=== PATIENT | female | born 1950 | race Caucasian/White ===

== ENCOUNTER 2024-01-29 22:45 | Inpatient (IN) | payer MEDICARE, MEDICAID, SELFPAY ==
[2024-01-29 22:45] VITALS: BP 155/107; PULSE 116; RESP 17; TEMP 35.7; O2SAT 95; BMI 39.4
--- NOTE | 2024-01-29 22:59 | CT_ITS ---
STUDY: CTA CHEST REASON FOR EXAM: Female, 73 years old patient with chest and back pain. RADIATION DOSAGE (If Supplied By Facility): CTDIvol = ( 26.10 ) mGy, DLP = ( 619.78 ) mGycm TECHNIQUE: The examination was performed with the intravenous administration of 100 mL of IV Isovue-370. Post-processing of the angiographic images was performed, with multiplanar reformation and 3D reconstruction. Individualized dose optimization techniques were used for this CT. COMPARISON: None. FINDINGS: Left-sided intracardiac pacemaker and defibrillator is present. Cardiac monitoring leads are present. The thyroid has multiple nodules with the largest measuring 1.6 cm in greatest dimension. Normal enhancement of the main pulmonary artery and right and left pulmonary arteries. Normal enhancement of the bilateral peripheral pulmonary arteries. There is no demonstrated pulmonary embolism. There is prominence of the main pulmonary arteries with peripheral pulmonary vascular congestion. There is atherosclerotic calcification of the aortic arch with tortuosity. There is no demonstrated aortic dissection. There is cardiomegaly. There are calcifications of the coronary arteries. Normal mediastinum. Normal hilar regions. Normal visualized trachea and bronchi. The lungs are under expanded. There is heterogeneous groundglass attenuation throughout both lungs suggesting possible multifocal pneumonia. Normal pleura. Normal chest wall structures. The bones appear osteopenic. There is increased thoracic kyphosis. Sternum is within normal limits in appearance. There is a large left-sided renal cyst measuring approximately 5.1 cm. Patient has had a cholecystectomy. CT/CTA Chest W/WO Contrast IMPRESSION: 1. No CTA demonstrated pulmonary embolism or arterial dissection. 2. Cardiomegaly and pulmonary vascular congestion. 3. Questionable bilateral multifocal pneumonia. Electronically Signed: Rayna Luevano MD at 0:17 EST ,
--- NOTE | 2024-01-29 22:59 | EKG12_ITS ---
Test Reason : CP Blood Pressure : / mmHG Vent. Rate : 098 BPM Atrial Rate : 000 BPM P-R Int : 000 ms QRS Dur : 062 ms QT Int : 308 ms P-R-T Axes : 000 022 -11 degrees QTc Int : 393 ms Atrial fibrillation with frequent ventricular-paced complexes T wave abnormality, consider inferior ischemia Abnormal ECG Confirmed by Demetrius Bai ([id number]), newspaper copy editor DANIEL FRAZIER ([id number]) on 01/30/2024 9:45:08 AM Referred By: PRACHI Confirmed By:Demetrius Bai
--- NOTE | 2024-01-29 23:01 | EDS_ITS ---
HPI History of Present Illness Chief Complaint: Chest Pain Informant: patient and EMS Onset/Context/Timing Onset: Hours (1) Activity at onset: sudden, onset and activity on onset (Light activity, just after getting out of the shower) Timing: Continuous Quality: Positive for Sharp (Somewhat pleuritic) Location: - (Diffuse chest radiating into her upper back diffusely) Current Severity: Severe Maximum Severity: Severe Worsened By: Breathing (A little/somewhat) Relieved By: Nothing (Given nitroglycerin by EMS, did not help) Associated Symptoms: Positive for Nausea and Dyspnea; Negative for Vomiting, Diaphoresis, Cough, Fever, Lightheadedness or Palpitations Narrative Narrative: 73-year-old female with chest pain as above started just about 1 hour ago. Prehospital EKG showed atrial fibrillation without acute injury pattern on my interpretation. Patient is a poor historian, indicating that her cardiac history involves a pacemaker. She does confirm that she has A-fib as well. She is anticoagulated denies any recent illness or cough or bleeding from anywhere. She denies any leg pain or swelling or orthopnea but this pain is making her feel dyspneic. [facility] Medical History Atrial fibrillation Essential hypertension HLD (hyperlipidemia) Obesity Obstructive sleep apnea Paroxysmal atrial fibrillation Sinus node dysfunction Symptomatic bradycardia Home Medications ascorbic acid (vitamin C) 1,000 mg capsule 1 g PO DAILY 06/20/22 [History Last Taken Unknown] cholecalciferol (vitamin D3) 125 mcg (5,000 unit) capsule 125 mcg PO DAILY 06/20/22 [History Last Taken Unknown] magnesium oxide 400 mg PO DAILY 06/20/22 [History Last Taken Unknown] potassium citrate 99 mg capsule 99 mg PO DAILY 06/20/22 [History Last Taken Unknown] metoprolol tartrate 50 mg tablet 50 mg PO BID #180 tabs 03/23/23 [Rx Last Taken Unknown] dofetilide 250 mcg capsule (Tikosyn) 250 mcg PO Q12H #180 caps 07/23/23 [Rx Last Taken Unknown] rivaroxaban 20 mg tablet (Xarelto) 20 mg PO QPM #90 tabs 07/23/23 [Rx Last Taken Unknown] Allergy/AdvReac Type Severity Reaction Status Date / Time aspirin AdvReac Upset Verified 01/29/24 22:46 Stomach flecainide AdvReac unknown Verified 11/14/23 11:15 Family History Mother CVA (cerebral vascular accident) Father Heart disease Surgical History History of permanent cardiac pacemaker placement (06/21/21) Social History household members: none Smoking Status: Never smoker alcohol intake: current alcohol intake frequency: holidays/special occasions only substance use type: does not use ROS ROS ED Constitutional Constitutional ED: Denies chills or fever(s) Eyes Eyes: Denies change in vision or diplopia ENT ENT ED: Denies rhinorrhea or sore throat Cardiovascular Cardiovascular: Reports chest pain; Denies palpitations Respiratory/Chest Respiratory/Chest: Reports dyspnea; Denies cough Gastrointestinal Gastrointestinal: Reports nausea; Denies abdominal pain, diarrhea or vomiting Genitourinary Genitourinary ED: Denies dysuria or hematuria Musculoskeletal Musculoskeletal: Reports back pain; Denies neck pain Integumentary Denies abscess or rash Neurologic Neurologic: Denies headache(s), paresthesias or weakness Psychiatric Psychiatric: Denies suicidal ideation or suicidal thoughts EXAM Physical Exam Const Vital Signs: 01/29/24 22:45 01/29/24 22:45 01/29/24 23:09 Temperature 96.3 F L Temperature Source Temporal Pulse Rate 116 H Respiratory Rate 17 Respiratory Effort Normal Non-Labored Blood Pressure 155/107 H Blood Pressure Mean 123 Pulse Ox 95 98 Oxygen Delivery Method Room Air Nasal Cannula Oxygen Flow Rate (L/min) 2 01/29/24 23:45 01/30/24 00:45 01/30/24 01:05 Temperature Temperature Source Pulse Rate 120 H 18 L 118 H Respiratory Rate 18 18 17 Respiratory Effort Blood Pressure 167/109 H 138/116 H 143/99 H Blood Pressure Mean 128 123 113 Pulse Ox 98 97 97 Oxygen Delivery Method Room Air Room Air Room Air Oxygen Flow Rate (L/min) Positive well nourished, well developed and obese General Appearance ED: well developed and NAD Nutritional Appearance: obese HEENT Reports moist mucous membranes normocephalic and atraumatic Eyes PERRL and EOMs intact bilaterally Neck full ROM and supple Chest Wall inspection of chest normal and palpation of chest normal Resp normal respiratory effort and clear to auscultation bilaterally Cardio no murmurs Rate: Negative for tachycardic Rhythm: abnormal rhythm irregularly irregular Peripheral Pulses: pulses 2+ throughout GI non-tender and non-distended GI Narrative: Negative Rockwell Auscultation: normoactive bowel sounds Palpation: soft Back/Spine no CVA tenderness General Back: other FROM Extremity normal to inspection Extremity Narrative: No calf tenderness bilaterally General Extremety ED: Negative for edema, pulses abnormal or tenderness General Extremity: Negative for edema or pulses abnormal Neuro oriented x3, CN's II-XII intact bilaterally and no sensory deficits noted Sensorium / Orientation: awake and alert Motor Exam: strength 5/5 throughout Psych Psych Narrative: Very anxious, moaning in pain, uncomfortable but in no distress Skin no rashes or lesions noted and no wounds Heart Score History: Moderately Suspicious ECG: Nonspecific Repolarization Age: >/= 65 years Risk Factors: 1 or 2 Risk Factors Score: 5 MDM MDM MDM Narrative Medical decision making narrative: Patient was very hypertensive 180/112 per EMS, not quite that hypertensive here but this is after nitroglycerin. With sharp somewhat pleuritic discomfort anticoagulated radiating into the back, my concern for the worst case scenario given how uncomfortable the patient is, is for aortic dissection. For this reason, I chose to perform CT angiography of the chest in lieu of a chest x-ray, and in addition gave her morphine, Zofran for her pain. Her EKG shows no acute injury pattern, there are some nonspecific abnormalities that are mostly visible in 3 and aVF. Her initial troponin is within normal limits and the rest of her labs are noted. The CTA is negative for dissection, it showing some bilateral patchy edema which appears nonspecific, I reviewed the images and report which I agree with. There is a question raised about the possibility of pneumonia here. This does not fit the clinical picture. She has had no coughing. Her BNP is in the 200s which is not very high but abnormal. Clinically she does not seem to be in acute congestive heart failure, but there is concern for this, especially given the very high pressures that she had for EMS prior to getting nitroglycerin. In reviewing the system for prior echocardiogram, she had one in 2020 at [facility], there are no records of anything since then. She had normal EF and mildly decreased right ventricular systolic function. I think given all the symptoms although her troponin is negative she should be admitted for further testing and evaluation. History & Record Review Additional record(s) reviewed:: Prior outpatient record (Cardiology visit, labs which there are none; echo) Lab Data Attestation: I reviewed the patient's lab results. Labs: Laboratory Results - last 24 hr 01/29/24 22:25 WBC 7.4 RBC 4.44 Hgb 13.5 Hct 40.4 MCV 91.0 MCH 30.4 MCHC 33.4 RDW Std Deviation 46.0 H RDW Coeff of Chantell 13.8 Plt Count 210 MPV 10.0 Immature Gran % (Auto) 0.100 Neut % (Auto) 29.0 L Lymph % (Auto) 58.7 H [place] % (Auto) 9.1 Eos % (Auto) 2.7 Baso % (Auto) 0.4 Absolute Neuts (auto) 2.2 Absolute Lymphs (auto) 4.37 Nucleated RBC % 0 Sodium 140 Potassium 3.6 Chloride 107 Carbon Dioxide 25.0 Anion Gap 8 BUN 33 H Creatinine 1.02 Estim Creat Clear Calc 48.81 Est GFR (MDRD) Af Amer 68 Est GFR (MDRD) Non-Af 56 L BUN/Creatinine Ratio 32.4 H Glucose 134 H Calcium 9.3 Troponin I High Sens 23 B-Natriuretic Peptide 226.5 H Radiography Diagnostic Testing: Clinical Impression(s) from Imaging Studies Chest CTA 01/29/24 22:59 IMPRESSION: 1. No CTA demonstrated pulmonary embolism or arterial dissection. 2. Cardiomegaly and pulmonary vascular congestion. 3. Questionable bilateral multifocal pneumonia. Electronically Signed: Rayna Luevano MD at 0:17 EST Reading Location ID and State: [address] [place] [address] , Service support , Rhythm Strip Rhythm Strip: A-fib Rate: 98 Ectopy: None EKG Initial EKG: Attestation: I personally reviewed and interpreted this EKG as follows: Interpretation: No Acute Injury Pattern, Atrial Fibrillation and Non- Specific ST Changes Prior EKG tracings: available for review Prior: Unchanged Management Discussion w/another healthcare provider: Hospitalist Discharge Plan Dx/Rx/DC Orders Clinical Impression: Chest pain, Accelerated hypertension, Atrial fibrillation Disposition Disposition: Acute Care Hospital [facility] [place] [facility]
[2024-01-29] MEDS: Ondansetron 4 MG/2 ML Vial IV (23:08)
[2024-01-29] MEDS: Morphine 4 MG/ML Syringe IV (23:08)
[2024-01-29 23:09] VITALS: O2SAT 98
[2024-01-29 23:09] LABS: Absolute Lymphocyte Count 4.37 X10^3/uL (0.83-4.51); Absolute Neutrophil Count 2.2 X10^3/uL (2.0-7.7); Basophil# 0.03 X10^3/uL; Basophil% 0.4 % (0-1); Eosinophils% 2.7 % (0-5); Hematocrit 40.4 % (37-47); Hemoglobin 13.5 g/dL (12.0-15.0); Lymphocyte # 4.37 X10^3/ul (0.83-4.51); Lymphocyte % 58.7 % (19-41); Mean Corp Hgb Conc 33.4 g/dL (32-36); Mean Corpuscular Hgb 30.4 pg (27.0-32.0); Monocyte# 0.68 X10^3/uL; Monocyte% 9.1 % (0-10); NRBC Flagged by Analyzer 0 % (0-5); Neutrophil # 2.15 X10^3/uL (2.7-7.7); Platelet Count 210 K/mm3 (150-450); RBC Distribution Width CV 13.8 % (11.6-14.6); Red Blood Count 4.44 M/mm3 (4.2-5.4); White Blood Count 7.4 K/mm3 (4.4-11.0)
[2024-01-29 23:34] LABS: BNP,B-Type NATRIURETIC PEPTIDE 226.5 pg/mL (0-100)
[2024-01-29 23:37] LABS: Anion Gap 8 (5-15); BUN 33 mg/dL (7-18); BUN/Creat Ratio 32.4 RATIO (10-20); Calcium,Total 9.3 mg/dL (8.5-10.1); Chloride 107 mmol/L (98-107); Creatinine, Serum 1.02 mg/dL (0.55-1.02); EST Glomerular Filtration Rate 56 mL/min (>60); Est Glom Filt Rate - Afr Amer 68 mL/min (>60); Estimated Creatinine Clearance 48.81 ml/min; Glucose 134 mg/dL (74-106); Potassium 3.6 mmol/L (3.5-5.1); Sodium Level 140 mmol/L (136-145); Troponin-I HS (w/2H Reflex) 23 pg/mL (3.0-54.0)
[2024-01-29 23:45] VITALS: BP 167/109; PULSE 120; RESP 18; O2SAT 98
[2024-01-30] VITALS (35 sets, daily range): BP systolic 81–145; BP diastolic 59–116; PULSE 18–118; RESP 14–23; TEMP 35.8–36.8; O2SAT 92–98; BMI 35.6
[2024-01-30 01:06] LABS: Reflex Troponin-HS? (from REC) Y
[2024-01-30] MEDS: Metoclopramide 10 MG/2 ML Vial 2.5 MG IV (01:18)
[2024-01-30] MEDS: Furosemide 20 MG/2 ML VIAL IV (01:19)
--- NOTE | 2024-01-30 01:43 | HP.PCM.HOS_ITS ---
HPI - General General Date of Admission: 01/30/24 Date of Service: 01/30/24 Chief Complaint: Chest pain, dyspnea. HPI Narrative The patient is a 73 y/o F w/ PMHx: Obesity, HTN, HLD, QUENTIN, Symptomatic bradycardia/Sinus node dysfunction s/p pacemaker placement, PAF who presents to the [facility] ED on 01/30/24 with history of onset of chest discomfort noted to come on suddenly approximately 1 hour prior to to ED arrival with light activity specifically when she just been getting out of the shower noted to be continuous, somewhat pleuritic and sharp in nature although diffuse and radiating up into her upper back with nausea, dyspnea with no emesis or diaphoresis prompting eventual ED evaluation. Patient denies any marked recent weight gain, orthopnea, lower extremity swelling. She notes at its worst at the beginning her chest discomfort was rated 10 out of 10 in severity and is now down to 5-6 out of 10 in severity. She is laying completely flat in the ED bed and does not appear severely uncomfortable. Workup in the ED included T96.3, heart rate initially 116, BP 155/107, respiratory rate 18, 98% on room air, CBC with WBC 7.4, N1 13.5, platelet 210 without marked shift, BMP with BUN/1 and 33/1.02, glucose 134, BNP 226.5, initial troponin 23, chest CTA with no PE or arterial dissection, cardiomegaly and pulmonary vascular congestion with questionable bilateral multifocal pneumonia, EKG with atrial fibrillation with no acute evidence of ischemia. In the ED patient ministered Lasix 20 mg IV x 1, metoclopramide 2.5 mg IV x 1, morphine 4 mg IV x 1, Zofran 4 mg IV x 1. [facility] Medical History Atrial fibrillation Essential hypertension HLD (hyperlipidemia) Obesity Obstructive sleep apnea Paroxysmal atrial fibrillation Sinus node dysfunction Symptomatic bradycardia Home Medications ascorbic acid (vitamin C) 1,000 mg capsule 1 g PO DAILY 06/20/22 [History Last Taken Unknown] cholecalciferol (vitamin D3) 125 mcg (5,000 unit) capsule 125 mcg PO DAILY 06/20/22 [History Last Taken Unknown] magnesium oxide 400 mg PO DAILY 06/20/22 [History Last Taken Unknown] potassium citrate 99 mg capsule 99 mg PO DAILY 06/20/22 [History Last Taken Unknown] metoprolol tartrate 50 mg tablet 50 mg PO BID #180 tabs 03/23/23 [Rx Last Taken Unknown] dofetilide 250 mcg capsule (Tikosyn) 250 mcg PO Q12H #180 caps 07/23/23 [Rx Last Taken Unknown] rivaroxaban 20 mg tablet (Xarelto) 20 mg PO QPM #90 tabs 07/23/23 [Rx Last Taken Unknown] Allergy/AdvReac Type Severity Reaction Status Date / Time aspirin AdvReac Upset Verified 01/29/24 22:46 Stomach flecainide AdvReac unknown Verified 11/14/23 11:15 Family History Mother CVA (cerebral vascular accident) Father Heart disease Surgical History History of permanent cardiac pacemaker placement (06/21/21) Social History household members: none Smoking Status: Never smoker alcohol intake: current alcohol intake frequency: holidays/special occasions only substance use type: does not use ROS ROS Narrative Admission Review of Systems: CONSTITUTIONAL: No weight loss, fever, chills, + weakness or fatigue. HEENT: Eyes: No visual loss, blurred vision, double vision or yellow sclerae. Ears, Nose, Throat: No hearing loss, sneezing, congestion, runny nose or sore throat. SKIN: No rash or itching, lesions, wounds. CARDIOVASCULAR: + Chest pain, palpitations, chronic bilateral lower extremity not markedly pitting edema. No orthopnea, syncopal events. RESPIRATORY: + Dyspnea. No cough or sputum, wheezing, hemoptysis. GASTROINTESTINAL: No anorexia, nausea, vomiting or diarrhea, abdominal pain, melena, BRBPR. GENITOURINARY: No dysuria, frequency, urgency or retention. NEUROLOGICAL: No headache, dizziness, syncope, paralysis, ataxia, numbness or tingling in the extremities, focal weakness, change in bowel or bladder control, seizure. MUSCULOSKELETAL:+ muscle, back pain, joint pain or stiffness. HEMATOLOGIC: No anemia, bleeding or bruising. LYMPHATICS: No enlarged nodes. No history of splenectomy. PSYCHIATRIC: No history of depression or anxiety. ENDOCRINOLOGIC: No reports of sweating, cold or heat intolerance. No polyuria or polydipsia. ALLERGIES: No history of asthma, hives, eczema or rhinitis. Vital Signs Vital Signs Vital Signs: 01/29/24 22:45 01/29/24 22:45 01/29/24 23:09 Temperature 96.3 F L Temperature Source Temporal Pulse Rate 116 H Respiratory Rate 17 Respiratory Effort Normal Non-Labored Blood Pressure 155/107 H Blood Pressure Mean 123 Pulse Ox 95 98 Oxygen Delivery Method Room Air Nasal Cannula Oxygen Flow Rate (L/min) 2 01/29/24 23:45 01/30/24 00:45 01/30/24 01:05 Temperature Temperature Source Pulse Rate 120 H 18 L 118 H Respiratory Rate 18 18 17 Respiratory Effort Blood Pressure 167/109 H 138/116 H 143/99 H Blood Pressure Mean 128 123 113 Pulse Ox 98 97 97 Oxygen Delivery Method Room Air Room Air Room Air Oxygen Flow Rate (L/min) Weight Weight: 201 lb 11.567 oz Body Mass Index (BMI) 39.4 Physical Exam Narrative Physical Examination: General: Awake, alert, oriented x 3 and cooperative, laying in the ED bed, fatigued appearing, notes discomfort is improved to 5-6 out of 10 in severity. Skin: Normal color, normal turgor, no icterus, no cyanosis. HEENT: AT/NC, EOMI, PERRLA, mildly dry MM, no carotid bruits, despite presentation no marked JVD noted however thickened neck makes evaluation difficult. Lungs: Diminished, greater bases, no evidence of any distress, very distant Rales bases, no rhonchi or wheezing. Heart: Irregular regular; no gallop, rub audible. Abdomen: Soft, obese, NTTP, ND, distant BS, no appreciated HSM Extremities: No cyanosis, no clubbing, mild ankle to distal [place] not markedly pitting edema. Neurological: Patient awake, alert, oriented as noted, cognitive function intact; pupils equally reactive to light and accommodation, cranial nerves grossly normal, moving all 4 extremities, no focal deficits, strength moderately to severely globally decreased secondary to acute presentation complaints. Psychiatric: Affect appears flat, fatigued, no acute evidence of depressive or anxiety feelings. Results Lab / Micro Data 01/29/24 22:25 01/29/24 22:25 Labs: Laboratory Results - last 24 hr 01/29/24 22:25: WBC 7.4, RBC 4.44, Hgb 13.5, Hct 40.4, MCV 91.0, MCH 30.4, MCHC 33.4, RDW Std Deviation 46.0 H, RDW Coeff of Chantell 13.8, Plt Count 210, MPV 10.0, Immature Gran % (Auto) 0.100, Neut % (Auto) 29.0 L, Lymph % (Auto) 58.7 H, [place] % (Auto) 9.1, Eos % (Auto) 2.7, Baso % (Auto) 0.4, Absolute Neuts (auto) 2.2, Absolute Lymphs (auto) 4.37, Nucleated RBC % 0, Sodium 140, Potassium 3.6, Chloride 107, Carbon Dioxide 25.0, Anion Gap 8, BUN 33 H, Creatinine 1.02, Estim Creat Clear Calc 48.81, Est GFR (MDRD) Af Amer 68, Est GFR (MDRD) Non-Af 56 L, BUN/Creatinine Ratio 32.4 H, Glucose 134 H, Calcium 9.3, Troponin I High Sens 23, B-Natriuretic Peptide 226.5 H Rhythm Strip Rhythm Strip: A-fib Rate: 98 Ectopy: None Imaging Radiology Impression Chest CTA 01/29/24 22:59 IMPRESSION: 1. No CTA demonstrated pulmonary embolism or arterial dissection. 2. Cardiomegaly and pulmonary vascular congestion. 3. Questionable bilateral multifocal pneumonia. Electronically Signed: Rayna Luevano MD at 0:17 EST Reading Location ID and State: [address] [place] [address] , Service support , Assessment & Plan Assessment/Plan (1) Chest pain: PLAN: Plan The patient is a 73 y/o F w/ PMHx: Obesity, HTN, HLD, QUENTIN, Symptomatic bradycardia/Sinus node dysfunction s/p pacemaker placement, PAF who presents to the [facility] ED on 01/30/24 with history of onset of chest discomfort noted to come on suddenly approximately 1 hour prior to to ED arrival with light activity specifically when she just been getting out of the shower noted to be continuous, somewhat pleuritic and sharp in nature although diffuse and radiating up into her upper back with nausea, dyspnea with no emesis or diaphoresis prompting eventual ED evaluation. Patient denies any marked recent weight gain, orthopnea, lower extremity swelling. #1. Paroxsymal atrial fibrillation w/ RVR with associated volume overload/HF unclear type secondary to ongoing RVR with associated also accelerated hypertension: EKG in ED w/ atrial fibrillation w/ RVR. Patient administered Lasix 20 mg IV x 1 in ED. Will admit to PCU, maintain on telemetry, obtain cardiac enzyme serial set, obtain magnesium level, obtain ECHO, obtain TSH level. Will continue patient home Xarelto, metoprolol with dose now, dofetilide regimen with dose now. Will continue pulse dose Lasix diuresis. If necessary may also consider transitioning patient from metoprolol and overlapping with Cardizem drip. If ongoing issues with RVR may consider cardiology consultation. Device interrogation requested. #2. Hyperglycemia, mild: Admission glucose 134, if repeat CMP in a.m. with elevation may consider hemoglobin A1c to further assess. #3. Hypertension: Will continue patient home metoprolol regimen, as needed IV hydralazine. #4. Hyperlipidemia: Currently not on statin therapy, defer to outpatient, FLP in AM. #5. PAF: Will continue patient home dofetilide and Xarelto home regimen. #6. History sinus node dysfunction/symptomatic bradycardia: Status post permanent pacemaker placement. Interrogation requested. #7. Obesity: Weight loss and lifestyle changes encouraged. #8. QUENTIN: CPAP nightly #9. DVT prophylaxis: Will continue patient home Xarelto regimen. #10. CODE status: Patient HCPOA and living will are not in place but she notes her son Eladio would be her decision maker if necessary. Discussed CODE status at length including difference between FULL code, DNR-CCA and DNR-CC status. Following discussions about the differences in these status, requested Full Code status. Advanced Care Planning Face to Face Time: 16 minutes. Charges/Coding Visit Charges Inpatient E&M: 87764 Init Hosp L3 Procedures Hospitalists Procedures: 82172 Advncd Care Plan 30 Min
[2024-01-30 02:18] LABS: Magnesium 2.2 mg/dL (1.6-2.6)
--- NOTE | 2024-01-30 02:25 | ECHOD_ITS ---
Reason For Study: ATRIAL FIBRILLATION/ATRIAL FLUTTER Procedure This was a 2D Doppler, Color Flow transthoracic echocardiogram. Exam performed portable in ICU/CCU. Left Ventricle Normal size and thickness. The left ventricular ejection fraction is 40 %. Stage 3 diastolic dysfunction. Right Ventricle Normal right ventricle. There is a pacemaker lead in the right ventricle. Atria The left atrium is moderately enlarged. ICD or pacer leads identified within the right atrium. Mitral Valve There is Moderate focal posterior mitral annular calcification. Trivial mitral valve insufficiency. Tricuspid Valve Mild to moderate (1-2+) eccentric tricuspid valve insufficiency. Right ventricular systolic pressure estimated to be 46 mmHg. Aortic Valve Trisinus/trileaflet aortic valve. Pulmonic Valve The pulmonic valve is not well visualized. Trivial pulmonic valve insufficiency. Great Vessels Normal sized aortic root. Pericardium/Pleural No pericardial effusion. MMode/2D Measurements & Calculations LVIDd: 3.9 cm IVSd: 1.1 cm Ao root diam: 3.2 cm LVIDs: 2.8 cm LVPWd: 1.0 cm FS: 28.9 % LAV(MOD-bp): 79.1 ml LVAd ap4: 19.7 cm2 SV(MOD-sp4): 18.6 ml LAV(MOD-bp) Indexed: 42.2 ml/m2 LVLd ap4: 6.6 cm LAV(MOD-sp2): 75.6 ml EDV(MOD-sp4): 48.0 ml LAV(MOD-sp4): 75.4 ml EDV(sp4-el): 50.4 ml LVAs ap4: 15.2 cm2 LVLs ap4: 6.4 cm ESV(MOD-sp4): 29.4 ml ESV(sp4-el): 30.6 ml EF(MOD-sp4): 38.8 % EF(sp4-el): 39.3 % SV(sp4-el): 19.8 ml LA A4 area: 24.3 cm2 LA dimension(2D): 3.9 cm RA A4 area: 10.5 cm2 TAPSE: 1.7 cm Time Measurements MV dec time: 0.15 sec Doppler Measurements & Calculations MV E max placido: 79.4 cm/sec Lat Peak E' Placido: 8.7 cm/sec Med Peak E' Placido: 6.9 cm/sec MV A max placido: 34.2 cm/sec E/E' lat: 9.1 E/E' med: 11.6 MV E/A: 2.3 Ao V2 max: 136.9 cm/sec LV V1 max: 92.4 cm/sec MV dec slope: 538.2 cm/sec2 Ao max P.6 mmHg LV V1 max P.4 mmHg Ao V2 mean: 96.3 cm/sec LV V1 mean P.0 mmHg Ao mean P.2 mmHg LV V1 mean: 67.7 cm/sec Ao V2 VTI: 24.0 cm LV V1 VTI: 18.2 cm AV (velocity ratio): 0.76 MR max placido: 324.7 cm/sec PA V2 max: 74.3 cm/sec TR max placido: 322.1 cm/sec MR max P.2 mmHg PA V2 mean: 44.5 cm/sec TR max P.5 mmHg MR mean placido: 277.1 cm/sec MR mean P.6 mmHg MR VTI: 109.7 cm ECHO/Echo Complete Interpretation Summary There is a large sized apical, septal, and anteroseptal wall motion abnormality with hypokinesis of the segments. The left ventricular ejection fraction is 40 %. Stage 3 diastolic dysfunction. The left atrium is moderately enlarged. There is Moderate focal posterior mitral annular calcification. Mild to moderate (1-2+) eccentric tricuspid valve insufficiency. Right ventricular systolic pressure estimated to be 46 mmHg. Ordering Physician: Bing Ruth Referring Physician: Milli Man Performed By: Adalgisa Limon, CARLOS, RVT
[2024-01-30 02:29] LABS: Troponin-I HS 1581 pg/mL (3.0-54.0)
[2024-01-30] MEDS: Aspirin 325 MG Tablet PO (03:13)
[2024-01-30] MEDS: Metoprolol Tartrate 50 MG Tablet PO ×3 (03:13→15:25)
--- NOTE | 2024-01-30 03:39 | EKG12_ITS ---
Test Reason : CP admit Blood Pressure : / mmHG Vent. Rate : 109 BPM Atrial Rate : 000 BPM P-R Int : 000 ms QRS Dur : 076 ms QT Int : 356 ms P-R-T Axes : 000 061 005 degrees QTc Int : 479 ms Atrial fibrillation with rapid ventricular response with premature ventricular or aberrantly conducte d complexes Low voltage QRS Lateral ischemic nonspecific ST changes Abnormal ECG Confirmed by Demetrius Bai ([id number]), school photograph editor DANIEL FRAZIER ([id number]) on 01/30/2024 1:34:39 PM Referred By: Faraz Confirmed By:Demetrius Bai
[2024-01-30 04:28] LABS: Absolute Lymphocyte Count 0.68 X10^3/uL (0.83-4.51); Absolute Neutrophil Count 6.4 X10^3/uL (2.0-7.7); Basophil# 0.02 X10^3/uL; Basophil% 0.3 % (0-1); Eosinophil# 0.02 X10^3/uL; Eosinophils% 0.3 % (0-5); Hematocrit 42.3 % (37-47); Hemoglobin 13.8 g/dL (12.0-15.0); Lymphocyte # 0.68 X10^3/ul (0.83-4.51); Lymphocyte % 9.1 % (19-41); Mean Corp Hgb Conc 32.6 g/dL (32-36); Mean Corpuscular Hgb 30.1 pg (27.0-32.0); Mean Corpuscular Volume 92.2 fL (81-99); Mean Platelet Vol. 8.9 fl (6.2-12.0); Monocyte# 0.29 X10^3/uL; Monocyte% 3.9 % (0-10); NRBC Flagged by Analyzer 0 % (0-5); Neutrophil # 6.44 X10^3/uL (2.7-7.7); Neutrophil % 85.9 % (47-70); Platelet Count 186 K/mm3 (150-450); RBC Distribution Width CV 13.8 % (11.6-14.6); RBC Distribution Width SD 46.5 fl (35.1-43.9); Red Blood Count 4.59 M/mm3 (4.2-5.4); White Blood Count 7.5 K/mm3 (4.4-11.0)
[2024-01-30 04:38] LABS: Partial Thromboplast Time 27.1 Seconds (24.1-36.2)
[2024-01-30 04:55] LABS: ALB/GLOB Ratio 1.1 RATIO (0.9-2.4); AST(SGOT) 93 U/L (15-37); Alanine Aminotransfer ALT/SGPT 31 U/L (13-56); Albumin, Serum 3.9 g/dL (3.2-5.0); Alkaline Phosphatase 96 U/L (45-117); Anion Gap 9 (5-15); BUN 29 mg/dL (7-18); BUN/Creat Ratio 24.2 RATIO (10-20); Calcium,Total 8.9 mg/dL (8.5-10.1); Chloride 103 mmol/L (98-107); EST Glomerular Filtration Rate 47 mL/min (>60); Est Glom Filt Rate - Afr Amer 56 mL/min (>60); Estimated Creatinine Clearance 40.88 ml/min; Globulin 3.7 g/dL (2.2-4.2); Glucose 178 mg/dL (74-106); Potassium 4.2 mmol/L (3.5-5.1); Protein, Total 7.6 g/dL (6.4-8.2); Sodium Level 140 mmol/L (136-145); Thyroid Stim Hormone (TSH) 1.21 uIU/mL (0.358-3.74)
[2024-01-30 04:58] LABS: Troponin-I HS 8805 pg/mL (3.0-54.0)
[2024-01-30] MEDS: Morphine 2 MG/ML Syringe IV ×3 (05:57→20:28)
[2024-01-30] MEDS: 0.9% Saline Lock 10 ML Syringe IV (05:57)
--- NOTE | 2024-01-30 08:55 | CON.PCM.CA_ITS ---
Assessment & Plan Assessment/Plan (1) Paroxysmal atrial fibrillation: PLAN: Historically the patient has been in atrial fibrillation 32% of the time on her last pacer check. This will be reevaluated today to see when she went into this atrial fibs. Currently her rate is not well-controlled we will increase her Lopressor to 50 mg 3 times daily and continue the dofetilide. The patient is on long-term Xarelto which she has been tolerating without nuisance bleeding. (2) History of permanent cardiac pacemaker placement: PLAN: The patient's pacer will be interrogated it has been followed in the [facility]. Historically she has been 32% of the time in atrial fibrillation. (3) Non-STEMI (non-ST elevated myocardial infarction): PLAN: The patient presented with atrial fibrillation the emergency department and hypertension with a heart rate in the 100-120 range. She also had a CTA that suggested either pneumonia or congestion and her BNP was minimally elevated at 226 which could be explained by her atrial fibrillation and obesity and obstructive sleep apnea. She is also hypertensive. However the patient's troponins were positive at 1581 on the second set were 8825. Given her chest sensations in the nonevolving ischemic looking EKG I feel this represents a non- STEMI. However, her creatinine has gone up from 1.0-1.2 with a dye exposure from the CTA and she received Xarelto yesterday. At this point time I would prefer to defer invasive coronary evaluation for 24 hours and we will treat her with IV heparin increase her beta-blockade to slow her heart rate and manage her conservatively. An echocardiogram is being performed if this shows significant wall motion abnormality we may have to reevaluate taken her to the [facility] earlier. (4) Accelerated hypertension: PLAN: The patient's blood pressure is better controlled and with the addition of the added Lopressor should be of some assistance. (5) Renal insufficiency: PLAN: Patient's creatinine increased after dye exposure yesterday for the CTA. Will reevaluate her basic metabolic panel in the morning and would like to try and defer further contrast exposure for 24 to 48 hours if possible. PLAN: Plan 1. Improve rate control by adding additional Lopressor making it 50 mg 3 times daily. 2. Will defer catheterization for 24 hours and reevaluate renal function. Should the patient have persistent chest symptoms we may have to reevaluate this and proceed with left heart catheterization urgently. 3. Follow-up echo and pacer check. HPI Consult Data Date of Consult: 01/30/24 HPI Narrative Reason for Consultation: A.fib with RVR and chest pain HPI Narrative: AGUILAR HILL, is a 73 F who presents presents with atrial fibrillation with rapid ventricular response. She carries a history of paroxysmal atrial fibrillation sick sinus syndrome hypertension obstructive sleep apnea and hyperlipidemia. She does not carry a history of coronary artery disease but her CTA done last night to rule out a pulmonary embolus showed calcified coronaries. There is also question of pneumonia versus congestion. Her BNP was elevated at 226 but she is also in atrial fibs. She is also obese and has obstructive sleep apnea. Her creatinine originally was 1.0 and after the CTA this morning it was up to 1.2. Giving creatinine clearance of 47. The CTA did not demonstrate any aortic dissection or pulmonary emboli. The patient does note that the pain seemed to change with respiration at 1 time she tells me it makes it worse the other times she says it is worse when she does not take of breath. The patient notes at home in the past when her heart rate gets up she can tell it because she is very fatigued. She denies having this type of chest discomfort prior to this admission. The patient continues to complain of chest discomfort it seems to correlate with her rapid ventricular rate when it is up and she reports it is much better than it was last night but it is still present. Her EKG repeated this morning shows an irregular rate and rhythm she is tachycardic at 109 she has some nonspecific ST-T changes that do look somewhat ischemic in the lateral leads. These are not evolving and are unchanged from yesterday. The patient has a permanent pacemaker in place done at [facility] for sick sinus syndrome. She has been followed in the [facility] office for atrial fibrillation and has on her last check 32% high atrial rates. She has failed Tikosyn due to side effects and is currently on dofetilide 250 mg twice daily. She is also on beta-annabel therapy but her heart rate remains in the 100-110 range. At times it jumps up in the 1 4150 range. The patient has been on long-term Xarelto and denies any nuisance bleeding. Since admission her Xarelto has been held she is to start heparin later today. She has received metoprolol 50 mg this will be increased from tw ice daily to 3 times daily dosing regiment for rate control. The patient was last cardioverted in April 2023. But since that point in time she has been in and out of atrial fibs on her pacer checks averaging about 32% of the time and atrial fibs. An echocardiogram is pending at this time. [facility] Medical History Atrial fibrillation Essential hypertension HLD (hyperlipidemia) Obesity Obstructive sleep apnea Paroxysmal atrial fibrillation Sinus node dysfunction Symptomatic bradycardia Home Medications ascorbic acid (vitamin C) 1,000 mg capsule 1 g PO DAILY . 06/20/22 [History Last Taken Unknown] cholecalciferol (vitamin D3) 125 mcg (5,000 unit) capsule 125 mcg PO DAILY . 06/20/22 [History Last Taken Unknown] magnesium oxide 400 mg PO DAILY . 06/20/22 [History Last Taken Unknown] potassium citrate 99 mg capsule 99 mg PO DAILY 06/20/22 [History Last Taken Unknown] metoprolol tartrate 50 mg tablet 50 mg PO BID #180 tabs 03/23/23 [Rx Last Taken 01/29/24] dofetilide 250 mcg capsule (Tikosyn) 250 mcg PO Q12H #180 caps 07/23/23 [Rx Last Taken 01/29/24] rivaroxaban 20 mg tablet (Xarelto) 20 mg PO QPM #90 tabs 07/23/23 [Rx Last Taken Unknown] Allergy/AdvReac Type Severity Reaction Status Date / Time aspirin AdvReac Upset Verified 01/29/24 22:46 Stomach flecainide AdvReac unknown Verified 11/14/23 11:15 Family History Mother CVA (cerebral vascular accident) Father Heart disease Surgical History History of permanent cardiac pacemaker placement (06/21/21) Social History household members: none Smoking Status: Never smoker alcohol intake: current alcohol intake frequency: holidays/special occasions only substance use type: does not use ROS Constitutional Constitutional: Reports as per HPI Eyes Eyes: Reports systems reviewed and no addt'l complaints, except as documented ENT HEENT: Reports systems reviewed and no addt'l complaints, except as documented Cardiovascular Cardiovascular: Reports as per HPI Respiratory/Chest Respiratory/Chest: Reports as per HPI Gastrointestinal Gastrointestinal: Reports systems reviewed and no addt'l complaints, except as documented Genitourinary Genitourinary: Reports systems reviewed and no addt'l complaints, except as documented Musculoskeletal Musculoskeletal: Reports systems reviewed and no addt'l complaints, except as documented Integumentary Integumentary: Reports systems reviewed and no addt'l complaints, except as documented Neurologic Neurologic: Reports systems reviewed and no addt'l complaints, except as documented Psychiatric Psychiatric: Reports systems reviewed and no addt'l complaints, except as documented Endocrine Endocrinology: Reports systems reviewed and no addt'l complaints, except as documented Hematologic/Lymphatic Hematologic/Lymphatic: Reports systems reviewed and no addt'l complaints, except as documented Allergic/Immunologic Allergic/Immunologic: Reports systems reviewed and no addt'l complaints, except as documented Physical Exam Const oriented x3 Constitutional Narrative: Appears uncomfortable lying in the bed. HEENT normocephalic Eyes EOMs intact bilaterally Neck no JVD and no carotid bruits Chest inspection of chest normal Resp normal respiratory effort Auscultation: crackles bilateral lower Cardio Rate: tachycardic Rhythm: abnormal rhythm irregularly irregular Heart Sounds: S1 normal and S2 normal; Negative for click, gallop or murmur Peripheral Pulses: radial pulses present bilateral 2+, femoral pulses present bilateral 1+ and posterior tibial pulses present bilateral diminished GI normal to inspection, nondistended, normoactive bowel sounds Extremity no pedal edema Extremity Narrative: Thick ankles but no definitive edema. Skin no rashes or lesions noted Neuro Neuro Narrative: Awake and oriented. Psych mental status grossly normal Risk Stratification Risk Stratification Applicable: Yes Age >/= 65: Yes >/= 3 CAD Risk Factors (HTN, HLD, DM, family hx of CAD, or current smoker): Yes Aspirin Use in the Past 7 Days: No Severe Angina (>/= episodes in 24 hours): Yes EKG ST Changes >/= 0.5mm: Yes Positive Cardiac Marker: Yes CHRIS Risk Stratification Score: 5 CHRIS % Risk: 25% Risk Charges/Coding Visit Charges Inpatient E&M: 61819 Init Hosp L3 Objective Data Vital Signs: Vital Signs Temp Pulse Resp BP Pulse Ox O2 Del Method O2 Flow Rate 98.3 F 113 H 22 H 140/109 H 96 Nasal Cannula 2 01/30/24 08:26 01/30/24 08:33 01/30/24 08:26 01/30/24 08:26 01/30/24 08:26 01/30/24 08:39 01/30/24 08:39 Oxygen Flow Rate (L/min) 2 Oxygen Delivery Method Nasal Cannula Weight: 188 lb 14.978 oz Body Mass Index (BMI) 35.6 Intake & Output: Intake and Output for Last 24 Hours 01/28/24 01/29/24 01/30/24 23:59 23:59 23:59 Intake Total 100 / 100 Output Total 800 / 800 Balance 100 / 100 -800 / -800 Lab / Micro Data Attestation: I reviewed the patient's lab results. 01/30/24 04:20 01/30/24 04:20 Labs: Laboratory Results - last 24 hr 01/29/24 22:25: WBC 7.4, RBC 4.44, Hgb 13.5, Hct 40.4, MCV 91.0, MCH 30.4, MCHC 33.4, RDW Std Deviation 46.0 H, RDW Coeff of [place] 13.8, Plt Count 210, MPV 10.0, Immature Gran % (Auto) 0.100, Neut % (Auto) 29.0 L, Lymph % (Auto) 58.7 H, [place] % (Auto) 9.1, Eos % (Auto) 2.7, Baso % (Auto) 0.4, Absolute Neuts (auto) 2.2, Absolute Lymphs (auto) 4.37, Nucleated RBC % 0, Sodium 140, Potassium 3.6, Chloride 107, Carbon Dioxide 25.0, Anion Gap 8, BUN 33 H, Creatinine 1.02, Estim Creat Clear Calc 48.81, Est GFR (MDRD) Af Amer 68, Est GFR (MDRD) Non-Af 56 L, BUN/Creatinine Ratio 32.4 H, Glucose 134 H, Calcium 9.3, Troponin I High Sens 23, B-Natriuretic Peptide 226.5 H 01/30/24 01:23: Magnesium 2.2, Troponin I High Sens 1581 H* 01/30/24 04:20: WBC 7.5, RBC 4.59, Hgb 13.8, Hct 42.3, MCV 92.2, MCH 30.1, MCHC 32.6, RDW Std Deviation 46.5 H, RDW Coeff of [place] 13.8, Plt Count 186, MPV 8.9, Immature Gran % (Auto) 0.500, Neut % (Auto) 85.9 H, Lymph % (Auto) 9.1 L, [place] % (Auto) 3.9, Eos % (Auto) 0.3, Baso % (Auto) 0.3, Absolute Neuts (auto) 6.4, Absolute Lymphs (auto) 0.68 L, Nucleated RBC % 0, APTT 27.1, Sodium 140, Potassium 4.2, Chloride 103, Carbon Dioxide 28.0, Anion Gap 9, BUN 29 H, Creatinine 1.20 H, Estim Creat Clear Calc 40.88, Est GFR (MDRD) Af Amer 56 L, Est GFR (MDRD) Non-Af 47 L, BUN/Creatinine Ratio 24.2 H, Glucose 178 H, Calcium 8.9, Total Bilirubin 0.40, AST 93 H, ALT 31, Alkaline Phosphatase 96, Troponin I High Sens 8805 H*, Total Protein 7.6, Albumin 3.9, Globulin 3.7, Albumin/Globulin Ratio 1.1, TSH 1.21 Rhythm Strip Rhythm Strip: A-fib Rate: 105 Ectopy: None Cardiology Labs/Tests 01/29/24 22:25: WBC 7.4, RBC 4.44, Hgb 13.5, Hct 40.4, MCV 91.0, MCH 30.4, MCHC 33.4, Plt Count 210, MPV 10.0, Immature Gran % (Auto) 0.100, Neut % (Auto) 29.0 L, Lymph % (Auto) 58.7 H, [place] % (Auto) 9.1, Eos % (Auto) 2.7, Baso % (Auto) 0.4, Absolute Neuts (auto) 2.2, Nucleated RBC % 0, Sodium 140, Potassium 3.6, Chloride 107, Carbon Dioxide 25.0, Anion Gap 8, BUN 33 H, Creatinine 1.02, Est GFR (MDRD) Af Amer 68, Est GFR (MDRD) Non-Af 56 L, BUN/Creatinine Ratio 32.4 H, Glucose 134 H, Calcium 9.3, B-Natriuretic Peptide 226.5 H 01/30/24 01:23: Magnesium 2.2 01/30/24 04:20: WBC 7.5, RBC 4.59, Hgb 13.8, Hct 42.3, MCV 92.2, MCH 30.1, MCHC 32.6, Plt Count 186, MPV 8.9, Immature Gran % (Auto) 0.500, Neut % (Auto) 85.9 H , Lymph % (Auto) 9.1 L, [place] % (Auto) 3.9, Eos % (Auto) 0.3, Baso % (Auto) 0.3, Absolute Neuts (auto) 6.4, Nucleated RBC % 0, APTT 27.1, Sodium 140, Potassium 4.2, Chloride 103, Carbon Dioxide 28.0, Anion Gap 9, BUN 29 H, Creatinine 1.20 H , Est GFR (MDRD) Af Amer 56 L, Est GFR (MDRD) Non-Af 47 L, BUN/Creatinine Ratio 24.2 H, Glucose 178 H, Calcium 8.9, Total Bilirubin 0.40 Rhythm: EKG: ECHO: Stress Test: Cardiac Cath: PCI: CT Surgery: Holter monitor: EPS: PPM: CXR: Chest CT Scan: Radiography Diagnostic Testing: Radiology Impression Chest CTA 01/29/24 22:59 IMPRESSION: 1. No CTA demonstrated pulmonary embolism or arterial dissection. 2. Cardiomegaly and pulmonary vascular congestion. 3. Questionable bilateral multifocal pneumonia. Electronically Signed: Rayna Luevano MD at 0:17 EST Reading Location ID and State: [address] [place] [address] , Service support , EKG Follow-up EKG: Attestation: I personally reviewed and interpreted this EKG as follows: Interpretation: Repeat ECG showed atrial fibrillation with a heart rate of 109 bpm there were no new changes from the original EKG which had nonspecific ST changes that were suggestive of lateral ischemia. There was no evolution of the ST segments.
--- NOTE | 2024-01-30 10:12 | CASEMGMT ---
KRISHNA MALIK Assessment Face to Face with patient for initial transition planning/care coordination assessment. KRISHNA MALIK introduced self and role at [facility], pt voices understanding. Pt is A&Ox4 and is resting comfortably in bed and is calm. Pt family at bedside. Care providers, pharmacy, and demographics verified. Admitting dx: PAF RVR, HF LACE Strata: 1 PCP: Magda Specialists: B[facility] Preferred Pharmacy: [facility] Insurance: [facility] [facility], Secondary is [facility] Prescription Benefit: Yes LNOK: Eladio De La Torre (Son) Living Arrangements: Pt lives alone on the 2nd floor of an apartment building with a flight of steps to access with HR. Pt states that she normally has no issues using the steps. ADLs/IADLs: Pt states she is Ind at baseline Transportation: Pt drives. Pt brother or children can drive the pt. DME: Pt is currently on O2 here for comfort. Pt denies home O2 and does not want to set up a preferred DME company at this time. Pt states that she does not have a walker or cane at home. Pt questioned if she would want a prescription for a walker and the pt declined. Pt denies all DME uses or needs at time of assessment. HHC/SNF: Denies history or needs Pt?s goal: Home Plan: TBD. Pt 6 click is 16 at this time. Pt states that she wants to DC home with no additional needs. Pt refuses HHC and OP therapy at time of assessment. Dr. Watson states that the plan is for the pt to get a heart cath today. TANYA Yates elementary assistant teacher states she will make a tertiary list for the pt incase of pt transfer. CM to follow in the case that pt DC home and will also follow for anticoagulants. Ekta Luevano RN, CM
[2024-01-30] MEDS: Dofetilide 250 MCG Capsule PO (10:41)
[2024-01-30] MEDS: Pantoprazole Sodium 20 MG Tablet PO ×2 (10:42→22:53)
[2024-01-30] MEDS: Ondansetron 4 MG/2 ML Vial IV ×2 (10:57→20:23)
--- NOTE | 2024-01-30 10:58 | CASEMGMT ---
Insurance review for hospitals In-network with?[employer] MCR insurance if transfer is recommended is as follows:?[facility], [place], [facility], [facility], [facility], [facility]), [facility], [place], and . Trudy Raza, Discharge Planning Asst.
--- NOTE | 2024-01-30 11:23 | PN.CARD_ITS ---
Subjective Subjective Patient continues to have chest discomfort this morning and echocardiogram reveals apical wall motion abnormality. Despite her heart rate being better controlled she continues to have the symptoms and has troponins of 8800. The patient and family are in the room I discussed the situation with them going over the bump in her creatinine after the CTA as well as her Xarelto medication. Given these objective evidence of LAD distribution compromise I would recommend that we proceed with left heart catheterization via the right radial approach today. Objective Data Vital Signs: Vital Signs Temp Pulse Resp BP Pulse Ox O2 Del Method O2 Flow Rate 98.3 F 113 H 22 H 140/109 H 96 Nasal Cannula 2 01/30/24 08:26 01/30/24 08:33 01/30/24 08:26 01/30/24 08:26 01/30/24 08:26 01/30/24 08:39 01/30/24 08:39 Oxygen Flow Rate (L/min) 2 Oxygen Delivery Method Nasal Cannula Weight: 188 lb 14.978 oz Body Mass Index (BMI) 35.6 Intake & Output: Intake and Output for Last 24 Hours 01/28/24 01/29/24 01/30/24 23:59 23:59 23:59 Intake Total 100 / 100 Output Total 800 / 800 Balance 100 / 100 -800 / -800 Lab / Micro Data 01/30/24 04:20 01/30/24 04:20 Labs: Laboratory Results - last 24 hr 01/29/24 22:25: WBC 7.4, RBC 4.44, Hgb 13.5, Hct 40.4, MCV 91.0, MCH 30.4, MCHC 33.4, RDW Std Deviation 46.0 H, RDW Coeff of Chantell 13.8, Plt Count 210, MPV 10.0, Immature Gran % (Auto) 0.100, Neut % (Auto) 29.0 L, Lymph % (Auto) 58.7 H, [place] % (Auto) 9.1, Eos % (Auto) 2.7, Baso % (Auto) 0.4, Absolute Neuts (auto) 2.2, Absolute Lymphs (auto) 4.37, Nucleated RBC % 0, Sodium 140, Potassium 3.6, Chloride 107, Carbon Dioxide 25.0, Anion Gap 8, BUN 33 H, Creatinine 1.02, Estim Creat Clear Calc 48.81, Est GFR (MDRD) Af Amer 68, Est GFR (MDRD) Non-Af 56 L, BUN/Creatinine Ratio 32.4 H, Glucose 134 H, Calcium 9.3, Troponin I High Sens 23, B-Natriuretic Peptide 226.5 H 01/30/24 01:23: Magnesium 2.2, Troponin I High Sens 1581 H* 01/30/24 04:20: WBC 7.5, RBC 4.59, Hgb 13.8, Hct 42.3, MCV 92.2, MCH 30.1, MCHC 32.6, RDW Std Deviation 46.5 H, RDW Coeff of Chantell 13.8, Plt Count 186, MPV 8.9, Immature Gran % (Auto) 0.500, Neut % (Auto) 85.9 H, Lymph % (Auto) 9.1 L, [place] % (Auto) 3.9, Eos % (Auto) 0.3, Baso % (Auto) 0.3, Absolute Neuts (auto) 6.4, Absolute Lymphs (auto) 0.68 L, Nucleated RBC % 0, APTT 27.1, Sodium 140, Pot assium 4.2, Chloride 103, Carbon Dioxide 28.0, Anion Gap 9, BUN 29 H, Creatinine 1.20 H, Estim Creat Clear Calc 40.88, Est GFR (MDRD) Af Amer 56 L, Est GFR (MDRD) Non-Af 47 L, BUN/Creatinine Ratio 24.2 H, Glucose 178 H, Calcium 8.9, Total Bilirubin 0.40, AST 93 H, ALT 31, Alkaline Phosphatase 96, Troponin I High Sens 8805 H*, Total Protein 7.6, Albumin 3.9, Globulin 3.7, Albumin/Globulin Ratio 1.1, TSH 1.21 Rhythm Strip Rhythm Strip: A-fib Rate: 105 Ectopy: None Cardiology Labs/Tests 01/29/24 22:25: WBC 7.4, RBC 4.44, Hgb 13.5, Hct 40.4, MCV 91.0, MCH 30.4, MCHC 33.4, Plt Count 210, MPV 10.0, Immature Gran % (Auto) 0.100, Neut % (Auto) 29.0 L, Lymph % (Auto) 58.7 H, [place] % (Auto) 9.1, Eos % (Auto) 2.7, Baso % (Auto) 0.4, Absolute Neuts (auto) 2.2, Nucleated RBC % 0, Sodium 140, Potassium 3.6, Chloride 107, Carbon Dioxide 25.0, Anion Gap 8, BUN 33 H, Creatinine 1.02, Est GFR (MDRD) Af Amer 68, Est GFR (MDRD) Non-Af 56 L, BUN/Creatinine Ratio 32.4 H, Glucose 134 H, Calcium 9.3, B-Natriuretic Peptide 226.5 H 01/30/24 01:23: Magnesium 2.2 01/30/24 04:20: WBC 7.5, RBC 4.59, Hgb 13.8, Hct 42.3, MCV 92.2, MCH 30.1, MCHC 32.6, Plt Count 186, MPV 8.9, Immature Gran % (Auto) 0.500, Neut % (Auto) 85.9 H , Lymph % (Auto) 9.1 L, [place] % (Auto) 3.9, Eos % (Auto) 0.3, Baso % (Auto) 0.3, Absolute Neuts (auto) 6.4, Nucleated RBC % 0, APTT 27.1, Sodium 140, Potassium 4.2, Chloride 103, Carbon Dioxide 28.0, Anion Gap 9, BUN 29 H, Creatinine 1.20 H , Est GFR (MDRD) Af Amer 56 L, Est GFR (MDRD) Non-Af 47 L, BUN/Creatinine Ratio 24.2 H, Glucose 178 H, Calcium 8.9, Total Bilirubin 0.40 Rhythm: EKG: ECHO: Stress Test: Cardiac Cath: PCI: CT Surgery: Holter monitor: EPS: PPM: CXR: Chest CT Scan: Radiography Diagnostic Testing: Radiology Impression Chest CTA 01/29/24 22:59 IMPRESSION: 1. No CTA demonstrated pulmonary embolism or arterial dissection. 2. Cardiomegaly and pulmonary vascular congestion. 3. Questionable bilateral multifocal pneumonia. Electronically Signed: Rayna Luevano MD at 0:17 EST Reading Location ID and State: [facility] / [place] , Service support , Physical Exam Narrative No significant change in physical exam from earlier today. Const oriented x3 HEENT normocephalic Neck no JVD Assessment & Plan Assessment/Plan (1) Non-STEMI (non-ST elevated myocardial infarction): PLAN: The patient's echocardiogram demonstrates apical wall motion abnormality consistent with an LAD lesion. Her troponins were over 8000 and her EKG is suggestive of ST segment ischemic changes laterally but they have not evolved since admission. She remains in atrial fibrillation with a heart rate of in the 100-1 10 range. She is receiving Lopressor 50 mg 3 times daily. The patient did receive clear liquids this morning but she vomited just recently. I discussed the cath procedure risk/benefit and alternatives with the patient and her son they voiced understanding and agreed to proceed. I went o daniel the complicating factors with her Xarelto, the CTA with the bump in her creatinine, and her findings of wall motion abnormality in the face of significant elevation of her enzymes. PLAN: Plan Will proceed with left heart catheterization today.
[2024-01-30] MEDS: 0.9% Normal Saline (1000mL) 1,000 ML 15 ML IV (12:21)
--- NOTE | 2024-01-30 12:30 | NURSING ---
Patient left unit to laboratory analyst, report given at bedside to RN
--- NOTE | 2024-01-30 13:20 | PN.HOSP_ITS ---
Reason for Visit Reason for Visit: Diagnoses Essential (primary) hypertension (01/30/24) Non-ST elevation (NSTEMI) myocardial infarction (01/30/24) Paroxysmal atrial fibrillation (01/30/24) Disorder of kidney and ureter, unspecified (01/30/24) Chest pain, unspecified (01/30/24) Presence of cardiac pacemaker (01/30/24) Subjective Subjective Patient admitted overnight for NSTEMI after presenting with chest pain. Seen at bedside this morning in the ICU, 2 family members present. Patient was sitting up fairly comfortably in bed, conversing normally, in no acute distress. She did report ongoing chest pain but was much less severe in nature than when she presented. She denied any other acute pain or discomfort. No other acute concerns at this time. Objective Data Objective Data Vital Signs: Vital Signs Temp Pulse Resp BP Pulse Ox O2 Del Method O2 Flow Rate 98.3 F 113 H 22 H 140/109 H 96 Nasal Cannula 2 01/30/24 08:26 01/30/24 08:33 01/30/24 08:26 01/30/24 08:26 01/30/24 08:26 01/30/24 08:39 01/30/24 08:39 Oxygen Flow Rate (L/min) 2 Oxygen Delivery Method Nasal Cannula Weight: 85.7 kg Body Mass Index (BMI) 35.6 Intake & Output: Intake and Output for Last 24 Hours 01/28/24 01/29/24 01/30/24 23:59 23:59 23:59 Intake Total 100 / 100 Output Total 800 / 800 Balance 100 / 100 -800 / -800 Lab / Micro Data 01/30/24 15:26 01/30/24 04:20 Labs: Laboratory Results - last 24 hr 01/29/24 22:25: WBC 7.4, RBC 4.44, Hgb 13.5, Hct 40.4, MCV 91.0, MCH 30.4, MCHC 33.4, RDW Std Deviation 46.0 H, RDW Coeff of Chantell 13.8, Plt Count 210, MPV 10.0, Immature Gran % (Auto) 0.100, Neut % (Auto) 29.0 L, Lymph % (Auto) 58.7 H, [place] % (Auto) 9.1, Eos % (Auto) 2.7, Baso % (Auto) 0.4, Absolute Neuts (auto) 2.2, Absolute Lymphs (auto) 4.37, Nucleated RBC % 0, Sodium 140, Potassium 3.6, Chloride 107, Carbon Dioxide 25.0, Anion Gap 8, BUN 33 H, Creatinine 1.02, Estim Creat Clear Calc 48.81, Est GFR (MDRD) Af Amer 68, Est GFR (MDRD) Non-Af 56 L, BUN/Creatinine Ratio 32.4 H, Glucose 134 H, Calcium 9.3, Troponin I High Sens 23, B-Natriuretic Peptide 226.5 H 01/30/24 01:23: Magnesium 2.2, Troponin I High Sens 1581 H* 01/30/24 04:20: WBC 7.5, RBC 4.59, Hgb 13.8, Hct 42.3, MCV 92.2, MCH 30.1, MCHC 32.6, RDW Std Deviation 46.5 H, RDW Coeff of Chantell 13.8, Plt Count 186, MPV 8.9, Immature Gran % (Auto) 0.500, Neut % (Auto) 85.9 H, Lymph % (Auto) 9.1 L, [place] % (Auto) 3.9, Eos % (Auto) 0.3, Baso % (Auto) 0.3, Absolute Neuts (auto) 6.4, Absolute Lymphs (auto) 0.68 L, Nucleated RBC % 0, APTT 27.1, Sodium 140, Potassium 4.2, Chloride 103, Carbon Dioxide 28.0, Anion Gap 9, BUN 29 H, Creatinine 1.20 H, Estim Creat Clear Calc 40.88, Est GFR (MDRD) Af Amer 56 L, Est GFR (MDRD) Non-Af 47 L, BUN/Creatinine Ratio 24.2 H, Glucose 178 H, Calcium 8.9, Total Bilirubin 0.40, AST 93 H, ALT 31, Alkaline Phosphatase 96, Troponin I High Sens 8805 H*, Total Protein 7.6, Albumin 3.9, Globulin 3.7, Albumin/Globulin Ratio 1.1, TSH 1.21 Radiography Diagnostic Testing: Radiology Impression Chest CTA 01/29/24 22:59 IMPRESSION: 1. No CTA demonstrated pulmonary embolism or arterial dissection. 2. Cardiomegaly and pulmonary vascular congestion. 3. Questionable bilateral multifocal pneumonia. Electronically Signed: Rayna Luevano MD at 0:17 EST , Echocardiogram 01/30/24 02:25 Interpretation Summary There is a large sized apical, septal, and anteroseptal wall motion abnormality with hypokinesis of the segments. The left ventricular ejection fraction is 40 %. Stage 3 diastolic dysfunction. The left atrium is moderately enlarged. There is Moderate focal posterior mitral annular calcification. Mild to moderate (1-2+) eccentric tricuspid valve insufficiency. Right ventricular systolic pressure estimated to be 46 mmHg. Ordering Physician: Bing Ruth Referring Physician: Milli Man Performed By: Adalgisa Limon, RDCS, RVT Rhythm Strip Rhythm Strip: A-fib Rate: 105 Ectopy: None Physical Exam Const alert, oriented x3 and average body habitus Constitutional Narrative: Elderly female, obese, somewhat fatigued appearing, otherwise sitting up comfortably in bed, conversing normally, no acute distress. General Appearance: cooperative and comfortable HEENT normocephalic, head/scalp atraumatic, hearing grossly normal bilaterally, nasal mucous membranes and turbinates normal and moist oral mucous membranes Eyes PERRL, EOMs intact bilaterally and conjunctivae normal Neck full ROM Chest inspection of chest normal Resp normal respiratory effort and no use of accessory muscles Resp Narrative: Breathing comfortably on 2 L nasal cannula with good saturations. Mildly decreased breath sounds bilaterally throughout, no wheezing or crackles noted. Cardio no murmurs and peripheral pulses 2+ throughout Cardio Narrative: A-fib, rate controlled. GI normal to inspection, nondistended, normoactive bowel sounds, soft to palpation, non-tender and non-distended Back/Spine normal ROM Extremity normal to inspection, full ROM and no pedal edema Skin no rashes or lesions noted Neuro no focal motor deficits and no sensory deficits noted Speech: speech normal Psych mental status grossly normal Assessment & Plan Assessment/Plan (1) Non-STEMI (non-ST elevated myocardial infarction): (2) Renal insufficiency: (3) Atrial fibrillation: PLAN: Plan Patient is a 73-year-old female who presented to [facility] ED on 01/30/2024 with chest pain. 1. NSTEMI - Presented with fairly acute onset chest pain on the evening of 01/27. Chest pain occurred at rest. - Troponin trend 23 > 1581 > 8805. EKG showed Afib with RVR, no ischemic changes. CTA chest showed no PE, did show cardiomegaly and pulmonary vascular congestion. - TTE on morning of 01/28 showed newly reduced EF 40%, large sized apical, septal and anterosepal wall motion abnormalities, as well as stage 3 diastolic dysfunction, LA moderately enlarged, and mildly elevated RVSP. - Cardiology following. S/p left heart cath on afternoon of 01/28 showed totally occluded mid LAD stenosis with JANNETH x 1 to mid LAD lesion. - Per cardiology, recommendation for lifelong Plavix and continuation of Xarelto. Also increased to lopressor 50 mg TID for improved rate control as noted below. 2. Paroxysmal A-fib with RVR - Known history. Per cardiology, patient historically was in A-fib 32% of the time on her last pacer check. Presented in A-fib with RVR with heart rate 100s- 120. - Pacer interrogated 01/29, will follow up on report. - Cardiology following as above. Increased lopressor to 50 mg TID as noted above, continued home dofetilide. Continue cardiac monitoring. Continue home Xarelto. 3. Suspected mild MAYTE - Creatinine 1.02 on evening of 01/28 on admit, worsened to 1.20 on morning on 01/29. Baseline creatinine unclear. Patient reports adequate urine output. - Suspect mild creatinine bump is prerenal secondary to NSTEMI and Afib w/ RVR as noted above. Also received contrast for CTA on evening of 01/28, will need to monitor for worsening MAYTE with this. - Monitor BMP and urine output daily. 4. Hypertension - Home regimen of lopressor 50 mg BID. BP elevated to the 160s/100s in the ED, may have been secondary to NSTEMI plus or minus anxiety related to her chest pain. - Lopressor dose increased as noted above. - BP improved post LHC. Continue to monitor. 5. History of sinus node dysfunction and symptomatic bradycardia s/p pacemaker placement - Pacer interrogated on 01/29 as noted above, report pending. Chronic medical conditions: ? Obesity: BMI 35 on admit. Complicates hospital course, care and prognosis. ? QUENTIN: Continue CPAP nightly. DVT prophylaxis: Xarelto CODE STATUS: Full code, verified Expected disposition: Home, 1 to 2 days Charges/Coding Visit Charges Inpatient E&M: 43214 Subs Hosp L2
--- NOTE | 2024-01-30 13:26 | CL.D_ITS ---
Patient Name: AGUILAR HILL Study Date: 01/30/2024 Performing: Burton Thomson MD Ht: 61 inches 154.94 cm : 1950 Wt: 188.94 lbs 85.7 kg Age: 73 Gender: female BSA: 1.84 PROCEDURE(S) PERFORMED DC01-([id number])LHC/COR/LV CLINICAL PROFILE AND INDICATIONS Indications: Suspected CAD Heart Failure: None Stress/Imaging Stress/Image Study Performed: No CAD Presentations: Non-STEMI. Symptom onset Date/Time: 01/28/24 Time Not Available CONCLUSIONS Totally occluded mid LAD stenosis. With minimal disease noted in the circumflex artery and right coronary artery. Pacemaker noted in place. Left ventricular systolic dysfunction with segmental wall motion abnormalities. RECOMMENDATIONS Referred for immediate PCI DESCRIPTION OF PROCEDURE The patient arrived to the procedure lab. The risks and benefits of the procedure as well as a full description of our services here and current unavailability of surgical backup were fully explained to the patient and/or their significant other prior to the catheterization. The Timeout was completed, verifying the correct patient and procedure. The patient's procedural site was prepped and draped in the usual fashion. Local anesthetic was given subcutaneously to right radial region with Lidocaine 2%. Using a modified Seldinger technique, arterial access was obtained via the right radial artery, a 6Fr sheath was inserted. Right Coronary Artery selective angiography was then performed in multiple views using a 5 Fr. 4.0 [place] catheter. Left Coronary Artery selective angiography was performed in multiple views using a 5 Fr. 4.0 [place] catheter. Left Ventriculography was performed in [place]RESE projection using a 5 Fr. Pigtail catheter. LV to AO pullback pressures were then recorded. CORONARY ANGIOGRAPHY DOMINANCE: Right Dominant LEFT HEART ASSESSMENT Left Ventricular Ejection Fraction: by LV Gram 35 % Anterior Hypokinesis - Severe. Inferior Apical Hypokinesis - Severe Depressed Left Ventricular systolic function LEFT MAIN: Angiographically normal LEFT ANTERIOR DESCENDING ARTERY: MID LAD: is occluded CIRCUMFLEX ARTERY: Mild luminal irregularities RIGHT CORONARY ARTERY: No significant disease noted VALVE FINDINGS: Normal Aortic Valve function COMPLICATIONS PROCEDURE MEDICATIONS Fentanyl 50 mcg IV Versed 1 mg IV Oxygen: 2 L/min via nasal cannula Brilinta 180 mg PO @ 01/30/2024 13:17:52 Heparin given IA 01/30/2024 13:00:45 Heparin 6000 unit(s) IV 01/30/2024 13:19:34 Verapamil 2.5mg, Ntg 100mcgs, 3000 units of Heparin given IA 01/30/2024 13:00:45 SUMMARY OF HEMODYNAMIC DATA Time AIR REST ECG 12:41:20 AO 101/71 (85) SA 13:07:28 LV 105/16, 26 13:13:38 LV 107/21, 31 13:14:00 LVp 88/11, 20 13:14:15 AOp 0/-8 (-5) 13:14:22 Signed By Burton Thomson MD On 01/30/2024 13:25:05 Burton Thomson MD
--- NOTE | 2024-01-30 14:15 | EKG12_ITS ---
Test Reason : post cath Blood Pressure : / mmHG Vent. Rate : 078 BPM Atrial Rate : 000 BPM P-R Int : 000 ms QRS Dur : 074 ms QT Int : 394 ms P-R-T Axes : 000 073 074 degrees QTc Int : 449 ms ATRIAL TACHYCARDIA with frequent ventricular-paced complexes and with premature ventricular or aberr antly conducted complexes Nonspecific ST abnormality Abnormal ECG Confirmed by Demetrius Bai ([id number]), image editor ABBY GARCIA ([id number]) on 02/08/2024 10:18:47 AM Referred By: Samuel Confirmed By:Demetrius Bai
--- NOTE | 2024-01-30 14:22 | CL.I_ITS ---
Patient Name: AGUILAR HILL Study Date: 01/30/2024 Performing: Nya Baker MD Ht: 61 inches 154.94 cm : 1950 Wt: 189.2 lbs 85.7 kg Age: 73 Gender: female BSA: 1.84 PROCEDURE(S) PERFORMED IC12-(40362/[id number])JANNETH W/WO PTCA, SINGLE CORONARY ARTERY CLINICAL PROFILE AND CO-MORBIDITIES Indications: Suspected CAD Heart Failure: None Stress/Imaging Stress/Image Study Performed: No CAD Presentations: Non-STEMI. Symptom onset Date/Time: 01/28/24 Time Not Available CONCLUSIONS Successful JANNETH Mid LAD using [place] 2.5x18 mm, optimized proximally using 3.0 mm balloon. D1 ostium dilated using 2.0 mm balloon RECOMMENDATIONS Plavix lifelong Continue patient's Rivaroxaban DESCRIPTION OF PROCEDURE The patient arrived to the procedure lab. The risks and benefits of the procedure as well as a full description of our services here and current unavailability of surgical backup were fully explained to the patient and/or their significant other prior to the catheterization. The Timeout was completed, verifying the correct patient and procedure. The patient's procedural site was prepped and draped in the usual fashion. Local anesthetic was given subcutaneously to right radial region with Lidocaine 2% Using a modified Seldinger technique,arterial access was obtained via the right radial artery, a 6Fr sheath was inserted. Right Coronary Artery selective angiography was then performed in multiple views using a 5 Fr. 4.0 [place] catheter. Left Coronary Artery selective angiography was performed in multiple views using a 5 Fr. 4.0 [place] catheter. Left Ventriculography was performed in [place]E projection using a 5 Fr. Pigtail catheter. LV to AO pullback pressures were then recorded. catheter exchange long angled taper0.35 x 260 Guide wire was advanced to the LAD. XB 3 Guide catheter was inserted and engaged into the LAD collins frontier 2.5 x18 Drug Eluting stent was inserted. Angiogram performed pre stent deployment. Drug Eluting stent was advanced across the lesion in the LAD, mid. Angiogram performed post stent deployment. run through Guide wire was inserted as a compa wire emerge 2 x12 Balloon catheter was inserted. Balloon catheter was inserted post stent. Balloon catheter was reinserted Balloon catheter was inserted post stent. Angiogram performed post balloon dilatation. nc emerge 2.5 x 15 Balloon catheter was inserted post stent. Angiogram performed pre balloon dilatation. PTCA balloon inflated at 12 atms for 10 secs. Angiogram performed post balloon dilatation. Angiogram performed post stent deployment. runthrough Guide wire was advanced to the LAD. nc euphora 3.0 x6 Balloon catheter was inserted. Balloon catheter was inserted post stent. PTCA balloon inflated at 14 atms for 6 secs. The arterial sheath was pulled and a TR Band was applied for hemostasis 10 of air INTERVENTION INFORMATION LESION SITE: LAD (Mid) Lesion Complexity: High/C, lesion length: 16 mm, culprit lesion: Yes, In-stent restenosis: No, thrombus present: Yes Pre Stenosis: 100 % Pre intervention CHRIS flow: 0 PROCEDURE: Drug Eluting Stent with post dilatation Post Stenosis: 0 % Post intervention CHRIS flow: 3 Lesion Devices: Cordis 6 Fr XB3.0 100cm Guide Catheter Terumo .014 180cm Runthrough Extra Floppy straight Job Sci .035 180cm str. Magic wire Terumo .035 260cm ang. Stiff [place] Medtronic 2.50 x 18 COLLINS FRONTIER JANNETH Terumo .014 180cm Runthrough Extra Floppy straight Job Sci EMERGE MR 2.00x12 BALLOON Job Sci NC EMERGE MR 2.50x15 BALLOON Medtronic NC EUPHORA RX 3.0x06 BALLOON COMPLICATIONS No Complications PROCEDURE MEDICATIONS Fentanyl 50 mcg IV Versed 1 mg IV Oxygen: 2 L/min via nasal cannula Brilinta 180 mg PO @ 01/30/2024 13:17:52 Heparin given IA 01/30/2024 13:00:45 Heparin 6000 unit(s) IV 01/30/2024 13:19:34 Heparin 2000 unit(s) IV 01/30/2024 13:36:47 Nitro 200 mcg IC 01/30/2024 13:35:02 Verapamil 2.5mg, Ntg 100mcgs, 3000 units of Heparin given IA 01/30/2024 13:00:45 SUMMARY OF HEMODYNAMIC DATA Time AIR REST ECG 12:41:20 AO 101/71 (85) SA 13:07:28 LV 105/16, 26 13:13:38 LV 107/21, 31 13:14:00 LVp 88/11, 20 13:14:15 AOp 0/-8 (-5) 13:14:22 AO 140/95 (116) 13:28:49 Signed By Nya Baker MD On 01/30/2024 14:21:52 Nya Baker MD
[2024-01-30] MEDS: 0.9% Normal Saline (1000mL) 1,000 ML 75 ML IV (14:41)
--- NOTE | 2024-01-30 14:45 | CRPHASE1_ITS ---
Patient Communication Patient Information PHII Cardiac Rehab Discussed with Patient:: Yes Guide to Cardiac Rehab Given to Patient:: Yes Cardiac Rehab Facility Choice List Given to Patient:: Yes Communication to Cardiac Rehab Choice Program [facility] PHII:: Communication Given to CR Public Health Director:: Nya Baker Phase II Cardiac Rehab:: Yes Sessions:: 36 sessions - 3 days/wk, 12 weeks Cardiac Rehabilitation Info Program Information Cardiac Rehabilitation Program Information: Cardiac Rehab The cardiac rehab team at [facility] consists of highly skilled exercise physiologists, nurses, respiratory therapists and physicians working together with you. Our purpose is to help you have a full recovery and achieve the goals you set for yourself. Over the years many of our patients have returned to activities they assumed they would never do again! We can help restore your confidence and motivation to make lifestyle changes that can have a significant impact on your health and quality of life! We can help answer questions and concerns you may have about exercise, lifestyle, medications, diet, stress and anxiety which are common following a hospitalization. WE monitor ECG and vital signs during exercise and discuss your progress with you and report to your physician(s). Cardiac Rehab is proven to help reduce readmissions, improve functional capacity and lower recurrence of problems with your heart. Our Cardiac Rehab program is Certified by the [employer]monary [employer] (AACVPR) and Accredited by the [employer] through our [facility]. You can contact us at . We invite you to call us with your questions or to get started in our program. If you have other questions or concerns be sure to ask your physician/provider during your follow-up visit. WE look forward to seeing you!
--- NOTE | 2024-01-30 14:45 | CRPH1.INSTRU ---
General Education Discussed with Patient CAD and cardiac anatomy and function:: Patient communicates acknowledgment Explanation of diagnoses and procedures:: Patient communicates acknowledgment Sign/Symptoms of PR:: Patient communicates acknowledgment Antiplatelet therapy: Patient communicates acknowledgment Proper use of NTG-SL: Patient communicates acknowledgment Emergency procedures and activation of EMS: Patient communicates acknowledgment Compliance of all prescribed medications: Patient communicates acknowledgment Smoking Risk Factors Patient Nicotine/Smoking Risk Factors Are:: Non-smoker Dyslipidemia Risk Factors Patient Dyslipidemia Risk Factors Are:: Total Cholesterol, Triglycerides, HDL and LDL Recommendations Recommendations Include:: Lipid profile provided, Reviewed NCEP/ATP guidelines and Therapeutic Lifestyle Change dietary guidelines Response Code Dyslipidemia Response Code:: Patient communicates acknowledgment Overweight/Obesity Risk Factors Patient Overweight/Obesity Risk Factors Are:: Obesity - > or = 30 Recommendations Recommendations Include:: Weight loss of 5-10%, Reduced calorie diet and Exercise 5-7 times/week Response Code Overweight/Obesity:: Patient communicates acknowledgment Hypertension Recommendations Recommendations Include:: Maintain BP <130/85, DASH dietary guidelines, Decrease/maintain normal body weight and Moderation of ETOH Response Code Hypertension:: Patient communicates acknowledgment Diabetes Risk Factors Patient Diabetes Risk Factors Are:: No documented hx of diabetes Metabolic Syndrome Risk Factors Patient Metabolic Syndrome Risk Factors Are [3 of 5]:: Fasting blood sugar > 100 mg/dL, Waist circumference > 35 [female] or 40 [male], High triglyceride >150, Hypertension and Low HDL <40 [male] or < 50 [female] Recommendations Recommendations Include:: Reinforce compliance to risk factor modifications and Encouraged follow-up with Primary Care Physician Response Code Metabolic Syndrome Response Code:: Patient communicates acknowledgment Sedentary Risk Factors Patient Sedentary Risk Factors Are:: Lack of regular exercise Recommendations Recommendations Include:: Aerobic exercise 5-7 times/week for 20-30 minutes continuously, Benefits of regular exercise, Discussed home walking program and Monitored Outpatient Cardiac Rehab Response Code Sedentary Response Code:: Patient communicates acknowledgment Stress Recommendations Recommendations Include:: Identification of stressors, and assessment of coping skills and Stress management techniques Response Code Stress Response Code:: Patient communicates acknowledgment
[2024-01-30] MEDS: Digoxin 250 MCG/ML Ampul 500 MCG IV (14:52)
[2024-01-30 15:43] LABS: Hematocrit 40.6 % (37-47); Hemoglobin 13.2 g/dL (12.0-15.0); Mean Corp Hgb Conc 32.5 g/dL (32-36); Mean Corpuscular Hgb 30.1 pg (27.0-32.0); Mean Corpuscular Volume 92.5 fL (81-99); Mean Platelet Vol. 9.1 fl (6.2-12.0); Platelet Count 194 K/mm3 (150-450); RBC Distribution Width CV 13.8 % (11.6-14.6); RBC Distribution Width SD 47.3 fl (35.1-43.9); Red Blood Count 4.39 M/mm3 (4.2-5.4); White Blood Count 9.9 K/mm3 (4.4-11.0)
[2024-01-30] MEDS: Furosemide 40 MG/4 ML Vial IV (16:18)
[2024-01-30 16:42] LABS: ACT Activated Clotting Time 303 sec (74-137)
[2024-01-30] MEDS: Lisinopril 2.5 MG Tablet PO (17:19)
[2024-01-30] MEDS: Atorvastatin Calcium 40 MG Tablet PO (22:53)
[2024-01-30] MEDS: Rivaroxaban 20 MG Tablet PO (22:59)
[2024-01-30] MEDS: Clopidogrel Bisulfate 300 MG Tablet PO (23:11)
[2024-01-31] VITALS (43 sets, daily range): BP systolic 69–118; BP diastolic 48–95; PULSE 60–92; RESP 12–20; TEMP 36.4–36.8; O2SAT 92–98; BMI 34.9
[2024-01-31] MEDS: 0.9% Normal Saline (250mL Bag) 250 ML 999 ML IV ×2 (00:30→01:30)
--- NOTE | 2024-01-31 00:32 | PCM.HOSP.N ---
Hospitalist Note BP low with MAP < 65, possibly secondary to new HTN medications and diuresis, will cautiously given NS 250 cc and continue to monitor.
[2024-01-31 03:09] LABS: Allen Test Positive; Base Excess 3 mmol/L (-2 to +2); Bicarbonate 27.5 mmol/L (22-26); Blood Gas Specimen Type ART; Mode Not entered; O2 Delivery Device Cannula; PO2 87 mmHG (75-100); SITE L Radial; SO2 97 % (95-99); Total Carbon Dioxide 29 mmol/L; pCO2 42.3 mmHg (35-45); pH 7.42 (7.35-7.45)
[2024-01-31 04:11] LABS: Hematocrit 39.4 % (37-47); Hemoglobin 12.8 g/dL (12.0-15.0); Mean Corp Hgb Conc 32.5 g/dL (32-36); Mean Corpuscular Hgb 30.3 pg (27.0-32.0); Mean Corpuscular Volume 93.4 fL (81-99); Mean Platelet Vol. 9.2 fl (6.2-12.0); Platelet Count 169 K/mm3 (150-450); RBC Distribution Width CV 13.9 % (11.6-14.6); RBC Distribution Width SD 47.3 fl (35.1-43.9); Red Blood Count 4.22 M/mm3 (4.2-5.4); White Blood Count 5.9 K/mm3 (4.4-11.0)
[2024-01-31 04:31] LABS: AST(SGOT) 131 U/L (15-37); Alanine Aminotransfer ALT/SGPT 28 U/L (13-56); Albumin, Serum 3.1 g/dL (3.2-5.0); Alkaline Phosphatase 67 U/L (45-117); Anion Gap 8 (5-15); BUN 23 mg/dL (7-18); BUN/Creat Ratio 20.2 RATIO (10-20); Calcium,Total 7.6 mg/dL (8.5-10.1); Chloride 104 mmol/L (98-107); Cholesterol 193 mg/dL (200); Creatinine, Serum 1.14 mg/dL (0.55-1.02); EST Glomerular Filtration Rate 49 mL/min (>60); Est Glom Filt Rate - Afr Amer 60 mL/min (>60); Estimated Creatinine Clearance 43.03 ml/min; Glucose 116 mg/dL (74-106); High Density Lipoprotein 62 mg/dL; Potassium 3.4 mmol/L (3.5-5.1); Protein, Total 6.1 g/dL (6.4-8.2); Sodium Level 141 mmol/L (136-145); Triglycerides 101 mg/dL; Very Low Density Lipoprotein 20 mg/dL (5-40)
--- NOTE | 2024-01-31 06:43 | CON.PCM.CC_ITS ---
Assessment & Plan Assessment/Plan (1) Hypotension: PLAN: Plan RECOMMENDATIONS: 1. Recommend holding antihypertensives and diuretics for now. 2. Avoid further administration of IV morphine. 3. If the patient decompensates further from a hemodynamic perspective, initiate Levophed. 4. Remainder of medical therapy per hospitalist and cardiology. IMPRESSIONS: 1. Hypotension The patient was transferred to the intensive care unit secondary to hypotension, which I suspect is most likely related to polypharmacy in the setting of d iuretics, antihypertensives and morphine. The patient received a small amount of supplemental IV fluid hydration and has remained relatively stable from a hemodynamic perspective. She has never required the initiation of vasopressor support. I would recommend that we continue to monitor her clinical status and hold her antihypertensives and diuretics for now. In addition, would avoid further administration of morphine. If the patient were again to decompensate further from a hemodynamic perspective, Levophed can be initiated. 2. NSTEMI The patient underwent cardiac catheterization with a totally occluded mid LAD stenosis noted for which drug-eluting stent placement was undertaken. Will defer additional medical recommendations to cardiology. 3. History of hypertension/sinus node dysfunction status post pacemaker placement/obesity/obstructive sleep apnea Complicates care, management, recovery and prognosis. Continue home medications as indicated, with the exception of antihypertensives. Resume nocturnal PAP therapy per home regimen. This note was generated with [employer] dictation software. It may contain incorrect words, spelling, and punctuation that were not noted in checking the note before signing. HPI Consult Data Date of Consult: 02/01/24 HPI Narrative Reason for Consultation: Hypotension HPI Narrative: The patient is a 73-year-old female, with a history as outlined below, who presented to the emergency department via EMS on January 29 with chest pain and shortness of breath. Patient has a known history of obstructive sleep apnea, sy mptomatic bradycardia status post pacemaker placement, hypertension and hyperlipidemia. On presentation to the emergency department, the patient was documented to be afebrile and hemodynamically stable. She was maintaining appropriate oxygen saturations on room air. Initial laboratory evaluation revealed no evidence of a leukocytosis. Chemistry profile was notable for a creatinine of 1.2. Tro ponin was elevated at 1581, which peaked at 8805. CTA chest showed no evidence for pulmonary embolism, but did demonstrate cardiomegaly with pulmonary vascular congestion along with possible bilateral pneumonia. The patient was also noted to be in atrial fibrillation with RVR. Cardiology consultation was obtained. Surface echocardiogram demonstrated normal LV size and thickness with an ejectio n fraction of 40% and stage III diastolic dysfunction. Right ventricular systolic pressure was estimated to be 46 mmHg. The patient was ultimately taken for cardiac catheterization which demonstrated a totally occluded mid LAD stenosis. The patient subsequently underwent successful drug-eluting stent placement. Overnight, the patient was noted by the hospitalist to be more lethargic and hypotensive. The patient is currently on a regimen that includes 3 times daily metoprolol, lisinopril, and spironolactone. The patient was also given IV morphine last night. Although the patient was transferred to the medical intensive care unit, on account of underlying hypertension, she was never ini tiated on vasopressor support. [facility] Medical History Atrial fibrillation Essential hypertension HLD (hyperlipidemia) Obesity Obstructive sleep apnea Paroxysmal atrial fibrillation Sinus node dysfunction Symptomatic bradycardia Home Medications ascorbic acid (vitamin C) 1,000 mg capsule 1 g PO DAILY . 06/20/22 [History Last Taken Unknown] cholecalciferol (vitamin D3) 125 mcg (5,000 unit) capsule 125 mcg PO DAILY . 06/20/22 [History Last Taken Unknown] magnesium oxide 400 mg PO DAILY . 06/20/22 [History Last Taken Unknown] potassium citrate 99 mg capsule 99 mg PO DAILY 06/20/22 [History Last Taken Unknown] metoprolol tartrate 50 mg tablet 50 mg PO BID #180 tabs 03/23/23 [Rx Last Taken 01/29/24] dofetilide 250 mcg capsule (Tikosyn) 250 mcg PO Q12H #180 caps 07/23/23 [Rx Last Taken 01/29/24] rivaroxaban 20 mg tablet (Xarelto) 20 mg PO QPM #90 tabs 07/23/23 [Rx Last Taken Unknown] Allergy/AdvReac Type Severity Reaction Status Date / Time aspirin AdvReac Upset Verified 01/29/24 22:46 Stomach flecainide AdvReac unknown Verified 11/14/23 11:15 Family History Mother CVA (cerebral vascular accident) Father Heart disease Surgical History History of permanent cardiac pacemaker placement (06/21/21) Social History household members: none Smoking Status: Never smoker alcohol intake: current alcohol intake frequency: holidays/special occasions only substance use type: does not use ROS ROS Narrative 10 systems reviewed with pertinent positives as noted in the HPI above. Physical Exam Const alert, oriented x3 and no apparent distress HEENT normocephalic and head/scalp atraumatic Eyes PERRL, EOMs intact bilaterally and conjunctivae normal Neck supple General: trachea midline Chest inspection of chest normal Resp normal respiratory effort Auscultation: Negative for rales, rhonchi or wheezes Cardio S1 normal heart sound and S2 normal heart sound Rhythm: abnormal rhythm GI normal to inspection, nondistended, normoactive bowel sounds Extremity no clubbing, cyanosis or edema Skin no rashes or lesions noted Neuro CN's II-XII intact bilaterally and no focal motor deficits Psych Mood & Affect: flat affect Lab / Micro Data 01/31/24 04:00 02/01/24 03:35 Labs: Laboratory Results - last 24 hr 01/30/24 14:05: Activated Clotting Time 303 H 01/30/24 15:26: WBC 9.9, RBC 4.39, Hgb 13.2, Hct 40.6, MCV 92.5, MCH 30.1, MCHC 32.5, RDW Std Deviation 47.3 H, RDW Coeff of Chantell 13.8, Plt Count 194, MPV 9.1 01/31/24 04:00: WBC 5.9, RBC 4.22, Hgb 12.8, Hct 39.4, MCV 93.4, MCH 30.3, MCHC 32.5, RDW Std Deviation 47.3 H, RDW Coeff of Chantell 13.9, Plt Count 169, MPV 9.2, Sodium 141, Potassium 3.4 L, Chloride 104, Carbon Dioxide 29.0, Anion Gap 8, BUN 23 H, Creatinine 1.14 H, Estim Creat Clear Calc 43.03, Est GFR (MDRD) Af Amer 60, Est GFR (MDRD) Non-Af 49 L, BUN/Creatinine Ratio 20.2 H, Glucose 116 H, Calcium 7.6 L, Total Bilirubin 0.70, AST 131 H, ALT 28, Alkaline Phosphatase 67, Total Protein 6.1 L, Albumin 3.1 L, Globulin 3.0, Albumin/Globulin Ratio 1.0, Triglycerides 101, Cholesterol 193, LDL Cholesterol 111, VLDL Cholesterol 20, HDL Cholesterol 62 ABG Data ABG results: ABG 01/31/24 03:04 Specimen Type ART Sample Site L Radial pH 7.42 Bicarbonate Actual 27.5 H Total CO2 29 Base Excess 3 H O2 Saturation 97 O2 % 2.0 ABG pCO2 42.3 ABG pO2 87 Tk Test Positive O2 Delivery Device Cannula Vent Mode Not entered Rhythm Strip Rhythm Strip: A-fib Rate: 105 Ectopy: None Imaging Radiology Impression Echocardiogram 01/30/24 02:25 Interpretation Summary There is a large sized apical, septal, and anteroseptal wall motion abnormality with hypokinesis of the segments. The left ventricular ejection fraction is 40 %. Stage 3 diastolic dysfunction. The left atrium is moderately enlarged. There is Moderate focal posterior mitral annular calcification. Mild to moderate (1-2+) eccentric tricuspid valve insufficiency. Right ventricular systolic pressure estimated to be 46 mmHg. Ordering Physician: Bing Ruth Referring Physician: Milli Man Performed By: Adalgisa Limon, CARLOS, RVT Charges/Coding Visit Charges Inpatient E&M: 63246 Init Hosp L3
[2024-01-31] MEDS: Aspirin 81 MG TAB.CHEW PO (07:57)
[2024-01-31] MEDS: Acetaminophen 325 MG Tablet 650 MG PO (07:57)
[2024-01-31] MEDS: Potassium Chloride Oral Tablet 20 MEQ 40 MEQ PO (07:57)
--- NOTE | 2024-01-31 08:59 | PCM.PN.CARD ---
Subjective Subjective Patient reports that her chest discomfort is totally resolved after intervention into her mid LAD yesterday. She did have an episode where her blood pressure dropped last evening and her Lasix and metoprolol were held. Her blood pressure is back up into acceptable ranges. The patient is complaining of being very weak she lives alone in her own home. The patient has been was placed on metoprolol 50 mg 3 times daily for rate control. We will adjust her medications given her improved rate control and blood pressure. Objective Data Vital Signs: Vital Signs Temp Pulse Resp BP Pulse Ox O2 Del Method O2 Flow Rate 97.5 F L 79 18 102/72 97 Nasal Cannula 2 01/31/24 08:00 01/31/24 08:00 01/31/24 08:00 01/31/24 08:00 01/31/24 08:00 01/31/24 08:00 01/31/24 08:00 FiO2 2 01/30/24 16:30 Oxygen Flow Rate (L/min) 2 Oxygen Delivery Method Nasal Cannula Weight: 184 lb 15.485 oz Body Mass Index (BMI) 34.9 Intake & Output: Intake and Output for Last 24 Hours 01/29/24 01/30/24 01/31/24 23:59 23:59 23:59 Intake Total 100 / 100 42.75 / 841.50 1298.75 / 1298.75 Output Total 3100 / 3700 600 / 600 Balance 100 / 100 -3057.25 / -2858.50 698.75 / 698.75 Lab / Micro Data Attestation: I reviewed the patient's lab results. 01/31/24 04:00 01/31/24 04:00 Labs: Laboratory Results - last 24 hr 01/30/24 14:05: Activated Clotting Time 303 H 01/30/24 15:26: WBC 9.9, RBC 4.39, Hgb 13.2, Hct 40.6, MCV 92.5, MCH 30.1, MCHC 32.5, RDW Std Deviation 47.3 H, RDW Coeff of Chantell 13.8, Plt Count 194, MPV 9.1 01/31/24 04:00: WBC 5.9, RBC 4.22, Hgb 12.8, Hct 39.4, MCV 93.4, MCH 30.3, MCHC 32.5, RDW Std Deviation 47.3 H, RDW Coeff of Chantell 13.9, Plt Count 169, MPV 9.2, Sodium 141, Potassium 3.4 L, Chloride 104, Carbon Dioxide 29.0, Anion Gap 8, BUN 23 H, Creatinine 1.14 H, Estim Creat Clear Calc 43.03, Est GFR (MDRD) Af Amer 60, Est GFR (MDRD) Non-Af 49 L, BUN/Creatinine Ratio 20.2 H, Glucose 116 H, Calcium 7.6 L, Total Bilirubin 0.70, AST 131 H, ALT 28, Alkaline Phosphatase 67, Total Protein 6.1 L, Albumin 3.1 L, Globulin 3.0, Albumin/Globulin Ratio 1.0, Triglycerides 101, Cholesterol 193, LDL Cholesterol 111, VLDL Cholesterol 20, HDL Cholesterol 62 ABG Data ABG results: ABG 01/31/24 03:04 Specimen Type ART Sample Site L Radial pH 7.42 Bicarbonate Actual 27.5 H Total CO2 29 Base Excess 3 H O2 Saturation 97 O2 % 2.0 ABG pCO2 42.3 ABG pO2 87 Tk Test Positive O2 Delivery Device Cannula Vent Mode Not entered Rhythm Strip Rhythm Strip: A-fib Rate: 85 Ectopy: None Cardiology Labs/Tests 01/30/24 15:26: WBC 9.9, RBC 4.39, Hgb 13.2, Hct 40.6, MCV 92.5, MCH 30.1, MCHC 32.5, Plt Count 194, MPV 9.1 01/31/24 03:04: pH 7.42, Bicarbonate Actual 27.5 H, Base Excess 3 H, O2 Saturation 97, ABG pCO2 42.3, ABG pO2 87, Tk Test Positive 01/31/24 04:00: WBC 5.9, RBC 4.22, Hgb 12.8, Hct 39.4, MCV 93.4, MCH 30.3, MCHC 32.5, Plt Count 169, MPV 9.2, Sodium 141, Potassium 3.4 L, Chloride 104, Carbon Dioxide 29.0, Anion Gap 8, BUN 23 H, Creatinine 1.14 H, Est GFR (MDRD) Af Amer 60, Est GFR (MDRD) Non-Af 49 L, BUN/Creatinine Ratio 20.2 H, Glucose 116 H, Calcium 7.6 L, Total Bilirubin 0.70, Triglycerides 101, Cholesterol 193, LDL Cholesterol 111, VLDL Cholesterol 20, HDL Cholesterol 62 Rhythm: EKG: ECHO: Stress Test: Cardiac Cath: PCI: CT Surgery: Holter monitor: EPS: PPM: CXR: Chest CT Scan: Radiography Diagnostic Testing: Radiology Impression Echocardiogram 01/30/24 02:25 Interpretation Summary There is a large sized apical, septal, and anteroseptal wall motion abnormality with hypokinesis of the segments. The left ventricular ejection fraction is 40 %. Stage 3 diastolic dysfunction. The left atrium is moderately enlarged. There is Moderate focal posterior mitral annular calcification. Mild to moderate (1-2+) eccentric tricuspid valve insufficiency. Right ventricular systolic pressure estimated to be 46 mmHg. Ordering Physician: Bing Ruth Referring Physician: Milli Man Performed By: Adalgisa Limon, DAYACS, RVT Physical Exam Const oriented x3 HEENT normocephalic Eyes EOMs intact bilaterally Neck no JVD Chest inspection of chest normal Resp normal respiratory effort and clear to auscultation bilaterally Cardio regular rate Rhythm: abnormal rhythm irregularly irregular Heart Sounds: S1 normal and S2 normal; Negative for click, gallop or murmur Peripheral Pulses: radial pulses present right (No hematoma noted.) GI soft to palpation Extremity normal to inspection Skin no rashes or lesions noted Neuro Neuro Narrative: Alert and oriented x 3 Psych mental status grossly normal Assessment & Plan Assessment/Plan (1) Non-STEMI (non-ST elevated myocardial infarction): PLAN: The patient is status post stenting of the mid LAD yesterday. Her symptoms of chest tightness have completely resolved and her heart rate is much easier to control. She remains in atrial fibrillation with a pacemaker in place. Will adjust her medications given her hypotension. The patient has an ejection fraction estimated 40% with distal anterior and apical severe hypokinesis. She will require afterload reduction therapy beta-annabel and MRA therapy as tolerated. The patient's creatinine dropped to 1.14 after the contrast exposure. (2) Renal insufficiency: PLAN: The patient's creatinine actually decreased after the contrast exposure from the catheterization. This will be monitored in the ambulatory setting. (3) Atrial fibrillation: QUALIFIERS: Atrial fibrillation type: paroxysmal Qualified Code(s): I48.0 - Paroxysmal atrial fibrillation PLAN: Heart rate is well-controlled in the 80 to 90 bpm range. Lopressor will be decreased to 25 mg twice daily due to blood pressure as she tolerates this it will be reviewed and increase back to her home dose of 50 mg twice daily. The patient has a pacemaker in place that is appropriately functioning. Her outputs were increased due to higher thresholds noted during the acute event. The pacemaker will be reevaluated today and outputs readjusted as indicated. (4) History of permanent cardiac pacemaker placement: PLAN: The [facility] device nurse will check the pacemaker today and make appropriate adjustments. PLAN: Plan 1. The patient is very weak and frail appearing. I have asked that physical therapy evaluate the patient for possible short-term rehab. She lives alone in her own home but there is a possibility of family member staying with her for short period of time. 2. Decrease Lopressor to 25 twice daily and hold for systolic less than 95. Hold the KASSIDY inhibitor for his systolic less than 95. Continue spironolactone 12.5 mg daily. 3. Restart Xarelto at her home dose. 4. Progress activities as tolerated. 5. From a cardiovascular standpoint as long as she is hemodynamically stable and tolerating her medical regiment she should be able to be discharged in the next 24 to 48 hours. 6. Will repeat her limited echocardiogram in 6 weeks. Charges/Coding Visit Charges Inpatient E&M: 78675 Subs Hosp L3
--- NOTE | 2024-01-31 10:00 | EKG12_ITS ---
Test Reason : am Blood Pressure : / mmHG Vent. Rate : 080 BPM Atrial Rate : 000 BPM P-R Int : 000 ms QRS Dur : 068 ms QT Int : 438 ms P-R-T Axes : 000 030 140 degrees QTc Int : 505 ms Atrial fibrillation with frequent ventricular-paced complexes ST & T wave abnormality, consider anterolateral ischemia Abnormal ECG DELAYED PACED BEATS Confirmed by Demetrius Bai ([id number]), tape editor ABBY GARCIA ([id number]) on 02/05/2024 8:21:17 AM Referred By: Confirmed By:Demetrius Bai
[2024-01-31] MEDS: Clopidogrel Bisulfate 75 MG Tablet PO (10:04)
[2024-01-31] MEDS: Pantoprazole Sodium 20 MG Tablet PO ×2 (10:04→21:14)
[2024-01-31] MEDS: Metoprolol Tartrate 25 MG Tablet PO (10:08)
[2024-01-31] MEDS: Spironolactone 25 MG Tablet 12.5 MG PO (11:06)
--- NOTE | 2024-01-31 15:01 | PCM.PN.HOSP ---
Reason for Visit Reason for Visit: Diagnoses Essential (primary) hypertension (01/30/24) Non-ST elevation (NSTEMI) myocardial infarction (01/30/24) Paroxysmal atrial fibrillation (01/30/24) Unspecified atrial fibrillation (01/30/24) Disorder of kidney and ureter, unspecified (01/30/24) Chest pain, unspecified (01/30/24) Presence of cardiac pacemaker (01/30/24) Subjective Subjective No acute events overnight. Patient seen at bedside this morning, family member present. Patient sitting up comfortably in bed but does appear fatigued, otherwise conversing normally and in no acute distress. Patient has not gotten out of bed yet this morning, states she generally feels much more fatigued than her normal and had fairly limited activity yesterday evening. She does not have much of an appetite at this point. She denies any chest pain or shortness of breath at this time. Denies any feelings of volume overload. On discussion with patient and family member, they are concerned about her going home on her own given her significant weakness and are looking forward to working with therapy today, as they are hoping that patient may qualify for a rehab facility on discharge. No other acute concerns at this time. Objective Data Objective Data Vital Signs: Vital Signs Temp Pulse Resp BP Pulse Ox O2 Del Method O2 Flow Rate 98.3 F 60 20 H 105/76 95 Nasal Cannula 2 01/31/24 12:00 01/31/24 14:00 01/31/24 14:00 01/31/24 14:00 01/31/24 14:00 01/31/24 14:00 01/31/24 14:00 FiO2 2 01/30/24 16:30 Oxygen Flow Rate (L/min) 2 Oxygen Delivery Method Nasal Cannula Weight: 83.9 kg Body Mass Index (BMI) 34.9 Intake & Output: Intake and Output for Last 24 Hours 01/29/24 01/30/24 01/31/24 23:59 23:59 23:59 Intake Total 100 / 100 42.75 / 841.50 1298.75 / 1298.75 Output Total 3100 / 3700 850 / 850 Balance 100 / 100 -3057.25 / -2858.50 448.75 / 448.75 Lab / Micro Data 01/31/24 04:00 01/31/24 04:00 Labs: Laboratory Results - last 24 hr 01/30/24 14:05: Activated Clotting Time 303 H 01/30/24 15:26: WBC 9.9, RBC 4.39, Hgb 13.2, Hct 40.6, MCV 92.5, MCH 30.1, MCHC 32.5, RDW Std Deviation 47.3 H, RDW Coeff of Chantell 13.8, Plt Count 194, MPV 9.1 01/31/24 04:00: WBC 5.9, RBC 4.22, Hgb 12.8, Hct 39.4, MCV 93.4, MCH 30.3, MCHC 32.5, RDW Std Deviation 47.3 H, RDW Coeff of Chantell 13.9, Plt Count 169, MPV 9.2, Sodium 141, Potassium 3.4 L, Chloride 104, Carbon Dioxide 29.0, Anion Gap 8, BUN 23 H, Creatinine 1.14 H, Estim Creat Clear Calc 43.03, Est GFR (MDRD) Af Amer 60, Est GFR (MDRD) Non-Af 49 L, BUN/Creatinine Ratio 20.2 H, Glucose 116 H, Calcium 7.6 L, Total Bilirubin 0.70, AST 131 H, ALT 28, Alkaline Phosphatase 67, Total Protein 6.1 L, Albumin 3.1 L, Globulin 3.0, Albumin/Globulin Ratio 1.0, Triglycerides 101, Cholesterol 193, LDL Cholesterol 111, VLDL Cholesterol 20, HDL Cholesterol 62 ABG Data ABG results: ABG 01/31/24 03:04 Specimen Type ART Sample Site L Radial pH 7.42 Bicarbonate Actual 27.5 H Total CO2 29 Base Excess 3 H O2 Saturation 97 O2 % 2.0 ABG pCO2 42.3 ABG pO2 87 Tk Test Positive O2 Delivery Device Cannula Vent Mode Not entered Rhythm Strip Rhythm Strip: A-fib Rate: 85 Ectopy: None Physical Exam Const alert, oriented x3 and average body habitus Constitutional Narrative: Elderly female, obese, fatigued appearing, otherwise sitting up comfortably in bed, conversing normally, no acute distress. General Appearance: cooperative and comfortable HEENT normocephalic, head/scalp atraumatic, hearing grossly normal bilaterally, nasal mucous membranes and turbinates normal and moist oral mucous membranes Eyes PERRL, EOMs intact bilaterally and conjunctivae normal Neck full ROM Chest inspection of chest normal Resp normal respiratory effort and no use of accessory muscles Resp Narrative: Breathing comfortably on 2 L nasal cannula with good saturations. Mildly decreased breath sounds bilaterally throughout, no wheezing or crackles noted. Cardio no murmurs and peripheral pulses 2+ throughout Cardio Narrative: A-fib, rate controlled. GI normal to inspection, nondistended, normoactive bowel sounds, soft to palpation, non-tender and non-distended Back/Spine normal ROM Extremity normal to inspection, full ROM and no pedal edema Skin no rashes or lesions noted Neuro no focal motor deficits and no sensory deficits noted Speech: speech normal Psych mental status grossly normal Assessment & Plan Assessment/Plan (1) Non-STEMI (non-ST elevated myocardial infarction): (2) Renal insufficiency: (3) Atrial fibrillation: QUALIFIERS: Atrial fibrillation type: paroxysmal Qualified Code(s): I48.0 - Paroxysmal atrial fibrillation PLAN: Plan Patient is a 73-year-old female who presented to [facility] ED on 01/30/2024 with chest pain. 1. NSTEMI, acute HFrEF - Presented with fairly acute onset chest pain on the evening of 01/27. Chest pain occurred at rest. - Troponin trend 23 > 1581 > 8805. EKG showed Afib with RVR, no ischemic changes. CTA chest showed no PE, did show cardiomegaly and pulmonary vascular congestion. - TTE on morning of 01/28 showed newly reduced EF 40%, large sized apical, septal and anterosepal wall motion abnormalities, as well as stage 3 diastolic dysfunction, LA moderately enlarged, and mildly elevated RVSP. - S/p left heart cath on afternoon of 01/28 showed totally occluded mid LAD stenosis with JANNETH x 1 to mid LAD lesion. - Cardiology following. Given patient's borderline low blood pressures with her acutely reduced EF, reduced Lopressor dose to 25 mg twice daily and discontinued digoxin on 01/30. Continued lisinopril 2.5 mg daily, spironolactone 12.5 mg daily with hold parameters for home medications of SBP less than 95. Continue Plavix and Xarelto, recommending lifelong Plavix therapy. 2. Paroxysmal A-fib with RVR - Known history. Per cardiology, patient historically was in A-fib 32% of the time on her last pacer check. Presented in A-fib with RVR with heart rate 100s-120. - Pacer interrogated 01/29, see cardiology note for report. - Cardiology following as above. Decreased Lopressor to 25 mg twice daily on 01/30 as noted above. Continue Xarelto. Continue cardiac monitoring. 3. Suspected mild MAYTE - Creatinine 1.02 on evening of 01/28 on admit, worsened to 1.20 on morning on 01/29. Baseline creatinine unclear. Patient reports adequate urine output. - Suspect mild creatinine bump is prerenal secondary to NSTEMI and Afib w/ RVR as noted above. Also received contrast for CTA on evening of 01/28, will need to monitor for worsening MAYTE with this. - Most recent creatinine 1.14 on 01/30, stable. Adequate urine output. - Continue to monitor daily BMP and urine output. 4. Hypertension - Home regimen of lopressor 50 mg BID. BP elevated to the 160s/100s in the ED, may have been secondary to NSTEMI plus or minus anxiety related to her chest pain. - BP improved post LHC. Treating as above. 5. History of sinus node dysfunction and symptomatic bradycardia s/p pacemaker placement - Pacer interrogated on 01/29 as noted above. 6. Acute debility - PT/OT/case management following. Patient lives at home alone, does have family in the area to help when needed. Patient feels significantly worse than her baseline currently and family members agree. Per therapy, recommendation is for [facility] facility on discharge and patient and family are agreeable to this. Hoping that patient will be medically ready for discharge in the next few days. Chronic medical conditions: ? Obesity: BMI 35 on admit. Complicates hospital course, care and prognosis. ? QUENTIN: Continue CPAP nightly. DVT prophylaxis: Xarelto CODE STATUS: Full code, verified Expected disposition: SNF, 2 to 3 days Total clinical time spent by myself addressing the patient's medical issues, reviewing all the data, and collaborating with patient's care team: 35 minutes. Charges/Coding Visit Charges Inpatient E&M: 70984 Subs Hosp L2
[2024-01-31] MEDS: Rivaroxaban 20 MG Tablet PO (16:56)
[2024-01-31] MEDS: Atorvastatin Calcium 40 MG Tablet PO (21:14)
[2024-02-01] VITALS (31 sets, daily range): BP systolic 82–145; BP diastolic 57–96; PULSE 61–135; RESP 10–21; TEMP 36.3–37; O2SAT 84–98; BMI 35.2
[2024-02-01] MEDS: Acetaminophen 325 MG Tablet 650 MG PO (03:26)
--- NOTE | 2024-02-01 03:49 | PCM.HOSP.N ---
Hospitalist Note Patient with onset of PAF/flutter w/ RVR with concurrent chest discomfort, rate ongoing in the 140s, BP has been low normal range thus will administer amiodarone bolus and follow with drip.
[2024-02-01 04:18] LABS: Anion Gap 7 (5-15); BUN 29 mg/dL (7-18); BUN/Creat Ratio 23.2 RATIO (10-20); Chloride 100 mmol/L (98-107); Creatinine, Serum 1.25 mg/dL (0.55-1.02); EST Glomerular Filtration Rate 44 mL/min (>60); Est Glom Filt Rate - Afr Amer 54 mL/min (>60); Estimated Creatinine Clearance 38.95 ml/min; Glucose 108 mg/dL (74-106); Potassium 4.1 mmol/L (3.5-5.1); Sodium Level 138 mmol/L (136-145)
[2024-02-01] MEDS: Amiodarone 150 MG in Dextrose 5%-Water (100mL Bag) 100 ML 600 MG IV BOLUS (04:36)
[2024-02-01] MEDS: Amiodarone 360 MG in Dextrose 5% Viaflo Bag 192.8 ML 16.7 MG CONT INF (04:36)
[2024-02-01] MEDS: Clopidogrel Bisulfate 75 MG Tablet PO (07:48)
[2024-02-01] MEDS: Aspirin 81 MG TAB.CHEW PO (07:48)
[2024-02-01] MEDS: Pantoprazole Sodium 20 MG Tablet PO ×2 (07:48→20:23)
--- NOTE | 2024-02-01 08:42 | PCM.PN.CARD ---
Subjective Subjective The patient reports that she is feeling fairly well this morning she had an episode of hypotension last night when her heart rate got up in the 1 20-1 30 range by the report from the nursing staff. She has been in atrial fibrillation we had to decrease her Lopressor from 50 twice daily to 25 twice daily due to hypotension 24 hours ago. She was started on IV amiodarone last night for rate control. The patient's blood pressure is better this morning. She only got out of the bed twice yesterday she was able to walk with a walker she tells me 2 steps the nurse tells me that she was a double assist to get her up. She has been evaluated by physical therapy for possible rehab placement. Objective Data Vital Signs: Vital Signs Temp Pulse Resp BP Pulse Ox O2 Del Method O2 Flow Rate 97.5 F L 81 14 94/74 96 Nasal Cannula 2 02/01/24 04:00 02/01/24 07:00 02/01/24 07:00 02/01/24 07:00 02/01/24 07:00 02/01/24 08:00 02/01/24 08:00 FiO2 2 01/30/24 16:30 Oxygen Flow Rate (L/min) 2 Oxygen Delivery Method Nasal Cannula Weight: 186 lb 4.65 oz Body Mass Index (BMI) 35.2 Intake & Output: Intake and Output for Last 24 Hours 01/30/24 01/31/24 02/01/24 23:59 23:59 23:59 Intake Total 42.75 / 841.50 1298.75 / 1398.75 303 / 303 Output Total 3100 / 3700 1200 / 1500 1200 / 1200 Balance -3057.25 / -2858.50 98.75 / -101.25 -897 / -897 Lab / Micro Data Attestation: I reviewed the patient's lab results. 01/31/24 04:00 02/01/24 03:35 Labs: Laboratory Results - last 24 hr 02/01/24 03:35: Sodium 138, Potassium 4.1, Chloride 100, Carbon Dioxide 31.0, Anion Gap 7, BUN 29 H, Creatinine 1.25 H, Estim Creat Clear Calc 38.95, Est GFR (MDRD) Af Amer 54 L, Est GFR (MDRD) Non-Af 44 L, BUN/Creatinine Ratio 23.2 H, Glucose 108 H, Calcium 9.0 Rhythm Strip Rhythm Strip: A-fib Rate: 80 Ectopy: None Cardiology Labs/Tests 02/01/24 03:35: Sodium 138, Potassium 4.1, Chloride 100, Carbon Dioxide 31.0, Anion Gap 7, BUN 29 H, Creatinine 1.25 H, Est GFR (MDRD) Af Amer 54 L, Est GFR (MDRD) Non-Af 44 L, BUN/Creatinine Ratio 23.2 H, Glucose 108 H, Calcium 9.0 Rhythm: EKG: ECHO: Stress Test: Cardiac Cath: PCI: CT Surgery: Holter monitor: EPS: PPM: CXR: Chest CT Scan: Physical Exam Const oriented x3 HEENT normocephalic Eyes EOMs intact bilaterally Neck no JVD Chest inspection of chest normal Chest: left pectoral incision Resp normal respiratory effort and clear to auscultation bilaterally Cardio regular rate Rhythm: abnormal rhythm irregularly irregular Heart Sounds: Negative for click, gallop or murmur GI soft to palpation Extremity no pedal edema Skin no rashes or lesions noted Neuro Neuro Narrative: Alert and oriented x 3 Psych mental status grossly normal Assessment & Plan Assessment/Plan (1) Non-STEMI (non-ST elevated myocardial infarction): PLAN: Patient is status post stenting of the mid LAD. Echocardiogram prior to revascularization was estimated at 40% with anterior apical segmental wall motion abnormality. The patient's post intervention course has been complicated by episodic hypotension last evening her heart rate jumped up above 100 and her blood pressure fell at about 0300 hrs. This improved with IV amiodarone and control of her ventricular response with her atrial fibrillation. The patient is in persistent atrial fibrillation. We had decreased her Lopressor due to hypotension 24 hours prior. We will alter her rate modulating drugs to increase the Lopressor to 25 mg every 6 with a hold parameter of systolic less than 95. The patient has a permanent pacemaker in place. (2) Atrial fibrillation: QUALIFIERS: Atrial fibrillation type: paroxysmal Qualified Code(s): I48.0 - Paroxysmal atrial fibrillation PLAN: The patient has what looks to be now persistent atrial fibrillation with somewhat difficult to control rate due to her blood pressure response to medications. We will change her Lopressor to 25 every 6 if she continues to have hypotensive episodes we will add Lanoxin back to her medical regimen. We tried to avoid it due to the recent infarct. (3) Hypotension: QUALIFIERS: Hypotension type: hypotension due to drug Qualified Code(s): I95.2 - Hypotension due to drugs PLAN: The patient's hypotension appears to be related primarily to her requirement for vasoactive medications and her tachyarrhythmia that occurs episodically. We are working to titrate her medical regimen to offset these hypotensive events. PLAN: Plan 1. The Lopressor to 25 every 6 this should help to better control the rate with a less vasoactive effect on her blood pressure. 2. If she continue to have an issue with hypotension and rates being elevated addition of Lanoxin may be indicated. Given her age she should be placed on a 0.5 mg loading dose followed by 0.125 mg daily. 3. The patient is being evaluated for placement for intensive rehab therapy. This should be delayed until we can get a better hold on her hypotension and heart rate management. Charges/Coding Visit Charges Inpatient E&M: 26034 Subs Hosp L2
--- NOTE | 2024-02-01 08:58 | PCM.PN.INT ---
Assessment & Plan Assessment/Plan (1) Hypotension: QUALIFIERS: Hypotension type: hypotension due to drug Qualified Code(s): I95.2 - Hypotension due to drugs PLAN: Plan RECOMMENDATIONS: 1. Will defer rate/rhythm control strategy to cardiology. 2. Avoid further administration of IV morphine. 3. Encourage incentive spirometer use and mobilize patient as tolerated. 4. Will sign off from a critical care perspective. Please call with any questions. IMPRESSIONS: 1. Hypotension Resolved. The patient was transferred to the intensive care unit secondary to hypotension, which I suspect is most likely related to polypharmacy in the setting of diuretics, antihypertensives and morphine. The patient received a small amount of supplemental IV fluid hydration and has remained relatively stable from a hemodynamic perspective. She has never required the initiation of vasopressor support. She will require cautious dose augmentation of her lisinopril and beta-annabel to prevent further hypotension. This will be deferred to cardiology. 2. NSTEMI/atrial fibrillation The patient underwent cardiac catheterization with a totally occluded mid LAD stenosis noted for which drug-eluting stent placement was undertaken. Will defer additional medical recommendations to cardiology. Continue amiodarone as ordered. 3. History of hypertension/sinus node dysfunction status post pacemaker placement/obesity/obstructive sleep apnea Complicates care, management, recovery and prognosis. Resume nocturnal PAP therapy per home regimen. Physical therapy to work with the patient. This note was generated with [employer] dictation software. It may contain incorrect words, spelling, and punctuation that were not noted in checking the note before signing. Subjective Subjective The patient was seen and examined at the bedside this morning. Events from the last 24 hours have been reviewed. The patient is currently afebrile, hemodynamically stable and maintaining appropriate oxygen saturations on 2 L/min via nasal cannula. The patient developed some hypotension overnight after she was noted to be in atrial fibrillation with RVR. The patient was subsequently placed on amiodarone with improvement in her heart rate. The patient does report that she feels less short of breath this morning, now that her heart rate is under better control. Objective Data Objective Data The patient's most recent lab work, culture data and imaging studies have all been personally reviewed. Vital Signs: Vital Signs Temp Pulse Resp BP Pulse Ox O2 Del Method O2 Flow Rate 98.6 F 81 15 107/71 94 Nasal Cannula 2 02/01/24 08:00 02/01/24 08:00 02/01/24 08:00 02/01/24 08:00 02/01/24 08:00 02/01/24 08:00 02/01/24 08:00 FiO2 2 01/30/24 16:30 Oxygen Flow Rate (L/min) 2 Oxygen Delivery Method Nasal Cannula Weight: 186 lb 4.65 oz Body Mass Index (BMI) 35.2 Intake & Output: Intake and Output for Last 24 Hours 01/30/24 01/31/24 02/01/24 23:59 23:59 23:59 Intake Total 42.75 / 841.50 1298.75 / 1398.75 303 / 303 Output Total 3100 / 3700 1200 / 1500 1200 / 1200 Balance -3057.25 / -2858.50 98.75 / -101.25 -897 / -897 Lab / Micro Data Attestation: I reviewed the patient's lab results. 01/31/24 04:00 02/01/24 03:35 Labs: Laboratory Results - last 24 hr 02/01/24 03:35: Sodium 138, Potassium 4.1, Chloride 100, Carbon Dioxide 31.0, Anion Gap 7, BUN 29 H, Creatinine 1.25 H, Estim Creat Clear Calc 38.95, Est GFR (MDRD) Af Amer 54 L, Est GFR (MDRD) Non-Af 44 L, BUN/Creatinine Ratio 23.2 H, Glucose 108 H, Calcium 9.0 Rhythm Strip Rhythm Strip: A-fib Rate: 80 Ectopy: None Physical Exam Const alert, oriented x3 and no apparent distress HEENT normocephalic and head/scalp atraumatic Eyes PERRL, EOMs intact bilaterally and conjunctivae normal Neck supple General: trachea midline Chest inspection of chest normal Resp normal respiratory effort Auscultation: Negative for rales, rhonchi or wheezes Cardio S1 normal heart sound and S2 normal heart sound Rhythm: abnormal rhythm GI normal to inspection, nondistended, normoactive bowel sounds Extremity no clubbing, cyanosis or edema Skin no rashes or lesions noted Neuro CN's II-XII intact bilaterally and no focal motor deficits Psych Mood & Affect: flat affect Charges/Coding Visit Charges Inpatient E&M: 53379 Subs Hosp L2
[2024-02-01] MEDS: Metoprolol Tartrate 25 MG Tablet PO ×3 (09:11→20:23)
--- NOTE | 2024-02-01 09:46 | CASEMGMT ---
Social Work SW met w/pt and son in room in regard to discharge plan. Both are in agreement that pt would benefit from short term placement in a longterm facility. SW provided to pt and son a list generated from [facility] of longterm facilities in network w/pt's insurance, preferred geographic area, and complete w/quality and resource use data. SW explained the process w/insurance for SNF placement. SW asked them to review the list and pick out a few choices, SW to return shortly for choices and start the referral process. SW will continue to follow. MARIAJOSE Thompson
--- NOTE | 2024-02-01 10:00 | EKG12_ITS ---
Test Reason : Blood Pressure : / mmHG Vent. Rate : 131 BPM Atrial Rate : 262 BPM P-R Int : 000 ms QRS Dur : 068 ms QT Int : 266 ms P-R-T Axes : 258 011 151 degrees QTc Int : 392 ms Atrial flutter with 2:1 A-V conduction Nonspecific ST and T wave abnormality Abnormal ECG When compared with ECG of 31-JAN-2024 05:08, MANUAL COMPARISON REQUIRED, DATA IS UNCONFIRMED Confirmed by Demetrius Bai ([id number]), managing editor ABBY GARCIA ([id number]) on 02/05/2024 11:32:15 AM Referred By: Confirmed By:Demetrius Bai
--- NOTE | 2024-02-01 10:29 | CASEMGMT ---
Social Work SW spoke w/pt and son in room, their SNF choices are 1. [facility]. [facility] 3. [facility]. SW explained will make referrals and let them know. SW did make referral to [facility], awaiting response. MARIAJOSE Thompson
--- NOTE | 2024-02-01 10:59 | CASEMGMT ---
Addendum entered by Trudy Raza 02/04/24 12:11: [facility] was unable to accept d/t no beds. [facility] accepted and were updated that patient chose another provider. Trudy Raza, Discharge Planning Asst. Original Note: Discharge Planning Referral sent via [facility] to [facility] and [facility]. Trudy Raza, Discharge Planning Asst.
--- NOTE | 2024-02-01 11:01 | PCM.PN.HOSP ---
Reason for Visit Reason for Visit: Diagnoses Essential (primary) hypertension (01/30/24) Non-ST elevation (NSTEMI) myocardial infarction (01/30/24) Paroxysmal atrial fibrillation (01/30/24) Unspecified atrial fibrillation (01/30/24) Hypotension due to drugs (01/30/24) Hypotension, unspecified (01/30/24) Disorder of kidney and ureter, unspecified (01/30/24) Chest pain, unspecified (01/30/24) Presence of cardiac pacemaker (01/30/24) Subjective Subjective Overnight patient was noted to have worsening A-fib with RVR, was given a bolus of amiodarone and placed on amiodarone drip with improvement in her heart rate. Patient seen at bedside this morning, family member present. They noted that cardiology had been in to see the patient shortly before I was there. They said cardiology had discussed some medication changes but otherwise encouraged the patient to get out of bed and move as able. Patient continues to feel fatigued today, similar to yesterday. Denies any acute pain or discomfort this morning. Has no other acute concerns at this time. Objective Data Objective Data Vital Signs: Vital Signs Temp Pulse Resp BP Pulse Ox O2 Del Method O2 Flow Rate 98.6 F 75 18 99/72 96 Nasal Cannula 2 02/01/24 08:00 02/01/24 09:11 02/01/24 09:00 02/01/24 09:11 02/01/24 09:00 02/01/24 09:00 02/01/24 09:00 FiO2 2 01/30/24 16:30 Oxygen Flow Rate (L/min) 2 Oxygen Delivery Method Nasal Cannula Weight: 84.5 kg Body Mass Index (BMI) 35.2 Intake & Output: Intake and Output for Last 24 Hours 01/30/24 01/31/24 02/01/24 23:59 23:59 23:59 Intake Total 42.75 / 841.50 1298.75 / 1398.75 379.54 / 379.54 Output Total 3100 / 3700 1200 / 1500 1200 / 1200 Balance -3057.25 / -2858.50 98.75 / -101.25 -820.46 / -820.46 Lab / Micro Data 01/31/24 04:00 02/01/24 03:35 Labs: Laboratory Results - last 24 hr 02/01/24 03:35: Sodium 138, Potassium 4.1, Chloride 100, Carbon Dioxide 31.0, Anion Gap 7, BUN 29 H, Creatinine 1.25 H, Estim Creat Clear Calc 38.95, Est GFR (MDRD) Af Amer 54 L, Est GFR (MDRD) Non-Af 44 L, BUN/Creatinine Ratio 23.2 H, Glucose 108 H, Calcium 9.0 Rhythm Strip Rhythm Strip: A-fib Rate: 80 Ectopy: None Physical Exam Const alert, oriented x3 and average body habitus Constitutional Narrative: Elderly female, obese, fatigued appearing, otherwise sitting up comfortably in bed, conversing normally, no acute distress. General Appearance: cooperative and comfortable HEENT normocephalic, head/scalp atraumatic, hearing grossly normal bilaterally, nasal mucous membranes and turbinates normal and moist oral mucous membranes Eyes PERRL, EOMs intact bilaterally and conjunctivae normal Neck full ROM Chest inspection of chest normal Resp normal respiratory effort and no use of accessory muscles Resp Narrative: Breathing comfortably on 2 L nasal cannula with good saturations. Mildly decreased breath sounds bilaterally throughout, no wheezing or crackles noted. Cardio no murmurs and peripheral pulses 2+ throughout Cardio Narrative: A-fib, rate controlled. GI normal to inspection, nondistended, normoactive bowel sounds, soft to palpation, non-tender and non-distended Back/Spine normal ROM Extremity normal to inspection, full ROM and no pedal edema Skin no rashes or lesions noted Neuro no focal motor deficits and no sensory deficits noted Speech: speech normal Psych mental status grossly normal Assessment & Plan Assessment/Plan (1) Non-STEMI (non-ST elevated myocardial infarction): (2) Renal insufficiency: (3) Atrial fibrillation: QUALIFIERS: Atrial fibrillation type: paroxysmal Qualified Code(s): I48.0 - Paroxysmal atrial fibrillation PLAN: Plan Patient is a 73-year-old female who presented to [facility] ED on 01/30/2024 with chest pain. 1. NSTEMI, acute HFrEF - Presented with fairly acute onset chest pain on the evening of 01/27. Chest pain occurred at rest. - Troponin trend 23 > 1581 > 8805. EKG showed Afib with RVR, no ischemic changes. CTA chest showed no PE, did show cardiomegaly and pulmonary vascular congestion. - TTE on morning of 01/28 showed newly reduced EF 40%, large sized apical, septal and anterosepal wall motion abnormalities, as well as stage 3 diastolic dysfunction, LA moderately enlarged, and mildly elevated RVSP. - S/p left heart cath on afternoon of 01/28 showed totally occluded mid LAD stenosis with JANNETH x 1 to mid LAD lesion. - Cardiology following. Patient requiring frequent changes to rate control and blood pressure medications, will defer any changes to cardiology. Current regimen of Lopressor 25 mg every 6 hours, lisinopril 2.5 mg daily, spironolactone 12.5 mg daily with hold parameters for SBP less than 95. Continue Plavix and Xarelto, recommending lifelong Plavix therapy. 2. Paroxysmal A-fib with RVR - Known history. Per cardiology, patient historically was in A-fib 32% of the time on her last pacer check. Presented in A-fib with RVR with heart rate 100s-120. - Pacer interrogated 01/29, see cardiology note for report. - Cardiology following. Management as above. 3. Suspected mild MAYTE, stable - Creatinine 1.02 on evening of 01/28 on admit, worsened to 1.20 on morning on 01/29. Baseline creatinine unclear. Patient reports adequate urine output. - Suspect mild creatinine bump is prerenal secondary to NSTEMI and Afib w/ RVR as noted above. Also received contrast for CTA on evening of 01/28, will need to monitor for worsening MAYTE with this. - Creatinine remaining stable around 1.1-1.2 with adequate urine output. Continue to monitor on daily BMP and urine output. 4. Hypertension - Home regimen of lopressor 50 mg BID. BP elevated to the 160s/100s in the ED, may have been secondary to NSTEMI plus or minus anxiety related to her chest pain. - BP improved post LHC. Treating as above. 5. History of sinus node dysfunction and symptomatic bradycardia s/p pacemaker placement - Pacer interrogated on 01/29 as noted above. 6. Acute debility - PT/OT/case management following. Patient lives at home alone, does have family in the area to help when needed. Patient has significantly reduced therapy scores, likely acute on chronic. Planning for SNF on discharge. Chronic medical conditions: ? Obesity: BMI 35 on admit. Complicates hospital course, care and prognosis. ? QUENTIN: Continue CPAP nightly. DVT prophylaxis: Xarelto CODE STATUS: Full code, verified Expected disposition: SNF, TBD Total clinical time spent by myself addressing the patient's medical issues, reviewing all the data, and collaborating with patient's care team: 35 minutes. Charges/Coding Visit Charges Inpatient E&M: 45616 Subs Hosp L2
--- NOTE | 2024-02-01 15:08 | CASEMGMT ---
Social Work SW spoke w/Ama in TCU, she wants to reassess pt on Sunday. SW spoke w/d/c capacity planning engineer Trudy. It is unlikely [facility] will be able to take pt, but [facility] did accept her. SW let pt know, pt states understanding. SW to follow up on Sunday. MARIAJOSE Thompson
[2024-02-01] MEDS: Rivaroxaban 20 MG Tablet PO (15:26)
[2024-02-01] MEDS: Atorvastatin Calcium 40 MG Tablet PO (20:23)
[2024-02-02] VITALS (23 sets, daily range): BP systolic 91–129; BP diastolic 51–97; PULSE 60–100; RESP 14–20; TEMP 36.3–36.7; O2SAT 92–99; BMI 34.8
[2024-02-02] MEDS: 0.9% Saline Lock 10 ML Syringe IV ×2 (03:14→11:52)
[2024-02-02] MEDS: Metoprolol Tartrate 25 MG Tablet PO ×3 (03:14→10:53)
[2024-02-02 03:48] LABS: Anion Gap 5 (5-15); BUN 27 mg/dL (7-18); BUN/Creat Ratio 23.9 RATIO (10-20); Chloride 107 mmol/L (98-107); Creatinine, Serum 1.13 mg/dL (0.55-1.02); EST Glomerular Filtration Rate 50 mL/min (>60); Est Glom Filt Rate - Afr Amer 60 mL/min (>60); Estimated Creatinine Clearance 43.08 ml/min; Glucose 120 mg/dL (74-106); Potassium 4.2 mmol/L (3.5-5.1); Sodium Level 140 mmol/L (136-145)
[2024-02-02] MEDS: Aspirin 81 MG TAB.CHEW PO (08:46)
--- NOTE | 2024-02-02 10:00 | EKG12_ITS ---
Test Reason : AM EKG Blood Pressure : / mmHG Vent. Rate : 063 BPM Atrial Rate : 063 BPM P-R Int : 202 ms QRS Dur : 070 ms QT Int : 424 ms P-R-T Axes : 030 015 070 degrees QTc Int : 433 ms Atrial-paced rhythm Nonspecific T wave abnormality Abnormal ECG When compared with ECG of 01-FEB-2024 03:34, MANUAL COMPARISON REQUIRED, DATA IS UNCONFIRMED Confirmed by Demetrius Bai ([id number]), news assignment editor ABBY GARCIA ([id number]) on 02/05/2024 11:32:00 AM Referred By: Confirmed By:Demetrius Bai
[2024-02-02] MEDS: Clopidogrel Bisulfate 75 MG Tablet PO (10:04)
[2024-02-02] MEDS: Pantoprazole Sodium 20 MG Tablet PO ×2 (10:04→20:42)
[2024-02-02] MEDS: Lisinopril 2.5 MG Tablet PO (10:04)
[2024-02-02] MEDS: Spironolactone 25 MG Tablet 12.5 MG PO (10:04)
--- NOTE | 2024-02-02 12:02 | PN.CARD_ITS ---
Subjective Subjective The patient is up in the chair at the bedside. One of her sons was in the room. She is much brighter and looks better this morning. She reports she has had a much better night she slept well and she was able to get to the chair with one- person assist today. Her blood pressure has been in the 100-120 range and she converted to an atrially paced rhythm overnight. Objective Data Vital Signs: Vital Signs Temp Pulse Resp BP Pulse Ox O2 Del Method O2 Flow Rate 97.7 F L 60 20 H 129/87 H 92 Room Air 2 02/02/24 08:00 02/02/24 11:00 02/02/24 11:00 02/02/24 11:00 02/02/24 11:00 02/02/24 11:00 02/02/24 05:00 FiO2 2 01/30/24 16:30 Oxygen Flow Rate (L/min) 2 Oxygen Delivery Method Room Air Weight: 184 lb 8.43 oz Body Mass Index (BMI) 34.8 Intake & Output: Intake and Output for Last 24 Hours 01/31/24 02/01/24 02/02/24 23:59 23:59 23:59 Intake Total 1298.75 / 1398.75 379.54 / 579.54 1340 / 1340 Output Total 1200 / 1500 3100 / 3900 1600 / 1600 Balance 98.75 / -101.25 -2720.46 / -3320.46 -260 / -260 Lab / Micro Data Attestation: I reviewed the patient's lab results. 01/31/24 04:00 02/02/24 03:12 Labs: Laboratory Results - last 24 hr 02/02/24 03:12: Sodium 140, Potassium 4.2, Chloride 107, Carbon Dioxide 28.0, Anion Gap 5, BUN 27 H, Creatinine 1.13 H, Estim Creat Clear Calc 43.08, Est GFR (MDRD) Af Amer 60, Est GFR (MDRD) Non-Af 50 L, BUN/Creatinine Ratio 23.9 H, Glucose 120 H, Calcium 9.0 Rhythm Strip Rhythm Strip: Atrially paced rhythm Rate: 60 Ectopy: None Cardiology Labs/Tests 02/02/24 03:12: Sodium 140, Potassium 4.2, Chloride 107, Carbon Dioxide 28.0, Anion Gap 5, BUN 27 H, Creatinine 1.13 H, Est GFR (MDRD) Af Amer 60, Est GFR (MDRD) Non-Af 50 L, BUN/Creatinine Ratio 23.9 H, Glucose 120 H, Calcium 9.0 Rhythm: EKG: ECHO: Stress Test: Cardiac Cath: PCI: CT Surgery: Holter monitor: EPS: PPM: CXR: Chest CT Scan: Physical Exam Const oriented x3 HEENT normocephalic Eyes EOMs intact bilaterally Neck supple and no JVD Chest inspection of chest normal Resp normal respiratory effort Auscultation: crackles bilateral (Scant changes that improved with deep respiration.) Cardio regular rate, regular rhythm, S1 normal heart sound, S2 normal heart sound, no murmurs, no rub and no gallops GI soft to palpation and non-tender Extremity no pedal edema Skin no rashes or lesions noted Neuro Neuro Narrative: Alert and oriented x 3 Psych mental status grossly normal Assessment & Plan Assessment/Plan (1) Non-STEMI (non-ST elevated myocardial infarction): PLAN: The patient is improving daily. She still is extremely weak requiring assistance to transfer from the bed to the chair. Physical therapy is evaluating her for possible aggressive inpatient rehab. She is tolerating her current medical regiment. Conversion back to an atrially paced rhythm from her atrial fibrillation has probably increased her cardiac output and improved her functional capacity. The patient should continue with secondary risk factor modifications she is on beta-annabel therapy which we have increased back to her home dose of 50 mg twice daily. The patient needs to be placed on ARB therapy which we will start in the next 24 to 48 hours pending her blood pressure response to the increase beta-annabel. (2) Atrial fibrillation: QUALIFIERS: Atrial fibrillation type: paroxysmal Qualified Code(s): I48.0 - Paroxysmal atrial fibrillation PLAN: The patient spontaneously converted overnight. She is now in an atrially paced rhythm at 60 she remains on dofetilide and we changed her metoprolol back to her home dose of 50 mg twice daily. She is also on Xarelto. (3) History of permanent cardiac pacemaker placement: PLAN: The patient is atrially paced at 60. Her ventricular output was decreased slightly yesterday. Her pacer will be reevaluated when she is seen in the office to readjust her ventricular lead output. This was required to be increased at the time of her acute non-STEMI. PLAN: Plan 1. Will increase metoprolol to 50 mg twice daily. 2. If blood pressure tolerates this we will add losartan 25 mg daily tomorrow. For post infarct guideline directed medical therapy. 3. Continue dofetilide and Xarelto at the current doses. 4. If inpatient rehab becomes available the patient can be cleared from a cardiovascular standpoint to proceed to rehab. Charges/Coding Visit Charges Inpatient E&M: 97556 Subs Hosp L3
--- NOTE | 2024-02-02 13:03 | PN.HOSP_ITS ---
Reason for Visit Reason for Visit: Diagnoses Essential (primary) hypertension (01/30/24) Non-ST elevation (NSTEMI) myocardial infarction (01/30/24) Paroxysmal atrial fibrillation (01/30/24) Unspecified atrial fibrillation (01/30/24) Hypotension due to drugs (01/30/24) Hypotension, unspecified (01/30/24) Disorder of kidney and ureter, unspecified (01/30/24) Chest pain, unspecified (01/30/24) Presence of cardiac pacemaker (01/30/24) Subjective Subjective No acute events overnight. Patient seen at bedside this morning. Sitting comfortably in bedside chair, conversing normally, in no acute distress. Feels like her energy level is somewhat improved today compared to previous days. Denies any chest pain or shortness of breath at rest. No other acute concerns this morning. Objective Data Objective Data Vital Signs: Vital Signs Temp Pulse Resp BP Pulse Ox O2 Del Method O2 Flow Rate 97.5 F L 60 16 111/61 96 Room Air 2 02/02/24 12:00 02/02/24 12:00 02/02/24 12:00 02/02/24 12:00 02/02/24 12:00 02/02/24 12:00 02/02/24 05:00 FiO2 2 01/30/24 16:30 Oxygen Flow Rate (L/min) 2 Oxygen Delivery Method Room Air Weight: 83.7 kg Body Mass Index (BMI) 34.8 Intake & Output: Intake and Output for Last 24 Hours 01/31/24 02/01/24 02/02/24 23:59 23:59 23:59 Intake Total 1298.75 / 1398.75 379.54 / 579.54 1340 / 1340 Output Total 1200 / 1500 3100 / 3900 1600 / 1600 Balance 98.75 / -101.25 -2720.46 / -3320.46 -260 / -260 Lab / Micro Data 01/31/24 04:00 02/02/24 03:12 Labs: Laboratory Results - last 24 hr 02/02/24 03:12: Sodium 140, Potassium 4.2, Chloride 107, Carbon Dioxide 28.0, Anion Gap 5, BUN 27 H, Creatinine 1.13 H, Estim Creat Clear Calc 43.08, Est GFR (MDRD) Af Amer 60, Est GFR (MDRD) Non-Af 50 L, BUN/Creatinine Ratio 23.9 H, Glucose 120 H, Calcium 9.0 Rhythm Strip Rhythm Strip: Atrially paced rhythm Rate: 60 Ectopy: None Physical Exam Const alert, oriented x3 and average body habitus Constitutional Narrative: Elderly female, obese, mildly fatigued appearing but improving, otherwise sitting up comfortably in bedside chair, conversing normally, no acute distress. General Appearance: cooperative and comfortable HEENT normocephalic, head/scalp atraumatic, hearing grossly normal bilaterally, nasal mucous membranes and turbinates normal and moist oral mucous membranes Eyes PERRL, EOMs intact bilaterally and conjunctivae normal Neck full ROM Chest inspection of chest normal Resp normal respiratory effort and no use of accessory muscles Resp Narrative: Breathing comfortably on room air. Mildly decreased breath sounds bilaterally throughout, no wheezing or crackles noted. Cardio no murmurs and peripheral pulses 2+ throughout Cardio Narrative: A-fib, rate controlled. GI normal to inspection, nondistended, normoactive bowel sounds, soft to palpation, non-tender and non-distended Back/Spine normal ROM Extremity normal to inspection, full ROM and no pedal edema Skin no rashes or lesions noted Neuro no focal motor deficits and no sensory deficits noted Speech: speech normal Psych mental status grossly normal Assessment & Plan Assessment/Plan (1) Non-STEMI (non-ST elevated myocardial infarction): (2) Renal insufficiency: (3) Atrial fibrillation: QUALIFIERS: Atrial fibrillation type: paroxysmal Qualified Code(s): I48.0 - Paroxysmal atrial fibrillation PLAN: Plan Patient is a 73-year-old female who presented to [facility] ED on 01/30/2024 with chest pain. 1. NSTEMI, acute HFrEF - Presented with fairly acute onset chest pain on the evening of 01/27. Chest pain occurred at rest. - Troponin trend 23 > 1581 > 8805. EKG showed Afib with RVR, no ischemic changes. CTA chest showed no PE, did show cardiomegaly and pulmonary vascular congestion. - TTE on morning of 01/28 showed newly reduced EF 40%, large sized apical, septal and anterosepal wall motion abnormalities, as well as stage 3 diastolic dysfunction, LA moderately enlarged, and mildly elevated RVSP. - S/p left heart cath on afternoon of 01/28 showed totally occluded mid LAD stenosis with JANNETH x 1 to mid LAD lesion. - Cardiology following. Patient requiring frequent changes to rate control and blood pressure medications, will defer any changes to cardiology. Current regimen of Lopressor 50 mg twice daily, lisinopril 2.5 mg daily, spironolactone 12.5 mg daily with hold parameters for SBP less than 95. Continue Plavix and Xarelto, recommending lifelong Plavix therapy. ? Stable for transfer out of the ICU on 02/01. 2. Paroxysmal A-fib with RVR - Known history. Per cardiology, patient historically was in A-fib 32% of the time on her last pacer check. Presented in A-fib with RVR with heart rate 100s- 120. - Pacer interrogated 01/29, see cardiology note for report. - Cardiology following. Management as above. 3. Suspected mild MAYTE, stable - Creatinine 1.02 on evening of 01/28 on admit, worsened to 1.20 on morning on 01/29. Baseline creatinine unclear. Patient reports adequate urine output. - Suspect mild creatinine bump is prerenal secondary to NSTEMI and Afib w/ RVR as noted above. Also received contrast for CTA on evening of 01/28, will need to monitor for worsening MAYTE with this. - Creatinine remaining stable around 1.1-1.2 with adequate urine output. Continue to monitor on daily BMP and urine output. 4. Hypertension - Home regimen of lopressor 50 mg BID. BP elevated to the 160s/100s in the ED, may have been secondary to NSTEMI plus or minus anxiety related to her chest pain. - BP improved post LHC. Treating as above. 5. History of sinus node dysfunction and symptomatic bradycardia s/p pacemaker placement - Pacer interrogated on 01/29 as noted above. 6. Acute debility - PT/OT/case management following. Patient lives at home alone, does have family in the area to help when needed. Patient has significantly reduced therapy scores, likely acute on chronic. Planning for SNF on discharge. Chronic medical conditions: ? Obesity: BMI 35 on admit. Complicates hospital course, care and prognosis. ? QUENTIN: Continue CPAP nightly. DVT prophylaxis: Xarelto CODE STATUS: Full code, verified Expected disposition: SNF, 2 to 3 days Total clinical time spent by myself addressing the patient's medical issues, reviewing all the data, and collaborating with patient's care team: 35 minutes. Charges/Coding Visit Charges Inpatient E&M: 70301 Subs Hosp L2
[2024-02-02] MEDS: Rivaroxaban 20 MG Tablet PO (17:08)
[2024-02-02] MEDS: Atorvastatin Calcium 40 MG Tablet PO (20:42)
[2024-02-02] MEDS: Metoprolol Tartrate 50 MG Tablet PO (20:42)
[2024-02-03] VITALS (7 sets, daily range): BP systolic 95–113; BP diastolic 53–74; PULSE 60–65; RESP 12–17; TEMP 36.4–36.7; O2SAT 94–97; BMI 34.7
[2024-02-03 04:28] LABS: Anion Gap 7 (5-15); BUN 31 mg/dL (7-18); BUN/Creat Ratio 27.7 RATIO (10-20); Calcium,Total 9.2 mg/dL (8.5-10.1); Chloride 104 mmol/L (98-107); Creatinine, Serum 1.12 mg/dL (0.55-1.02); EST Glomerular Filtration Rate 50 mL/min (>60); Est Glom Filt Rate - Afr Amer 61 mL/min (>60); Estimated Creatinine Clearance 43.16 ml/min; Glucose 113 mg/dL (74-106); Potassium 4.3 mmol/L (3.5-5.1); Sodium Level 140 mmol/L (136-145)
--- NOTE | 2024-02-03 09:50 | PN.CARD_ITS ---
Subjective Subjective Patient is up in the chair has eaten today without any restrictions and actually was able to ambulate a few steps from the bed to the chair. She denies any chest symptoms denies any PND orthopnea denies any lower extremity edema. Her blood pressure on the Lopressor 50 mg twice daily has been 95-115 and she remain s in an atrially paced rhythm at 60 on telemetry. Objective Data Vital Signs: Vital Signs Temp Pulse Resp BP Pulse Ox O2 Del Method O2 Flow Rate 97.8 F 61 16 95/65 95 Room Air 2 02/03/24 08:41 02/03/24 08:41 02/03/24 08:41 02/03/24 08:41 02/03/24 08:41 02/03/24 08:41 02/03/24 04:00 FiO2 2 01/30/24 16:30 Oxygen Flow Rate (L/min) 2 Oxygen Delivery Method Room Air Weight: 183 lb 13.848 oz Body Mass Index (BMI) 34.7 Intake & Output: Intake and Output for Last 24 Hours 02/01/24 02/02/24 02/04/24 23:59 23:59 00:59 Intake Total 379.54 / 579.54 2040 / 2140 100 / 100 Output Total 3100 / 3900 2300 / 2300 300 / 300 Balance -2720.46 / -3320.46 -260 / -160 -200 / -200 Lab / Micro Data 01/31/24 04:00 02/03/24 03:50 Labs: Laboratory Results - last 24 hr 02/03/24 03:50: Sodium 140, Potassium 4.3, Chloride 104, Carbon Dioxide 29.0, Anion Gap 7, BUN 31 H, Creatinine 1.12 H, Estim Creat Clear Calc 43.16, Est GFR (MDRD) Af Amer 61, Est GFR (MDRD) Non-Af 50 L, BUN/Creatinine Ratio 27.7 H, Glucose 113 H, Calcium 9.2 Rhythm Strip Rhythm Strip: Atrially paced rhythm Rate: 60 Ectopy: None Cardiology Labs/Tests 02/03/24 03:50: Sodium 140, Potassium 4.3, Chloride 104, Carbon Dioxide 29.0, Anion Gap 7, BUN 31 H, Creatinine 1.12 H, Est GFR (MDRD) Af Amer 61, Est GFR (MDRD) Non-Af 50 L, BUN/Creatinine Ratio 27.7 H, Glucose 113 H, Calcium 9.2 Rhythm: EKG: ECHO: Stress Test: Cardiac Cath: PCI: CT Surgery: Holter monitor: EPS: PPM: CXR: Chest CT Scan: Physical Exam Const oriented x3 HEENT normocephalic Eyes EOMs intact bilaterally Neck no JVD Chest inspection of chest normal Resp normal respiratory effort and clear to auscultation bilaterally Cardio regular rate, regular rhythm, S1 normal heart sound, S2 normal heart sound, no murmurs, no rub and no gallops Extremity no pedal edema Skin no rashes or lesions noted Neuro Neuro Narrative: Alert and oriented x 3 Psych mental status grossly normal Assessment & Plan Assessment/Plan (1) Non-STEMI (non-ST elevated myocardial infarction): PLAN: Patient is recovering well and tolerating postinfarct medical therapy. (2) Atrial fibrillation: QUALIFIERS: Atrial fibrillation type: paroxysmal Qualified Code(s): I48.0 - Paroxysmal atrial fibrillation PLAN: The patient remains in an atrially paced rhythm at 60 bpm will continue her current medical therapy. (3) History of permanent cardiac pacemaker placement: PLAN: Patient's pacer is functioning appropriately she will follow-up with a routine pacer check through the [facility] pacer device clinic PLAN: Plan From a cardiovascular standpoint the patient can be transferred to inpatient rehab. A follow-up appointment in the [facility] should be made within the next 4 weeks. Charges/Coding Visit Charges Inpatient E&M: 17200 Subs Hosp L2
[2024-02-03] MEDS: Aspirin 81 MG TAB.CHEW PO (10:02)
[2024-02-03] MEDS: Spironolactone 25 MG Tablet 12.5 MG PO (10:02)
[2024-02-03] MEDS: Metoprolol Tartrate 50 MG Tablet PO ×2 (10:03→20:11)
[2024-02-03] MEDS: Clopidogrel Bisulfate 75 MG Tablet PO (10:04)
[2024-02-03] MEDS: Pantoprazole Sodium 20 MG Tablet PO ×2 (10:04→20:09)
[2024-02-03] MEDS: Lisinopril 2.5 MG Tablet PO (10:05)
--- NOTE | 2024-02-03 12:02 | PCM.PN.HOSP ---
Reason for Visit Reason for Visit: Diagnoses Essential (primary) hypertension (01/30/24) Non-ST elevation (NSTEMI) myocardial infarction (01/30/24) Paroxysmal atrial fibrillation (01/30/24) Unspecified atrial fibrillation (01/30/24) Hypotension due to drugs (01/30/24) Hypotension, unspecified (01/30/24) Disorder of kidney and ureter, unspecified (01/30/24) Chest pain, unspecified (01/30/24) Presence of cardiac pacemaker (01/30/24) Subjective Subjective No acute events overnight. Patient seen at bedside this morning. Sitting up comfortably in bed, conversing normally, no acute distress. Nurse at bedside as well, states the patient was up out of bed this morning with assistance to go to the bathroom and to get to the bedside chair. Patient denies any acute pain or discomfort but does continue to feel quite weak. No other acute concerns at this time. Objective Data Objective Data Vital Signs: Vital Signs Temp Pulse Resp BP Pulse Ox O2 Del Method O2 Flow Rate 97.8 F 65 16 113/74 95 Room Air 2 02/03/24 08:41 02/03/24 10:03 02/03/24 08:41 02/03/24 10:03 02/03/24 08:41 02/03/24 08:41 02/03/24 04:00 FiO2 2 01/30/24 16:30 Oxygen Flow Rate (L/min) 2 Oxygen Delivery Method Room Air Weight: 83.4 kg Body Mass Index (BMI) 34.7 Intake & Output: Intake and Output for Last 24 Hours 02/01/24 02/02/24 02/04/24 23:59 23:59 00:59 Intake Total 379.54 / 579.54 2040 / 2140 100 / 100 Output Total 3100 / 3900 2300 / 2300 300 / 300 Balance -2720.46 / -3320.46 -260 / -160 -200 / -200 Lab / Micro Data 01/31/24 04:00 02/03/24 03:50 Labs: Laboratory Results - last 24 hr 02/03/24 03:50: Sodium 140, Potassium 4.3, Chloride 104, Carbon Dioxide 29.0, Anion Gap 7, BUN 31 H, Creatinine 1.12 H, Estim Creat Clear Calc 43.16, Est GFR (MDRD) Af Amer 61, Est GFR (MDRD) Non-Af 50 L, BUN/Creatinine Ratio 27.7 H, Glucose 113 H, Calcium 9.2 Rhythm Strip Rhythm Strip: Atrially paced rhythm Rate: 60 Ectopy: None Physical Exam Const alert, oriented x3 and average body habitus Constitutional Narrative: Elderly female, obese, mildly fatigued appearing but improving, otherwise sitting up comfortably in bed, conversing normally, no acute distress. General Appearance: cooperative and comfortable HEENT normocephalic, head/scalp atraumatic, hearing grossly normal bilaterally, nasal mucous membranes and turbinates normal and moist oral mucous membranes Eyes PERRL, EOMs intact bilaterally and conjunctivae normal Neck full ROM Chest inspection of chest normal Resp normal respiratory effort and no use of accessory muscles Resp Narrative: Breathing comfortably on room air. Mildly decreased breath sounds bilaterally throughout, no wheezing or crackles noted. Cardio no murmurs and peripheral pulses 2+ throughout Cardio Narrative: A-fib, rate controlled. GI normal to inspection, nondistended, normoactive bowel sounds, soft to palpation, non-tender and non-distended Back/Spine normal ROM Extremity normal to inspection, full ROM and no pedal edema Skin no rashes or lesions noted Neuro no focal motor deficits and no sensory deficits noted Speech: speech normal Psych mental status grossly normal Assessment & Plan Assessment/Plan (1) Non-STEMI (non-ST elevated myocardial infarction): (2) Renal insufficiency: (3) Atrial fibrillation: QUALIFIERS: Atrial fibrillation type: paroxysmal Qualified Code(s): I48.0 - Paroxysmal atrial fibrillation PLAN: Plan Patient is a 73-year-old female who presented to [facility] ED on 01/30/2024 with chest pain. 1. NSTEMI, acute HFrEF - Presented with fairly acute onset chest pain on the evening of 01/27. Chest pain occurred at rest. - Troponin trend 23 > 1581 > 8805. EKG showed Afib with RVR, no ischemic changes. CTA chest showed no PE, did show cardiomegaly and pulmonary vascular congestion. - TTE on morning of 01/28 showed newly reduced EF 40%, large sized apical, septal and anterosepal wall motion abnormalities, as well as stage 3 diastolic dysfunction, LA moderately enlarged, and mildly elevated RVSP. - S/p left heart cath on afternoon of 01/28 showed totally occluded mid LAD stenosis with JANNETH x 1 to mid LAD lesion. - Cardiology followed. Stable on current medication regimen of Lopressor 50 mg twice daily, lisinopril 2.5 mg daily, spironolactone 12.5 mg daily. Plan to continue this on discharge. Continue Plavix and Xarelto with recommendation for lifelong Plavix therapy. Cardiology signed off on 02/02, will see patient for follow-up in the office in the next 4 weeks. ? Stable for transfer out of the ICU on 02/01. Medically stable for discharge on 02/02. 2. Paroxysmal A-fib with RVR - Known history. Per cardiology, patient historically was in A-fib 32% of the time on her last pacer check. Presented in A-fib with RVR with heart rate 100s-120. - Pacer interrogated 01/29, see cardiology note for report. - Cardiology followed. Management as above. 3. Suspected mild MAYTE, stable - Creatinine 1.02 on evening of 01/28 on admit, worsened to 1.20 on morning on 01/29. Baseline creatinine unclear. Patient reports adequate urine output. - Suspect mild creatinine bump is prerenal secondary to NSTEMI and Afib w/ RVR as noted above. Also received contrast for CTA on evening of 01/28, will need to monitor for worsening MAYTE with this. - Creatinine remaining stable around 1.1-1.2 with adequate urine output. Continue to monitor on daily BMP and urine output. 4. Hypertension - Home regimen of lopressor 50 mg BID. BP elevated to the 160s/100s in the ED, may have been secondary to NSTEMI plus or minus anxiety related to her chest pain. - BP improved post LHC. Treating as above. 5. History of sinus node dysfunction and symptomatic bradycardia s/p pacemaker placement - Pacer interrogated on 01/29 as noted above. 6. Acute debility - PT/OT/case management following. Patient lives at home alone, does have family in the area to help when needed. Patient has significantly reduced therapy scores, likely acute on chronic. Planning for SNF on discharge. Medically ready for discharge on 02/02, awaiting placement. Chronic medical conditions: ? Obesity: BMI 35 on admit. Complicates hospital course, care and prognosis. ? QUENTIN: Continue CPAP nightly. DVT prophylaxis: Xarelto CODE STATUS: Full code, verified Expected disposition: SNF, medically ready for discharge on 02/02, awaiting placement Total clinical time spent by myself addressing the patient's medical issues, reviewing all the data, and collaborating with patient's care team: 35 minutes. Charges/Coding Visit Charges Inpatient E&M: 43670 Subs Hosp L2
[2024-02-03] MEDS: Rivaroxaban 20 MG Tablet PO (17:17)
[2024-02-03] MEDS: Atorvastatin Calcium 40 MG Tablet PO (20:09)
[2024-02-04] VITALS (8 sets, daily range): BP systolic 90–110; BP diastolic 66–71; PULSE 62–100; RESP 13–18; TEMP 36.3–37.1; O2SAT 94–97; BMI 34.3
[2024-02-04 08:34] LABS: Absolute Lymphocyte Count 1.64 X10^3/uL (0.83-4.51); Absolute Neutrophil Count 2.7 X10^3/uL (2.0-7.7); Basophil# 0.04 X10^3/uL; Basophil% 0.8 % (0-1); Eosinophil# 0.25 X10^3/uL; Eosinophils% 4.9 % (0-5); Hematocrit 38.4 % (37-47); Hemoglobin 12.7 g/dL (12.0-15.0); Lymphocyte # 1.64 X10^3/ul (0.83-4.51); Lymphocyte % 32.2 % (19-41); Mean Corp Hgb Conc 33.1 g/dL (32-36); Mean Corpuscular Hgb 30.7 pg (27.0-32.0); Mean Corpuscular Volume 92.8 fL (81-99); Mean Platelet Vol. 9.2 fl (6.2-12.0); Monocyte# 0.46 X10^3/uL; NRBC Flagged by Analyzer 0 % (0-5); Neutrophil % 52.9 % (47-70); Platelet Count 210 K/mm3 (150-450); RBC Distribution Width CV 13.5 % (11.6-14.6); RBC Distribution Width SD 46.2 fl (35.1-43.9); Red Blood Count 4.14 M/mm3 (4.2-5.4); White Blood Count 5.1 K/mm3 (4.4-11.0)
[2024-02-04] MEDS: Aspirin 81 MG TAB.CHEW PO (08:42)
[2024-02-04] MEDS: Spironolactone 25 MG Tablet 12.5 MG PO (08:42)
[2024-02-04] MEDS: Clopidogrel Bisulfate 75 MG Tablet PO (08:43)
[2024-02-04] MEDS: Pantoprazole Sodium 20 MG Tablet PO ×2 (08:43→20:50)
[2024-02-04] MEDS: Metoprolol Tartrate 50 MG Tablet PO ×2 (08:43→20:50)
[2024-02-04] MEDS: Lisinopril 2.5 MG Tablet PO (08:44)
[2024-02-04 08:46] LABS: Anion Gap 4 (5-15); BUN 23 mg/dL (7-18); BUN/Creat Ratio 23.3 RATIO (10-20); Calcium,Total 8.9 mg/dL (8.5-10.1); Chloride 109 mmol/L (98-107); Creatinine, Serum 0.99 mg/dL (0.55-1.02); EST Glomerular Filtration Rate 58 mL/min (>60); Est Glom Filt Rate - Afr Amer 71 mL/min (>60); Estimated Creatinine Clearance 48.54 ml/min; Glucose 110 mg/dL (74-106); Magnesium 2.2 mg/dL (1.6-2.6); Potassium 4.1 mmol/L (3.5-5.1); Sodium Level 142 mmol/L (136-145)
--- NOTE | 2024-02-04 12:18 | CASEMGMT ---
Social Work TCU can take pt and is starting precert. nara Yates/wes director of planning will let Lyudmila Sumner know. SW let pt and son know she is accepted in TCU and they started precert w/insurance, will let them know as the day goes if precert is attained. MARIAJOSE Thompson
--- NOTE | 2024-02-04 16:31 | PN_ITS ---
Subjective Subjective Patient seen and examined. She had no complaints and felt well. Review of symptoms otherwise negative. She is awaiting placement. Objective Data Objective Data Vital Signs: Vital Signs Temp Pulse Resp BP Pulse Ox O2 Del Method O2 Flow Rate 97.3 F L 80 18 96/66 96 Room Air 2 02/04/24 14:29 02/04/24 14:32 02/04/24 14:29 02/04/24 14:29 02/04/24 14:29 02/04/24 14:32 02/04/24 02:00 FiO2 2 01/30/24 16:30 Oxygen Flow Rate (L/min) 2 Oxygen Delivery Method Room Air Weight: 181 lb 14.102 oz Body Mass Index (BMI) 34.3 Intake & Output: Intake and Output for Last 24 Hours 02/02/24 02/03/24 02/04/24 22:59 23:59 23:59 Intake Total 460 / 460 Output Total Balance 460 / 460 Lab / Micro Data 02/04/24 08:21 02/04/24 08:21 Labs: Laboratory Results - last 24 hr 02/04/24 08:21: WBC 5.1, RBC 4.14 L, Hgb 12.7, Hct 38.4, MCV 92.8, MCH 30.7, MCHC 33.1, RDW Std Deviation 46.2 H, RDW Coeff of [place] 13.5, Plt Count 210, MPV 9.2, Immature Gran % (Auto) 0.200, Neut % (Auto) 52.9, Lymph % (Auto) 32.2, [place] % (Auto) 9.0, Eos % (Auto) 4.9, Baso % (Auto) 0.8, Absolute Neuts (auto) 2.7, Absolute Lymphs (auto) 1.64, Nucleated RBC % 0, Sodium 142, Potassium 4.1, Chloride 109 H, Carbon Dioxide 29.0, Anion Gap 4 L, BUN 23 H, Creatinine 0.99, Estim Creat Clear Calc 48.54, Est GFR (MDRD) Af Amer 71, Est GFR (MDRD) Non-Af 58 L, BUN/Creatinine Ratio 23.3 H, Glucose 110 H, Calcium 8.9, Magnesium 2.2 Rhythm Strip Rhythm Strip: Atrially paced rhythm Rate: 60 Ectopy: None Physical Exam Const alert, oriented x3 and no apparent distress General Appearance: cooperative and well developed HEENT normocephalic, moist oral mucous membranes and oropharynx normal Eyes EOMs intact bilaterally Neck no lymphadenopathy and supple Lymph Lymphatic: no lymphadenopathy noted and no lymphedema noted Resp normal respiratory effort, normal air movement and clear to auscultation bilaterally Cardio regular rate, regular rhythm, S1 normal heart sound, S2 normal heart sound and no murmurs GI normal to inspection, nondistended, normoactive bowel sounds and soft to palpation Extremity normal capillary refill, no clubbing, cyanosis or edema and no calf tenderness General Extremity: no tenderness to palpation of joints or extremities Skin General Skin Exam: no breakdown Neuro CN's II-XII intact bilaterally, no focal motor deficits, no sensory deficits noted and deep tendon reflexes 2+ bilaterally Motor Exam: strength 5/5 throughout and general weakness Psych thought process normal and cooperative Appearance: appropriate Assessment & Plan Assessment/Plan (1) Atherosclerotic heart disease of [place] coronary artery without angina pectoris: (2) Stented coronary artery: PLAN: Plan #CAD s/p stents * Presented with non-STEMI with troponins trended up to 8000. CT of the chest showed no evidence of PE but showed cardiomegaly and pulmonary vascular congestion. * 2D echo showed EF of 40% with large apical septal and anteroseptal wall motion abnormalities as well as stage III diastolic dysfunction. Left heart cath done showed totally occluded mid LAD and she had JANNETH with stent insertion. * On Lopressor, lisinopril and spironolactone. Also on Plavix and Xarelto. * * #PAroxysmal afib * Was in RVR on admission but that has resolved. * On Lopressor. On xarelto * #MAYTE: reolved. Hypertension: on lopressor. #History of symptomatic bradycardia: S/p pacemaker placement. Had interrogation done during this admission. #Debility and weakness. PT OT on board. Fall precautions. #QUENTIN: On CPAP nightly. DVT prophylaxis: On Xarelto. Disposition; awaiting placement * * Charges/Coding Visit Charges Inpatient E&M: 69065 Subs Hosp L2
[2024-02-04] MEDS: Rivaroxaban 20 MG Tablet PO (16:34)
[2024-02-04] MEDS: Atorvastatin Calcium 40 MG Tablet PO (20:51)
[2024-02-05] VITALS (8 sets, daily range): BP systolic 80–118; BP diastolic 59–75; PULSE 63–93; RESP 15–19; TEMP 36.1–36.9; O2SAT 94–98; BMI 34.5
[2024-02-05] MEDS: Spironolactone 25 MG Tablet 12.5 MG PO (08:41)
[2024-02-05] MEDS: Metoprolol Tartrate 50 MG Tablet PO ×2 (08:41→20:37)
[2024-02-05] MEDS: Pantoprazole Sodium 20 MG Tablet PO ×2 (08:41→20:37)
[2024-02-05] MEDS: Lisinopril 2.5 MG Tablet PO (08:41)
[2024-02-05] MEDS: Clopidogrel Bisulfate 75 MG Tablet PO (08:41)
[2024-02-05] MEDS: Aspirin 81 MG TAB.CHEW PO (08:41)
--- NOTE | 2024-02-05 09:15 | CASEMGMT ---
Social Work SW spoke w/TCU, precert is still pending. SW let pt and son know, will continue to follow. MARIAJOSE Thompson
--- NOTE | 2024-02-05 12:02 | PN_ITS ---
Subjective Subjective Patient seen and examined. She had no active complaints and had an uneventful night. Review of systems is otherwise negative. She is awaiting placement. She has remained hemodynamically stable. Objective Data Objective Data Vital Signs: Vital Signs Temp Pulse Resp BP Pulse Ox O2 Del Method O2 Flow Rate 98.3 F 80 17 118/73 98 Room Air 2 02/05/24 08:30 02/05/24 08:41 02/05/24 08:30 02/05/24 08:30 02/05/24 08:30 02/05/24 10:20 02/05/24 02:30 FiO2 2 01/30/24 16:30 Oxygen Flow Rate (L/min) 2 Oxygen Delivery Method Room Air Weight: 182 lb 12.211 oz Body Mass Index (BMI) 34.5 Intake & Output: Intake and Output for Last 24 Hours 02/03/24 02/04/24 02/05/24 23:59 23:59 23:59 Intake Total 460 / 460 Output Total 550 / 550 250 / 250 Balance -90 / -90 -250 / -250 Lab / Micro Data 02/04/24 08:21 02/04/24 08:21 Rhythm Strip Rhythm Strip: Atrially paced rhythm Rate: 60 Ectopy: None Physical Exam Const alert, oriented x3, no apparent distress and average body habitus General Appearance: cooperative, comfortable and well developed HEENT normocephalic, head/scalp atraumatic, hearing grossly normal bilaterally, nasal mucous membranes and turbinates normal, moist oral mucous membranes and oropharynx normal Eyes PERRL, EOMs intact bilaterally and conjunctivae normal Neck full ROM, no lymphadenopathy and supple Lymph Lymphatic: no lymphadenopathy noted and no lymphedema noted Chest inspection of chest normal Resp normal respiratory effort, normal air movement, no use of accessory muscles and clear to auscultation bilaterally Resp Narrative: Breathing comfortably on room air. Mildly decreased breath sounds bilaterally throughout, no wheezing or crackles noted. Cardio S1 normal heart sound, S2 normal heart sound, no murmurs and peripheral pulses 2+ throughout Cardio Narrative: A-fib, rate controlled. GI normal to inspection, nondistended, normoactive bowel sounds, soft to palpation, non-tender and non-distended Back/Spine normal ROM Extremity normal to inspection, full ROM, normal capillary refill, no clubbing, cyanosis or edema, no calf tenderness and no pedal edema General Extremity: no tenderness to palpation of joints or extremities Skin no rashes or lesions noted General Skin Exam: no breakdown Neuro CN's II-XII intact bilaterally, no focal motor deficits, no sensory deficits noted and deep tendon reflexes 2+ bilaterally Speech: speech normal Motor Exam: strength 5/5 throughout and general weakness Psych mental status grossly normal, thought process normal and cooperative Appearance: appropriate Assessment & Plan Assessment/Plan (1) Atherosclerotic heart disease of [place] coronary artery without angina pectoris: (2) Stented coronary artery: PLAN: Plan #CAD s/p stents * Presented with non-STEMI with troponins trended up to 8000. CT of the chest showed no evidence of PE but showed cardiomegaly and pulmonary vascular congestion. * 2D echo showed EF of 40% with large apical septal and anteroseptal wall motion abnormalities as well as stage III diastolic dysfunction. Left heart cath don e showed totally occluded mid LAD and she had JANNETH with stent insertion. * On Lopressor, lisinopril and spironolactone. Also on Plavix and Xarelto. * * #PAroxysmal afib * Was in RVR on admission but that has resolved. * On Lopressor. On xarelto * #MAYTE: reolved. Hypertension: on lopressor. #History of symptomatic bradycardia: S/p pacemaker placement. Had interrogation done during this admission. #Debility and weakness. PT OT on board. Fall precautions. #QUENTIN: On CPAP nightly. DVT prophylaxis: On Xarelto. Disposition; awaiting placement * Charges/Coding Visit Charges Inpatient E&M: 82298 Subs Hosp L2
[2024-02-05] MEDS: Rivaroxaban 20 MG Tablet PO (16:05)
[2024-02-05] MEDS: Atorvastatin Calcium 40 MG Tablet PO (20:37)
[2024-02-06 03:51] VITALS: BP 118/77; PULSE 63; RESP 14; TEMP 36.6; O2SAT 94
[2024-02-06 05:06] VITALS: BMI 34.4
[2024-02-06 08:00] VITALS: BP 109/72; PULSE 60; RESP 15; TEMP 36.1; O2SAT 94
[2024-02-06] MEDS: Aspirin 81 MG TAB.CHEW PO (09:06)
[2024-02-06] MEDS: Pantoprazole Sodium 20 MG Tablet PO ×2 (09:06→19:44)
[2024-02-06] MEDS: Lisinopril 2.5 MG Tablet PO (09:06)
[2024-02-06] MEDS: Clopidogrel Bisulfate 75 MG Tablet PO (09:06)
[2024-02-06] MEDS: Spironolactone 25 MG Tablet 12.5 MG PO (09:06)
[2024-02-06 09:09] VITALS: PULSE 68
[2024-02-06] MEDS: Metoprolol Tartrate 50 MG Tablet PO ×2 (09:09→19:43)
--- NOTE | 2024-02-06 10:12 | PCM.PROGNOTE ---
Subjective Subjective Patient seen and examined. She had no complaints. She is awaiting placement. Review of systems otherwise negative. Objective Data Objective Data Vital Signs: Vital Signs Temp Pulse Resp BP Pulse Ox O2 Del Method O2 Flow Rate 97.0 F L 68 15 109/72 94 Room Air 2 02/06/24 08:00 02/06/24 09:09 02/06/24 08:00 02/06/24 08:00 02/06/24 08:00 02/06/24 08:00 02/05/24 02:30 FiO2 2 01/30/24 16:30 Oxygen Flow Rate (L/min) 2 Oxygen Delivery Method Room Air Weight: 182 lb 8.684 oz Body Mass Index (BMI) 34.4 Intake & Output: Intake and Output for Last 24 Hours 02/04/24 02/05/24 02/06/24 23:59 23:59 23:59 Intake Total 460 / 460 300 / 300 Output Total 550 / 550 250 / 250 Balance -90 / -90 -250 / -70 300 / 300 Lab / Micro Data 02/04/24 08:21 02/04/24 08:21 Rhythm Strip Rhythm Strip: Atrially paced rhythm Rate: 60 Ectopy: None Physical Exam Const alert, oriented x3, no apparent distress and average body habitus General Appearance: cooperative, comfortable and well developed HEENT normocephalic, head/scalp atraumatic, hearing grossly normal bilaterally, nasal mucous membranes and turbinates normal, moist oral mucous membranes and oropharynx normal Eyes PERRL, EOMs intact bilaterally and conjunctivae normal Neck full ROM, no lymphadenopathy and supple Lymph Lymphatic: no lymphadenopathy noted and no lymphedema noted Chest inspection of chest normal Resp normal respiratory effort, normal air movement, no use of accessory muscles and clear to auscultation bilaterally Cardio regular rate, regular rhythm, S1 normal heart sound, S2 normal heart sound, no murmurs and peripheral pulses 2+ throughout GI normal to inspection, nondistended, normoactive bowel sounds, soft to palpation, non-tender and non-distended Back/Spine normal ROM Extremity normal to inspection, full ROM, normal capillary refill, no clubbing, cyanosis or edema, no calf tenderness and no pedal edema General Extremity: no tenderness to palpation of joints or extremities Skin no rashes or lesions noted General Skin Exam: no breakdown Neuro CN's II-XII intact bilaterally, no focal motor deficits, no sensory deficits noted and deep tendon reflexes 2+ bilaterally Speech: speech normal Motor Exam: strength 5/5 throughout and general weakness Psych mental status grossly normal, thought process normal and cooperative Appearance: appropriate Assessment & Plan Assessment/Plan (1) Atherosclerotic heart disease of [place] coronary artery without angina pectoris: (2) Stented coronary artery: PLAN: Plan #CAD s/p stents Presented with non-STEMI with troponins trended up to 8000. CT of the chest showed no evidence of PE but showed cardiomegaly and pulmonary vascular congestion. 2D echo showed EF of 40% with large apical septal and anteroseptal wall motion abnormalities as well as stage III diastolic dysfunction. Left heart cath done showed totally occluded mid LAD and she had JANNETH with stent insertion. On Lopressor, lisinopril and spironolactone. Also on Plavix and Xarelto. #PAroxysmal afib Was in RVR on admission but that has resolved. On Lopressor. On xarelto #MAYTE: reolved. Hypertension: on lopressor. #History of symptomatic bradycardia: S/p pacemaker placement. Had interrogation done during this admission. #Debility and weakness. PT OT on board. Fall precautions. #QUENTIN: On CPAP nightly. DVT prophylaxis: On Xarelto. Disposition; awaiting placement Charges/Coding Visit Charges Inpatient E&M: 76637 Subs Hosp L2
[2024-02-06] MEDS: Rivaroxaban 20 MG Tablet PO (16:03)
[2024-02-06 19:43] VITALS: BP 103/66; PULSE 62
[2024-02-06] MEDS: Atorvastatin Calcium 40 MG Tablet PO (19:43)
[2024-02-06 20:00] VITALS: BP 103/66; PULSE 77; RESP 13; TEMP 36.6; O2SAT 97
[2024-02-07] VITALS: BP 114/71; PULSE 60; RESP 17; TEMP 36.9; O2SAT 96
[2024-02-07 04:00] VITALS: BP 114/71; PULSE 62; RESP 16; TEMP 36.7; O2SAT 96
[2024-02-07 08:00] VITALS: BP 103/66; PULSE 60; RESP 12; TEMP 36.7; O2SAT 95
[2024-02-07 08:05] VITALS: BP 130/66; PULSE 60
[2024-02-07] MEDS: Metoprolol Tartrate 50 MG Tablet PO (08:05)
[2024-02-07] MEDS: Lisinopril 2.5 MG Tablet PO (08:06)
[2024-02-07] MEDS: Pantoprazole Sodium 20 MG Tablet PO (08:06)
[2024-02-07] MEDS: Aspirin 81 MG TAB.CHEW PO (08:06)
[2024-02-07] MEDS: Clopidogrel Bisulfate 75 MG Tablet PO (08:06)
[2024-02-07] MEDS: Spironolactone 25 MG Tablet 12.5 MG PO (08:13)
--- NOTE | 2024-02-07 09:31 | CASEMGMT ---
Social Work SW spoke with Ama in TCU and precert is still pending at this time for admission to TCU. SW met with pt and son and updated on this. Questions answered regarding precert process. Plan: TCU, pending precert HENRIK Vega
--- NOTE | 2024-02-07 09:53 | PN_ITS ---
Subjective Subjective Patient seen and examined.She had no active complaints. Review o [facility] is otherwise negative. She is awaiting placement. Objective Data Objective Data Vital Signs: Vital Signs Temp Pulse Resp BP Pulse Ox O2 Del Method O2 Flow Rate 98.1 F 60 12 130/66 H 95 Room Air 2 02/07/24 08:00 02/07/24 08:05 02/07/24 08:00 02/07/24 08:05 02/07/24 08:00 02/07/24 08:00 02/05/24 02:30 FiO2 2 01/30/24 16:30 Oxygen Flow Rate (L/min) 2 Oxygen Delivery Method Room Air Weight: 182 lb 8.684 oz Body Mass Index (BMI) 34.4 Intake & Output: Intake and Output for Last 24 Hours 02/05/24 02/06/24 02/07/24 23:59 23:59 23:59 Intake Total 680 / 680 Output Total 250 / 250 Balance -250 / -70 680 / 680 Lab / Micro Data 02/04/24 08:21 02/04/24 08:21 Rhythm Strip Rhythm Strip: Atrially paced rhythm Rate: 60 Ectopy: None Physical Exam Const alert, oriented x3, no apparent distress and average body habitus General Appearance: cooperative, comfortable and well developed HEENT normocephalic, head/scalp atraumatic, hearing grossly normal bilaterally, nasal mucous membranes and turbinates normal, moist oral mucous membranes and oropharynx normal Eyes PERRL, EOMs intact bilaterally and conjunctivae normal Neck full ROM, no lymphadenopathy and supple Lymph Lymphatic: no lymphadenopathy noted and no lymphedema noted Chest inspection of chest normal Resp normal respiratory effort, normal air movement, no use of accessory muscles and clear to auscultation bilaterally Cardio S1 normal heart sound, S2 normal heart sound, no murmurs and peripheral pulses 2+ throughout Cardio Narrative: A-fib, rate controlled. GI normal to inspection, nondistended, normoactive bowel sounds, soft to palpation, non-tender and non-distended Back/Spine normal ROM Extremity normal to inspection, full ROM, normal capillary refill, no clubbing, cyanosis or edema, no calf tenderness and no pedal edema General Extremity: no tenderness to palpation of joints or extremities Skin no rashes or lesions noted General Skin Exam: no breakdown Neuro CN's II-XII intact bilaterally, no focal motor deficits, no sensory deficits noted and deep tendon reflexes 2+ bilaterally Speech: speech normal Motor Exam: strength 5/5 throughout and general weakness Psych mental status grossly normal, thought process normal and cooperative Appearance: appropriate Assessment & Plan Assessment/Plan (1) Atherosclerotic heart disease of [place] coronary artery without angina pectoris: (2) Stented coronary artery: PLAN: Plan #CAD s/p stents * Presented with non-STEMI with troponins trended up to 8000. CT of the chest showed no evidence of PE but showed cardiomegaly and pulmonary vascular congestion. * 2D echo showed EF of 40% with large apical septal and anteroseptal wall motion abnormalities as well as stage III diastolic dysfunction. Left heart cath done showed totally occluded mid LAD and she had JANNETH with stent insertion. * On Lopressor, lisinopril and spironolactone. Also on Plavix and Xarelto as well as aspirin * * #PAroxysmal afib * Was in RVR on admission but that has resolved. * On Lopressor. On xarelto * #MAYTE: resolved. Hypertension: on lopressor and lisinopril as well as spironolactone #History of symptomatic bradycardia: S/p pacemaker placement. Had interrogation done during this admission. #Debility and weakness. PT OT on board. Fall precautions. #QUENTIN: On CPAP nightly. DVT prophylaxis: On Xarelto. Disposition; awaiting placement pending precert. Charges/Coding Visit Charges Inpatient E&M: 30042 Subs Hosp L2
--- NOTE | 2024-02-07 12:11 | CASEMGMT ---
Social Work SW received message from TCU that precert was denied and peer to peer is offered. SW reviewed therapy notes and met with pt and her son. Updated on denial and discussed progress with therapy (150 ft SBA with no AD, SBA for transfers and ADLs). Pt and son feel pt can return home alone and do not have concerns with this. Son will stay with pt and assist if needed. LETI discussed home health services and outpatient therapy options with pt. RNCM updated and will assist pt with continued dc planning and notify physician of new discharge plan. Ama in TCU notified that peer to peer will not be completed. HENRIK Vega
--- NOTE | 2024-02-07 12:28 | CASEMGMT ---
Addendum entered by Prashanth Luevano 02/07/24 14:00: Cori from [facility] calls and states they cannot see the pt tomorrow since it would be the same day as DC from the hospital. Dr. Duggan notified and states that the pt can DC today. KRISHNA CM to pt room at this time and the pt states she is more than comfortable DCing today via her son. Dr. Duggan notified. TC back to Cori at this time and updated that the plan is to DC today. Cori states that the SOC is confirmed tomorrow 02/08/24. Pt RN and NS notified. Addendum entered by Prashanth Luevano 02/07/24 12:37: Pt RN notified of updated plan. Original Note: SW states that the pt was declined by TCU as the pt has been doing well with therapy. RN CM to pt room at this time. Pt states that she is wanting to DC home and feels safe doing so. This RN CM questioned the pt about HHC or OP therapy and the pt states that she would be interested in HHC. Pt denied wanting to see a list of local [facility] HHC agencies as the pt wants [facility]. TC to [facility] and referral for SN, PT, OT placed at this time. [facility] states that they are able to accept the pt for SOC tomorrow. Dr. Duggan updated with this plan and the MD states that she agrees and will DC the pt tomorrow. Pt updated with the POC and pt states that she is content and agreeable to this plan. CM to continue to follow for safe DC home.
[2024-02-07 15:22] VITALS: BP 108/74; PULSE 62; RESP 14; TEMP 36.6; O2SAT 96
--- NOTE | 2024-02-07 15:23 | PCM.DC.SUM ---
Providers Date of Admission: 01/30/24 Date of Discharge: 02/07/24 Primary Care Physician: Dr. Milli Man MD Consultations 01/30/24 02:30 Consult: Cardiology Routine Consulting Provider: Demetrius Bai Reason for Consult: NSTEMI, chest pain EMERGENT Consult: No Notified: Yes Date Notified: 01/30/24 Time Notified: 06:30 Method of Notification: Text 01/31/24 03:51 Consult: Meat Clerk / Pulmonary Medicine Routine Consulting Provider: Leandro Poe Reason for Consult: Hypotensive EMERGENT Consult: No Notified: Yes Date Notified: 01/31/24 Time Notified: 03:51 Method of Notification: Text Reason For Visit: PAF RVR, HF Diagnosis Discharge Diagnosis (1) Atherosclerotic heart disease of [place] coronary artery without angina pectoris: Status: Acute Code(s): I25.10 - Atherosclerotic heart disease of [place] coronary artery without angina pectoris (2) Stented coronary artery: Status: Acute Code(s): Z95.5 - Presence of coronary angioplasty implant and graft Plan #CAD s/p stents Presented with non-STEMI with troponins trended up to 8000. CT of the chest showed no evidence of PE but showed cardiomegaly and pulmonary vascular congestion. 2D echo showed EF of 40% with large apical septal and anteroseptal wall motion abnormalities as well as stage III diastolic dysfunction. Left heart cath done showed totally occluded mid LAD and she had JANNETH with stent insertion. On Lopressor, lisinopril and spironolactone. Also on Plavix and Xarelto as well as aspirin #PAroxysmal afib Was in RVR on admission but that has resolved. On Lopressor. On xarelto #MAYTE: resolved. Hypertension: on lopressor and lisinopril as well as spironolactone #History of symptomatic bradycardia: S/p pacemaker placement. Had interrogation done during this admission. #Debility and weakness. PT OT on board. Fall precautions. #QUENTIN: On CPAP nightly. DVT prophylaxis: On Xarelto. Disposition; awaiting placement pending precert. Medications at Discharge Home Medications ascorbic acid (vitamin C) 1,000 mg capsule 1 g PO DAILY . 06/20/22 cholecalciferol (vitamin D3) 125 mcg (5,000 unit) capsule 125 mcg PO DAILY . 06/20/22 magnesium oxide 400 mg PO DAILY . 06/20/22 potassium citrate 99 mg capsule 99 mg PO DAILY 06/20/22 metoprolol tartrate 50 mg tablet 50 mg PO BID #180 tabs 03/23/23 rivaroxaban 20 mg tablet (Xarelto) 20 mg PO QPM #90 tabs 07/23/23 aspirin 81 mg chewable tablet 81 mg PO BREAKFAST #30 tabs 02/07/24 atorvastatin 40 mg tablet 40 mg PO QHS #30 tabs 02/07/24 clopidogrel 75 mg tablet 75 mg PO DAILY #30 tabs 02/07/24 lisinopril 2.5 mg tablet 2.5 mg PO DAILY #30 tabs 02/07/24 spironolactone 25 mg tablet 12.5 mg (1/2 x 25 mg) PO DAILY #30 tabs 02/07/24 Hospital Course Operations None Procedures 2-D Echocardiogram and Cardiac catheterization Summary of Care Provided Minutes Spent on Discharge: 55 Hospital Course: Patient is a 73-year-old female with a past medical history as outlined was admitted through the ED on 01/30/2024 with a complaint of chest discomfort which started an hour prior to her admission. She had just gotten out of the shower and noted that she was having continuous pleuritic and sharp chest pain which radiated to her upper back. She had assisted nausea and shortness of breath. She denied any sweating or vomiting. On admission chest x-ray showed cardiomegaly and CT showed evidence of pulmonary vascular congestion. She did not have any PE. BNP was 2-6.5. She was admitted and managed for A-fib with RVR and fluid overload. EKG showed A-fib with RVR. She was diuresed with IV Lasix. Troponins and 2D echo were ordered. Cardiology was consulted. 2D echo showed normal 11:00 size with EF of 40% and stage III diastolic dysfunction with RVSP of 46 mmHg. She had a cardiac cath which showed totally occluded mid LAD and she had PCI with insertion of drug-eluting stent. Hospital course was complicated by lethargy and hypotension. She had been on metoprolol 3 times daily as well as lisinopril. She was therefore transferred to the ICU. Metoprolol was cut down to twice daily dosing. Patient symptoms improved and she felt much better. She was placed on aspirin and Plavix and had Xarelto was continued. Plan was for patient to go to half-way facility. However she did well with therapy and upon waiting quite a while for insurance approval, patient opted to go home with home health. She was therefore discharged home on 02/07/2024. She is to follow-up with her primary care doctor within 1 to 2 weeks and also to follow-up with cardiology. She was discharged on p.o. metoprolol as well as p.o.'s lisinopril and spironolactone and Xarelto as well as aspirin and Plavix. Patient seen and examined prior to discharge. She had no active complaints and felt well. Review of systems otherwise negative. Labs and vitals reviewed. Medication reviewed and reconciled. Physical Exam Const alert, oriented x3, no apparent distress and average body habitus Constitutional Narrative: Elderly female, obese, mildly fatigued appearing but improving, otherwise sitting up comfortably in bed, conversing normally, no acute distress. General Appearance: cooperative, comfortable and well developed Orientation / Consciousness: awake HEENT normocephalic, head/scalp atraumatic, hearing grossly normal bilaterally, nasal mucous membranes and turbinates normal, moist oral mucous membranes and oropharynx normal Mouth: oral and palatal mucosa normal Eyes PERRL, EOMs intact bilaterally and conjunctivae normal Neck full ROM, no lymphadenopathy and supple Lymph Lymphatic: no lymphadenopathy noted and no lymphedema noted Chest inspection of chest normal Resp normal respiratory effort, normal air movement, no use of accessory muscles and clear to auscultation bilaterally Cardio regular rate, regular rhythm, S1 normal heart sound, S2 normal heart sound, no murmurs and peripheral pulses 2+ throughout Cardio Narrative: A-fib, rate controlled. GI normal to inspection, nondistended, normoactive bowel sounds, soft to palpation, non-tender and non-distended Back/Spine normal ROM Extremity normal to inspection, full ROM, normal capillary refill, no clubbing, cyanosis or edema, no calf tenderness and no pedal edema General Extremity: no tenderness to palpation of joints or extremities Skin no rashes or lesions noted General Skin Exam: no breakdown Neuro oriented x3, CN's II-XII intact bilaterally, moves all extremities, no focal motor deficits, no sensory deficits noted and deep tendon reflexes 2+ bilaterally Sensorium / Orientation: awake Speech: speech normal Motor Exam: strength 5/5 throughout and general weakness Psych mental status grossly normal, thought process normal and cooperative Appearance: appropriate Weight / BMI Weight Weight: 182 lb 8.684 oz Body Mass Index (BMI) 34.4 ABG / Lab / Microbiology Data 02/04/24 08:21 02/04/24 08:21 D/C Instructions Discharge Diet: Low fat / Low cholesterol Discharge Activity: Return to Normal Activity Weight Bearing Status: Weight bearing as tolerated Call your doctor if you observe: Fever of 101 or Higher, Shortness of breath, Dizziness, Swelling in the ankles, Chest pain and Increased palpitations (irregular heartbeat) Meaningful Use Info Meaningful Use Diagnoses (Choose all that apply): AMI AMI/Post PCI/Angioplasty Aspirin given w/in 24hrs of arrival?: Yes ASA at discharge?: Yes Antiplatelet Therapy at Discharge:: Yes Statins at discharge?: Yes Emmanuel/ARB at discharge?: Yes Beta Taj at discharge?: Yes Done w/ Acute IL measure.: Yes Documented LVEF (%): 40 Discharge Plan Admission Admit Date/Time: 01/30/24 01:44 Primary Reason for Your Visit: heart attack Attending Provider: Beatriz Duggan Primary Care Provider: Milli Man Consulting Providers: Bing Ruth; Demetrius Bai; Lokesh Watson Instructions Patient Instructions: Exercising After a Heart Attack Discharge Orders/Prescriptions Prescriptions: New atorvastatin 40 mg Tablet 40 mg PO QHS Qty: 30 2RF clopidogrel 75 mg Tablet 75 mg PO DAILY Qty: 30 2RF spironolactone 25 mg Tablet 12.5 mg PO DAILY Qty: 30 2RF aspirin 81 mg Tablet,Chewable 81 mg PO BREAKFAST Qty: 30 2RF lisinopril 2.5 mg Tablet 2.5 mg PO DAILY Qty: 30 2RF Continued magnesium oxide 400 mg magnesium tablet 400 mg PO DAILY potassium citrate 99 mg capsule 99 mg PO DAILY cholecalciferol (vitamin D3) 125 mcg (5,000 unit) capsule 125 mcg PO DAILY ascorbic acid (vitamin C) 1,000 mg capsule 1 g PO DAILY metoprolol tartrate 50 mg tablet 50 mg PO BID Qty: 180 3RF Xarelto 20 mg tablet 20 mg PO QPM Qty: 90 3RF Rx Instructions: must administer with evening meal Discontinued dofetilide [Tikosyn] 250 mcg capsule 250 mcg PO Q12H Qty: 180 3RF Referrals / Follow Up: Milli Man MD [Primary Care Provider] - Within 2 Weeks Demetrius Bai MD [Med Staff - Active Staff] - Within 2 Weeks Disposition Disposition (needs filled in before D/C Order can be placed): Home Health Service Charges/Coding Visit Charges Inpatient E&M: 81880 Disch Hosp >30min
== END 2024-02-07 16:00 | disposition home health service (06) | DRG 321 ==
LOC: ED 01-30 01:29 → ICU 01-30 02:00
PROVIDERS: Hospitalist; Internal Medicine Cardiovascular Disease; Admitting Provider Family Medicine; Emergency Provider Emergency Medicine; PCP Internal Medicine; Visit Provider Student in an Organized Health Care Education/Training Program
DX: I21.4 Non-ST elevation (NSTEMI) myocardial infarction (principal); I50.21 Acute systolic (congestive) heart failure; N17.9 Acute kidney failure, unspecified; I49.5 Sick sinus syndrome; I11.0 Hypertensive heart disease with heart failure; I48.0 Paroxysmal atrial fibrillation; I95.2 Hypotension due to drugs; I25.10 Atherosclerotic heart disease of native coronary artery without angina pectoris; E78.5 Hyperlipidemia, unspecified; G47.33 Obstructive sleep apnea (adult) (pediatric); I16.0 Hypertensive urgency; Z68.35 Body mass index [BMI] 35.0-35.9, adult; E66.9 Obesity, unspecified; R53.81 Other malaise; R53.1 Weakness; Z95.0 Presence of cardiac pacemaker; Z79.01 Long term (current) use of anticoagulants; Z79.899 Other long term (current) drug therapy
CPT/HCPCS: 36415; 36600; 71275; 80048; 80053; 80061; 82803; 83735; 83880; 84443; 84484; 85025; 85027; 85347; 85730; 92928; 93005; 93306; 93458; 94668; 94762; 97110; 97162; 97166; 97530; 97535; 99152; 99153; 99285; C1725; J7030; J7050; Q9957; Q9967; A4216; C1769; C1874; C1887; C1894; C9600; J1940; J2405

== ENCOUNTER 2024-02-12 06:32 | Emergency (ER) | payer MEDICARE, MEDICAID, SELFPAY ==
[2024-02-12] VITALS (28 sets, daily range): BP systolic 92–135; BP diastolic 60–111; PULSE 70–150; RESP 12–57; TEMP 35.9–37.1; O2SAT 97–100; BMI 35.4
--- NOTE | 2024-02-12 06:46 | EKG12_ITS ---
Test Reason : CP Blood Pressure : / mmHG Vent. Rate : 099 BPM Atrial Rate : 286 BPM P-R Int : 000 ms QRS Dur : 068 ms QT Int : 384 ms P-R-T Axes : 253 044 104 degrees QTc Int : 492 ms Atrial flutter with variable A-V block with occasional ventricular-paced complexes Nonspecific ST and T wave abnormality Prolonged QT Abnormal ECG Confirmed by Demetrius Bai ([id number]), commercial production editor DANIEL FRAZIER ([id number]) on 02/14/2024 10:52:21 AM Referred By: PRACHI Confirmed By:Demetrius Bai
--- NOTE | 2024-02-12 06:47 | ED.VIS.CHEST ---
HPI <Dr. James Barajas MD - Last Filed: 02/12/24 08:14> History of Present Illness Chief Complaint: Chest Pain Informant: patient and EMS Onset/Context/Timing Onset: Hours (1.5) Activity at onset: activity on onset and sleep Timing: Continuous Quality: Positive for Heaviness Location: Substernal (With radiation to both arms) Current Severity: Severe Maximum Severity: Severe Worsened By: Nothing; Not Worsened By Breathing Relieved By: Nothing (No nitroglycerin given by EMS due to borderline low blood pressures) Associated Symptoms: Positive for Nausea, Dyspnea and Lightheadedness; Negative for Palpitations Narrative Narrative: Patient presenting via EMS for chest discomfort that woke her up from sleep about an hour and a half ago. Apparently 2 weeks ago, she was admitted here and had a stent placed in her heart and a pacemaker. She states she has been compliant with her new medication regimen. She states she has been having episodes like this every day and oftentimes at night since she has been home and did not have these episodes when she was in the hospital. She has an appointment with her PCP tomorrow, she has not discussed the symptoms with her grinder watch parts. She came into the hospital this morning around 6:30 AM because the heaviness was lasting longer and was more prominent. PFSH <Dr. James Barajas MD - Last Filed: 02/12/24 08:14> FORMERLY [facility], [facility] Medical History Accelerated hypertension Atherosclerotic heart disease of [place] coronary artery without angina pectoris Atrial fibrillation Atrial fibrillation Chest pain Essential hypertension HLD (hyperlipidemia) Non-STEMI (non-ST elevated myocardial infarction) (01/02/24) Obesity Obstructive sleep apnea Paroxysmal atrial fibrillation Renal insufficiency Sinus node dysfunction Symptomatic bradycardia Home Medications ascorbic acid (vitamin C) 1,000 mg capsule 1 g PO DAILY . 06/20/22 [History Last Taken Unknown] cholecalciferol (vitamin D3) 125 mcg (5,000 unit) capsule 125 mcg PO DAILY . 06/20/22 [History Last Taken Unknown] magnesium oxide 400 mg PO DAILY . 06/20/22 [History Last Taken Unknown] potassium citrate 99 mg capsule 99 mg PO DAILY 06/20/22 [History Last Taken Unknown] metoprolol tartrate 50 mg tablet 50 mg PO BID #180 tabs 03/23/23 [Rx Last Taken 01/29/24] rivaroxaban 20 mg tablet (Xarelto) 20 mg PO QPM #90 tabs 07/23/23 [Rx Last Taken Unknown] aspirin 81 mg chewable tablet 81 mg PO BREAKFAST #30 tabs 02/07/24 [Rx Last Taken Unknown] atorvastatin 40 mg tablet 40 mg PO QHS #30 tabs 02/07/24 [Rx Last Taken Unknown] clopidogrel 75 mg tablet 75 mg PO DAILY #30 tabs 02/07/24 [Rx Last Taken Unknown] lisinopril 2.5 mg tablet 2.5 mg PO DAILY #30 tabs 02/07/24 [Rx Last Taken Unknown] spironolactone 25 mg tablet 12.5 mg (1/2 x 25 mg) PO DAILY #30 tabs 02/07/24 [Rx Last Taken Unknown] Allergy/AdvReac Type Severity Reaction Status Date / Time aspirin AdvReac Upset Verified 01/29/24 22:46 Stomach flecainide AdvReac unknown Verified 11/14/23 11:15 Family History Mother CVA (cerebral vascular accident) Father Heart disease Surgical History History of permanent cardiac pacemaker placement (06/21/21) Stented coronary artery (01/03/24) Social History household members: none Smoking Status: Never smoker alcohol intake: current alcohol intake frequency: holidays/special occasions only substance use type: does not use ROS <Dr. James Barajas MD - Last Filed: 02/12/24 08:14> ROS ED Constitutional Constitutional ED: Reports weakness; Denies chills or fever(s) Eyes Eyes: Denies change in vision or diplopia ENT ENT ED: Denies rhinorrhea or sore throat Cardiovascular Cardiovascular: Reports chest pain; Denies palpitations Respiratory/Chest Respiratory/Chest: Reports dyspnea; Denies cough Gastrointestinal Gastrointestinal: Reports nausea; Denies abdominal pain, diarrhea or vomiting Genitourinary Genitourinary ED: Denies dysuria or hematuria Musculoskeletal Musculoskeletal: Denies back pain or neck pain Integumentary Denies abscess or rash Neurologic Neurologic: Denies paresthesias or weakness Psychiatric Psychiatric: Denies suicidal ideation or suicidal thoughts EXAM <Dr. James Barajas MD - Last Filed: 02/12/24 08:14> Physical Exam Const Vital Signs: 02/12/24 06:33 02/12/24 06:43 02/12/24 07:01 Temperature 96.6 F L Temperature Source Temporal Pulse Rate 87 Respiratory Rate 20 H Respiratory Effort Normal Non-Labored Short of Breath Blood Pressure 117/80 Blood Pressure Mean 92 Pulse Ox 99 Oxygen Delivery Method Nasal Cannula Nasal Cannula Oxygen Flow Rate (L/min) 2 2 02/12/24 07:21 02/12/24 07:32 02/12/24 07:45 Temperature Temperature Source Pulse Rate 121 H 120 H 134 H Respiratory Rate 22 H 19 H Respiratory Effort Blood Pressure 122/74 H 98/63 93/67 Blood Pressure Mean 74 75 Pulse Ox 97 97 Oxygen Delivery Method Nasal Cannula Nasal Cannula Oxygen Flow Rate (L/min) 2 2 02/12/24 07:58 02/12/24 08:09 02/12/24 07:10 Temperature Temperature Source Pulse Rate 131 H 73 121 H Respiratory Rate 22 H 42 H Respiratory Effort Blood Pressure 113/80 115/80 Blood Pressure Mean 91 91 Pulse Ox 99 100 Oxygen Delivery Method Nasal Cannula Oxygen Flow Rate (L/min) 2 02/12/24 07:15 02/12/24 07:20 02/12/24 07:23 Temperature Temperature Source Pulse Rate 113 H 113 H 115 H Respiratory Rate 43 H 57 H Respiratory Effort Blood Pressure 122/74 H 110/78 Blood Pressure Mean 86 89 Pulse Ox 100 100 99 Oxygen Delivery Method Oxygen Flow Rate (L/min) 02/12/24 07:25 02/12/24 07:30 02/12/24 07:35 Temperature Temperature Source Pulse Rate 123 H 150 H 128 H Respiratory Rate 20 H 18 Respiratory Effort Blood Pressure 116/93 H 98/63 120/85 H Blood Pressure Mean 102 73 97 Pulse Ox 98 97 Oxygen Delivery Method Oxygen Flow Rate (L/min) 02/12/24 07:40 02/12/24 07:45 02/12/24 07:50 Temperature Temperature Source Pulse Rate 135 H 124 H 132 H Respiratory Rate 27 H 20 H 21 H Respiratory Effort Blood Pressure 120/60 93/67 100/82 H Blood Pressure Mean 79 75 90 Pulse Ox 97 99 99 Oxygen Delivery Method Oxygen Flow Rate (L/min) 02/12/24 07:56 02/12/24 08:00 02/12/24 08:05 Temperature Temperature Source Pulse Rate 124 H 131 H 141 H Respiratory Rate 19 H 19 H 14 Respiratory Effort Blood Pressure 113/80 118/87 H 135/111 H Blood Pressure Mean 92 98 119 Pulse Ox 99 100 99 Oxygen Delivery Method Oxygen Flow Rate (L/min) 02/12/24 08:10 02/12/24 08:15 02/12/24 08:20 Temperature Temperature Source Pulse Rate 73 70 73 Respiratory Rate 13 12 15 Respiratory Effort Blood Pressure 115/80 116/72 111/67 Blood Pressure Mean 91 84 81 Pulse Ox 98 99 99 Oxygen Delivery Method Oxygen Flow Rate (L/min) 02/12/24 09:00 02/12/24 09:15 02/12/24 09:20 Temperature 98.8 F Temperature Source Temporal Pulse Rate 71 71 82 Respiratory Rate 28 H 22 H 25 H Respiratory Effort Blood Pressure 110/71 105/63 Blood Pressure Mean 84 77 Pulse Ox 99 98 98 Oxygen Delivery Method Venturi Mask Oxygen Flow Rate (L/min) 2 02/12/24 09:30 02/12/24 09:45 Temperature Temperature Source Pulse Rate 70 70 Respiratory Rate 19 H 19 H Respiratory Effort Blood Pressure 104/63 106/63 Blood Pressure Mean 77 75 Pulse Ox 98 98 Oxygen Delivery Method Oxygen Flow Rate (L/min) Positive well nourished and well developed Constitutional Narrative: Appears malaised and uncomfortable but in no distress General Appearance ED: well developed HEENT Reports moist mucous membranes normocephalic and atraumatic Eyes PERRL and EOMs intact bilaterally Neck full ROM and supple Chest Wall inspection of chest normal and palpation of chest normal Resp normal respiratory effort and clear to auscultation bilaterally Resp Narrative: Tachypnea, no distress, clear lungs. Cardio regular rate, regular rhythm and no murmurs Rate: Negative for tachycardic GI non-tender and non-distended Auscultation: normoactive bowel sounds Palpation: soft Back/Spine no CVA tenderness General Back: other FROM Extremity normal to inspection General Extremety ED: Negative for edema, pulses abnormal or tenderness General Extremity: Negative for edema or pulses abnormal Neuro oriented x3, CN's II-XII intact bilaterally and no sensory deficits noted Sensorium / Orientation: awake and alert Motor Exam: general weakness Psych mental status grossly normal Mood & Affect: anxious Skin no rashes or lesions noted and no wounds <Dr. Jose Manuel Cleveland, DO - Last Filed: 02/12/24 10:00> Physical Exam Const Vital Signs: 02/12/24 06:33 02/12/24 06:43 02/12/24 07:01 Temperature 96.6 F L Temperature Source Temporal Pulse Rate 87 Respiratory Rate 20 H Respiratory Effort Normal Non-Labored Short of Breath Blood Pressure 117/80 Blood Pressure Mean 92 Pulse Ox 99 Oxygen Delivery Method Nasal Cannula Nasal Cannula Oxygen Flow Rate (L/min) 2 2 02/12/24 07:21 02/12/24 07:32 02/12/24 07:45 Temperature Temperature Source Pulse Rate 121 H 120 H 134 H Respiratory Rate 22 H 19 H Respiratory Effort Blood Pressure 122/74 H 98/63 93/67 Blood Pressure Mean 74 75 Pulse Ox 97 97 Oxygen Delivery Method Nasal Cannula Nasal Cannula Oxygen Flow Rate (L/min) 2 2 02/12/24 07:58 02/12/24 08:09 02/12/24 07:10 Temperature Temperature Source Pulse Rate 131 H 73 121 H Respiratory Rate 22 H 42 H Respiratory Effort Blood Pressure 113/80 115/80 Blood Pressure Mean 91 91 Pulse Ox 99 100 Oxygen Delivery Method Nasal Cannula Oxygen Flow Rate (L/min) 2 02/12/24 07:15 02/12/24 07:20 02/12/24 07:23 Temperature Temperature Source Pulse Rate 113 H 113 H 115 H Respiratory Rate 43 H 57 H Respiratory Effort Blood Pressure 122/74 H 110/78 Blood Pressure Mean 86 89 Pulse Ox 100 100 99 Oxygen Delivery Method Oxygen Flow Rate (L/min) 02/12/24 07:25 02/12/24 07:30 02/12/24 07:35 Temperature Temperature Source Pulse Rate 123 H 150 H 128 H Respiratory Rate 20 H 18 Respiratory Effort Blood Pressure 116/93 H 98/63 120/85 H Blood Pressure Mean 102 73 97 Pulse Ox 98 97 Oxygen Delivery Method Oxygen Flow Rate (L/min) 02/12/24 07:40 02/12/24 07:45 02/12/24 07:50 Temperature Temperature Source Pulse Rate 135 H 124 H 132 H Respiratory Rate 27 H 20 H 21 H Respiratory Effort Blood Pressure 120/60 93/67 100/82 H Blood Pressure Mean 79 75 90 Pulse Ox 97 99 99 Oxygen Delivery Method Oxygen Flow Rate (L/min) 02/12/24 07:56 02/12/24 08:00 02/12/24 08:05 Temperature Temperature Source Pulse Rate 124 H 131 H 141 H Respiratory Rate 19 H 19 H 14 Respiratory Effort Blood Pressure 113/80 118/87 H 135/111 H Blood Pressure Mean 92 98 119 Pulse Ox 99 100 99 Oxygen Delivery Method Oxygen Flow Rate (L/min) 02/12/24 08:10 02/12/24 08:15 02/12/24 08:20 Temperature Temperature Source Pulse Rate 73 70 73 Respiratory Rate 13 12 15 Respiratory Effort Blood Pressure 115/80 116/72 111/67 Blood Pressure Mean 91 84 81 Pulse Ox 98 99 99 Oxygen Delivery Method Oxygen Flow Rate (L/min) 02/12/24 09:00 02/12/24 09:15 02/12/24 09:20 Temperature 98.8 F Temperature Source Temporal Pulse Rate 71 71 82 Respiratory Rate 28 H 22 H 25 H Respiratory Effort Blood Pressure 110/71 105/63 Blood Pressure Mean 84 77 Pulse Ox 99 98 98 Oxygen Delivery Method Venturi Mask Oxygen Flow Rate (L/min) 2 02/12/24 09:30 02/12/24 09:45 Temperature Temperature Source Pulse Rate 70 70 Respiratory Rate 19 H 19 H Respiratory Effort Blood Pressure 104/63 106/63 Blood Pressure Mean 77 75 Pulse Ox 98 98 Oxygen Delivery Method Oxygen Flow Rate (L/min) <Dr. James Barajas MD - Last Filed: 02/12/24 08:14> Heart Score History: Highly Suspicious ECG: Nonspecific Repolarization Age: >/= 65 years Risk Factors: >/= 3 Risk Factors or History of CAD Score: 7 <Dr. Jose Manuel Cleveland DO - Last Filed: 02/12/24 10:00> Heart Score Score: 7 MDM <Dr. James Barajas MD - Last Filed: 02/12/24 08:14> MDM MDM Narrative Medical decision making narrative: Patient was given aspirin, prophylactic Zofran, she does not have true allergy to aspirin she admits that it is just stomach upset, and morphine along with some IV fluids. Her pressure stayed good for us, and went up to 122/74, so since the morphine she reported was not helping a lot, she was given a nitroglycerin. Her blood pressure went down into the 90s but rebounded okay. On reevaluation she is still moaning, but states that her discomfort is improved, unsure if it is the nitroglycerin, morphine, or neither. Her EKG shows atrial flutter with variable AV block, no acute injury pattern, there are nonspecific changes given the atrial flutter in the background, and her troponin is a nonspecifically elevated 68. At 2+ weeks post NSTEMI, I would expect this to have returned to normal. 2-hour troponin will be drawn. In the meantime, discussed with cardiology Dr. Malagon. She is a little tachycardic after the nitroglycerin, 120-130. He recommended giving her Cardizem to slow her down, invoking the pacemaker if necessary, and to watch her for possible spontaneous cardioversion, we will reevaluate a second troponin measurement, and it is possible she may need to be electrically cardioverted. At this time turned over to the next shift. It is notable that at this time the patient's heart rate is around 70 and she states she still does have some heaviness but it is relatively mild. Lab Data Attestation: I reviewed the patient's lab results. Labs: Laboratory Results - last 24 hr 02/12/24 02/12/24 06:46 09:08 WBC 6.0 RBC 4.77 Hgb 15.0 Hct 42.9 MCV 89.9 MCH 31.4 MCHC 35.0 RDW Std Deviation 43.1 RDW Coeff of [place] 13.1 Plt Count 254 MPV 9.6 Immature Gran % (Auto) 0.200 Neut % (Auto) 45.6 L Lymph % (Auto) 43.6 H Bath % (Auto) 7.8 Eos % (Auto) 2.5 Baso % (Auto) 0.3 Absolute Neuts (auto) 2.7 Absolute Lymphs (auto) 2.61 Nucleated RBC % 0 APTT 41.2 H Sodium 138 Potassium 4.1 Chloride 107 Carbon Dioxide 23.0 Anion Gap 8 BUN 39 H Creatinine 1.19 H Estim Creat Clear Calc 41.07 Est GFR (MDRD) Af Amer 57 L Est GFR (MDRD) Non-Af 47 L BUN/Creatinine Ratio 32.8 H Glucose 126 H Calcium 9.5 Troponin I High Sens 68 H 67 H Radiography Chest X-Ray - ED: 1 View, Read by ED Physician, Normal, Heart, Lungs and Mediastinum Diagnostic Testing: Clinical Impression(s) from Imaging Studies Chest X-Ray 02/12/24 07:10 IMPRESSION: No acute findings in the chest. Electronically Signed: Bennie Goode MD at 7:39 EDT , Rhythm Strip Rhythm Strip: aflutter Rate: 100 Ectopy: PVC(s) EKG Initial EKG: Attestation: I personally reviewed and interpreted this EKG as follows: Interpretation: No Acute Injury Pattern, Atrial Flutter and Non-Specific ST Changes Management Discussion w/another healthcare provider: Steaming Machine Operator (cardiology Dr. malagon) <Dr. Jose Manuel Cleveland, DO - Last Filed: 02/12/24 10:00> [facility] Lab Data Labs: Laboratory Results - last 24 hr 02/12/24 02/12/24 06:46 09:08 WBC 6.0 RBC 4.77 Hgb 15.0 Hct 42.9 MCV 89.9 MCH 31.4 MCHC 35.0 RDW Std Deviation 43.1 RDW Coeff of [place] 13.1 Plt Count 254 MPV 9.6 Immature Gran % (Auto) 0.200 Neut % (Auto) 45.6 L Lymph % (Auto) 43.6 H Bath % (Auto) 7.8 Eos % (Auto) 2.5 Baso % (Auto) 0.3 Absolute Neuts (auto) 2.7 Absolute Lymphs (auto) 2.61 Nucleated RBC % 0 APTT 41.2 H Sodium 138 Potassium 4.1 Chloride 107 Carbon Dioxide 23.0 Anion Gap 8 BUN 39 H Creatinine 1.19 H Estim Creat Clear Calc 41.07 Est GFR (MDRD) Af Amer 57 L Est GFR (MDRD) Non-Af 47 L BUN/Creatinine Ratio 32.8 H Glucose 126 H Calcium 9.5 Troponin I High Sens 68 H 67 H Radiography Diagnostic Testing: Clinical Impression(s) from Imaging Studies Chest X-Ray 02/12/24 07:10 IMPRESSION: No acute findings in the chest. Electronically Signed: Bennie Goode MD at 7:39 EDT , Treatment and Re-Evaluation :: Care of the patient was turned over to me pending repeat troponin. Repeat troponin was reviewed and was normal at 67. Patient's heart rate remained around 70. Case was discussed with Dr. Malagon again. He feels the patient can be discharged home. He recommended starting the patient on Cardizem CD 120 mg daily. This was ordered. Patient was instructed to follow-up with her primary care physician and Dr. Malagon in 5 to 7 days. Patient was instructed return if worse in any way. Patient understood and was agreeable with the plan. All questions were answered. Discharge Plan Triage Chief Complaint: Chest Pain ED Provider: James Barajas Dx/Rx/DC Orders Clinical Impression: Atrial flutter, Chest pain Instructions: ED Chest Pain, Uncertain Cause Prescriptions: No Action magnesium oxide 400 mg magnesium tablet 400 mg PO DAILY potassium citrate 99 mg capsule 99 mg PO DAILY cholecalciferol (vitamin D3) 125 mcg (5,000 unit) capsule 125 mcg PO DAILY ascorbic acid (vitamin C) 1,000 mg capsule 1 g PO DAILY atorvastatin 40 mg Tablet 40 mg PO QHS Qty: 30 2RF clopidogrel 75 mg Tablet 75 mg PO DAILY Qty: 30 2RF spironolactone 25 mg Tablet 12.5 mg PO DAILY Qty: 30 2RF aspirin 81 mg Tablet,Chewable 81 mg PO BREAKFAST Qty: 30 2RF lisinopril 2.5 mg Tablet 2.5 mg PO DAILY Qty: 30 2RF metoprolol tartrate 50 mg tablet 50 mg PO BID Qty: 180 3RF Xarelto 20 mg tablet 20 mg PO QPM Qty: 90 3RF Rx Instructions: must administer with evening meal Primary Care Provider: Milli Man Referrals: Milli Man MD [Primary Care Provider] - 3-5 Days Burton Malagon MD [Med Staff - Active Staff] - 3-5 Days Disposition Disposition: Home, Self Care
[2024-02-12] MEDS: Morphine 4 MG/ML Syringe 2 MG IV (06:54)
[2024-02-12] MEDS: Aspirin 81 MG TAB.CHEW 162 MG PO (06:54)
[2024-02-12] MEDS: Ondansetron 4 MG/2 ML Vial IV (06:55)
[2024-02-12 06:56] LABS: Absolute Lymphocyte Count 2.61 X10^3/uL (0.83-4.51); Absolute Neutrophil Count 2.7 X10^3/uL (2.0-7.7); Basophil# 0.02 X10^3/uL; Basophil% 0.3 % (0-1); Eosinophil# 0.15 X10^3/uL; Eosinophils% 2.5 % (0-5); Hematocrit 42.9 % (37-47); Lymphocyte # 2.61 X10^3/ul (0.83-4.51); Lymphocyte % 43.6 % (19-41); Mean Corpuscular Hgb 31.4 pg (27.0-32.0); Mean Corpuscular Volume 89.9 fL (81-99); Mean Platelet Vol. 9.6 fl (6.2-12.0); Monocyte# 0.47 X10^3/uL; Monocyte% 7.8 % (0-10); NRBC Flagged by Analyzer 0 % (0-5); Neutrophil # 2.73 X10^3/uL (2.7-7.7); Neutrophil % 45.6 % (47-70); Platelet Count 254 K/mm3 (150-450); RBC Distribution Width CV 13.1 % (11.6-14.6); RBC Distribution Width SD 43.1 fl (35.1-43.9); Red Blood Count 4.77 M/mm3 (4.2-5.4)
[2024-02-12] MEDS: 0.9% Normal Saline (1000mL) 500 ML 1000 ML IV (06:56)
[2024-02-12 07:06] LABS: Partial Thromboplast Time 41.2 Seconds (24.1-36.2)
--- NOTE | 2024-02-12 07:10 | RAD_ITS ---
EXAM: XR CHEST, 1 VIEW CLINICAL INDICATION: chest pain TECHNIQUE: Frontal view of the chest. COMPARISON: No relevant prior studies available. FINDINGS: LUNGS AND PLEURAL SPACES: No acute pulmonary infiltrates or pleural effusions. No pneumothorax. HEART: Heart size is upper normal with normal pulmonary vasculature for technique. Coronary artery calcification and/or stent material is present. Minimal mitral annular calcification is also noted. MEDIASTINUM: Thoracic aorta is mildly elongated and calcific. BONES/JOINTS: Soft tissue anchor projected over the right humeral head. No acute fracture. Minimal thoracic dextroscoliosis with thoracic degenerative spurring. SOFT TISSUES: Unremarkable. TUBES, LINES AND DEVICES: Cardiac pacemaker/internal defibrillator in place. RAD/Chest 1 View (Portable) IMPRESSION: No acute findings in the chest. Electronically Signed: Bennie Goode MD at 7:39 EDT ,
[2024-02-12 07:21] LABS: Anion Gap 8 (5-15); BUN 39 mg/dL (7-18); BUN/Creat Ratio 32.8 RATIO (10-20); Calcium,Total 9.5 mg/dL (8.5-10.1); Chloride 107 mmol/L (98-107); Creatinine, Serum 1.19 mg/dL (0.55-1.02); EST Glomerular Filtration Rate 47 mL/min (>60); Est Glom Filt Rate - Afr Amer 57 mL/min (>60); Estimated Creatinine Clearance 41.07 ml/min; Glucose 126 mg/dL (74-106); Potassium 4.1 mmol/L (3.5-5.1); Sodium Level 138 mmol/L (136-145); Troponin-I HS (w/2H Reflex) 68 pg/mL (3.0-54.0)
[2024-02-12] MEDS: Nitroglycerin SL (ED/IMG/CATH) 0.4 MG TABLET SL (07:21)
[2024-02-12] MEDS: dilTIAZem 25 MG/5 ML Vial 20 MG IV BOLUS (08:02)
[2024-02-12] MEDS: 0.9% Normal Saline (500mL Bag) 500 ML 999 ML IV (08:02)
[2024-02-12 08:52] LABS: Reflex Troponin-HS? (from REC) Y
[2024-02-12 09:31] LABS: Troponin-I HS 67 pg/mL (3.0-54.0)
== END 2024-02-12 10:40 | disposition home or self-care (01) ==
PROVIDERS: Emergency Provider Emergency Medicine; PCP Internal Medicine; Visit Provider Emergency Medicine
DX: I48.92 Unspecified atrial flutter (principal); R07.9 Chest pain, unspecified; I25.2 Old myocardial infarction; Z95.0 Presence of cardiac pacemaker
CPT/HCPCS: 71045; 80048; 84484; 85025; 85730; 93005; 96361; 96374; 96375; 99285; J7040; A4216; J2405

== ENCOUNTER → 2024-03-07 | Outpatient (CLI) | payer MEDICARE, MEDICAID, SELFPAY ==
--- NOTE | 2024-03-07 14:02 | CR.HP_ITS ---
CR - History & Physical General Arrival date:: 03/07/24 Arrival time:: 14:02 Date of Referral:: 03/03/24 Date of CR Evaluation:: 03/07/24 Referring Physician: Dr. Claire Primary Diagnosis: PCI with coronary stent History of Present Cardiac Event Onset Date PTCA or coronary stenting:: Yes Vessel: onset 02/27/24 Medications Ambulatory Orders Medication Instructions Recorded ascorbic acid (vitamin C) 1,000 mg 1 g PO DAILY . 06/20/22 capsule cholecalciferol (vitamin D3) 125 125 mcg PO DAILY . 06/20/22 mcg (5,000 unit) capsule magnesium oxide 400 mg PO DAILY . 06/20/22 potassium citrate 99 mg capsule 99 mg PO DAILY 06/20/22 metoprolol tartrate 50 mg tablet 50 mg PO BID #180 tabs 03/23/23 rivaroxaban 20 mg tablet (Xarelto) 20 mg PO QPM #90 tabs 07/23/23 aspirin 81 mg chewable tablet 81 mg PO BREAKFAST #30 tabs 02/07/24 atorvastatin 40 mg tablet 40 mg PO QHS #30 tabs 02/07/24 clopidogrel 75 mg tablet 75 mg PO DAILY #30 tabs 02/07/24 lisinopril 2.5 mg tablet 2.5 mg PO DAILY #30 tabs 02/07/24 spironolactone 25 mg tablet 12.5 mg (1/2 x 25 mg) PO DAILY #30 02/07/24 tabs diltiazem HCl 120 mg 120 mg PO DAILY #30 caps 02/12/24 capsule,extended release 24 hr (Cardizem CD) Allergies Allergies aspirin Adverse Reaction (Verified 02/14/24 09:57) Upset Stomach flecainide Adverse Reaction (Verified 02/14/24 09:57) unknown Sleep Disorder Evaluation Hx of Sleep Apnea: Yes Do you snore loudly (louder than talking or can be heard through closed doors)?: No Do you often feel tired/ fatigued/ sleepy during daytime?: No Has anyone observed you stop breathing during sleep?: No History of Hypertension (for STOP score): Yes STOP Results: Negative Advanced Directives Advanced Directives Power of Maintenance Operator: Yes Living Will: Yes Advance Directives Information Provided: Yes Advance Directives on File: No DNR Order?:: No Past Medical History Covid-19 Screening Physicial Symptoms Other Clinical Concerns Exposure Risk Pertinent Comorbidities Has a serious heart condition:: Yes Past Medical Illness Past Medical History (Updated 02/20/24 @ 00:01 by Background Keshia) Accelerated hypertension I10 Atherosclerotic heart disease of [place] coronary artery without angina pectoris I25.10 Atrial fibrillation I48.91 Atrial fibrillation I48.91 Chest pain R07.9 Essential hypertension I10 HLD (hyperlipidemia) E78.5 Non-STEMI (non-ST elevated myocardial infarction) (01/02/24) I21.4 Obesity E66.9 Obstructive sleep apnea G47.33 Paroxysmal atrial fibrillation I48.0 Renal insufficiency N28.9 Sinus node dysfunction I49.5 Symptomatic bradycardia R00.1 Past Surgical History Past Surgical History History of permanent cardiac pacemaker placement (06/21/21) Z95.0 07/28/2015; RV LEAD REVISION AND GEN CHANGE 06/21/2021 Stented coronary artery (01/03/24) Z95.5 Lamin Beckham 2.5 X 18 JANNETH to mid LAD; 2.0 mm balloon angioplasty to D1 ostium Family History Summary Family History Mother CVA (cerebral vascular accident) Father Heart disease Social History Smoking History Smoking Status: Never smoker Alcohol Use Alcohol Usage: No Substance Abuse Hx Substance Use: No Occupation Occupation (List type of work in comments):: Retired Hobbies, Recreation, Social Activities Hobbies: None Social Environment Status Marital Status: Current Living Arrangements Living Environment:: Alone Children How many children do you have?: 10 Do any of your children live nearby?: No Safety Do you feel safe in your surroundings?: Yes Assistance Do you need any assistance at home?: no Review of Systems Review of Systems Hints Review of Present Symptoms: Reports Shortness of Breath with Exertion, Angina, Dizziness/Lightheadedness, Fatigue, Heart Arrhythmia/Irregularities, Appetite - Normal, Appetite - Special Diet and Sleep - Normal; Denies Shortness of Breath at Rest, PVD, Operative Discomfort, Wound Healing or Sexual Changes Pain Is Patient Pain Free?: No Pain Location: back Pain Level: 5/10 Risk Factor Assessment Chief Complaint Chief Complaint: PCI with coronary stent Vital Signs Pulse Ox: 98 Blood Pressure: 108/78 Pulse Pulse Rate: 64 Hypertension How long have you been treated?: couple of years Obesity Height: 5 ft 1 in Weight:: 176 lb Weight in Pounds: 176.0 lbs Body Mass Index (BMI): 33.2 Nutritional Referral for Obesity: Yes Physical Inactivity Physical Inactivity: Reg Exercise 30 min/day Risk Stratification Risk Guidelines: Lowest Risk: Risk Factor for Smoking, Moderate Risk: Risk Factor for Diabetes, Risk Factor for Sedentary Lifestyle and Risk Factor for Depression and Highest Risk: Risk Factor for Dyslipidemia, Risk Factor for Obesity and Risk Factor for Hypertension For Smoking Smoking Risk Guidelines For Dyslipidemia Dyslipidemia Risk Guidelines For Diabetes Mellitus Diabetes Risk Guidelines For Obesity/Overweight Obesity/Overweight Risk Guidelines For Hypertension Hypertension Risk Guidelines For Sedentary Lifestyle Sedentary Lifestyle Risk Guidelines For Depression Depression Risk Guidelines Family History Family History Mother CVA (cerebral vascular accident) Father Heart disease Motivation Motivation to Participate On a scale of 1 to 10, how prepared are you to commit to attending program?: 8 What do you see as barriers to successfully being able to complete the program?: nothing What do you see as the benefits of succesfully completing the program? In other words, what do you hope to get out of participating in the program?: stronger, more energy Are there issues you are dealing with that will interfere with completing the program?: no Do you have a spouse or signficant other, family or friends who will help support you to complete the program?: yes
[2024-03-07 14:08] VITALS: BP 108/78; PULSE 64; O2SAT 98
--- NOTE | 2024-03-07 14:08 | CR.ITP_ITS ---
Diagnosis General Information Admitting Diagnosis: PCI with coronary stent Personal Learning Style:: Audio/Visual Stage of change r/t lifestyle modifications:: Contemplation Gave educational material for:: Treating Heart Disease, How The Heart Works, W hat it means to have Heart Disease, How Coronary Artery Disease is Diagnosed, Heart Procedures, What Heart Medications Do, Risk Factors & Modifications, Living an Active Life, Nutrition, Emotions & Heart Disease, Stress Management & Relaxation and Sleep Disorders & Heart Disease Education/Goals Cardiac Rehabilitation Goals Personal Goals: Initial Assessment: Improve management of stress and emotions, Improve energy level, Improve knowledge of cardiac disease, Improve diet and eating habits (eat healthier) and Control risk factors (learn risk factor modification) Scale for measuring improvement of personal goals Diagnosis & Disease Process Outcomes/Goals: Pt IDs own risk factors & lifestyle modifications by Session 10, Verbalizes symptoms of angina & response by session 3., Pt independently manages and Other Additional Outcomes/Goals: Plan/Interventions: Assist Pt to ID & engage in lifestyle modification to reduce CVD risk, Instruct on individual risk factors, Review symptoms of angina & emergency actions, Review secondary diagnosis & identify educational needs. and Other see comment 30 day Reassessments:: Not Met 30 day Reassessments:: Not Met 30 day Reassessments:: Not Met 30 day Reassessments:: Not Met Final Reassessments:: Not Met Safety Referral to Physical Therapy: No Referral to [facility] Case Management: No Fall Risk Assessed:: Yes Assistive Devices:: None Exercise - Initial Assessment Visit Date of Eval: 03/07/24 (initial eval ) Mets: Pre-: >3 METS for 30 minutes by discharge, >5 METS for 30 minutes by discharge, >7 METS for 30 minutes by discharge and Unable to meet goal due to: (see comment below) Physician Prescribed Exercise Modalities: Treadmill, Rower, Airdyne, NuStep, SciFit and [employer]ateral [employer] Listing Consultant Frequency: 2x/week for 18 weeks [36 sessions] and 3x/week for 12 weeks [36 sessions] Intensity: 60-80% of age predicted maximum heart rate reserve Duration: 30 - 45 minutes Current METSs:: 3 Target Heart Rate:: 95-109 Resting Blood Pressure: 108/78 EKG Type: Ventricular paced, atrial flutter Outcomes & Goals Goals:: Verbalizes understanding of THR, RPE & goal METS by session 6, Documents in home exercise log/reports 30 min aerobic 5 day/wk by DC, Demonstrates accurate pulse taking by DC and Other additional outcome/goals: see below Intervention & Plan Exercise Program Goals: Instruct on personal THR & RPE, Instruct on MET level & personal MET goal, Show patient to take own pulse /validate performance until accurate, Instruct on home exercise and Other additional plan/int Physical Activity Home Exercise Physical Activity - Home Exercise: Safe Exercise, Warm-up, Self-monitoring, Cool-Down, Home Exercise > 30 min Daily and Sitting Time <3 hours/daily Outcomes & Goals Outcomes/Goals: Demonstrates correct Warm-up/exercise Cool-Down (S3) if = 2.5 METs, Verbalizes symptoms of exercise intolerance by Session 3 (S3), Demonstrate safe equipment use (S3) & follows exercise prescrition (6) and Other: See below Intervention & Plan Plan/Intervention: Instruct warm-up & cool-down if exercising at > 2 METs, Instruct on symptoms of exercise intolerance & actions to take, Instruct & monitor on saf, Assess intial functional capacity & safety risk and Other See below Nutrition - Initial Assessment Program Goals Nutrition Program Goals Patient has diagnosis of Hyperlipidemia (ICD E78)?: Yes Visit Date of Eval: 03/07/24 (initial eval ) Cholesterol/Lipids (Other Core Measures) Determine presence & major risk factors that modify LDL goal: Hypertension or hypertensive medication, Low HDL cholesterol <40 mg/dL*, Family history of premature CHD in Male < 55 years: female <65 yearsFa and Age men > 45 years; women >/= 55 years Outcomes/Goals: Pt IDs own risk factors & lifestyle modifications by Session 10, Verbalizes symptoms of angina & response by session 3., Pt independently manages and Other Additional Outcomes/Goals: Intervention/Plan: Advocate for lipid panel cholesterol medication if applicable, Instruct on personal lipid levels & lipid goals/NCEP guidelines, Instruct on cholesterol and Other additional plan/int Referral to dietitian:: Yes Diabetes (Other Core Measures) Diabetes Type: Not Applicable Weight Mgt (Other Care) Height: 5 ft Weight:: 176 lb BMI: 34.3 Diagnosis Overweight/Obesity BMI> 30% ICD-10 E66: Yes Diagnosis High BMI/Morbid Obesity BMI> 35% ICD-10 Z68: No Outcomes/Goals: Pt sets, maintains & shows weight loss goal & trend during rehab and Other additional outcomes/goals Intervention/Plan: Instruct on ideal BMI & set weight loss goal w/patient, Assist pt to ID & incorporate diet changes for weight loss by S9, Refer to Structured Weight Loss program as appropriate, Encourage goal of using 250- 300dcal per session for weight loss and Other additional plan/interventions Healthy Eating Habits Will attend diet classes:: Yes Outcomes/Goals:: Consume diet rich in vegs,fruits,whole grain/high fiber,fish,lean meat, Limit sat/trans fats,cholesterol & added salts & sugars and Other additional outcome/goals: Intervention/Plan:: Assess current eating habits and Other Additional plan/interventions Education Gave educational materials for:: Signs & symptoms of hypoglycemia, Signs & symptoms of hyperglycemia, Relate diabetes to coronary artery disease and Healthy eating Core - Initial Assessment Visit Date of Eval: 03/07/24 (initial eval ) Medication Compliance Preventative Medication(s):: Clopidogrel/P2Y12 inhibit, Statin/lipid and Beta annabel H/O mental health issues: depression, anxiety, or addiction?: No Doesn?t believe in the benefits of treatment?: No Believes medications are unnecessary or harmful?: No Has a concern about medication side effects?: No Expresses concern over the cost of medications?: No Outcomes/Goals: Verbalizes medications,desired effect & common side effects @ DC, Pt self-reports following medication regimen, Keeps card in wallet w/medications listed by DC and Other additional outcome/goals: Interventions/plans: Instruct on medication effects & side effects, Review medication list w/patient every two weeks, Instruct importance of taking meds as ordered & assist problem solving and Other additional Tobacco Use Tobacco Use: Non-smoker Hypertension Hypertension Diagnosis:: Hypertension ICD-10 I10 Resting Blood Pressure:: 108/78 [employer] Hypertension Guidelines Outcomes/Goals: Able to verbalize/achieve optimal blood pressure <130/80, Incorporates diet changes & exercise for blood pressure control by DC and Other additional outcomes/goals Interventions/plan: Instruct on optimal blood pressure, hypertension & medications, Instruct on effects of sodium, alcohol, stress, exercise &hypertension and Other additional plan/interventions Tobacco Cessation Referral Smoking Cessation Referral:: No Individual Education/Counseling:: No Education Schedule Given:: Yes Psychosocial - Initial Assess VIsit Date of Eval: 03/07/24 (initial eval ) History of previous Mental disease:: No Target Goals Target Goals Outcomes/Goals: See list Psychosocial Outcomes/Goals:: ID's personal stressors & 2 strategies to manage stress by discharge and Other Additional outcome/goals: Intervention/Plan: See List Interventions/Plan:: Assess stressors,coping strategies & signs of derpression on admission, Instruct/assist pt to develop coping & personal stress Mgt strategies, Refer to Behavioral Health if appropriate, Refer to Physician if appropriate, Instruct patient to recognize signs & symptoms of depression, Instruct patient to recog and Other additional plan/intervention Patient Health Questionnaire PHQ-9 Screening Initial Assessment: 1. Little interest or pleasure in doing things: Not at all 2. Feeling down, depressed, or hopeless: Several days 3. Trouble falling or staying asleep, or sleeping too much: Not at all 4. Feeling tired or having little energy: Several days 5. Poor appetite or overeating: Not at all 6. Feeling bad about yourself -- or that you are a failure or have let yourself or your family down: Not at all 7. Trouble concentrating on things, such as reading the newspaper or watching television: Not at all 8. Moving or speaking so slowly that other people could have noticed. Or the opposite - being so fidgety or restless that you have been moving around a lot more than usual: Several days 9. Thoughts that you would be better off , or of hurting yourself in some way: Not at all How difficult have these problems made it for you to do your work, take care of things at home, or get along with other people?: Somewhat difficult Total Score: 3 LAMINE-Q SV Test Statements CAD is a disease of the arteries in the heart: True Examples of risk factors for heart disease: True Angina is chest pain or discomfort: True The benefits of resistance training include: I Don't Know Eating more meat and dairy products: True Anti-platelet medications such as aspirin are important: I Don't Know The only effective way to manage stress: I Don't Know An exercise warm-up slowly increases heart rate: I Don't Know Prepared, processed foods usually have high sodium: I Don't Know Depression is common after a heart attack: I Don't Know The statin medications lower cholesterol: I Don't Know To control blood pressure, lower the amount of sodium: I Don't Know If someone gets chest discomfort during walking: False Transfats are partially hydrogenated vegetable oils: I Don't Know Sleep apnea that is not treated increases the risk: True To control cholesterol, one should become a vegetarian: False Someone knows if he/she is exercising at the right level: I Don't Know Diabetes cannot be prevented with exercise & health eating: True Stress is a large risk for heart attack: True A diet that can help lower blood pressure is rich in: True Total Score Total Correct Responses: 6 Self-Efficacy 6-Item Scale Initial Assessment: We would like to know how confident you are in doing certain activities. Please select your confidence level for: Fatigue Select Number: 6 Physical Discomfort or Pain Select Number: 6 Emotional Distress Select Number: 6 Other Symptoms or Health Problems Select Number: 6 Different Tasks and Activities Select Number: 7 Medication Select Number: 6 Total Score:: 6 Nutrition Survey Nutrition Survey Instructions Scoring Instructions Nutrition Survey Initial: Have you lost >10 lbs over the past 2 months without trying?: No Are you following a special diet at home for diabetes, low fat, or low salt?: Yes Are you interested in meeting with a dietitian for help understanding your diet?: Yes Do you eat less than 3 meals a day?: Yes Do you eat fatty meats (garcia, sausage, ribs, etc), fried foods, desserts, large amounts of salad dressings, margarine, butter, or cheese most days?: No Do you have food allergies? [Enter types in comment field]: No Do you eat in restaurants more than 3 times a week?: No Do you season food with salt, seasoning salt, or garlic salt?: Yes Do you used canned, boxed, frozen meals, or soups, seasoning packets?: Yes Total Score:: 5 Exercise - Final/Discharge Physician Prescribed Exercise Modalities: Treadmill, Rower, Airdyne, NuStep, SciFit and [employer] List[employer] Consultant Frequency: 2x/week for 18 weeks [36 sessions] and 3x/week for 12 weeks [36 sessions] Intensity: 60-80% of age predicted maximum heart rate reserve Current METSs:: 3 Target Heart Rate:: 95-109 Nutrition - 30-Day Assessment Weight Mgt (Other Care) Height: 5 ft Weight:: 176 lb BMI: 34.3 Nutrition - 60-Day Assessment Weight Mgt (Other Care) Height: 5 ft Weight:: 176 lb BMI: 34.3 Core - Final Assessment Hypertension Resting Blood Pressure:: 108/78 [employer] Hypertension Guidelines Core - 60-Day Assessment Hypertension Resting Blood Pressure:: 108/78 [employer] Hypertension Guidelines Psychosocial - 30-Day Assess Target Goals Target Goals Psychosocial - 60-Day Assess Target Goals Target Goals Psychosocial - 90-Day Assess Target Goals Target Goals Psychosocial - Final Assessmen Target Goals Target Goals Nutrition - 90-Day Assessment Weight Mgt (Other Care) Height: 5 ft Weight:: 176 lb BMI: 34.3 Nutrition - Final Assessment Program Goals Patient has diagnosis of Hyperlipidemia (ICD E78)?: Yes Weight Mgt (Other Care) Height: 5 ft Weight:: 176 lb BMI: 34.3
[2024-03-07 14:17] VITALS: BP 108/78
[2024-03-07 14:30] VITALS: BMI 33.2
[2024-03-07 14:54] VITALS: BMI 34.3
== END | disposition home or self-care (01) ==
PROVIDERS: PCP Internal Medicine; Referring Provider Internal Medicine Cardiovascular Disease; Visit Provider Internal Medicine Cardiovascular Disease
DX: E66.9 Obesity, unspecified (principal)

== ENCOUNTER 2024-03-12 10:15 | Outpatient (RCR) | payer MEDICARE, MEDICAID, SELFPAY ==
[2024-03-07 14:54] VITALS: BMI 34.3
== END 2024-03-25 23:59 ==
LOC: CR 10:15
PROVIDERS: PCP Internal Medicine; Visit Provider Internal Medicine Cardiovascular Disease
DX: I21.4 Non-ST elevation (NSTEMI) myocardial infarction (principal); I10 Essential (primary) hypertension
CPT/HCPCS: 93798

== ENCOUNTER 2024-03-12 15:46 | Inpatient (IN) | payer MEDICARE, MEDICAID, SELFPAY ==
[2024-03-07 14:54] VITALS: BMI 34.3
[2024-03-12] VITALS (24 sets, daily range): BP systolic 65–123; BP diastolic 41–76; PULSE 71–129; RESP 9–24; TEMP 36.2–37.2; O2SAT 93–98; BMI 35.8; BMI 35.5
--- NOTE | 2024-03-12 15:58 | EDS_ITS ---
HPI History of Present Illness Chief Complaint: Weakness Detail of Chief Complaint: Generalized weakness and blurred vision Narrative Narrative: Patient began with generalized weakness that started about half an hour ago. She was sitting in the recliner when she began feeling weak and had some blurred vision. She states that she went to cardiac rehab earlier today and felt pretty tired afterwards. She denies recent illness. She describes some chest heavine ss. Mild shortness of breath. She tells me she had a stent placed at our facility in January of this year. Patient also has a pacemaker. She denies any fevers. Denies dysuria or urgency or frequency. [facility] Medical History (Updated 03/12/24 @ 18:[address] Marguerite Barrera, ) Accelerated hypertension Atherosclerotic heart disease of [place] coronary artery without angina pectoris Atrial fibrillation Atrial fibrillation Chest pain Essential hypertension HLD (hyperlipidemia) Non-STEMI (non-ST elevated myocardial infarction) (01/02/24) Obesity Obstructive sleep apnea Paroxysmal atrial fibrillation Renal insufficiency Sinus node dysfunction Symptomatic bradycardia Home Medications ascorbic acid (vitamin C) 1,000 mg capsule 1 g PO DAILY . 06/20/22 [History Last Taken 03/12/24] cholecalciferol (vitamin D3) 125 mcg (5,000 unit) capsule 125 mcg PO DAILY . 06/20/22 [History Last Taken 03/12/24] rivaroxaban 20 mg tablet (Xarelto) 20 mg PO QPM #90 tabs 07/23/23 [Rx Last Taken 03/11/24] atorvastatin 40 mg tablet 40 mg PO QHS #30 tabs 02/07/24 [Rx Last Taken ] clopidogrel 75 mg tablet 75 mg PO DAILY #30 tabs 02/07/24 [Rx Last Taken 03/12/24] lisinopril 2.5 mg tablet 2.5 mg PO DAILY #30 tabs 02/07/24 [Rx Last Taken 03/12/24] spironolactone 25 mg tablet 12.5 mg (1/2 x 25 mg) PO DAILY #30 tabs 02/07/24 [Rx Last Taken 03/12/24] diltiazem HCl 120 mg capsule,extended release 24 hr (Cardizem CD) 120 mg PO DAILY #30 caps 02/12/24 [Rx Last Taken 03/12/24] metoprolol tartrate 25 mg tablet 50 mg PO BID 03/12/24 [History Last Taken 03/12/24] nitroglycerin 0.4 mg sublingual tablet 0.4 mg sublingual PRN PRN angina 03/12/24 [History Last Taken Unknown] sacubitril 24 mg-valsartan 26 mg tablet (Entresto) 1 tab PO BID 03/12/24 [History Last Taken 03/12/24] Allergy/AdvReac Type Severity Reaction Status Date / Time aspirin AdvReac Upset Verified 03/12/24 15:50 Stomach flecainide AdvReac unknown Verified 03/12/24 15:50 Family History Mother CVA (cerebral vascular accident) Father Heart disease Surgical History History of permanent cardiac pacemaker placement (06/21/21) Stented coronary artery (01/03/24) Social History household members: none Smoking Status: Never smoker alcohol intake: current alcohol intake frequency: holidays/special occasions only substance use type: does not use ROS ROS ED Review of Systems ROS Unobtainable: other Constitutional Constitutional ED: Reports lethargy; Denies chills, fever(s), sweats or weight loss Eyes Eyes: Reports blurry vision; Denies change in vision or diplopia ENT ENT ED: Denies rhinorrhea or sore throat Cardiovascular Cardiovascular: Denies chest pain, orthopnea or racing heartbeat Respiratory/Chest Respiratory/Chest: Reports dyspnea; Denies cough, dyspnea on exertion, orthopnea or sputum Gastrointestinal Gastrointestinal: Denies abdominal pain, diarrhea, nausea or vomiting Genitourinary Genitourinary ED: Denies dysuria, hematuria or urinary frequency Musculoskeletal Musculoskeletal: Denies arthralgias, back pain, myalgias or neck pain Integumentary Denies abscess, Abrasions or rash Neurologic Neurologic: Reports weakness; Denies headache(s) Psychiatric Psychiatric: Denies anxiety, depression or suicidal thoughts Endocrine Endocrinology: Denies polydipsia, polyphagia or polyuria Hematologic/Lymphatic Hematologic/Lymphatic: Denies easy bleeding, easy bruising or lymphadenopathy Allergic/Immunologic Allergic/Immunologic ED: Denies mouth swelling, tongue swelling or urticaria EXAM Physical Exam Const Vital Signs: 03/12/24 15:57 03/12/24 15:46 03/12/24 16:01 Temperature 98.1 F 98.1 F Temperature Source Oral Oral Pulse Rate 106 H 106 H Respiratory Rate 24 H 24 H Respiratory Effort Normal Respiratory Pattern Normal Blood Pressure 99/63 99/63 Blood Pressure [Lying] Blood Pressure [Sitting (for 1 minute prior to obtaining)] Blood Pressure Mean 75 75 Blood Pressure Mean [Lying] Blood Pressure Mean [Sitting (for 1 minute prior to obtaining)] Pulse Ox 98 98 Oxygen Delivery Method Room Air Room Air 03/12/24 16:34 03/12/24 16:30 03/12/24 16:37 Temperature Temperature Source Pulse Rate 121 H 122 H Respiratory Rate 18 Respiratory Effort Respiratory Pattern Blood Pressure 90/57 L 72/52 L Blood Pressure [Lying] 75/58 L Blood Pressure [Sitting (for 1 minute prior to obtaining)] 86/55 L Blood Pressure Mean 68 58 Blood Pressure Mean [Lying] 63 Blood Pressure Mean [Sitting (for 1 minute prior to obtaining)] 65 Pulse Ox 98 Oxygen Delivery Method Room Air 03/12/24 18:00 03/12/24 18:57 Temperature Temperature Source Pulse Rate 114 H 120 H Respiratory Rate 18 16 Respiratory Effort Respiratory Pattern Blood Pressure 84/52 L 65/41 L Blood Pressure [Lying] Blood Pressure [Sitting (for 1 minute prior to obtaining)] Blood Pressure Mean 62 49 Blood Pressure Mean [Lying] Blood Pressure Mean [Sitting (for 1 minute prior to obtaining)] Pulse Ox 98 96 Oxygen Delivery Method Room Air Room Air Positive well nourished and well developed General Appearance ED: well developed and NAD HEENT Reports TM's clear and moist mucous membranes normocephalic and atraumatic; Negative for trauma or tenderness Tympanic Membrane ED: Yes TM's clear Eyes PERRL and EOMs intact bilaterally General Eye ED: Negative for pale conjunctiva or scleral icterus Neck no lymphadenopathy, supple and no JVD General: Negative for tenderness Chest Wall inspection of chest normal and palpation of chest normal Chest: Negative for tenderness Resp normal respiratory effort and clear to auscultation bilaterally Effort and Inspection: Negative for respiratory distress or pain with movement Auscultation: Negative for rhonchi, wheezes or diminished lung sounds Cardio regular rate, regular rhythm, S1 normal heart sound, S2 normal heart sound and no murmurs Peripheral Pulses: pulses 2+ throughout GI normal to inspection, nondistended, normoactive bowel sounds, soft to palpation, non-tender, non-distended and no masses Back/Spine no CVA tenderness and no thoracic nor lumbar tenderness Extremity normal to inspection General Extremety ED: Negative for edema General Extremity: Negative for edema Neuro oriented x3, CN's II-XII intact bilaterally, no sensory deficits noted and gait normal Sensorium / Orientation: awake, alert, oriented to person, oriented to place and oriented to time Motor Exam: strength 5/5 throughout and strength abnormal Psych mental status grossly normal Skin no rashes or lesions noted and no wounds MDM MDM MDM Narrative Medical decision making narrative: Patient presents with complaint not feeling well and feeling weak and some blurred vision. Some nondescript chest discomfort. Patient noted to be slightly tachycardic. Blood pressure initially in the 90s systolic but at times would drop down into the 70s systolic. She denies any blood in her stool or black tarry stool. Patient was ordered a liter normal same fluid bolus. CBC with differential white count of 4.8 with hemoglobin 13 and platelet count of 183,000. EKG on arrival obtained showed atrial fibrillation with ventricular rate of 110 bpm with occasional PVCs. Will order a CTA of the chest and abdomen and pelvis as etiology of the hypotension unclear. Chemistries were unremarkable. Troponin was normal at 34. BUN 19 creatinine 1.2. Urinalysis was normal. I did do a CTA of the chest abdomen pelvis that essentially was unremarkable. Patient's blood pressure continues to fluctuate between 70 systolic to low 100 systolic. Case will be discussed with hospitalist to evaluate patient for admission Lab Data Attestation: I reviewed the patient's lab results. Labs: Laboratory Results - last 24 hr 03/12/24 03/12/24 03/12/24 16:20 17:33 18:50 WBC 4.8 RBC 4.36 Hgb 13.0 Hct 40.4 MCV 92.7 MCH 29.8 MCHC 32.2 RDW Std Deviation 47.0 H RDW Coeff of [place] 13.8 Plt Count 183 MPV 9.6 Immature Gran % (Auto) 0.200 Neut % (Auto) 43.8 L Lymph % (Auto) 47.[address] [place] % (Auto) 6.1 Eos % (Auto) 2.3 Baso % (Auto) 0.2 Absolute Neuts (auto) 2.1 Absolute Lymphs (auto) 2.26 Nucleated RBC % 0 Sodium 139 Potassium 4.0 Chloride 107 Carbon Dioxide 24.0 Anion Gap 8 BUN 19 H Creatinine 1.20 H Estim Creat Clear Calc 39.33 Est GFR (MDRD) Af Amer 56 L Est GFR (MDRD) Non-Af 47 L BUN/Creatinine Ratio 15.8 Glucose 101 Calcium 9.5 Troponin I High Sens 34 44 Urine Color Yellow Urine Clarity Clear Urine pH 6.0 Ur Specific [place] 1.010 Urine Protein Negative Urine Glucose (UA) Normal Urine Ketones Negative Urine Occult Blood Negative Urine Nitrite Negative Urine Bilirubin Negative Urine Urobilinogen Normal Ur Leukocyte Esterase Negative Urine RBC 0 SEEN Urine WBC 0 SEEN Ur Squamous Epith Cells 0 SEEN Urine Bacteria 0 SEEN Urine Mucus 0 SEEN Radiography Diagnostic Testing: Clinical Impression(s) from Imaging Studies Chest X-Ray 03/12/24 16:10 IMPRESSION: Stable chest. Electronically Signed: Cyrus Orantes MD at 16:54 EDT Reading Location ID and State: [address] [place] [address] Tel , Service support , Chest/Abdomen/Pelvis CTA 03/12/24 16:41 IMPRESSION: Improving bilateral interstitial pulmonary infiltrates and nodular/tubular density on the right which may represent mucoid impaction. Cardiomegaly and coronary artery disease. Increased stool in the colon. Electronically Signed: Cyrus Orantes MD at 17:56 EDT , 1 view chest x-ray obtained interpreted by myself as no evidence of infiltrate or pneumothorax or acute disease process. Radiology in agreement. EKG Initial EKG: Attestation: I personally reviewed and interpreted this EKG as follows: Comments: Atrial fibrillation with rate of 110 bpm with occasional PVCs Repeat EKG obtained at 1903 shows again atrial fibrillation with rate 114 bpm with occasional PVCs, no acute ST segment changes Discharge Plan Dx/Rx/DC Orders Clinical Impression: Weakness, History of coronary artery disease, Hypotension Disposition Disposition: Acute Care [facility]
--- NOTE | 2024-03-12 16:10 | RAD_ITS ---
STUDY: X-RAY CHEST REASON FOR EXAM: Female, 73 years old. dyspnea TECHNIQUE: Single frontal view of the chest. COMPARISON: February 12, 2024 chest x-ray FINDINGS: 3-lead pacer on the left unchanged. The lungs are clear and expanded. There is no demonstrated pleural abnormality. Normal size heart. Normal mediastinum and rosalie. Normal visualized pulmonary arteries. Normal visualized aortic arch and descending thoracic aorta. Normal visualized thoracic spine. Normal visualized ribs, clavicles, and shoulders. There is no demonstrated abnormality of the visualized soft tissue structures of the upper abdomen. RAD/Chest 1 View (Portable) IMPRESSION: Stable chest. Electronically Signed: Cyrus Orantes MD at 16:54 EDT ,
[2024-03-12] MEDS: 0.9% Normal Saline (1000mL) 1,000 ML 999 ML IV ×2 (16:20→18:59)
[2024-03-12 16:41] LABS: Absolute Lymphocyte Count 2.26 X10^3/uL (0.83-4.51); Absolute Neutrophil Count 2.1 X10^3/uL (2.0-7.7); Basophil# 0.01 X10^3/uL; Basophil% 0.2 % (0-1); Eosinophil# 0.11 X10^3/uL; Eosinophils% 2.3 % (0-5); Hematocrit 40.4 % (37-47); Lymphocyte # 2.26 X10^3/ul (0.83-4.51); Lymphocyte % 47.4 % (19-41); Mean Corp Hgb Conc 32.2 g/dL (32-36); Mean Corpuscular Hgb 29.8 pg (27.0-32.0); Mean Corpuscular Volume 92.7 fL (81-99); Mean Platelet Vol. 9.6 fl (6.2-12.0); Monocyte# 0.29 X10^3/uL; Monocyte% 6.1 % (0-10); NRBC Flagged by Analyzer 0 % (0-5); Neutrophil # 2.09 X10^3/uL (2.7-7.7); Neutrophil % 43.8 % (47-70); Platelet Count 183 K/mm3 (150-450); RBC Distribution Width CV 13.8 % (11.6-14.6); Red Blood Count 4.36 M/mm3 (4.2-5.4); White Blood Count 4.8 K/mm3 (4.4-11.0)
--- NOTE | 2024-03-12 16:41 | CT_ITS ---
INDICATION: chest pain, abdominal pain, hypotension EXAMINATION: CTA CHEST, ABDOMEN AND PELVIS WITH CONTRAST - TECHNIQUE: A CTA of the chest, abdomen, and pelvis is obtained with sagittal and coronal reconstructed MIP views. Three-dimensional surface rendered sequence of the thoracic and abdominal aorta was obtained. A radiation dose optimization technique was used for this scan. 100 and mL of Isovue-370. Oral contrast: None. COMPARISON: Chest x-ray from today. CTA chest January 29, 2024. FINDINGS: CT CHEST: THORACIC AORTA: No atheromatous disease, no aneurysmal changes or dissection. ABDOMINAL AORTA: No aneurysm or dissection. No significant atheromatous disease. The iliac arteries are unremarkable. LUNGS: Multiple mild bilateral groundglass infiltrates. Nodular/tubular density right upper lobe decreased in size. This may represent a mucoid impaction. MEDIASTINUM: The thyroid gland is normal. No mediastinal or hilar adenopathy. HEART: Calcific coronary artery disease. Pacer wire right heart. Cardiomegaly. CT ABDOMEN AND PELVIS: LIVER: The liver enhances homogeneously. No masses identified. GALLBLADDER: Gallbladder surgically absent. SPLEEN: Normal. PANCREAS: No masses or inflammation. ADRENAL GLANDS: Normal. KIDNEYS AND URETERS: Multiple simple bilateral renal cortical cysts measuring up to 5 cm on the left. No hydronephrosis or nephrolithiasis. STOMACH: Normal. SMALL BOWEL: No abnormal distention of the small bowel. MESENTERY: No mesenteric inflammation. No ascites. COLON: Colonic diverticulosis. Increased stool in the colon. The colon otherwise is normal. There is a large fatty ileocecal valve. APPENDIX: The appendix is visualized and normal. IVC: Normal. RETROPERITONEUM: No retroperitoneal lymphadenopathy. PELVIC STRUCTURES: Normal bladder. Uterus normal. SOFT TISSUES ABDOMEN: Fat-containing umbilical hernia containing a small coarse calcification. SOFT TISSUE CHEST: The extrathoracic soft tissues are normal. BONES: Moderate kyphosis. Diffuse demineralization. CT/CTA Chst, Abd, Pel W and/or WO IMPRESSION: Improving bilateral interstitial pulmonary infiltrates and nodular/tubular density on the right which may represent mucoid impaction. Cardiomegaly and coronary artery disease. Increased stool in the colon. Electronically Signed: Cyrus Orantes MD at 17:56 EDT ,
[2024-03-12 16:58] LABS: Anion Gap 8 (5-15); BUN 19 mg/dL (7-18); BUN/Creat Ratio 15.8 RATIO (10-20); Calcium,Total 9.5 mg/dL (8.5-10.1); Chloride 107 mmol/L (98-107); EST Glomerular Filtration Rate 47 mL/min (>60); Est Glom Filt Rate - Afr Amer 56 mL/min (>60); Estimated Creatinine Clearance 39.33 ml/min; Glucose 101 mg/dL (74-106); Sodium Level 139 mmol/L (136-145); Troponin-I HS 34 pg/mL (3.0-54.0)
[2024-03-12 17:38] LABS: Bacteria 0 SEEN /hpf (None Seen); Mucous, Urine 0 SEEN /hpf (<or=2+); Red Blood Cells-Urine 0 SEEN /hpf (0-5); Squamous Epithelial Cells - UA 0 SEEN /hpf (5-10); White Blood Cells 0 SEEN /hpf (0-5)
[2024-03-12 17:45] LABS: Color, Urine Yellow (Yellow); Glucose, Dipstick Normal (Normal); Ketone-Dipstick Negative (Negative); Leukocyte Esterase-Dipstick Negative /ul (Negative); Nitrite-Dipstick Negative (Negative); Occult Blood-Urine Negative /ul (Negative); Protein-Dipstick Negative (Negative); Urine Bilirubin Dipstick Negative (Negative); Urine Clarity Clear (Clear); Urine Urobilinogen Normal (Normal)
[2024-03-12] MEDS: 0.9% Normal Saline (1000mL) 1,000 ML 150 ML IV (17:53)
[2024-03-12 19:12] LABS: Troponin-I HS 44 pg/mL (3.0-54.0)
--- NOTE | 2024-03-12 19:14 | ED.RN ---
THIS RN ASSUMES CARE AT THIS TIME
--- NOTE | 2024-03-12 21:30 | PCM.HP.STD ---
HPI - General General Date of Admission: 03/12/24 HPI Narrative AGUILAR HILL, is a 73 F who presents to the hospital with lightheadedness and dizziness. She was recently hospitalized in early January and had a cardiac stent placed to her mid LAD. She was since discharged on multiple new medications and today went to cardiac rehab. This morning she felt a little bit fatigued and then after cardiac rehab she went home and was sitting in a recliner which is when she felt very weak and lightheaded and dizzy. She presented to the ER and her blood pressures were on the low side though she states that she normally sits around 90-100 systolic. She reached to 65 systolic this afternoon in the ER. Workup was exceedingly unremarkable, CTA of the chest abdomen and pelvis was negative for any kind of pathology, troponins were unremarkable and she denies any change in her mild chest pain. She was given IV fluids in the ER but otherwise no new etiology was found to explain her hypotension. She states that she has not changed her medications and there is no way that she could have accidentally taken more blood pressure medications than necessary. [facility] Medical History (Updated 03/12/24 @ 18:[address] Marguerite Barrera, ) Accelerated hypertension Atherosclerotic heart disease of [place] coronary artery without angina pectoris Atrial fibrillation Atrial fibrillation Chest pain Essential hypertension HLD (hyperlipidemia) Non-STEMI (non-ST elevated myocardial infarction) (01/02/24) Obesity Obstructive sleep apnea Paroxysmal atrial fibrillation Renal insufficiency Sinus node dysfunction Symptomatic bradycardia Home Medications ascorbic acid (vitamin C) 1,000 mg capsule 1 g PO DAILY . 06/20/22 [History Last Taken 03/12/24] cholecalciferol (vitamin D3) 125 mcg (5,000 unit) capsule 125 mcg PO DAILY . 06/20/22 [History Last Taken 03/12/24] rivaroxaban 20 mg tablet (Xarelto) 20 mg PO QPM #90 tabs 07/23/23 [Rx Last Taken 03/11/24] atorvastatin 40 mg tablet 40 mg PO QHS #30 tabs 02/07/24 [Rx Last Taken 03/11/24] clopidogrel 75 mg tablet 75 mg PO DAILY #30 tabs 02/07/24 [Rx Last Taken 03/12/24] lisinopril 2.5 mg tablet 2.5 mg PO DAILY #30 tabs 02/07/24 [Rx Last Taken 03/12/24] spironolactone 25 mg tablet 12.5 mg (1/2 x 25 mg) PO DAILY #30 tabs 02/07/24 [Rx Last Taken 03/12/24] diltiazem HCl 120 mg capsule,extended release 24 hr (Cardizem CD) 120 mg PO DAILY #30 caps 02/12/24 [Rx Last Taken 03/12/24] metoprolol tartrate 25 mg tablet 50 mg PO BID 03/12/24 [History Last Taken 03/12/24] nitroglycerin 0.4 mg sublingual tablet 0.4 mg sublingual PRN PRN angina 03/12/24 [History Last Taken Unknown] sacubitril 24 mg-valsartan 26 mg tablet (Entresto) 1 tab PO BID 03/12/24 [History Last Taken 03/12/24] Allergy/AdvReac Type Severity Reaction Status Date / Time aspirin AdvReac Upset Verified 03/12/24 15:50 Stomach flecainide AdvReac unknown Verified 03/12/24 15:50 Family History Mother CVA (cerebral vascular accident) Father Heart disease Surgical History History of permanent cardiac pacemaker placement (06/21/21) Stented coronary artery (01/03/24) Social History household members: none Smoking Status: Never smoker alcohol intake: current alcohol intake frequency: holidays/special occasions only substance use type: does not use ROS Constitutional Constitutional: Reports fatigue and weakness; Denies chills, fever(s) or malaise Eyes Eyes: Reports blurry vision ENT HEENT: Denies headache(s) or nasal discharge Cardiovascular Cardiovascular: Reports lightheadedness; Denies chest pain, dyspnea on exertion or syncope Respiratory/Chest Respiratory/Chest: Denies cough, shortness of breath at rest or shortness of breath with exertion Gastrointestinal Gastrointestinal: Denies constipation, diarrhea, nausea or vomiting Genitourinary Genitourinary: Denies dysuria Neurologic Neurologic: Denies focal weakness, numbness or tremor(s) Psychiatric Psychiatric: Denies anxiety or depression Vital Signs Vital Signs Vital Signs: 03/12/24 15:57 03/12/24 15:46 03/12/24 16:01 Temperature 98.1 F 98.1 F Temperature Source Oral Oral Pulse Rate 106 H 106 H Respiratory Rate 24 H 24 H Respiratory Effort Normal Respiratory Pattern Normal Blood Pressure 99/63 99/63 Blood Pressure [Lying] Blood Pressure [Sitting (for 1 minute prior to obtaining)] Blood Pressure Mean 75 75 Blood Pressure Mean [Lying] Blood Pressure Mean [Sitting (for 1 minute prior to obtaining)] Pulse Ox 98 98 Oxygen Delivery Method Room Air Room Air 03/12/24 16:34 03/12/24 16:30 03/12/24 16:37 Temperature Temperature Source Pulse Rate 121 H 122 H Respiratory Rate 18 Respiratory Effort Respiratory Pattern Blood Pressure 90/57 L 72/52 L Blood Pressure [Lying] 75/58 L Blood Pressure [Sitting (for 1 minute prior to obtaining)] 86/55 L Blood Pressure Mean 68 58 Blood Pressure Mean [Lying] 63 Blood Pressure Mean [Sitting (for 1 minute prior to obtaining)] 65 Pulse Ox 98 Oxygen Delivery Method Room Air 03/12/24 18:00 03/12/24 18:57 03/12/24 19:05 Temperature Temperature Source Pulse Rate 114 H 120 H 107 H Respiratory Rate 18 16 16 Respiratory Effort Respiratory Pattern Blood Pressure 84/52 L 65/41 L 79/45 L Blood Pressure [Lying] Blood Pressure [Sitting (for 1 minute prior to obtaining)] Blood Pressure Mean 62 49 55 Blood Pressure Mean [Lying] Blood Pressure Mean [Sitting (for 1 minute prior to obtaining)] Pulse Ox 98 96 98 Oxygen Delivery Method Room Air Room Air 03/12/24 19:10 03/12/24 19:15 03/12/24 19:21 Temperature Temperature Source Pulse Rate 119 H 92 91 Respiratory Rate 9 L 17 12 Respiratory Effort Respiratory Pattern Blood Pressure 84/52 L 80/56 L 89/50 L Blood Pressure [Lying] Blood Pressure [Sitting (for 1 minute prior to obtaining)] Blood Pressure Mean 63 63 62 Blood Pressure Mean [Lying] Blood Pressure Mean [Sitting (for 1 minute prior to obtaining)] Pulse Ox 96 94 97 Oxygen Delivery Method 03/12/24 19:25 03/12/24 19:30 03/12/24 19:35 Temperature Temperature Source Pulse Rate 71 124 H 111 H Respiratory Rate 17 15 14 Respiratory Effort Respiratory Pattern Blood Pressure 86/48 L 95/52 L 73/47 L Blood Pressure [Lying] Blood Pressure [Sitting (for 1 minute prior to obtaining)] Blood Pressure Mean 61 62 55 Blood Pressure Mean [Lying] Blood Pressure Mean [Sitting (for 1 minute prior to obtaining)] Pulse Ox 96 96 95 Oxygen Delivery Method 03/12/24 19:40 03/12/24 19:45 03/12/24 19:50 Temperature Temperature Source Pulse Rate 104 H 104 H 104 H Respiratory Rate 11 L 16 13 Respiratory Effort Respiratory Pattern Blood Pressure 73/45 L 80/66 L 79/59 L Blood Pressure [Lying] Blood Pressure [Sitting (for 1 minute prior to obtaining)] Blood Pressure Mean 54 72 67 Blood Pressure Mean [Lying] Blood Pressure Mean [Sitting (for 1 minute prior to obtaining)] Pulse Ox 95 97 96 Oxygen Delivery Method 03/12/24 19:55 03/12/24 20:00 03/12/24 20:05 Temperature Temperature Source Pulse Rate 129 H 101 H 107 H Respiratory Rate 10 L 19 H 17 Respiratory Effort Respiratory Pattern Blood Pressure 72/59 L 81/45 L 71/51 L Blood Pressure [Lying] Blood Pressure [Sitting (for 1 minute prior to obtaining)] Blood Pressure Mean 65 54 58 Blood Pressure Mean [Lying] Blood Pressure Mean [Sitting (for 1 minute prior to obtaining)] Pulse Ox 96 94 94 Oxygen Delivery Method 03/12/24 20:10 03/12/24 20:31 Temperature 98.9 F Temperature Source Pulse Rate 119 H 119 H Respiratory Rate 18 18 Respiratory Effort Respiratory Pattern Blood Pressure 73/49 L 73/49 L Blood Pressure [Lying] Blood Pressure [Sitting (for 1 minute prior to obtaining)] Blood Pressure Mean 58 57 Blood Pressure Mean [Lying] Blood Pressure Mean [Sitting (for 1 minute prior to obtaining)] Pulse Ox 93 93 Oxygen Delivery Method Weight Weight: 183 lb 6.793 oz Body Mass Index (BMI) 35.8 Physical Exam Narrative General: Alert, Oriented x3, Cooperative, No apparent distress HEENT: Atraumatic, PERRLA, EOMI, Normocephalic Oral: Moist Mucosa Neck: Supple, No JVD Lungs: Diminished, Normal air movement, No rhonchi, No wheeze, No rales Cardiovascular: Irregular rate and rhythm, Normal S1, Normal S2, No murmurs Abdomen: Soft, Non Tender, Non-Distended, No Hepato-splenomegaly Extremities: No edema, Capillary Refill Less than 3 Seconds Skin: No rashes, No breakdown Musculoskeletal: No Tenderness to Palpation of Joints or Extremities Neurological: No focal neurological deficits, Motor Exam 5/5 strength throughout, Sensory exam intact to light touch and pain Psych/Mental Status: Normal Affect, Appropriate Results Lab / Micro Data 03/12/24 16:20 03/12/24 16:20 Labs: Laboratory Results - last 24 hr 03/12/24 16:20: WBC 4.8, RBC 4.36, Hgb 13.0, Hct 40.4, MCV 92.7, MCH 29.8, MCHC 32.2, RDW Std Deviation 47.0 H, RDW Coeff of [place] 13.8, Plt Count 183, MPV 9.6, Immature Gran % (Auto) 0.200, Neut % (Auto) 43.8 L, Lymph % (Auto) 47.4 H, [place] % (Auto) 6.1, Eos % (Auto) 2.3, Baso % (Auto) 0.2, Absolute Neuts (auto) 2.1, Absolute Lymphs (auto) 2.26, Nucleated RBC % 0, Sodium 139, Potassium 4.0, Chloride 107, Carbon Dioxide 24.0, Anion Gap 8, BUN 19 H, Creatinine 1.20 H, Estim Creat Clear Calc 39.33, Est GFR (MDRD) Af Amer 56 L, Est GFR (MDRD) Non-Af 47 L, BUN/Creatinine Ratio 15.8, Glucose 101, Calcium 9.5, Troponin I High Sens 34 03/12/24 17:33: Urine Color Yellow, Urine Clarity Clear, Urine pH 6.0, Ur Specific [place] 1.010, Urine Protein Negative, Urine Glucose (UA) Normal, Urine Ketones Negative, Urine Occult Blood Negative, Urine Nitrite Negative, Urine Bilirubin Negative, Urine Urobilinogen Normal, Ur Leukocyte Esterase Negative, Urine RBC 0 SEEN, Urine WBC 0 SEEN, Ur Squamous Epith Cells 0 SEEN, Urine Bacteria 0 SEEN, Urine Mucus 0 SEEN 03/12/24 18:50: Troponin I High Sens 44 Imaging Radiology Impression Chest X-Ray 03/12/24 16:10 IMPRESSION: Stable chest. Electronically Signed: Cyrus Orantes MD at 16:54 EDT , Chest/Abdomen/Pelvis CTA 03/12/24 16:41 IMPRESSION: Improving bilateral interstitial pulmonary infiltrates and nodular/tubular density on the right which may represent mucoid impaction. Cardiomegaly and coronary artery disease. Increased stool in the colon. Electronically Signed: Cyrus Orantes MD at 17:56 EDT , Assessment & Plan Assessment/Plan (1) Hypotension: PLAN: Plan 1. Hypotension in the setting of essential hypertension/CAD status post stent/chronic A-fib status post pacemaker/chronic diastolic CHF ? Will hold all of her home blood pressure medications ? Continue with Plavix and Xarelto secondary to her stent in January ? Will obtain serial troponins ? Will obtain a limited echo tomorrow morning if symptoms do not resolve and the echo is abnormal can proceed with a cardiology consult if necessary ? Continue with Lipitor ? Will continue with gentle IV fluids, her echo on 01/30/2024 had stage III diastolic dysfunction with an EF of 40% DVT: Xarelto 75 minutes was spent on direct patient care, including documentation as well as chart review and collaboration with colleagues Charges/Coding Visit Charges Inpatient E&M: 75463 Init Hosp L3
[2024-03-12] MEDS: 0.9% Normal Saline (1000mL) 1,000 ML 75 ML IV (22:06)
[2024-03-12 22:59] LABS: Troponin-I HS 40 pg/mL (3.0-54.0)
[2024-03-12] MEDS: Rivaroxaban 20 MG Tablet PO (23:38)
[2024-03-12] MEDS: Atorvastatin Calcium 40 MG Tablet PO (23:39)
[2024-03-13] VITALS (8 sets, daily range): BP systolic 82–107; BP diastolic 52–88; PULSE 76–114; RESP 17–20; TEMP 36.4–36.7; O2SAT 93–98; BMI 35.5
[2024-03-13] MEDS: Ondansetron 4 MG/2 ML Vial IV (03:01)
[2024-03-13] MEDS: Acetaminophen 325 MG Tablet 650 MG PO (03:02)
--- NOTE | 2024-03-13 05:55 | ECHOL_ITS ---
Reason For Study: CAD/ASHD Procedure This was a limited 2D transthoracic echocardiogram. Exam performed portable in patient room. Left Ventricle Normal LV size. The left ventricular ejection fraction is 65 %. Right Ventricle ICD or pacer leads identified within the right ventricle. Atria The left atrium is moderately enlarged. ICD or pacer leads identified within the right atrium. Mitral Valve Moderate mitral annular calcification. Trivial mitral valve insufficiency. Tricuspid Valve Trivial tricuspid valve insufficiency. Aortic Valve Trisinus/trileaflet aortic valve. Pulmonic Valve The pulmonic valve is not well visualized. Great Vessels The aortic root is not well visualized. Pericardium/Pleural No pericardial effusion. MMode/2D Measurements & Calculations LVIDd: 3.4 cm IVSd: 0.88 cm LA dimension: 4.0 cm LVIDs: 2.4 cm LVPWd: 0.98 cm FS: 30.5 % LAV(MOD-bp): 73.9 ml LVAd ap4: 15.3 cm2 SV(MOD-sp4): 22.0 ml LAV(MOD-bp) Indexed: 41.2 ml/m2 LVLd ap4: 6.0 cm LAV(MOD-sp2): 70.5 ml EDV(MOD-sp4): 33.9 ml LAV(MOD-sp4): 68.2 ml EDV(sp4-el): 33.5 ml LVAs ap4: 8.0 cm2 LVLs ap4: 5.0 cm ESV(MOD-sp4): 12.0 ml ESV(sp4-el): 10.9 ml EF(MOD-sp4): 64.8 % EF(sp4-el): 67.6 % SV(sp4-el): 22.6 ml LA A4 area: 24.8 cm2 RA A4 area: 14.1 cm2 Doppler Measurements & Calculations TR max roseanne: 241.3 cm/sec TR max P.3 mmHg ECHO/Echo, Limited Study Interpretation Summary The left ventricular ejection fraction is 65 %. The left atrium is moderately enlarged. Moderate mitral annular calcification. Ordering Physician: Daniel Salazar Performed By: Geoffrey Weldon RCS
[2024-03-13 07:01] LABS: Absolute Lymphocyte Count 1.92 X10^3/uL (0.83-4.51); Absolute Neutrophil Count 1.5 X10^3/uL (2.0-7.7); Basophil# 0.03 X10^3/uL; Basophil% 0.8 % (0-1); Eosinophil# 0.11 X10^3/uL; Eosinophils% 2.8 % (0-5); Hematocrit 34.6 % (37-47); Hemoglobin 11.3 g/dL (12.0-15.0); Lymphocyte # 1.92 X10^3/ul (0.83-4.51); Lymphocyte % 49.5 % (19-41); Mean Corp Hgb Conc 32.7 g/dL (32-36); Mean Corpuscular Hgb 30.6 pg (27.0-32.0); Mean Corpuscular Volume 93.8 fL (81-99); Mean Platelet Vol. 9.6 fl (6.2-12.0); Monocyte# 0.31 X10^3/uL; NRBC Flagged by Analyzer 0 % (0-5); Neutrophil % 38.6 % (47-70); Platelet Count 160 K/mm3 (150-450); RBC Distribution Width CV 14.2 % (11.6-14.6); RBC Distribution Width SD 48.9 fl (35.1-43.9); Red Blood Count 3.69 M/mm3 (4.2-5.4); White Blood Count 3.9 K/mm3 (4.4-11.0)
[2024-03-13 07:35] LABS: Anion Gap 3 (5-15); BUN 16 mg/dL (7-18); BUN/Creat Ratio 16.2 RATIO (10-20); Chloride 114 mmol/L (98-107); Creatinine, Serum 0.99 mg/dL (0.55-1.02); EST Glomerular Filtration Rate 58 mL/min (>60); Est Glom Filt Rate - Afr Amer 70 mL/min (>60); Estimated Creatinine Clearance 47.49 ml/min; Glucose 85 mg/dL (74-106); Potassium 4.4 mmol/L (3.5-5.1); Sodium Level 140 mmol/L (136-145)
--- NOTE | 2024-03-13 10:10 | PCM.PN.HOSP ---
Reason for Visit Reason for Visit: Diagnoses Hypotension, unspecified (03/12/24) Subjective Subjective Patient is a 73-year-old lady with recent history of acute non-STEMI for which patient underwent PCI with JANNETH to mid LAD lesion on 01/30/2024, paroxysmal A-fib with RVR who presented with progressive generalized weakness Objective Data Objective Data Vital Signs: Vital Signs Temp Pulse Resp BP Pulse Ox O2 Del Method 97.6 F L 76 18 107/88 H 98 Room Air 03/13/24 04:40 03/13/24 04:40 03/13/24 04:40 03/13/24 04:40 03/13/24 04:40 03/13/24 04:53 Oxygen Delivery Method Room Air Weight: 82.6 kg Body Mass Index (BMI) 35.5 Intake & Output: Intake and Output for Last 24 Hours 03/11/24 03/12/24 03/13/24 23:59 23:59 23:59 Intake Total 2165 / 2165 200 / 200 Output Total 0 / 0 Balance 2165 / 2165 200 / 200 Lab / Micro Data 03/13/24 06:05 03/13/24 06:05 Labs: Laboratory Results - last 24 hr 03/12/24 16:20: WBC 4.8, RBC 4.36, Hgb 13.0, Hct 40.4, MCV 92.7, MCH 29.8, MCHC 32.2, RDW Std Deviation 47.0 H, RDW Coeff of [place] 13.8, Plt Count 183, MPV 9.6, Immature Gran % (Auto) 0.200, Neut % (Auto) 43.8 L, Lymph % (Auto) 47.4 H, [place] % (Auto) 6.1, Eos % (Auto) 2.3, Baso % (Auto) 0.2, Absolute Neuts (auto) 2.1, Absolute Lymphs (auto) 2.26, Nucleated RBC % 0, Sodium 139, Potassium 4.0, Chloride 107, Carbon Dioxide 24.0, Anion Gap 8, BUN 19 H, Creatinine 1.20 H, Estim Creat Clear Calc 39.33, Est GFR (MDRD) Af Amer 56 L, Est GFR (MDRD) Non-Af 47 L, BUN/Creatinine Ratio 15.8, Glucose 101, Calcium 9.5, Troponin I High Sens 34 03/12/24 17:33: Urine Color Yellow, Urine Clarity Clear, Urine pH 6.0, Ur Specific [place] 1.010, Urine Protein Negative, Urine Glucose (UA) Normal, Urine Ketones Negative, Urine Occult Blood Negative, Urine Nitrite Negative, Urine Bilirubin Negative, Urine Urobilinogen Normal, Ur Leukocyte Esterase Negative, Urine RBC 0 SEEN, Urine WBC 0 SEEN, Ur Squamous Epith Cells 0 SEEN, Urine Bacteria 0 SEEN, Urine Mucus 0 SEEN 03/12/24 18:50: Troponin I High Sens 44 03/12/24 22:35: Troponin I High Sens 40 03/13/24 06:05: WBC 3.9 L, RBC 3.69 L, Hgb 11.3 L, Hct 34.6 L, MCV 93.8, MCH 30.6, MCHC 32.7, RDW Std Deviation 48.9 H, RDW Coeff of [place] 14.2, Plt Count 160, MPV 9.6, Immature Gran % (Auto) 0.300, Neut % (Auto) 38.6 L, Lymph % (Auto) 49.5 H, [place] % (Auto) 8.0, Eos % (Auto) 2.8, Baso % (Auto) 0.8, Absolute Neuts (auto) 1.5 L, Absolute Lymphs (auto) 1.92, Nucleated RBC % 0, Sodium 140, Potassium 4.4, Chloride 114 H, Carbon Dioxide 23.0, Anion Gap 3 L, BUN 16, Creatinine 0.99, Estim Creat Clear Calc 47.49, Est GFR (MDRD) Af Amer 70, Est GFR (MDRD) Non-Af 58 L, BUN/Creatinine Ratio 16.2, Glucose 85, Calcium 8.0 L Radiography Diagnostic Testing: Radiology Impression Chest X-Ray 03/12/24 16:10 IMPRESSION: Stable chest. Electronically Signed: Cyrus Orantes MD at 16:54 EDT Reading Location ID and State: [facility] / [place] Tel , Service support , Chest/Abdomen/Pelvis CTA 03/12/24 16:41 IMPRESSION: Improving bilateral interstitial pulmonary infiltrates and nodular/tubular density on the right which may represent mucoid impaction. Cardiomegaly and coronary artery disease. Increased stool in the colon. Electronically Signed: Cyrsu Orantes MD at 17:56 EDT Reading Location ID and State: [facility] / [place] Tel , Service support , Physical Exam Narrative GENERAL: cooperative HEENT: Atraumatic; normocephalic EYES; Anicteric, Normal Conjunctiva NECK; supple, normal thyroid, RESPIRATORY: Diminished to auscultation CARDIOVASCULAR: Irregularly irregular GI: soft, normoactive bowel sounds, : No Renal angle tenderness; EXTREMITIES: No edema, no clubbing, MUSCULOSKELETAL: no muscle wasting NEURO: Awake; no lateralizing signs. SKIN: No Rash PSYCH; Flat affect Assessment & Plan Assessment/Plan (1) Hypotension: PLAN: Plan Patient is a 73-year-old lady with recent history of acute non-STEMI for which patient underwent PCI with JANNETH to mid LAD lesion on 01/30/2024, paroxysmal A-fib with RVR who presented with progressive generalized weakness 1. Orthostatic hypotension ? Patient presented with significant symptoms including lightheadedness. Systolic blood pressur recorded to be in the 60s. Patient home meds adjusted limited echo ordered 2. Paroxysmal A-fib with RVR ? Patient beta-blockers as well as calcium channel blockers have been held on admission beta-blockers resumed. If patient does not respond to treatment will obtain cardiology consulted. Patient is systemic anticoagulation with rivaroxaban continued 3. Chronic congestive heart failure with reduced ejection fraction ? Patient has known EF of 40%. Patient is on Entresto and spironolactone currently being held given his symptoms 4. Coronary artery disease ? Status post cardiac cath with PCI with JANNETH to a mid LAD lesion on 01/30/2024 5. Dyslipidemia -Patient is on statin therapy, continued at home dose 6. Class II obesity with BMI of 36 ? Complicating care weight loss advised 7. DVT prophylaxis Patient is on rivaroxaban Time spent in the patient's overall evaluation,decision-making process, review of diagnostic data, adjustment of management, discussion with other providers, nursing nursing and ancillary staff involved in patient's care documentation, 50 Minutes Charges/Coding Visit Charges Inpatient E&M: 76727 [facility] Hosp L3
[2024-03-13] MEDS: 0.9% Normal Saline (1000mL) 1,000 ML 75 ML IV (10:29)
[2024-03-13] MEDS: Clopidogrel Bisulfate 75 MG Tablet PO (10:29)
--- NOTE | 2024-03-13 12:36 | PCM.CONS.C ---
Assessment & Plan Assessment/Plan (1) Hypotension: PLAN: Agree with holding patient's blood pressure medications. It is noted that the patient was on both lisinopril and Entresto at home. Discontinue both as her LVEF is normal. CT scan of the chest reported as showing bilateral interstitial infiltrates. Consider workup for atypical/viral pneumonia. Follow as per internal medicine. (2) History of coronary artery disease: PLAN: Status post drug-eluting stent to the mid LAD. LVEF normalized. Continue clopidogrel. Continue rivaroxaban. (3) Atrial fibrillation: QUALIFIERS: Atrial fibrillation type: paroxysmal Qualified Code(s): I48.0 - Paroxysmal atrial fibrillation PLAN: Continue beta-blockers for ventricular rate control. Add digoxin. (4) History of permanent cardiac pacemaker placement: PLAN: Continue to follow at the pacemaker clinic as outpatient. HPI Consult Data Date of Consult: 03/13/24 HPI Narrative Reason for Consultation: Hypotension HPI Narrative: This lady has history of coronary artery disease, hypertension, paroxysmal atrial fibrillation and sick sinus syndrome status post permanent pacemaker placement. She presented to the emergency room this time with complaints of feeling weak, lightheaded and dizzy. No syncope or presyncope. In the emergency room, she was noted to be hypotensive. Per patient, she had mild chest discomfort as well. Patient was admitted to the hospital last month with NSTEMI. She was noted to have total occlusion of her mid left anterior descending artery. This was successfully intervened upon with a drug-eluting stent. Excellent results were noted. Her ejection fraction at the time was noted to be 40% with apical hypokinesis. An echocardiogram done this morning shows normal left ventricular systolic function. Ejection fraction is estimated at 65%. [facility] Medical History Accelerated hypertension Atherosclerotic heart disease of [place] coronary artery without angina pectoris Atrial fibrillation Atrial fibrillation Chest pain Essential hypertension HLD (hyperlipidemia) Non-STEMI (non-ST elevated myocardial infarction) (01/02/24) Obesity Obstructive sleep apnea Paroxysmal atrial fibrillation Renal insufficiency Sinus node dysfunction Symptomatic bradycardia Home Medications ascorbic acid (vitamin C) 1,000 mg capsule 1 g PO DAILY . 06/20/22 [History Last Taken 03/12/24] cholecalciferol (vitamin D3) 125 mcg (5,000 unit) capsule 125 mcg PO DAILY . 06/20/22 [History Last Taken 03/12/24] rivaroxaban 20 mg tablet (Xarelto) 20 mg PO QPM #90 tabs 07/23/23 [Rx Last Taken 03/11/24] atorvastatin 40 mg tablet 40 mg PO QHS #30 tabs 02/07/24 [Rx Last Taken 03/11/24] clopidogrel 75 mg tablet 75 mg PO DAILY #30 tabs 02/07/24 [Rx Last Taken 03/12/24] lisinopril 2.5 mg tablet 2.5 mg PO DAILY #30 tabs 02/07/24 [Rx Last Taken 03/12/24] spironolactone 25 mg tablet 12.5 mg (1/2 x 25 mg) PO DAILY #30 tabs 02/07/24 [Rx Last Taken 03/12/24] diltiazem HCl 120 mg capsule,extended release 24 hr (Cardizem CD) 120 mg PO DAILY #30 caps 02/12/24 [Rx Last Taken 03/12/24] metoprolol tartrate 25 mg tablet 50 mg PO BID 03/12/24 [History Last Taken 03/12/24] nitroglycerin 0.4 mg sublingual tablet 0.4 mg sublingual PRN PRN angina 03/12/24 [History Last Taken Unknown] sacubitril 24 mg-valsartan 26 mg tablet (Entresto) 1 tab PO BID 03/12/24 [History Last Taken 03/12/24] Allergy/AdvReac Type Severity Reaction Status Date / Time aspirin AdvReac Upset Verified 03/12/24 15:50 Stomach flecainide AdvReac unknown Verified 03/12/24 15:50 Family History Mother CVA (cerebral vascular accident) Father Heart disease Surgical History (Updated 03/13/24 @ 12:[address] Nya Baker MD) History of permanent cardiac pacemaker placement (06/21/21) Stented coronary artery (01/03/24) Social History household members: none Smoking Status: Never smoker alcohol intake: current alcohol intake frequency: holidays/special occasions only substance use type: does not use Physical Exam Narrative Comfortable. No apparent distress. Heart sounds 1 and 2 are noted. Irregularly irregular. Chest is clear to auscultation bilaterally. Alert oriented x 3. Trace bilateral ankle edema is noted. Risk Stratification Risk Stratification Applicable: No Objective Data Vital Signs: Vital Signs Temp Pulse Resp BP Pulse Ox O2 Del Method 98.0 F 90 17 89/52 L 93 Room Air 03/13/24 10:24 03/13/24 10:24 03/13/24 10:24 03/13/24 11:36 03/13/24 10:03/13/24 10:38 Oxygen Delivery Method Room Air Weight: 182 lb 1.629 oz Body Mass Index (BMI) 35.5 Intake & Output: Intake and Output for Last 24 Hours 03/11/24 03/12/24 03/13/24 23:59 23:59 23:59 Intake Total 2165 / 2165 1128.75 / 1128.75 Output Total 0 / 0 Balance 2165 / 2165 1128.75 / 1128.75 Lab / Micro Data 03/13/24 06:05 03/13/24 06:05 Labs: Laboratory Results - last 24 hr 03/12/24 16:20: WBC 4.8, RBC 4.36, Hgb 13.0, Hct 40.4, MCV 92.7, MCH 29.8, MCHC 32.2, RDW Std Deviation 47.0 H, RDW Coeff of Chantell 13.8, Plt Count 183, MPV 9.6, Immature Gran % (Auto) 0.200, Neut % (Auto) 43.8 L, Lymph % (Auto) 47.4 H, [place] % (Auto) 6.1, Eos % (Auto) 2.3, Baso % (Auto) 0.2, Absolute Neuts (auto) 2.1, Absolute Lymphs (auto) 2.26, Nucleated RBC % 0, Sodium 139, Potassium 4.0, Chloride 107, Carbon Dioxide 24.0, Anion Gap 8, BUN 19 H, Creatinine 1.20 H, Estim Creat Clear Calc 39.33, Est GFR (MDRD) Af Amer 56 L, Est GFR (MDRD) Non-Af 47 L, BUN/Creatinine Ratio 15.8, Glucose 101, Calcium 9.5, Troponin I High Sens 34 03/12/24 17:33: Urine Color Yellow, Urine Clarity Clear, Urine pH 6.0, Ur Specific [place] 1.010, Urine Protein Negative, Urine Glucose (UA) Normal, Urine Ketones Negative, Urine Occult Blood Negative, Urine Nitrite Negative, Urine Bilirubin Negative, Urine Urobilinogen Normal, Ur Leukocyte Esterase Negative, Urine RBC 0 SEEN, Urine WBC 0 SEEN, Ur Squamous Epith Cells 0 SEEN, Urine Bacteria 0 SEEN, Urine Mucus 0 SEEN 03/12/24 18:50: Troponin I High Sens 44 03/12/24 22:35: Troponin I High Sens 40 03/13/24 06:05: WBC 3.9 L, RBC 3.69 L, Hgb 11.3 L, Hct 34.6 L, MCV 93.8, MCH 30.6, MCHC 32.7, RDW Std Deviation 48.9 H, RDW Coeff of Chantell 14.2, Plt Count 160, MPV 9.6, Immature Gran % (Auto) 0.300, Neut % (Auto) 38.6 L, Lymph % (Auto) 49.5 H, [place] % (Auto) 8.0, Eos % (Auto) 2.8, Baso % (Auto) 0.8, Absolute Neuts (auto) 1.5 L, Absolute Lymphs (auto) 1.92, Nucleated RBC % 0, Sodium 140, Potassium 4.4, Chloride 114 H, Carbon Dioxide 23.0, Anion Gap 3 L, BUN 16, Creatinine 0.99, Estim Creat Clear Calc 47.49, Est GFR (MDRD) Af Amer 70, Est GFR (MDRD) Non-Af 58 L, BUN/Creatinine Ratio 16.2, Glucose 85, Calcium 8.0 L Rhythm Strip Rhythm Strip: A-fib Cardiology Labs/Tests 03/12/24 16:20: WBC 4.8, RBC 4.36, Hgb 13.0, Hct 40.4, MCV 92.7, MCH 29.8, MCHC 32.2, Plt Count 183, MPV 9.6, Immature Gran % (Auto) 0.200, Neut % (Auto) 43.8 L, Lymph % (Auto) 47.4 H, [place] % (Auto) 6.1, Eos % (Auto) 2.3, Baso % (Auto) 0.2, Absolute Neuts (auto) 2.1, Nucleated RBC % 0, Sodium 139, Potassium 4.0, Chloride 107, Carbon Dioxide 24.0, Anion Gap 8, BUN 19 H, Creatinine 1.20 H, Est GFR (MDRD) Af Amer 56 L, Est GFR (MDRD) Non-Af 47 L, BUN/Creatinine Ratio 15.8, Glucose 101, Calcium 9.5 03/12/24 17:33: Urine Color Yellow, Urine Clarity Clear, Urine pH 6.0, Ur Specific [place] 1.010, Urine Protein Negative, Urine Glucose (UA) Normal, Urine Ketones Negative, Urine Occult Blood Negative, Urine Nitrite Negative, Urine Bilirubin Negative, Urine Urobilinogen Normal, Ur Leukocyte Esterase Negative, Urine RBC 0 SEEN, Urine WBC 0 SEEN 03/13/24 06:05: WBC 3.9 L, RBC 3.69 L, Hgb 11.3 L, Hct 34.6 L, MCV 93.8, MCH 30.6, MCHC 32.7, Plt Count 160, MPV 9.6, Immature Gran % (Auto) 0.300, Neut % (Auto) 38.6 L, Lymph % (Auto) 49.5 H, [place] % (Auto) 8.0, Eos % (Auto) 2.8, Baso % (Auto) 0.8, Absolute Neuts (auto) 1.5 L, Nucleated RBC % 0, Sodium 140, Potassium 4.4, Chloride 114 H, Carbon Dioxide 23.0, Anion Gap 3 L, BUN 16, Creatinine 0.99, Est GFR (MDRD) Af Amer 70, Est GFR (MDRD) Non-Af 58 L, BUN/Creatinine Ratio 16.2, Glucose 85, Calcium 8.0 L Rhythm: EKG: Atrial fibrillation ECHO: Stress Test: Cardiac Cath: PCI: CT Surgery: Holter monitor: EPS: PPM: CXR: Chest CT Scan: Radiography Diagnostic Testing: Radiology Impression Chest X-Ray 03/12/24 16:10 IMPRESSION: Stable chest. Electronically Signed: Cyrus Orantes MD at 16:54 EDT , Chest/Abdomen/Pelvis CTA 03/12/24 16:41 IMPRESSION: Improving bilateral interstitial pulmonary infiltrates and nodular/tubular density on the right which may represent mucoid impaction. Cardiomegaly and coronary artery disease. Increased stool in the colon. Electronically Signed: Cyrus Orantes MD at 17:56 EDT , Echocardiogram 03/13/24 05:55 Interpretation Summary The left ventricular ejection fraction is 65 %. The left atrium is moderately enlarged. Moderate mitral annular calcification. Ordering Physician: Daniel Salazar Performed By: Geoffrey Weldon, [facility]
[2024-03-13] MEDS: Digoxin 250 MCG/ML Ampul 500 MCG IV (13:57)
[2024-03-13] MEDS: Rivaroxaban 20 MG Tablet PO (17:39)
[2024-03-13] MEDS: Atorvastatin Calcium 40 MG Tablet PO (21:19)
[2024-03-13] MEDS: Digoxin 250 MCG/ML Ampul IV (21:27)
[2024-03-14] VITALS (11 sets, daily range): BP systolic 74–117; BP diastolic 51–70; PULSE 70–78; RESP 18; TEMP 36.2–36.7; O2SAT 93–99; BMI 35.9
[2024-03-14] MEDS: 0.9% Normal Saline (1000mL) 1,000 ML 75 ML IV ×2 (01:35→15:33)
[2024-03-14 06:41] LABS: Absolute Lymphocyte Count 1.03 X10^3/uL (0.83-4.51); Absolute Neutrophil Count 1.5 X10^3/uL (2.0-7.7); Basophil# 0.02 X10^3/uL; Basophil% 0.7 % (0-1); Eosinophil# 0.16 X10^3/uL; Eosinophils% 5.4 % (0-5); Hematocrit 34.9 % (37-47); Hemoglobin 11.4 g/dL (12.0-15.0); Lymphocyte # 1.03 X10^3/ul (0.83-4.51); Mean Corp Hgb Conc 32.7 g/dL (32-36); Mean Corpuscular Hgb 31.1 pg (27.0-32.0); Mean Corpuscular Volume 95.1 fL (81-99); Mean Platelet Vol. 9.8 fl (6.2-12.0); Monocyte# 0.25 X10^3/uL; Monocyte% 8.5 % (0-10); NRBC Flagged by Analyzer 0 % (0-5); Neutrophil # 1.47 X10^3/uL (2.7-7.7); Neutrophil % 50.1 % (47-70); Platelet Count 149 K/mm3 (150-450); RBC Distribution Width CV 14.2 % (11.6-14.6); RBC Distribution Width SD 49.6 fl (35.1-43.9); Red Blood Count 3.67 M/mm3 (4.2-5.4); White Blood Count 2.9 K/mm3 (4.4-11.0)
[2024-03-14 07:04] LABS: Anion Gap 8 (5-15); BUN 15 mg/dL (7-18); BUN/Creat Ratio 16.6 RATIO (10-20); Calcium,Total 8.3 mg/dL (8.5-10.1); Chloride 113 mmol/L (98-107); EST Glomerular Filtration Rate 65 mL/min (>60); Est Glom Filt Rate - Afr Amer 78 mL/min (>60); Estimated Creatinine Clearance 52.55 ml/min; Glucose 79 mg/dL (74-106); Magnesium 1.8 mg/dL (1.6-2.6); Phosphorus 3.4 mg/dL (2.5-4.9); Potassium 4.4 mmol/L (3.5-5.1); Sodium Level 144 mmol/L (136-145)
--- NOTE | 2024-03-14 08:30 | PN.HOSP_ITS ---
Reason for Visit Reason for Visit: Diagnoses Paroxysmal atrial fibrillation (03/13/24) Hypotension, unspecified (03/13/24) Personal history of other diseases of the circulatory system (03/13/24) Presence of cardiac pacemaker (03/13/24) Objective Data Objective Data Vital Signs: Vital Signs Temp Pulse Resp BP Pulse Ox O2 Del Method 98.1 F 76 18 105/62 94 Room Air 03/14/24 05:45 03/14/24 05:45 03/14/24 05:45 03/14/24 05:45 03/14/24 05:45 03/14/24 05:45 Oxygen Delivery Method Room Air Weight: 83.5 kg Body Mass Index (BMI) 35.9 Intake & Output: Intake and Output for Last 24 Hours 03/12/24 03/13/24 03/14/24 23:59 23:59 23:59 Intake Total 2165 / 2165 1928.75 / 2168.75 1240 / 1240 Output Total 650 / 850 550 / 550 Balance 2165 / 2165 1278.75 / 1318.75 690 / 690 Lab / Micro Data 03/14/24 05:10 03/14/24 05:10 Labs: Laboratory Results - last 24 hr 03/14/24 05:10: WBC 2.9 L, RBC 3.67 L, Hgb 11.4 L, Hct 34.9 L, MCV 95.1, MCH 31.1, MCHC 32.7, RDW Std Deviation 49.6 H, RDW Coeff of Chantell 14.2, Plt Count 149 L, MPV 9.8, Immature Gran % (Auto) 0.300, Neut % (Auto) 50.1, Lymph % (Auto) 35.0, [place] % (Auto) 8.5, Eos % (Auto) 5.4 H, Baso % (Auto) 0.7, Absolute Neuts (auto) 1.5 L, Absolute Lymphs (auto) 1.03, Nucleated RBC % 0, Sodium 144, Potassium 4.4, Chloride 113 H, Carbon Dioxide 23.0, Anion Gap 8, BUN 15, Creatinine 0.90, Estim Creat Clear Calc 52.55, Est GFR (MDRD) Af Amer 78, Est GFR (MDRD) Non-Af 65, BUN/Creatinine Ratio 16.6, Glucose 79, Calcium 8.3 L, Phosphorus 3.4, Magnesium 1.8 Micro: Microbiology 03/13/24 16:32 Mucosa - Nasopharyngeal Coronavirus COVID-19 PCR - Final Radiography Diagnostic Testing: Radiology Impression Echocardiogram 03/13/24 05:55 Interpretation Summary The left ventricular ejection fraction is 65 %. The left atrium is moderately enlarged. Moderate mitral annular calcification. Ordering Physician: Daniel Salazar Performed By: Geoffrey Weldon RCS Rhythm Strip Rhythm Strip: A-fib Physical Exam Narrative GENERAL: cooperative HEENT: Atraumatic; normocephalic EYES; Anicteric, Normal Conjunctiva NECK; supple, normal thyroid, RESPIRATORY: Diminished to auscultation CARDIOVASCULAR: Irregularly irregular GI: soft, normoactive bowel sounds, : No Renal angle tenderness; EXTREMITIES: No edema, no clubbing, MUSCULOSKELETAL: no muscle wasting NEURO: Awake; no lateralizing signs. SKIN: No Rash PSYCH; Flat affect Assessment & Plan Assessment/Plan (1) Hypotension: PLAN: Plan Patient is a 73-year-old lady with recent history of acute non-STEMI for which patient underwent PCI with JANNETH to mid LAD lesion on 01/30/2024, paroxysmal A-fib with RVR who presented with progressive generalized weakness 1. Orthostatic hypotension ? Patient presented with significant symptoms including lightheadedness. Systolic blood pressur recorded to be in the 60s. Patient home meds adjusted limited echo ordered ? 03/14/2024 patient blood pressure appears to have stabilized following adjustment in her medications 2. Paroxysmal A-fib with RVR ? Patient beta-blockers as well as calcium channel blockers have been held on admission beta-blockers resumed. If patient does not respond to treatment will obtain cardiology consulted. Patient is systemic anticoagulation with rivaroxaban continued 3. Chronic congestive heart failure with reduced ejection fraction now chronic congestive heart failure with preserved ejection fraction ? Patient has known EF of 40%. Patient is on Entresto and spironolactone currently being held given his symptoms ? 03/14/2024 repeat limited echo obtained on 03/13/2024 demonstrated recovered EF. Patient EF now 65%. Case was discussed with Dr. Baker will discontinue patient Entresto given her hypotension 4. Coronary artery disease ? Status post cardiac cath with PCI with JANNETH to a mid LAD lesion on 01/30/2024 5. Dyslipidemia -Patient is on statin therapy, continued at home dose 6. Class II obesity with BMI of 36 ? Complicating care weight loss advised 7. DVT prophylaxis Patient is on rivaroxaban Time spent in the patient's overall evaluation,decision-making process, review of diagnostic data, adjustment of management, discussion with other providers, nursing nursing and ancillary staff involved in patient's care documentation, 35 Minutes
--- NOTE | 2024-03-14 08:37 | DS.PCM_ITS ---
Providers Date of Admission: 03/13/24 Date of Discharge: 03/14/24 Primary Care Physician: Dr. Milli Man MD Consultations 03/13/24 11:51 Consult: Cardiology Routine Consulting Provider: Nya Baker Reason for Consult: hypotension, afib EMERGENT Consult: No Notified: Yes Date Notified: 03/13/24 Time Notified: 12:22 Method of Notification: Text Reason For Visit: HYPOTENSION Diagnosis Discharge Diagnosis (1) Hypotension: Status: Acute Code(s): I95.9 - Hypotension, unspecified Plan Patient is a 73-year-old lady with recent history of acute non-STEMI for which patient underwent PCI with JANNETH to mid LAD lesion on 01/30/2024, paroxysmal A-fib with RVR who presented with progressive generalized weakness 1. Orthostatic hypotension ? Patient presented with significant symptoms including lightheadedness. Systolic blood pressur recorded to be in the 60s. Patient home meds adjusted limited echo ordered ? 03/14/2024 patient blood pressure appears to have stabilized following adjustment in her medications 2. Paroxysmal A-fib with RVR ? Patient beta-blockers as well as calcium channel blockers have been held on admission beta-blockers resumed. If patient does not respond to treatment will obtain cardiology consulted. Patient is systemic anticoagulation with rivaroxaban continued ? Patient metoprolol dose was decreased digoxin added to her therapy. 3. Chronic congestive heart failure with reduced ejection fraction now chronic congestive heart failure with preserved ejection fraction ? Patient has known EF of 40%. Patient is on Entresto and spironolactone currently being held given his symptoms ? 03/14/2024 repeat limited echo obtained on 03/13/2024 demonstrated recovered EF. Patient EF now 65%. Case was discussed with Dr. Baker will discontinue patient Entresto given her hypotension 4. Coronary artery disease ? Status post cardiac cath with PCI with JANNETH to a mid LAD lesion on 01/30/2024 5. Dyslipidemia -Patient is on statin therapy, continued at home dose 6. Class II obesity with BMI of 36 ? Complicating care weight loss advised 7. DVT prophylaxis Patient is on rivaroxaban Time spent in the patient's overall evaluation,decision-making process, review of diagnostic data, adjustment of management, discussion with other providers, nursing nursing and ancillary staff involved in patient's care documentation, 35 Minutes Medications at Discharge Home Medications ascorbic acid (vitamin C) 1,000 mg capsule 1 g PO DAILY . 06/20/22 cholecalciferol (vitamin D3) 125 mcg (5,000 unit) capsule 125 mcg PO DAILY . 06/20/22 rivaroxaban 20 mg tablet (Xarelto) 20 mg PO QPM #90 tabs 07/23/23 atorvastatin 40 mg tablet 40 mg PO QHS #30 tabs 02/07/24 clopidogrel 75 mg tablet 75 mg PO DAILY #30 tabs 02/07/24 lisinopril 2.5 mg tablet 2.5 mg PO DAILY #30 tabs 02/07/24 nitroglycerin 0.4 mg sublingual tablet 0.4 mg sublingual PRN PRN angina 03/12/24 digoxin 125 mcg (0.125 mg) tablet 125 mcg PO DAILY #30 tabs 03/14/24 metoprolol tartrate 25 mg tablet 12.5 mg (1/2 x 25 mg) PO BID #60 tabs 03/14/24 Hospital Course Procedures Transthoracic echo Physical Exam Narrative GENERAL: cooperative HEENT: Atraumatic; normocephalic EYES; Anicteric, Normal Conjunctiva NECK; supple, normal thyroid, RESPIRATORY: Diminished to auscultation CARDIOVASCULAR: Irregularly irregular GI: soft, normoactive bowel sounds, : No Renal angle tenderness; EXTREMITIES: No edema, no clubbing, MUSCULOSKELETAL: no muscle wasting NEURO: Awake; no lateralizing signs. SKIN: No Rash PSYCH; Flat affect Weight / BMI Weight Weight: 83.5 kg Body Mass Index (BMI) 35.9 ABG / Lab / Microbiology Data 03/14/24 05:10 03/14/24 05:10 Laboratory: Laboratory Results - last 24 hr 03/14/24 05:10: WBC 2.9 L, RBC 3.67 L, Hgb 11.4 L, Hct 34.9 L, MCV 95.1, MCH 31.1, MCHC 32.7, RDW Std Deviation 49.6 H, RDW Coeff of Chantell 14.2, Plt Count 149 L, MPV 9.8, Immature Gran % (Auto) 0.300, Neut % (Auto) 50.1, Lymph % (Auto) 35.0, [place] % (Auto) 8.5, Eos % (Auto) 5.4 H, Baso % (Auto) 0.7, Absolute Neuts (auto) 1.5 L, Absolute Lymphs (auto) 1.03, Nucleated RBC % 0, Sodium 144, Potassium 4.4, Chloride 113 H, Carbon Dioxide 23.0, Anion Gap 8, BUN 15, Creatinine 0.90, Estim Creat Clear Calc 52.55, Est GFR (MDRD) Af Amer 78, Est GFR (MDRD) Non-Af 65, BUN/Creatinine Ratio 16.6, Glucose 79, Calcium 8.3 L, Phosphorus 3.4, Magnesium 1.8 Microbiology: Microbiology 03/13/24 16:32 Mucosa - Nasopharyngeal Coronavirus COVID-19 PCR - Final Radiography Diagnostic Testing: Radiology Impression Echocardiogram 03/13/24 05:55 Interpretation Summary The left ventricular ejection fraction is 65 %. The left atrium is moderately enlarged. Moderate mitral annular calcification. Ordering Physician: Daniel Salazar Performed By: Geoffrey Weldon RCS D/C Instructions Discharge Diet: Low fat / Low cholesterol Discharge Activity: Return to Normal Activity Call your doctor if you observe: Fever of 101 or Higher, Shortness of breath, Fainting spells and Chest pain Meaningful Use Info Meaningful Use Meaningful Use Diagnoses (Choose all that apply): None applicable Ischemic Stroke Statin Dosing Therapy Reference: STATIN DOSE THERAPY REFERENCE: * Patients > 75 years receive moderate or high dose statin therapy. * Patients 75 years or YOUNGER should receive HIGH intensity statin dose unless contraindicated. You will be required to document reason for non-treatment if statin daily dose does not meet guidelines. HIGH DOSE STATIN THERAPY DAILY Atorvastatin > than or = to 40 mg Rosuvastatin > than or = to 20 mg Amlodipine + Atorvastatin > than or = to 2.5/40 mg Ezetimibe + Simvastatin 10/80 mg Simvastatin 80mg Discharge Plan Admission Admit Date/Time: 03/13/24 14:13 Attending Provider: Justin Reid Primary Care Provider: Milli Man Consulting Providers: Daniel Salazar; Nya Baker Discharge Orders/Prescriptions Prescriptions: New digoxin 125 mcg (0.125 mg) Tablet 125 mcg PO DAILY Qty: 30 0RF metoprolol tartrate 25 mg Tablet 12.5 mg PO BID Qty: 60 0RF Continued cholecalciferol (vitamin D3) 125 mcg (5,000 unit) capsule 125 mcg PO DAILY ascorbic acid (vitamin C) 1,000 mg capsule 1 g PO DAILY nitroglycerin 0.4 mg tablet, sublingual 0.4 mg sublingual PRN PRN (Reason: angina) atorvastatin 40 mg Tablet 40 mg PO QHS Qty: 30 2RF clopidogrel 75 mg Tablet 75 mg PO DAILY Qty: 30 2RF lisinopril 2.5 mg Tablet 2.5 mg PO DAILY Qty: 30 2RF Xarelto 20 mg tablet 20 mg PO QPM Qty: 90 3RF Rx Instructions: must administer with evening meal Discontinued diltiazem HCl [Cardizem CD] 120 mg capsule,extended release 24hr 120 mg PO DAILY Qty: 30 0RF metoprolol tartrate 25 mg tablet 50 mg PO BID Entresto 24-26 mg tablet 1 tab PO BID spironolactone 25 mg Tablet 12.5 mg PO DAILY Qty: 30 2RF Referrals / Follow Up: Nya Baker MD [Med Staff - Active Staff] - Within 2 Weeks Milli Man MD [Primary Care Provider] - Within 2 Weeks Disposition Disposition (needs filled in before D/C Order can be placed): Home, Self Care Charges/Coding Visit Charges Inpatient E&M: 25369 Disch Hosp >30min
--- NOTE | 2024-03-14 09:20 | CASEMGMT ---
RN CM Face to Face with patient for initial transition planning/care coordination assessment. RN CM introduced self and role at [facility]. Patient lying in bed, alert and oriented. Patient willing to participate in assessment and is able to answer all questions appropriately. Care providers, pharmacy, and demographics verified. PCP: Magda Specialists: Sammy, ben day artist Emerson Hugo Preferred Pharmacy: [facility] Insurance: [facility] Prescription Benefit: yes Living Will/HPOA: yes, son Eladio De La Torre LNOK: sons Living Arrangements: Patient lives alone in a 2nd story apartment. Patient states she is independent and normally able to ambulate stairs. Patient states son will stay with patient for a couple days. Transportation: self, son DME/HHC: Patient has cpap and grab bars at home. Patient has had [facility]HC in the past. No previous SNF Patient wishes to discharge home, denies need for home health at this time. Patient states she has no further needs or concerns at this time. CM to follow for discharge planning needs that may arise. Disposition Plan: Patient to discharge home with family support and follow-up plans in place. Farheen WILHELM, RN, CM
[2024-03-14] MEDS: Metoprolol Tartrate 25 MG Tablet 12.5 MG PO ×2 (09:41→22:07)
[2024-03-14] MEDS: Clopidogrel Bisulfate 75 MG Tablet PO (09:42)
[2024-03-14] MEDS: Digoxin 125 MCG Tablet PO (09:42)
--- NOTE | 2024-03-14 10:00 | PHA.DC_ITS ---
Pharmacy [facility] has performed discharge medication reconciliation and counseling for this patient. 1. DIGOXIN 125MCG PO DAILY 2. DOSE OF METOPROLOL DECREASED FROM 50MG TO 12.5MG 3. STOP ENTRESTO, SPIRONOLACTONE AND DILTIAZEM The patient's discharge medication list was reviewed for discrepancies and discrepancies were resolved. The patient was counseled on the following discharge medications and changes in medications for homegoing were reviewed. The Reason for Use, instructions for use, and potential side effects were rev iewed for all new medications. The patient's questions regarding all of their medications were answered. The patient was able to verbally demonstrate an understanding of their discharge medications. Medications at Discharge Home Medications ascorbic acid (vitamin C) 1,000 mg capsule 1 g PO DAILY . 06/20/22 cholecalciferol (vitamin D3) 125 mcg (5,000 unit) capsule 125 mcg PO DAILY . 06/20/22 rivaroxaban 20 mg tablet (Xarelto) 20 mg PO QPM #90 tabs 07/23/23 atorvastatin 40 mg tablet 40 mg PO QHS #30 tabs 02/07/24 clopidogrel 75 mg tablet 75 mg PO DAILY #30 tabs 02/07/24 lisinopril 2.5 mg tablet 2.5 mg PO DAILY #30 tabs 02/07/24 nitroglycerin 0.4 mg sublingual tablet 0.4 mg sublingual PRN PRN angina 03/12/24 digoxin 125 mcg (0.125 mg) tablet 125 mcg PO DAILY #30 tabs 03/14/24 metoprolol tartrate 25 mg tablet 12.5 mg (1/2 x 25 mg) PO BID #60 tabs 03/14/24
--- NOTE | 2024-03-14 14:17 | CASEMGMT ---
KRISHNA MALIK in to discuss progress with therapy. Patient required assistance x2 to ambulate with therapy. KRISHNA MALIK discussed recommendations for SNF at discharge. Patient states she realizes it is not safe for her to go home and is agreeable to go a SNF at discharge. KRISHNA MALIK updated patient that she will be provided a list of SNF in-network with her insurance to provided preferences. Patient voiced understanding. KRISHNA MALIK updated SW regarding SNF at discharge. CM will continue to follow this patient and plan for a safe discharge.
--- NOTE | 2024-03-14 15:16 | CASEMGMT ---
SW was informed senior living facility is being recommended by therapy and patient is agreeable. SW met with patient. Introduced self and role at [facility]. Patient confirmed she is agreeable for SNF. SW provided patient with a list of senior care Facility providers including quality and resource use data and consistent with patient?s preferred geographic region, medical needs, and insurance network were provided from the [employer] Guide. SW explained to patient she just needs to pick 3 or so facilities she would be okay with and SW will take care of checking with the facilities. Patient said she would like to go to TCU at [facility]. SW let patient know SW will make the referral. SW also explained her insurance will need to approve her before she can go. Patient will stay at [facility] until insurance gives the okay. SW made a referral to TCU. Admissions will review referral Sunday. SW notified patient. Plan: d/c to SNF possibly TCU pending acceptance and insurance approval. Merline Walker [employer]
[2024-03-14] MEDS: Rivaroxaban 20 MG Tablet PO (16:08)
[2024-03-14] MEDS: 0.9% Normal Saline 250 ML IV.SOLN. IV (16:10)
[2024-03-14] MEDS: Atorvastatin Calcium 40 MG Tablet PO (22:07)
[2024-03-15] VITALS (9 sets, daily range): BP systolic 96–111; BP diastolic 56–67; PULSE 64–79; RESP 18; TEMP 36.4–36.7; O2SAT 96–99; BMI 35.9
[2024-03-15] MEDS: 0.9% Normal Saline (1000mL) 1,000 ML 75 ML IV ×2 (03:45→18:42)
--- NOTE | 2024-03-15 07:21 | PN.HOSP_ITS ---
Reason for Visit Reason for Visit: Diagnoses Paroxysmal atrial fibrillation (03/13/24) Hypotension, unspecified (03/13/24) Personal history of other diseases of the circulatory system (03/13/24) Presence of cardiac pacemaker (03/13/24) Subjective Subjective Plan to discharge patient home was discontinued after she was found to be severely deconditioned. Subsequently requested for PT OT eval and community mental health social worker to assist with discharge planning Objective Data Objective Data Vital Signs: Vital Signs Temp Pulse Resp BP Pulse Ox O2 Del Method O2 Flow Rate 98 F 79 18 96/60 99 Room Air 0 03/15/24 03:46 03/15/24 03:46 03/15/24 03:46 03/15/24 03:46 03/15/24 03:46 03/15/24 04:00 03/14/24 10:41 Oxygen Flow Rate (L/min) [ 0 AMBULATING on Room Air] Oxygen Flow Rate (L/min) [At 0 REST on Room Air] Oxygen Delivery Method Room Air Weight: 83.6 kg Body Mass Index (BMI) 35.9 Intake & Output: Intake and Output for Last 24 Hours 03/13/24 03/14/24 03/15/24 23:59 23:59 23:59 Intake Total 1928.75 / 2168.75 2401.25 / 2401.25 915 / 915 Output Total 650 / 850 550 / 550 Balance 1278.75 / 1318.75 1851.25 / 1851.25 915 / 915 Lab / Micro Data 03/15/24 06:56 03/15/24 06:56 Micro: Microbiology 03/13/24 16:32 Mucosa - Nasopharyngeal Coronavirus COVID-19 PCR - Final Rhythm Strip Rhythm Strip: A-fib Physical Exam Narrative GENERAL: cooperative HEENT: Atraumatic; normocephalic EYES; Anicteric, Normal Conjunctiva NECK; supple, normal thyroid, RESPIRATORY: Diminished to auscultation CARDIOVASCULAR: Irregularly irregular GI: soft, normoactive bowel sounds, : No Renal angle tenderness; EXTREMITIES: No edema, no clubbing, MUSCULOSKELETAL: no muscle wasting NEURO: Awake; no lateralizing signs. SKIN: No Rash PSYCH; Flat affect Assessment & Plan Assessment/Plan (1) Hypotension: PLAN: Plan Patient is a 73-year-old lady with recent history of acute non-STEMI for which patient underwent PCI with JANNETH to mid LAD lesion on 01/30/2024, paroxysmal A-fib with RVR who presented with progressive generalized weakness 1. Orthostatic hypotension ? Patient presented with significant symptoms including lightheadedness. Systolic blood pressur recorded to be in the 60s. Patient home meds adjusted limited echo ordered ? 03/14/2024 patient blood pressure appears to have stabilized following adjustment in her medications 2. Paroxysmal A-fib with RVR ? Patient beta-blockers as well as calcium channel blockers have been held on admission beta-blockers resumed. If patient does not respond to treatment will obtain cardiology consulted. Patient is systemic anticoagulation with rivaroxaban continued ? Patient metoprolol dose was decreased digoxin added to her therapy. 3. Chronic congestive heart failure with reduced ejection fraction now chronic congestive heart failure with preserved ejection fraction ? Patient has known EF of 40%. Patient is on Entresto and spironolactone currently being held given his symptoms ? 03/14/2024 repeat limited echo obtained on 03/13/2024 demonstrated recovered EF. Patient EF now 65%. Case was discussed with Dr. Baker will discontinue patient Entresto given her hypotension 4. Coronary artery disease ? Status post cardiac cath with PCI with JANNETH to a mid LAD lesion on 01/30/2024 5. Dyslipidemia -Patient is on statin therapy, continued at home dose 6. Class II obesity with BMI of 36 ? Complicating care weight loss advised 7. DVT prophylaxis Patient is on rivaroxaban 8. Physical deconditioning - Requested for PT OT eval and community mental health social worker to assist with discharge planning 9. Anemia - Secondary to chronic disorder monitoring H&H and transfuse if patient becomes symptomatic or hemoglobin falls below 7 Time spent in the patient's overall evaluation,decision-making process, review of diagnostic data, adjustment of management, discussion with other providers, nursing nursing and ancillary staff involved in patient's care documentation, 35 Minutes Charges/Coding Visit Charges Inpatient E&M: 19904 Subs Hosp L2
[2024-03-15 07:56] LABS: Absolute Lymphocyte Count 1.03 X10^3/uL (0.83-4.51); Absolute Neutrophil Count 1.2 X10^3/uL (2.0-7.7); Basophil# 0.02 X10^3/uL; Basophil% 0.7 % (0-1); Eosinophil# 0.17 X10^3/uL; Eosinophils% 6.2 % (0-5); Hematocrit 35.3 % (37-47); Hemoglobin 10.9 g/dL (12.0-15.0); Lymphocyte # 1.03 X10^3/ul (0.83-4.51); Lymphocyte % 37.6 % (19-41); Mean Corp Hgb Conc 30.9 g/dL (32-36); Mean Corpuscular Hgb 30.3 pg (27.0-32.0); Mean Corpuscular Volume 98.1 fL (81-99); Mean Platelet Vol. 9.7 fl (6.2-12.0); Monocyte# 0.28 X10^3/uL; Monocyte% 10.2 % (0-10); NRBC Flagged by Analyzer 0 % (0-5); Neutrophil # 1.23 X10^3/uL (2.7-7.7); Neutrophil % 44.9 % (47-70); Platelet Count 148 K/mm3 (150-450); RBC Distribution Width CV 14.1 % (11.6-14.6); RBC Distribution Width SD 50.7 fl (35.1-43.9); White Blood Count 2.7 K/mm3 (4.4-11.0)
[2024-03-15 08:24] LABS: Anion Gap 5 (5-15); BUN 13 mg/dL (7-18); BUN/Creat Ratio 15.7 RATIO (10-20); Chloride 118 mmol/L (98-107); Creatinine, Serum 0.83 mg/dL (0.55-1.02); EST Glomerular Filtration Rate 72 mL/min (>60); Est Glom Filt Rate - Afr Amer 87 mL/min (>60); Estimated Creatinine Clearance 57.02 ml/min; Glucose 97 mg/dL (74-106); Potassium 4.5 mmol/L (3.5-5.1); Sodium Level 144 mmol/L (136-145)
[2024-03-15] MEDS: Digoxin 125 MCG Tablet PO (09:02)
[2024-03-15] MEDS: Clopidogrel Bisulfate 75 MG Tablet PO (09:02)
[2024-03-15] MEDS: 0.9% Saline Lock 10 ML Syringe IV (16:25)
[2024-03-15] MEDS: Rivaroxaban 20 MG Tablet PO (16:25)
[2024-03-15] MEDS: Atorvastatin Calcium 40 MG Tablet PO (20:49)
[2024-03-16] VITALS (9 sets, daily range): BP systolic 96–125; BP diastolic 58–82; PULSE 62–150; RESP 16–18; TEMP 36.2–36.8; O2SAT 94–97; BMI 36.1
[2024-03-16 05:52] LABS: Absolute Lymphocyte Count 1.01 X10^3/uL (0.83-4.51); Absolute Neutrophil Count 1.4 X10^3/uL (2.0-7.7); Basophil# 0.01 X10^3/uL; Basophil% 0.3 % (0-1); Eosinophil# 0.17 X10^3/uL; Eosinophils% 5.8 % (0-5); Hematocrit 33.4 % (37-47); Hemoglobin 10.8 g/dL (12.0-15.0); Lymphocyte # 1.01 X10^3/ul (0.83-4.51); Lymphocyte % 34.7 % (19-41); Mean Corp Hgb Conc 32.3 g/dL (32-36); Mean Corpuscular Hgb 30.3 pg (27.0-32.0); Mean Corpuscular Volume 93.8 fL (81-99); Mean Platelet Vol. 9.6 fl (6.2-12.0); Monocyte# 0.29 X10^3/uL; NRBC Flagged by Analyzer 0 % (0-5); Neutrophil # 1.43 X10^3/uL (2.7-7.7); Neutrophil % 49.2 % (47-70); Platelet Count 145 K/mm3 (150-450); RBC Distribution Width SD 48.2 fl (35.1-43.9); Red Blood Count 3.56 M/mm3 (4.2-5.4); White Blood Count 2.9 K/mm3 (4.4-11.0)
[2024-03-16] MEDS: 0.9% Normal Saline (1000mL) 1,000 ML 75 ML IV ×2 (05:52→18:01)
[2024-03-16 06:17] LABS: Anion Gap 4 (5-15); BUN 11 mg/dL (7-18); BUN/Creat Ratio 15.6 RATIO (10-20); Calcium,Total 8.5 mg/dL (8.5-10.1); Chloride 116 mmol/L (98-107); EST Glomerular Filtration Rate 86 mL/min (>60); Est Glom Filt Rate - Afr Amer 104 mL/min (>60); Estimated Creatinine Clearance 59.16 ml/min; Glucose 96 mg/dL (74-106); Sodium Level 144 mmol/L (136-145)
--- NOTE | 2024-03-16 07:53 | PN.HOSP_ITS ---
Reason for Visit Reason for Visit: Diagnoses Paroxysmal atrial fibrillation (03/13/24) Hypotension, unspecified (03/13/24) Personal history of other diseases of the circulatory system (03/13/24) Presence of cardiac pacemaker (03/13/24) Subjective Subjective Patient seen still complains of feeling lightheaded with therapy. Her blood pressure as well as heart rate is improving. Objective Data Objective Data Vital Signs: Vital Signs Temp Pulse Resp BP Pulse Ox O2 Del Method O2 Flow Rate 97.1 F L 66 18 118/65 97 Room Air 1 03/16/24 02:50 03/16/24 02:50 03/16/24 02:50 03/16/24 02:50 03/16/24 02:50 03/16/24 02:50 03/15/24 14:45 Oxygen Flow Rate (L/min) [ 0 AMBULATING on Room Air] Oxygen Flow Rate (L/min) [At 0 REST on Room Air] Oxygen Flow Rate (L/min) 1 Oxygen Delivery Method Room Air Weight: 84 kg Body Mass Index (BMI) 36.1 Intake & Output: Intake and Output for Last 24 Hours 03/14/24 03/15/24 03/16/24 23:59 23:59 23:59 Intake Total 2401.25 / 2401.25 2395 / 2395 837.5 / 837.5 Output Total 550 / 550 1050 / 1050 300 / 300 Balance 1851.25 / 1851.25 1345 / 1345 537.5 / 537.5 Lab / Micro Data 03/16/24 05:00 03/16/24 05:00 Labs: Laboratory Results - last 24 hr 03/15/24 06:56: WBC 2.7 L, RBC 3.60 L, Hgb 10.9 L, Hct 35.3 L, MCV 98.1, MCH 30.3, MCHC 30.9 L D, RDW Std Deviation 50.7 H, RDW Coeff of Chantell 14.1, Plt Count 148 L, MPV 9.7, Immature Gran % (Auto) 0.400, Neut % (Auto) 44.9 L, Lymph % (Auto) 37.6, [place] % (Auto) 10.2 H, Eos % (Auto) 6.2 H, Baso % (Auto) 0.7, Absolute Neuts (auto) 1.2 L, Absolute Lymphs (auto) 1.03, Nucleated RBC % 0, Sodium 144, Potassium 4.5, Chloride 118 H, Carbon Dioxide 21.0, Anion Gap 5, BUN 13, Creatinine 0.83, Estim Creat Clear Calc 57.02, Est GFR (MDRD) Af Amer 87, Est GFR (MDRD) Non-Af 72, BUN/Creatinine Ratio 15.7, Glucose 97, Calcium 8.0 L 03/16/24 05:00: WBC 2.9 L, RBC 3.56 L, Hgb 10.8 L, Hct 33.4 L, MCV 93.8, MCH 30.3, MCHC 32.3, RDW Std Deviation 48.2 H, RDW Coeff of Chantell 14.0, Plt Count 145 L, MPV 9.6, Immature Gran % (Auto) 0.000, Neut % (Auto) 49.2, Lymph % (Auto) 34.7, [place] % (Auto) 10.0, Eos % (Auto) 5.8 H, Baso % (Auto) 0.3, Absolute Neuts (auto) 1.4 L, Absolute Lymphs (auto) 1.01, Nucleated RBC % 0, Sodium 144, Potassium 4.0, Chloride 116 H, Carbon Dioxide 24.0, Anion Gap 4 L, BUN 11, Creatinine 0.70, Estim Creat Clear Calc 59.16, Est GFR (MDRD) Af Amer 104, Est GFR (MDRD) Non-Af 86, BUN/Creatinine Ratio 15.6, Glucose 96, Calcium 8.5 Micro: Microbiology 03/13/24 16:32 Mucosa - Nasopharyngeal Coronavirus COVID-19 PCR - Final Rhythm Strip Rhythm Strip: A-fib Physical Exam Narrative GENERAL: cooperative HEENT: Atraumatic; normocephalic EYES; Anicteric, Normal Conjunctiva NECK; supple, normal thyroid, RESPIRATORY: Diminished to auscultation CARDIOVASCULAR: Irregularly irregular GI: soft, normoactive bowel sounds, : No Renal angle tenderness; EXTREMITIES: No edema, no clubbing, MUSCULOSKELETAL: no muscle wasting NEURO: Awake; no lateralizing signs. SKIN: No Rash PSYCH; Flat affect Assessment & Plan Assessment/Plan (1) Hypotension: PLAN: Plan Patient is a 73-year-old lady with recent history of acute non-STEMI for which patient underwent PCI with JANNETH to mid LAD lesion on 01/30/2024, paroxysmal A-fib with RVR who presented with progressive generalized weakness 1. Orthostatic hypotension ? Patient presented with significant symptoms including lightheadedness. Systolic blood pressur recorded to be in the 60s. Patient home meds adjusted limited echo ordered ? 03/14/2024 patient blood pressure appears to have stabilized following adjustment in her medications ? 03/16/2024; patient blood pressure has stabilized. 2. Paroxysmal A-fib with RVR ? Patient beta-blockers as well as calcium channel blockers have been held on admission beta-blockers resumed. If patient does not respond to treatment will obtain cardiology consulted. Patient is systemic anticoagulation with rivaroxaban continued ? Patient metoprolol dose was decreased digoxin added to her therapy. ? 03/16/2024; heart rate remains controlled. 3. Chronic congestive heart failure with reduced ejection fraction now chronic congestive heart failure with preserved ejection fraction ? Patient has known EF of 40%. Patient is on Entresto and spironolactone currently being held given his symptoms ? 03/14/2024 repeat limited echo obtained on 03/13/2024 demonstrated recovered EF. Patient EF now 65%. Case was discussed with Dr. Baker will discontinue patient Entresto given her hypotension 4. Coronary artery disease ? Status post cardiac cath with PCI with JANNETH to a mid LAD lesion on 01/30/2024 5. Dyslipidemia -Patient is on statin therapy, continued at home dose 6. Class II obesity with BMI of 36 ? Complicating care weight loss advised 7. DVT prophylaxis Patient is on rivaroxaban 8. Physical deconditioning - Requested for PT OT eval and criminal justice social worker to assist with discharge planning 9. Anemia - Secondary to chronic disorder monitoring H&H and transfuse if patient becomes symptomatic or hemoglobin falls below 7 Time spent in the patient's overall evaluation,decision-making process, review of diagnostic data, adjustment of management, discussion with other providers, nursing nursing and ancillary staff involved in patient's care documentation, 35 Minutes Charges/Coding Visit Charges Inpatient E&M: 72772 Subs Hosp L2
[2024-03-16] MEDS: Acetaminophen 325 MG Tablet 650 MG PO (08:20)
[2024-03-16] MEDS: Digoxin 125 MCG Tablet PO (09:39)
[2024-03-16] MEDS: Clopidogrel Bisulfate 75 MG Tablet PO (09:40)
[2024-03-16] MEDS: Rivaroxaban 20 MG Tablet PO (16:31)
--- NOTE | 2024-03-16 17:59 | EKG12_ITS ---
Test Reason : Blood Pressure : / mmHG Vent. Rate : 100 BPM Atrial Rate : 000 BPM P-R Int : 000 ms QRS Dur : 072 ms QT Int : 324 ms P-R-T Axes : 000 014 127 degrees QTc Int : 417 ms Atrial fibrillation with frequent ventricular-paced complexes Nonspecific T wave abnormality Abnormal ECG When compared with ECG of 12-MAR-2024 19:03, Vent. rate has decreased BY 14 BPM Confirmed by GRAY ALEMAN, MELODY ([id number]), desk editor DANIEL FRAZIER ([id number]) on 03/24/2024 1:10:12 PM Referred By: SHONA Confirmed By:PETE CASTELLANO MD
[2024-03-16] MEDS: Atorvastatin Calcium 40 MG Tablet PO (20:41)
[2024-03-16] MEDS: Metoprolol Tartrate 25 MG Tablet 12.5 MG PO (21:45)
[2024-03-17] VITALS (7 sets, daily range): BP systolic 104–122; BP diastolic 71–82; PULSE 76–88; RESP 16–18; TEMP 36.5–37; O2SAT 96–98; BMI 37.0
[2024-03-17] MEDS: 0.9% Normal Saline (1000mL) 1,000 ML 75 ML IV (05:14)
--- NOTE | 2024-03-17 08:49 | CASEMGMT ---
Addendum entered by Merline Walker 03/17/24 09:32: LETI notified patient and her son that [facility] can take patient. LETI explained that patient will stay at [facility] until her insurance approves her. SW asked patient if she had any questions. Patient denied having any questions. SW told patient SW will let her know as soon as SW hears anything. Plan: [facility] pending insurance approval. Merline LOPES Original Note: Ama said [facility] can take patient and she will start the pre-cert. LETI will notify patient. Plan: d/c to [facility] pending insurance approval. Merline LOPES
[2024-03-17] MEDS: Digoxin 125 MCG Tablet PO (09:57)
[2024-03-17] MEDS: Clopidogrel Bisulfate 75 MG Tablet PO (09:57)
[2024-03-17] MEDS: Metoprolol Tartrate 25 MG Tablet 12.5 MG PO ×2 (12:14→21:00)
--- NOTE | 2024-03-17 13:15 | PCM.PN.HOSP ---
Reason for Visit Reason for Visit: Lightheadedness/dizziness Subjective Subjective Patient is a 73-year-old white female who presented to emergency department at [facility] on 03/12/2024 with generalized weakness that started about half an hour prior to presentation. She reported she was sitting in her recliner and then began to feel weak and had some blurred vision. She had been to cardiac rehab earlier in the day and felt fairly tired following this. She complained of some associated chest heaviness and mild shortness of breath. She had a recent hospitalization here in January at which time she had a PCI with JANNETH to the mid LAD and was discharged home on multiple new medications. She denies any fever chills or any other associated symptoms on presentation. Vital signs on admission showed a temperature of 98.1, heart rate was 106, blood pressure was 99/63 with a respiratory rate of 24 and sats were 98% on room air. Her CBC was overall unremarkable. Her chemistry panel had normal electrolytes however BUN and creatinine were elevated at 19 and 1.2 (baseline serum creatinine appears to be between 0.7 and 1). Her cardiac enzymes were cycled and unremarkable. Her UA was unremarkable. Chest x-ray was unremarkable with no change from previous. CTA of the chest/abdomen/pelvis was performed and showed improving bilateral interstitial pulmonary infiltrates traits versus edema, cardiomegaly and coronary artery disease with increased on the colon. In the emergency department she was given IV fluids as no etiology was found to explain her new hypotension and she did not feel she could have accidentally taken more of her blood pressure medication than prescribed. She was admitted to the PCU and an echocardiogram was ordered and showed an EF of 65%, moderate left atrial enlargement and moderate mitral valve annular calcification. With her recent coronary intervention, cardiology was consulted and agreed with holding her blood pressure medications she was noted to be both on lisinopril and Entresto at home. She does have a noted history of atrial fibrillation and was recommended to remain on her beta-annabel for rate control and digoxin was added by cardiology. Her EF actually was improved from the time she had a coronary stent placed at which time it was noted to be 40% with apical hypokinesis. Her metoprolol was reinitiated but her Entresto and lisinopril did remain on hold. Patient states overall she is feeling much better however she does continue to feel weak. States that has been problematic since she had her AR. Worse as of recently though. Objective Data Objective Data Vital Signs: Vital Signs Temp Pulse Resp BP Pulse Ox O2 Del Method O2 Flow Rate 97.7 F L 76 16 120/71 97 Room Air 1 03/17/24 09:55 03/17/24 12:14 03/17/24 09:55 03/17/24 12:14 03/17/24 09:55 03/17/24 09:55 03/15/24 14:45 Oxygen Flow Rate (L/min) [ 0 AMBULATING on Room Air] Oxygen Flow Rate (L/min) [At 0 REST on Room Air] Oxygen Flow Rate (L/min) 1 Oxygen Delivery Method Room Air Weight: 86 kg Body Mass Index (BMI) 37.0 Intake & Output: Intake and Output for Last 24 Hours 03/15/24 03/16/24 03/17/24 23:59 23:59 23:59 Intake Total 2395 / 2395 2978.75 / 3178.75 1741.25 / 1741.25 Output Total 1050 / 1050 300 / 1500 1900 / 1900 Balance 1345 / 1345 2678.75 / 1678.75 -158.75 / -158.75 Lab / Micro Data 03/16/24 05:00 03/16/24 05:00 Micro: Microbiology 03/13/24 16:32 Mucosa - Nasopharyngeal Coronavirus COVID-19 PCR - Final Rhythm Strip Rhythm Strip: A-fib Physical Exam Const alert, oriented x3, no apparent distress and well nourished; Negative for average body habitus Constitutional Narrative: Obese, older, white female, sitting up in a chair at the bedside, watching television, appears comfortable and nontoxic, very pleasant HEENT head/scalp atraumatic and moist oral mucous membranes HEENT Narrative: Mallampati 3, no thrush Head and Scalp: normocephalic Resp normal respiratory effort, no retractions, no use of accessory muscles and clear to auscultation bilaterally Auscultation: Negative for rales, rhonchi or wheezes Cardio regular rate, regular rhythm, S1 normal heart sound, S2 normal heart sound, no rub, no gallops and no clicks Cardio Narrative: 3 out of 6 systolic murmur loudest at left lower sternal border GI normal to inspection, nondistended, normoactive bowel sounds, soft to palpation and non-tender Extremity no clubbing, cyanosis or edema Extremity Narrative: Pedal pulses are 2+ Neuro oriented x3, CN's II-XII intact bilaterally, moves all extremities and no focal motor deficits Neuro Narrative: Generalized weakness noted with no focal deficit-proximal greater than distal Speech: speech normal Psych affect normal Psych Narrative: Very pleasant, interacts appropriately, eye contact is good Assessment & Plan Assessment/Plan (1) Weakness: (2) Hypotension: PLAN: Plan Orthostatic hypotension -Will continue metoprolol -Hold lisinopril and Entresto at discharge -Is symptomatically improving and blood pressures appear to be much more stable -Echocardiogram shows improved ejection fraction with an EF of 65% from 40% at the time of her stent placement -Continue to monitor clinically Paroxysmal atrial fibrillation with RVR/SSS -Patient is having intermittent heart rate elevations -Continue metoprolol -Continue digoxin -Continue to monitor on telemetry -If heart rates are elevated on her metoprolol and digoxin may have to have further discussion with cardiology with her blood pressure issues being problematic and up titration of any other rhythm medications -Continue Xarelto -Status post pacemaker placement for sick sinus syndrome in 2014 Generalized weakness/debility -PT and OT following -Initial plan was discharged home however she was found to be significantly weak and had difficulty with physical and Occupational Therapy -Plan is for senior care facility at discharge -Patient was accepted at the transitional care unit and pre-CERT was initiated on 03/17/2024 Chronic systolic heart failure -Entresto, Aldactone, and diuretics on hold -Repeat limited echocardiogram done shows recovery of her ejection fraction now 65% -Appreciate cardiology input next-Will need outpatient follow-up after discharge CAD/HPL -Cardiac catheterization with PCI with JANNETH to mid LAD on 01/30/2024 -Continue Plavix -Continue atorvastatin DVT prophylaxis -Continue Xarelto CODE STATUS -full code Disposition: -Patient appears to be medically stable for discharge. Patient has been accepted at TCU for rehab services after discharge and pre-CERT is pending. Charges/Coding Visit Charges Inpatient E&M: 51265 Subs Hosp L2
[2024-03-17] MEDS: Rivaroxaban 20 MG Tablet PO (18:25)
[2024-03-17] MEDS: Atorvastatin Calcium 40 MG Tablet PO (21:00)
[2024-03-18] VITALS (7 sets, daily range): BP systolic 104–131; BP diastolic 52–89; PULSE 60–71; RESP 16–20; TEMP 36.2–36.9; O2SAT 95–96; BMI 36.5
[2024-03-18 08:30] LABS: Hematocrit 35.2 % (37-47); Hemoglobin 11.5 g/dL (12.0-15.0); Mean Corp Hgb Conc 32.7 g/dL (32-36); Mean Corpuscular Hgb 30.4 pg (27.0-32.0); Mean Corpuscular Volume 93.1 fL (81-99); Mean Platelet Vol. 9.5 fl (6.2-12.0); Platelet Count 155 K/mm3 (150-450); RBC Distribution Width CV 14.4 % (11.6-14.6); RBC Distribution Width SD 48.1 fl (35.1-43.9); Red Blood Count 3.78 M/mm3 (4.2-5.4); White Blood Count 3.1 K/mm3 (4.4-11.0)
[2024-03-18 08:57] LABS: Anion Gap 6 (5-15); BUN 11 mg/dL (7-18); BUN/Creat Ratio 12.9 RATIO (10-20); Calcium,Total 8.6 mg/dL (8.5-10.1); Chloride 113 mmol/L (98-107); Creatinine, Serum 0.86 mg/dL (0.55-1.02); EST Glomerular Filtration Rate 69 mL/min (>60); Est Glom Filt Rate - Afr Amer 83 mL/min (>60); Glucose 89 mg/dL (74-106); Potassium 3.9 mmol/L (3.5-5.1); Sodium Level 142 mmol/L (136-145)
[2024-03-18] MEDS: Digoxin 125 MCG Tablet PO (09:22)
[2024-03-18] MEDS: Ascorbic Acid 500 MG Tablet 1000 MG PO (09:23)
[2024-03-18] MEDS: Cholecalciferol (Vit D3) 125 MCG CAPSULE (5,000 UNITS) PO (09:23)
[2024-03-18] MEDS: Clopidogrel Bisulfate 75 MG Tablet PO (09:23)
[2024-03-18] MEDS: Metoprolol Tartrate 25 MG Tablet 12.5 MG PO ×2 (09:23→21:36)
--- NOTE | 2024-03-18 16:56 | PN.HOSP_ITS ---
Reason for Visit Reason for Visit: Lightheadedness/dizziness Subjective Subjective Patient's only complaint is just feeling weak all over. We are still waiting to hear from her insurance about discharge to TCU. Only need pre-CERT. Objective Data Objective Data Vital Signs: Vital Signs Temp Pulse Resp BP Pulse Ox O2 Del Method O2 Flow Rate 98.1 F 60 20 H 127/89 H 95 Room Air 1 03/18/24 16:46 03/18/24 16:46 03/18/24 16:46 03/18/24 16:46 03/18/24 16:46 03/18/24 16:46 03/15/24 14:45 Oxygen Flow Rate (L/min) [ 0 AMBULATING on Room Air] Oxygen Flow Rate (L/min) [At 0 REST on Room Air] Oxygen Flow Rate (L/min) 1 Oxygen Delivery Method Room Air Weight: 84.9 kg Body Mass Index (BMI) 36.5 Intake & Output: Intake and Output for Last 24 Hours 03/16/24 03/17/24 03/18/24 23:59 23:59 23:59 Intake Total 2978.75 / 3178.75 3035.00 / 3335.00 300 / 300 Output Total 300 / 1500 2200 / 2700 500 / 500 Balance 2678.75 / 1678.75 835.00 / 635.00 -200 / -200 Lab / Micro Data 03/18/24 07:25 03/18/24 07:25 Labs: Laboratory Results - last 24 hr 03/18/24 07:25: WBC 3.1 L, RBC 3.78 L, Hgb 11.5 L, Hct 35.2 L, MCV 93.1, MCH 30.4, MCHC 32.7, RDW Std Deviation 48.1 H, RDW Coeff of Chantell 14.4, Plt Count 155, MPV 9.5, Sodium 142, Potassium 3.9, Chloride 113 H, Carbon Dioxide 23.0, Anion Gap 6, BUN 11, Creatinine 0.86, Estim Creat Clear Calc 55.50, Est GFR (MDRD) Af Amer 83, Est GFR (MDRD) Non-Af 69, BUN/Creatinine Ratio 12.9, Glucose 89, Calcium 8.6 Micro: Microbiology 03/13/24 16:32 Mucosa - Nasopharyngeal Coronavirus COVID-19 PCR - Final Rhythm Strip Rhythm Strip: A-fib Physical Exam Const alert, oriented x3, no apparent distress and well nourished; Negative for aver age body habitus Constitutional Narrative: Obese, older, white female, sitting up in a chair at the bedside, watching television, appears comfortable and nontoxic, very pleasant HEENT head/scalp atraumatic and moist oral mucous membranes HEENT Narrative: Mallampati 2, no thrush Head and Scalp: normocephalic Resp normal respiratory effort, no retractions, no use of accessory muscles and clear to auscultation bilaterally Auscultation: Negative for rales, rhonchi or wheezes Cardio regular rate, regular rhythm, S1 normal heart sound, S2 normal heart sound, no rub, no gallops and no clicks Cardio Narrative: 3 out of 6 systolic murmur loudest at left lower sternal border GI normal to inspection, nondistended, normoactive bowel sounds, soft to palpation and non-tender Extremity no clubbing, cyanosis or edema Extremity Narrative: Pedal pulses are 2+ Neuro oriented x3, moves all extremities and no focal motor deficits Neuro Narrative: Generalized weakness noted with no focal deficit-proximal greater than distal Speech: speech normal Psych affect normal Psych Narrative: Very pleasant, interacts appropriately, eye contact is good Assessment & Plan Assessment/Plan (1) Weakness: (2) Hypotension: PLAN: Plan Orthostatic hypotension -Will continue metoprolol -Will continue to hold lisinopril and Entresto but may be able to restart low- dose lisinopril prior to discharge depending on blood pressure trends -Blood pressures are slowly trending up -Echocardiogram shows improved ejection fraction with an EF of 65% from 40% at the time of her stent placement -Continue to monitor clinically Paroxysmal atrial fibrillation with RVR/SSS -Heart rate controlled the last 24 hours has been much better -Continue metoprolol -Continue digoxin -Continue to monitor on telemetry -Continue Xarelto -Status post pacemaker placement for sick sinus syndrome in 2014 Generalized weakness/debility -PT and OT following -Initial plan was discharged home however she was found to be significantly weak and had difficulty with physical and Occupational Therapy -Plan is for [facility] facility at discharge -Patient was accepted at the transitional care unit and pre-CERT was initiated on 03/17/2024 Chronic systolic heart failure -Entresto, Aldactone, and diuretics on hold -Repeat limited echocardiogram done shows recovery of her ejection fraction now 65% -Appreciate cardiology input next-Will need outpatient follow-up after discharge CAD/HPL -Cardiac catheterization with PCI with JANNETH to mid LAD on 01/30/2024 -Continue Plavix -Continue atorvastatin DVT prophylaxis -Continue Xarelto CODE STATUS -full code Disposition: -Patient remains to be medically stable for discharge. Patient has been accepted at TCU for rehab services after discharge and pre-CERT is pending. Charges/Coding Visit Charges Inpatient E&M: 03029 Subs Hosp L2
[2024-03-18] MEDS: Rivaroxaban 20 MG Tablet PO (17:18)
[2024-03-18] MEDS: Atorvastatin Calcium 40 MG Tablet PO (21:36)
[2024-03-19 03:30] VITALS: BP 105/58; PULSE 70; RESP 18; TEMP 36.6; O2SAT 96
[2024-03-19 06:00] VITALS: BMI 36.2
[2024-03-19 10:05] VITALS: BP 114/70; PULSE 64; RESP 17; TEMP 36.6; O2SAT 97
[2024-03-19] MEDS: Cholecalciferol (Vit D3) 125 MCG CAPSULE (5,000 UNITS) PO (10:07)
[2024-03-19 10:08] VITALS: PULSE 62
[2024-03-19] MEDS: Clopidogrel Bisulfate 75 MG Tablet PO (10:08)
[2024-03-19] MEDS: Ascorbic Acid 500 MG Tablet 1000 MG PO (10:08)
[2024-03-19] MEDS: Digoxin 125 MCG Tablet PO (10:08)
[2024-03-19] MEDS: Metoprolol Tartrate 25 MG Tablet 12.5 MG PO ×2 (10:08→22:26)
--- NOTE | 2024-03-19 15:50 | PN.HOSP_ITS ---
Reason for Visit Reason for Visit: Lightheadedness/dizziness Subjective Subjective Patient only complains of weakness still. Still waiting to hear from insurance with regards to discharge to TCU for ongoing therapy. Patient is frustrated with the slowness of the process and states that she was talked into buying [employer] but is frustrated that she did so. Objective Data Objective Data Vital Signs: Vital Signs Temp Pulse Resp BP Pulse Ox O2 Del Method O2 Flow Rate 97.8 F 62 17 114/70 97 Room Air 1 03/19/24 10:03/19/24 10:08 03/19/24 10:05 03/19/24 10:05 03/19/24 10:05 03/19/24 10:13 03/15/24 14:45 Oxygen Flow Rate (L/min) [ 0 AMBULATING on Room Air] Oxygen Flow Rate (L/min) [At 0 REST on Room Air] Oxygen Flow Rate (L/min) 1 Oxygen Delivery Method Room Air Weight: 84.2 kg Body Mass Index (BMI) 36.2 Intake & Output: Intake and Output for Last 24 Hours 03/17/24 03/18/24 03/19/24 23:59 23:59 23:59 Intake Total 3035.00 / 3335.00 1480 / 1480 440 / 440 Output Total 2200 / 2700 700 / 700 Balance 835.00 / 635.00 780 / 780 440 / 440 Lab / Micro Data 03/18/24 07:25 03/18/24 07:25 Micro: Microbiology 03/13/24 16:32 Mucosa - Nasopharyngeal Coronavirus COVID-19 PCR - Final Rhythm Strip Rhythm Strip: A-fib Physical Exam Const alert, oriented x3, no apparent distress and well nourished; Negative for average body habitus Constitutional Narrative: Obese, older, white female, sitting up in a chair at the bedside, watching telev ision, appears comfortable and nontoxic, very pleasant Neuro oriented x3, moves all extremities and no focal motor deficits Speech: speech normal Psych affect normal Psych Narrative: Very pleasant, interacts appropriately, eye contact is good Assessment & Plan Assessment/Plan (1) Weakness: (2) Hypotension: PLAN: Plan Orthostatic hypotension -Resolved -Echocardiogram shows improved ejection fraction with an EF of 65% from 40% at the time of her stent placement -Continue to monitor clinically Paroxysmal atrial fibrillation with RVR/SSS -Heart rate controlled the last 24 hours has been much better -Continue metoprolol -Continue digoxin -Continue to monitor on telemetry -Continue Xarelto -Status post pacemaker placement for sick sinus syndrome in 2014 Generalized weakness/debility -PT and OT following -Initial plan was discharged home however she was found to be significantly weak and had difficulty with physical and Occupational Therapy -Plan is for care home facility at discharge -Patient was accepted at the transitional care unit and pre-CERT was initiated on 03/17/2024 Chronic systolic heart failure -Entresto, Aldactone, and diuretics on hold -Repeat limited echocardiogram done shows recovery of her ejection fraction now 65% -Appreciate cardiology input next-Will need outpatient follow-up after discharge CAD/HPL -Cardiac catheterization with PCI with JANNETH to mid LAD on 01/30/2024 -Continue Plavix -Continue atorvastatin DVT prophylaxis -Continue Xarelto CODE STATUS -full code Disposition: -Patient remains to be medically stable for discharge. Patient has been accepted at TCU for rehab services after discharge and pre-CERT remains pending. Charges/Coding Visit Charges Inpatient E&M: 01387 Subs Hosp L1
[2024-03-19 16:04] VITALS: BP 119/78; PULSE 75; RESP 17; TEMP 36.7; O2SAT 98
[2024-03-19] MEDS: Rivaroxaban 20 MG Tablet PO (17:52)
[2024-03-19 22:24] VITALS: BP 120/65; PULSE 87; RESP 18; TEMP 36.4; O2SAT 95
[2024-03-19 22:26] VITALS: PULSE 87
[2024-03-19] MEDS: Atorvastatin Calcium 40 MG Tablet PO (22:26)
[2024-03-20 03:13] VITALS: BP 93/65; PULSE 76; RESP 16; TEMP 36.4; O2SAT 96
[2024-03-20 06:00] VITALS: BMI 34.7
[2024-03-20 09:20] VITALS: BP 116/72; PULSE 70; RESP 16; TEMP 36.9; O2SAT 95
[2024-03-20 09:28] VITALS: PULSE 70
[2024-03-20] MEDS: Metoprolol Tartrate 25 MG Tablet 12.5 MG PO (09:28)
[2024-03-20] MEDS: Clopidogrel Bisulfate 75 MG Tablet PO (09:28)
[2024-03-20 09:29] VITALS: PULSE 70
[2024-03-20] MEDS: Digoxin 125 MCG Tablet PO (09:29)
[2024-03-20] MEDS: Cholecalciferol (Vit D3) 125 MCG CAPSULE (5,000 UNITS) PO (09:29)
[2024-03-20] MEDS: Ascorbic Acid 500 MG Tablet 1000 MG PO (09:29)
--- NOTE | 2024-03-20 11:08 | PCM.TXEXTCAR ---
Diet Diet Order/Speech Therapy: 03/12/24 21:18 Diet: Cardiac - Heart Healthy Food consistency:: Regular Liquid Consistency:: Regular/Thin Routine Orders/Code Status Suppository Frequency: Daily PRN O2 Frequency: PRN Keep PO Greater than or Equal to (%): 89 Routine Lab Work: CBC (1 week) and BMP (1 week) Code Status: Full Code Suggestions for Active Care Change Position every (hours): 2 Therapies Weight Bearing: Full weight bearing Physical Therapy: Eval and Treat Occupational Therapy: Eval and Treat Problem/Diagnosis (1) Weakness: Status: Acute Code(s): R53.1 - Weakness (2) Hypotension: Status: Acute Code(s): I95.9 - Hypotension, unspecified Allergies/Procedures Done in Hospital Allergies aspirin Adverse Reaction (Verified 03/12/24 15:50) Upset Stomach flecainide Adverse Reaction (Verified 03/12/24 15:50) unknown Procedures: 2-D Echocardiogram, EKG and - (CTA chest abdomen and pelvis/chest x-ray) Type of Care/Length of Stay Estimated LOS: Convalescent Care Less Than 30 days Type of Care Needed: Skilled Rehab Potential: Good Prognosis: Good Additional Orders/Day of Discharge Day of Discharge: 03/20/24 Dietary and Speech Recommendations Dietitian Recommendations/Changes: Continue Cardiac diet to manage medical conditions. Follow Up Care Please follow up with your Primary Care Physician in: 2 weeks Please Follow Up With: Nya Baker MD When: 4 weeks Discharge Plan Admission Admit Date/Time: 03/13/24 14:13 Primary Reason for Your Visit: Lightheadedness/weakness Attending Provider: Shanna Winslow Primary Care Provider: Milli Man Consulting Providers: Daniel Salazar; Nya Baker; Justin Reid Discharge Orders/Prescriptions Prescriptions: New digoxin 125 mcg (0.125 mg) Tablet 125 mcg PO DAILY Qty: 30 0RF metoprolol tartrate 25 mg Tablet 12.5 mg PO BID Qty: 60 0RF Continued cholecalciferol (vitamin D3) 125 mcg (5,000 unit) capsule 125 mcg PO DAILY ascorbic acid (vitamin C) 1,000 mg capsule 1 g PO DAILY nitroglycerin 0.4 mg tablet, sublingual 0.4 mg sublingual PRN PRN (Reason: angina) atorvastatin 40 mg Tablet 40 mg PO QHS Qty: 30 2RF clopidogrel 75 mg Tablet 75 mg PO DAILY Qty: 30 2RF Xarelto 20 mg tablet 20 mg PO QPM Qty: 90 3RF Rx Instructions: must administer with evening meal Discontinued diltiazem HCl [Cardizem CD] 120 mg capsule,extended release 24hr 120 mg PO DAILY Qty: 30 0RF metoprolol tartrate 25 mg tablet 50 mg PO BID Entresto 24-26 mg tablet 1 tab PO BID spironolactone 25 mg Tablet 12.5 mg PO DAILY Qty: 30 2RF lisinopril 2.5 mg Tablet 2.5 mg PO DAILY Qty: 30 2RF Referrals / Follow Up: Nya Baker MD [Med Staff - Active Staff] - Within 2 Weeks Milli Man MD [Primary Care Provider] - Within 2 Weeks Disposition Disposition (needs filled in before D/C Order can be placed): [facility] Facility
--- NOTE | 2024-03-20 11:12 | DS.PCM_ITS ---
Providers Date of Admission: 03/13/24 Date of Discharge: 03/20/24 Primary Care Physician: Dr. Milli Man MD Consultations 03/13/24 11:51 Consult: Cardiology Routine Consulting Provider: Nya Baker Reason for Consult: hypotension, afib EMERGENT Consult: No MD Notified: Yes Date Notified: 03/13/24 Time Notified: 12:22 Method of Notification: Text Reason For Visit: HYPOTENSION Diagnosis Discharge Diagnosis (1) Weakness: Status: Acute Code(s): R53.1 - Weakness (2) Hypotension: Status: Acute Code(s): I95.9 - Hypotension, unspecified Medications at Discharge Home Medications ascorbic acid (vitamin C) 1,000 mg capsule 1 g PO DAILY . 06/20/22 cholecalciferol (vitamin D3) 125 mcg (5,000 unit) capsule 125 mcg PO DAILY . 06/20/22 rivaroxaban 20 mg tablet (Xarelto) 20 mg PO QPM #90 tabs 07/23/23 atorvastatin 40 mg tablet 40 mg PO QHS #30 tabs 02/07/24 clopidogrel 75 mg tablet 75 mg PO DAILY #30 tabs 02/07/24 nitroglycerin 0.4 mg sublingual tablet 0.4 mg sublingual PRN PRN angina 03/12/24 digoxin 125 mcg (0.125 mg) tablet 125 mcg PO DAILY #30 tabs 03/14/24 metoprolol tartrate 25 mg tablet 12.5 mg (1/2 x 25 mg) PO BID #60 tabs 03/14/24 Hospital Course Operations None Procedures 2-D Echocardiogram, EKG and - (Chest x-ray/CT chest abdomen pelvis) Summary of Care Provided Minutes Spent on Discharge: 38 Hospital Course: Patient is a 73-year-old white female who presented to emergency department at [facility] on 03/12/2024 with generalized weakness that started about half an hour prior to presentation. She reported she was sitting in her recliner and then began to feel weak and had some blurred vision. She had been to cardiac rehab earlier in the day and felt fairly tired following this. She complained of some associated chest heaviness and mild shortness of breath. She had a recent hospitalization here in January at which time she had a PCI with JANNETH to the mid LAD and was discharged home on multiple new medications. She denies any fever chills or any other associated symptoms on presentation. Vital signs on admission showed a temperature of 98.1, heart rate was 106, blood pressure was 99/63 with a respiratory rate of 24 and sats were 98% on room air. Her CBC was overall unremarkable. Her chemistry panel had normal electrolytes however BUN and creatinine were elevated at 19 and 1.2 (baseline serum creatinine appears to be between 0.7 and 1). Her cardiac enzymes were cycled and unremarkable. Her UA was unremarkable. Chest x-ray was unremarkable with no change from previous. CTA of the chest/abdomen/pelvis was performed and showed improving bilateral interstitial pulmonary infiltrates traits versus edema, cardiomegaly and coronary artery disease with increased stool in the colon. In the emergency department she was given IV fluids as no etiology was found to explain her new hypotension and she did not feel she could have accidentally taken more of her blood pressure medication than prescribed. She was admitted to the PCU and an echocardiogram was ordered and showed an EF of 65%, moderate left atrial enlargement and moderate mitral valve annular calcification. With her recent coronary intervention, cardiology was consulted and agreed with holding her blood pressure medications she was noted to be both on lisinopril and Entresto at home. She does have a noted history of atrial fibrillation and was recommended to remain on her beta-annabel for rate control and digoxin was added by cardiology. She remained stable on this throughout her hospitalization and was discouraged on metoprolol at a reduced dose as well as digoxin. Her EF actually was improved from the time she had a coronary stent placed at which time it was noted to be 40% with apical hypokinesis. Her metoprolol was reinitiated but her Entresto and lisinopril were discontinued at the time of discharge. The initial intent was to discharge her home however she had some debility and generalized weakness when she was evaluated by physical therapy and there was concern on her going home living alone and she felt like maybe she could benefit from some therapy as well. Referral was made to the transitional care unit and she was accepted for admission. Pre-CERT was requested and finally obtained on 03/20/2024. The patient is to follow-up with her primary care physician in the next 2 to 4 weeks and with cardiology in 4 weeks. She was discharged to the TCU in stable condition on 03/20/2024. Discharge diagnoses: Orthostatic hypotension-resolved PAF SSS Generalized weakness Chronic systolic heart failure--> improved EF on last echo CAD Hyperlipidemia Physical Exam Const alert, oriented x3, no apparent distress and well nourished; Negative for av erage body habitus Constitutional Narrative: Obese, older, white female, sitting up in a chair at the bedside, appears comfortable and nontoxic, very pleasant, working on her physical therapy exercises while she is watching TV General Appearance: cooperative, comfortable, well kempt and well developed Orientation / Consciousness: awake, oriented to person, oriented to place and oriented to time Exam Limitations: no limitations Nutritional Appearance: obese HEENT normocephalic, head/scalp atraumatic, hearing grossly normal bilaterally and moist oral mucous membranes HEENT Narrative: Mallampati is 2, no thrush, dentures in place Eyes PERRL, EOMs intact bilaterally and conjunctivae normal Eyes Narrative: No scleral icterus Neck no lymphadenopathy and supple Neck Narrative: Trachea midline, no thyroid enlargement, no JVD Resp normal respiratory effort, no retractions, no use of accessory muscles and clear to auscultation bilaterally Auscultation: Negative for rales, rhonchi or wheezes Cardio regular rate, regular rhythm, S1 normal heart sound, S2 normal heart sound, no rub, no gallops and no clicks; Negative for no murmurs Cardio Narrative: 3 out of 6 systolic murmur loudest at left lower sternal border GI normal to inspection, nondistended, normoactive bowel sounds, soft to palpation and non-tender Extremity no clubbing, cyanosis or edema Extremity Narrative: Pedal pulses are 2+ Skin no rashes or lesions noted, no wounds, skin turgor normal and no jaundice Neuro oriented x3, CN's II-XII intact bilaterally, moves all extremities and no focal motor deficits Neuro Narrative: Generalized weakness noted with no focal deficit-proximal greater than distal Speech: speech normal Psych affect normal Psych Narrative: Very pleasant, interacts appropriately, eye contact is good Weight / BMI Weight Weight: 80.6 kg Body Mass Index (BMI) 34.7 ABG / Lab / Microbiology Data 03/18/24 07:25 03/18/24 07:25 Microbiology: Microbiology 03/13/24 16:32 Mucosa - Nasopharyngeal Coronavirus COVID-19 PCR - Final D/C Instructions Discharge Diet: Low fat / Low cholesterol Call your doctor if you observe: Fever of 101 or Higher, Shortness of breath, Fainting spells and Chest pain Please Follow Up With: Nya Baker MD Meaningful Use Info Meaningful Use Meaningful Use Diagnoses (Choose all that apply): None applicable Ischemic Stroke Statin Dosing Therapy Reference: STATIN DOSE THERAPY REFERENCE: * Patients > 75 years receive moderate or high dose statin therapy. * Patients 75 years or YOUNGER should receive HIGH intensity statin dose unless contraindicated. You will be required to document reason for non-treatment if statin daily dose does not meet guidelines. HIGH DOSE STATIN THERAPY DAILY Atorvastatin > than or = to 40 mg Rosuvastatin > than or = to 20 mg Amlodipine + Atorvastatin > than or = to 2.5/40 mg Ezetimibe + Simvastatin 10/80 mg Simvastatin 80mg Discharge Plan Admission Admit Date/Time: 03/13/24 14:13 Primary Reason for Your Visit: Lightheadedness/weakness Attending Provider: Shanna Winslow Primary Care Provider: Milli Man Consulting Providers: Daniel Salazar; Nya Baker; Justin Reid Discharge Orders/Prescriptions Prescriptions: New digoxin 125 mcg (0.125 mg) Tablet 125 mcg PO DAILY Qty: 30 0RF metoprolol tartrate 25 mg Tablet 12.5 mg PO BID Qty: 60 0RF Continued cholecalciferol (vitamin D3) 125 mcg (5,000 unit) capsule 125 mcg PO DAILY ascorbic acid (vitamin C) 1,000 mg capsule 1 g PO DAILY nitroglycerin 0.4 mg tablet, sublingual 0.4 mg sublingual PRN PRN (Reason: angina) atorvastatin 40 mg Tablet 40 mg PO QHS Qty: 30 2RF clopidogrel 75 mg Tablet 75 mg PO DAILY Qty: 30 2RF Xarelto 20 mg tablet 20 mg PO QPM Qty: 90 3RF Rx Instructions: must administer with evening meal Discontinued diltiazem HCl [Cardizem CD] 120 mg capsule,extended release 24hr 120 mg PO DAILY Qty: 30 0RF metoprolol tartrate 25 mg tablet 50 mg PO BID Entresto 24-26 mg tablet 1 tab PO BID spironolactone 25 mg Tablet 12.5 mg PO DAILY Qty: 30 2RF lisinopril 2.5 mg Tablet 2.5 mg PO DAILY Qty: 30 2RF Referrals / Follow Up: Nya Baker MD [Med Staff - Active Staff] - Within 2 Weeks Milli Man MD [Primary Care Provider] - Within 2 Weeks Disposition Disposition (needs filled in before D/C Order can be placed): Nursing Home Facility Charges/Coding Visit Charges Inpatient E&M: 93143 SNF Disch >30 Min
--- NOTE | 2024-03-20 11:17 | CASEMGMT ---
Patient was approved for [facility] TCU. SW notified physician who notified patient. Await orders. Plan: d/c to [facility] TCU under skilled level of care. Merline LOPES
--- NOTE | 2024-03-20 13:15 | CASEMGMT ---
SW spoke with patient and she was pleased she gets to go to TCU today. LETI thanked patient for being so patient while her insurance reviewed her case. Plan: d/c back to [facility] TCU under skilled level of care. Merline LOPES
--- NOTE | 2024-03-20 13:46 | NURSING ---
Report called to Ghislaine in [place]- states to leave IV in.
--- NOTE | 2024-03-20 21:59 | CPS ---
[2150] Pt. typically wears PAP at night. Pt. sleeping comfortably with oxygen saturation of 96%. Pt. politely refused use of PAP machine for the night.
== END 2024-03-20 14:17 | disposition skilled nursing facility (03) | DRG 312 ==
LOC: ED 20:13 → PCU 20:25
PROVIDERS: Internal Medicine; Admitting Provider Family Medicine; Emergency Provider Emergency Medicine; PCP Internal Medicine; Visit Provider Internal Medicine
DX: I95.1 Orthostatic hypotension (principal); I50.32 Chronic diastolic (congestive) heart failure; I49.5 Sick sinus syndrome; I11.0 Hypertensive heart disease with heart failure; I48.0 Paroxysmal atrial fibrillation; I25.10 Atherosclerotic heart disease of native coronary artery without angina pectoris; E78.5 Hyperlipidemia, unspecified; I25.2 Old myocardial infarction; E66.9 Obesity, unspecified; Z68.36 Body mass index [BMI] 36.0-36.9, adult; Z79.01 Long term (current) use of anticoagulants; Z95.5 Presence of coronary angioplasty implant and graft; Z95.0 Presence of cardiac pacemaker; Z79.02 Long term (current) use of antithrombotics/antiplatelets; Z79.82 Long term (current) use of aspirin; Z79.899 Other long term (current) drug therapy
CPT/HCPCS: 36415; 71045; 71275; 74174; 80048; 81001; 83735; 84100; 84484; 85025; 85027; 87635; 93005; 93308; 97110; 97116; 97163; 97166; 97167; 97530; 97535; 99285; J7030; J7050; Q9957; Q9967; A4216; J2405

== ENCOUNTER 2024-03-20 14:18 | Inpatient (IN) | payer MEDICARE, MEDICAID, SELFPAY ==
[2024-03-07 14:54] VITALS: BMI 34.3
[2024-03-20 15:11] VITALS: BP 107/77; PULSE 67; RESP 18; TEMP 36.1; O2SAT 95; BMI 34.9
[2024-03-20] MEDS: Rivaroxaban 20 MG Tablet PO (17:18)
[2024-03-20 21:32] VITALS: BP 90/53
[2024-03-20] MEDS: Atorvastatin Calcium 40 MG Tablet PO (21:32)
--- NOTE | 2024-03-20 21:53 | PCM.HP.STD ---
HPI - General General Date of Admission: 03/20/24 Date of Service: 03/20/24 Chief Complaint: Here for rehabilitation. HPI Narrative 03/12/2024 AGUILAR HILL, is a 73 Female who presents to [facility] ED with generalized weakness, blurred vision. Weak, blurred vision for 1/2 hour. Cardiac rehab, tired afterward, chest heaviness. SOB, stent previously. Normal Saline 1 liter iv bolus. EKG atrial fibrillation with RVR, HR 110 with occasional PVC. Troponin 34, BUN 19, Creatinine 1.2, Urinalysis negative. CTA C/A/P negative. SBP 70 to 100. 03/12/2024 Admit to [facility]. Hold blood pressure medications for hypotension. Gentle IV fluids for hypotension. Continue Plavix, Xarelto for recent cardiac stent. Trend troponin. 03/13/2024 Echo LVEF 65%. LA moderately enlarged. 03/13/2024 Recent NSTEMI, stent placed 01/30/2024. SBP 60's. 03/13/2024 Cardiology recommended considering evaluation of pneumonia. Agree with holding blood pressure lowering medications. 03/14/2024 Blood pressure improved with adjustment of medications. Xarelto for atrial fibrillation. Stop Entresto 2/2 hypotension. 03/15/2024 PT/OT debility. Unable to go home alone. Decrease Metoprolol, add Digoxin for atrial fibrillation. 03/16/2024 Lightheaded with therapy, BP/HR improving. Blood pressure stable, HR controlled. 03/17/2024 Continue Metoprolol, Hold lisinopril, Hold Entresto for orthostasis. Metoprolol, Digoxin, pacemaker for afib with RVR. PT/OT SNF. Hold Entresto, Aldactone, diuretics for HFrEF. EF recovered to 65%. 03/18/2024 Weak all over. Pre-CERT for TCU. Medically stable. 03/19/2024 Still weak. TCU pending Pre-CERT. 03/20/2024 Admit to TCU with debility, here for rehabilitation, strengthening, prior to discharge home alone. [facility] Medical History (Updated 03/20/24 @ 22:[address] Pk Galindo MD) Accelerated hypertension Atherosclerotic heart disease of [place] coronary artery without angina pectoris Atrial fibrillation Atrial fibrillation Chest pain Essential hypertension HLD (hyperlipidemia) Non-STEMI (non-ST elevated myocardial infarction) (01/02/24) Obesity Obstructive sleep apnea Paroxysmal atrial fibrillation Renal insufficiency Sinus node dysfunction Symptomatic bradycardia Home Medications ascorbic acid (vitamin C) 1,000 mg capsule 1 g PO DAILY . 06/20/22 [History Last Taken 03/20/24] cholecalciferol (vitamin D3) 125 mcg (5,000 unit) capsule 125 mcg PO DAILY . 06/20/22 [History Last Taken 03/20/24] rivaroxaban 20 mg tablet (Xarelto) 20 mg PO QPM Blood thinner #90 tabs 07/23/23 [Rx Last Taken 03/19/24] atorvastatin 40 mg tablet 40 mg PO QHS Cholesterol #30 tabs 02/07/24 [Rx Last Taken 03/19/24] clopidogrel 75 mg tablet 75 mg PO DAILY Supplement #30 tabs 02/07/24 [Rx Last Taken 03/20/24] nitroglycerin 0.4 mg sublingual tablet 0.4 mg sublingual PRN PRN angina 03/12/24 [History Last Taken Unknown] digoxin 125 mcg (0.125 mg) tablet 125 mcg PO DAILY Heart #30 tabs 03/14/24 [Rx Last Taken 03/20/24] metoprolol tartrate 25 mg tablet 12.5 mg (1/2 x 25 mg) PO BID BP #60 tabs 03/14/24 [Rx Last Taken 03/20/24] Allergy/AdvReac Type Severity Reaction Status Date / Time aspirin AdvReac Upset Verified 03/12/24 15:50 Stomach flecainide AdvReac unknown Verified 03/12/24 15:50 Family History Mother CVA (cerebral vascular accident) Father Heart disease Surgical History History of permanent cardiac pacemaker placement (06/21/21) Stented coronary artery (01/03/24) Social History household members: none Smoking Status: Never smoker alcohol intake: current alcohol intake frequency: holidays/special occasions only substance use type: does not use ROS Constitutional Constitutional: Reports fatigue and weakness; Denies chills, fever(s) or weight gain ENT HEENT: Denies headache(s), nasal congestion or nasal discharge Cardiovascular Cardiovascular: Denies chest pain or palpitations Respiratory/Chest Respiratory/Chest: Denies cough, excessive phlegm production or shortness of breath with exertion Gastrointestinal Gastrointestinal: Denies abdominal pain, nausea or vomiting Genitourinary Genitourinary: Denies dysuria Musculoskeletal Musculoskeletal: Denies joint pain or joint swelling Integumentary Integumentary: Denies rash or wounds Neurologic Neurologic: Denies focal weakness, numbness or tingling Psychiatric Psychiatric: Denies anxiety, auditory hallucinations, depression, homicidal ideation or suicidal ideation Vital Signs Vital Signs Vital Signs: 03/20/24 15:48 03/20/24 15:11 03/20/24 21:32 Temperature 97.0 F L Temperature Source Temporal Pulse Rate 67 Pulse Rhythm Irregular Pulse Strength Normal (2+) Respiratory Rate 18 Respiratory Effort Normal Non-Labored Respiratory Depth Normal Respiratory Pattern Normal Blood Pressure 107/77 90/53 L Blood Pressure Mean 87 Blood Pressure Source Monitor Blood Pressure Position Sitting Blood Pressure Location Left Forearm Pulse Ox 95 Oxygen Delivery Method Room Air Room Air Weight Weight: 80.6 kg Body Mass Index (BMI) 34.9 Physical Exam Const alert General Appearance: cooperative HEENT normocephalic Eyes PERRL and EOMs intact bilaterally Neck supple, no JVD and no carotid bruits Resp normal respiratory effort, normal air movement and clear to auscultation bilaterally Cardio regular rate and regular rhythm GI normal to inspection, nondistended, normoactive bowel sounds, non-tender and non-distended Extremity normal capillary refill General Extremity: Negative for edema Skin no rashes or lesions noted General Skin Exam: no breakdown Psych affect normal Appearance: appropriate Assessment & Plan Assessment/Plan (1) Debility: (2) Weakness: (3) Orthostatic hypotension: (4) Atrial fibrillation with rapid ventricular response: (5) HFrEF (heart failure with reduced ejection fraction): (6) Non-STEMI (non-ST elevated myocardial infarction): (7) Coronary artery disease: (8) HLD (hyperlipidemia): (9) Sinus bradycardia: PLAN: Plan 73 year old female with below past medical history hospitalized for weakness 2/2 orthostatic hypotension, complicated by atrial fibrillation with RVR, HFrEF, recent NSTEMI s/p stent, admitted to TCU with debility, here for rehabilitation, strengthening, prior to discharge home alone. Debility - PT/OT. Pain - Tylenol 1000mg q6 prn pain (1-10). Bowel - senna/colace 1 tablet bid prn, Dulcolax 10mg pr daily prn. Adult immunization - Administer pneumonia vaccine, covid vaccine, flu vaccine as appropriate. DVT prophylaxis - on Xarelto. Vitamin C deficiency - Vitamin C 1000mg daily. Hyperlipidemia - Atorvastatin 40mg qhs. Vitamin D deficiency - D3 125mcg daily. Coronary artery disease s/p stent - Metoprolol 12.5mg bid, Plavix 75mg daily, NTG 0.4mg sl prn. Atrial fibrillation - Metoprolol 12.5mg bid, Digoxin 125mcg daily, Xarelto 20mg daily. HFrEF - Metoprolol 12.5mg bid. Orthostatic hypotension - still hypotensive, if symptomatic, consider pressors like Midodrine.
[2024-03-21 05:49] LABS: Absolute Lymphocyte Count 1.24 X10^3/uL (0.83-4.51); Absolute Neutrophil Count 1.8 X10^3/uL (2.0-7.7); Basophil# 0.02 X10^3/uL; Basophil% 0.6 % (0-1); Eosinophil# 0.16 X10^3/uL; Eosinophils% 4.6 % (0-5); Hematocrit 36.2 % (37-47); Hemoglobin 12.1 g/dL (12.0-15.0); Lymphocyte # 1.24 X10^3/ul (0.83-4.51); Lymphocyte % 35.7 % (19-41); Mean Corp Hgb Conc 33.4 g/dL (32-36); Mean Corpuscular Hgb 30.7 pg (27.0-32.0); Mean Corpuscular Volume 91.9 fL (81-99); Mean Platelet Vol. 9.6 fl (6.2-12.0); Monocyte# 0.29 X10^3/uL; Monocyte% 8.4 % (0-10); NRBC Flagged by Analyzer 0 % (0-5); Neutrophil # 1.75 X10^3/uL (2.7-7.7); Neutrophil % 50.4 % (47-70); Platelet Count 172 K/mm3 (150-450); RBC Distribution Width CV 14.3 % (11.6-14.6); RBC Distribution Width SD 47.9 fl (35.1-43.9); Red Blood Count 3.94 M/mm3 (4.2-5.4); White Blood Count 3.5 K/mm3 (4.4-11.0)
[2024-03-21 06:36] LABS: Anion Gap 5 (5-15); BUN 18 mg/dL (7-18); BUN/Creat Ratio 16.5 RATIO (10-20); Calcium,Total 8.6 mg/dL (8.5-10.1); Chloride 110 mmol/L (98-107); Creatinine, Serum 1.09 mg/dL (0.55-1.02); EST Glomerular Filtration Rate 52 mL/min (>60); Est Glom Filt Rate - Afr Amer 63 mL/min (>60); Estimated Creatinine Clearance 42.56 ml/min; Glucose 110 mg/dL (74-106); Potassium 3.8 mmol/L (3.5-5.1); Sodium Level 142 mmol/L (136-145)
--- NOTE | 2024-03-21 08:37 | NS ---
MST score = 2
[2024-03-21 09:17] VITALS: BP 105/69; PULSE 76
[2024-03-21] MEDS: Metoprolol Tartrate 25 MG Tablet 12.5 MG PO ×2 (09:17→21:59)
[2024-03-21] MEDS: Clopidogrel Bisulfate 75 MG Tablet PO (09:17)
[2024-03-21] MEDS: Ascorbic Acid 500 MG Tablet 1000 MG PO (09:17)
[2024-03-21] MEDS: Cholecalciferol (Vit D3) 125 MCG CAPSULE (5,000 UNITS) PO (09:17)
[2024-03-21] MEDS: Digoxin 125 MCG Tablet PO (09:17)
[2024-03-21 10:00] VITALS: O2SAT 98
[2024-03-21] MEDS: Tuberculin,Purif.prot.deriv. 50 TU/ML Vial 0.1 ML ID (10:13)
--- NOTE | 2024-03-21 12:40 | NURSING ---
Clinical Care Coordinator Note: Activity Asset: Khadar Arana will also go by CC. CC is independent in her choice of daily activities. She enjoys talking w/people and spending time w/her family. She stated she is ex Jewish and takes care of her brother whom has cancer. She watches tv, read and enjoys crossword puzzle and will use her smartphone to play puzzle games. CC is very pleasant and welcomes visits from the wood scrap handler and therapy dog when available. Staff will continue to remind her of weekly activities and respect her right to say no.
--- NOTE | 2024-03-21 14:09 | PCM.PN.DRR ---
TCU RX Drug Regimen Review Subjective/Objective Subjective/Objective: Subjective: 73 YOF female admitted to TCU 03/20/24 secondary to hospitalization for hypotension. Hospitalization course eventually lead to weakness, inability to go home safely. Patient admitted to TCU for strengthening and rehabilitation prior to discharge home where she resides alone. Objective: Allergies aspirin Adverse Reaction (Verified 03/12/24 15:50) Upset Stomach flecainide Adverse Reaction (Verified 03/12/24 15:50) unknown Current Medications Generic Name Dose Route Start Last Admin Trade Name Freq PRN Reason Stop Dose Admin Acetaminophen 1,000 mg 03/20/24 22:08 Acetaminophen 500 Mg Tablet PO Q6H PRN PRN Pain Score 1-10 Ascorbic Acid 1,000 mg 03/21/24 10:00 03/21/24 09:17 Ascorbic Acid 500 Mg Tablet PO 1,000 mg DAILY ASHLEY Administration Atorvastatin Calcium 40 mg 03/20/24 22:00 03/20/24 21:32 Atorvastatin Calcium 40 Mg Tablet PO 40 mg QHS ASHLEY Administration Bisacodyl 10 mg 03/20/24 15:13 Bisacodyl 10 Mg Suppository RC DAILY PRN CONSTIPATION Cholecalciferol 125 mcg 03/21/24 10:00 03/21/24 09:17 Cholecalciferol (Vit D3) 125 Mcg Capsule (5,000 Units) PO 125 mcg DAILY ASHLEY Administration Clopidogrel Bisulfate 75 mg 03/21/24 10:00 03/21/24 09:17 Clopidogrel Bisulfate 75 Mg Tablet PO 75 mg DAILY ASHLEY Administration Digoxin 125 mcg 03/21/24 10:00 03/21/24 09:17 Digoxin 125 Mcg Tablet PO 125 mcg DAILY ASHLEY Administration Metoprolol Tartrate 12.5 mg 03/20/24 22:00 03/21/24 09:17 Metoprolol Tartrate 25 Mg Tablet PO 12.5 mg BID ASHLEY Administration Protocol Nitroglycerin 0.4 mg 03/20/24 15:29 Nitroglycerin (Inpatient Use) 0.4 Mg Tab.Subl SL PRN PRN CARDIAC/CHEST PAIN Rivaroxaban 20 mg 03/20/24 17:00 03/20/24 17:18 Rivaroxaban 20 Mg Tablet PO 20 mg DAILY@1700 ASHLEY Administration Senna/Docusate Sodium 1 tablet 03/20/24 22:08 Senna/Docusate Sodium 1 Tablet PO BID PRN PRN Constipation Sodium Chloride 10 - 40 ml 04/25/24 15:19 0.9% Saline Lock 10 Ml Syringe IV UD PRN SALINE FLUSH Tuberculin PPD 0.1 ml 03/28/24 10:00 Tuberculin,Purif.Prot.Deriv. 50 Tu/Ml Vial ID 03/28/24 10:01 X1 ONE Problem List (Updated 03/20/24 @ 22:[address] Pk Galindo MD) Sinus bradycardia (Acute) HLD (hyperlipidemia) (Acute) Coronary artery disease (Acute) HFrEF (heart failure with reduced ejection fraction) (Acute) Atrial fibrillation with rapid ventricular response (Acute) Orthostatic hypotension (Acute) Debility (Acute) Weakness (Acute) Non-STEMI (non-ST elevated myocardial infarction) (Acute 01/02/24) Vital Signs Temp Pulse Resp BP Pulse Ox O2 Del Method 97.0 F L 76 18 105/69 98 Room Air 03/20/24 15:11 03/21/24 09:17 03/20/24 15:11 03/21/24 09:17 03/21/24 10:00 03/21/24 10:00 Oxygen Delivery Method Room Air Weight: 80.6 kg Body Mass Index (BMI) 34.9 Sodium 142 mmol/L (136-145) 03/21/24 05:10 Potassium 3.8 mmol/L (3.5-5.1) 03/21/24 05:10 Chloride 110 mmol/L (98-107) H 03/21/24 05:10 Carbon Dioxide 27.0 mmol/L (21.0-32.0) 03/21/24 05:10 Anion Gap 5 (5-15) 03/21/24 05:10 BUN 18 mg/dL (7-18) 03/21/24 05:10 Creatinine 1.09 mg/dL (0.55-1.02) H 03/21/24 05:10 Est GFR (MDRD) Af Amer 63 mL/min (>60) 03/21/24 05:10 Est GFR (MDRD) Non-Af 52 mL/min (>60) L 03/21/24 05:10 BUN/Creatinine Ratio 16.5 RATIO (10-20) 03/21/24 05:10 Glucose 110 mg/dL (74-106) H 03/21/24 05:10 Assessment/Plan: 1. Pain: Tylenol 1000mg PO Q6h PRN pain 1-10. Please continue to monitor for increased/decreased S/S pain, PRN medication usage. - To date, the patient has not required any PRN doses of medication. Patient's pain appears managed at this time. 2. CAD/CHF/HLD/ Afib: Lipitor 40mg PO QHS, Plavix 75mg PO Daily, Digoxin 125mcg PO Daily, Lopressor 12.5mg PO BID, Xarelto 20mg PO Daily, Nitrostat PRN. Please continue to monitor HR (last 76), BP (last 105/69), S/S bleeding/bruising, H/H (hgb 12.1, Hct 36.2% on 03/21), lipid panel annually (last done 02/16, labs WNL) 3. Orthostatic Hypotension: Not on medications at this time. Please continue to monitor closely given pt on several meds which can cause this. Please also encourage patient to sit/stand slowly to help avoid this as well, thank you. 4. General Wellness: Ascorbic acid 1000mg PO daily, Vitamin D 125mcg PO Daily. 5. Bowel: Senna/Docusate 1 tab PO BID PRN, Dulcolax 10mg DE daily PRN. Please continue to monitor for S/S increased/decreased constipation and/or diarrhea. - The patient has not had a BM since admission, however it has been <48hrs since admission. Consider giving PRN meds if pt doesn't have a BM in the next 48hrs. Assessment/Plan for indications treated with psychotropic medications: -The patient is not currently maintained on any psychotropic medications at time of medication list review. Medical chart and medication regimen reviewed. The following medication irregularities or issues were identified: -No irregularities identified at time of dc medlist review. Date Date of Note:: 03/21/24
--- NOTE | 2024-03-21 16:34 | CASEMGMT ---
Social Work SW met with patient at bedside to complete initial intake assessment. SW introduced self and role. Patient confirmed demographics and family contact information. Patient informed SW code status is Full Code. Patient has advanced directive with sons, Yordy and Eladio De La Torre listed POA. Patient informed SW that she will notify son to provide copy of AD and living will. Prior to hospital admission, patient was independent to complete ADLS. Patient has goals to return home independent to obtain outpatient rehabilitation. SW educated patient of [employer] Medicare benefits and copay coverage; NRD is 04/01/2024. Patient has goal to discharge prior to NRD. SW will continue to follow for discharge [facility]
[2024-03-21] MEDS: Rivaroxaban 20 MG Tablet PO (17:07)
[2024-03-21 21:59] VITALS: BP 108/66; PULSE 67
[2024-03-21 22:00] VITALS: BP 108/66; PULSE 67; RESP 16; TEMP 36.2; O2SAT 96
[2024-03-21] MEDS: Atorvastatin Calcium 40 MG Tablet PO (22:00)
[2024-03-21] MEDS: 0.9% Saline Lock 10 ML Syringe IV (22:02)
[2024-03-22 10:20] VITALS: BP 118/68; PULSE 64; RESP 18; TEMP 36.4; O2SAT 97
[2024-03-22 10:23] VITALS: PULSE 64
[2024-03-22] MEDS: Metoprolol Tartrate 25 MG Tablet 12.5 MG PO ×2 (10:23→21:24)
[2024-03-22] MEDS: Cholecalciferol (Vit D3) 125 MCG CAPSULE (5,000 UNITS) PO (10:23)
[2024-03-22 10:24] VITALS: PULSE 64
[2024-03-22] MEDS: Digoxin 125 MCG Tablet PO (10:24)
[2024-03-22] MEDS: Clopidogrel Bisulfate 75 MG Tablet PO (10:24)
[2024-03-22] MEDS: Ascorbic Acid 500 MG Tablet 1000 MG PO (10:25)
[2024-03-22] MEDS: Rivaroxaban 20 MG Tablet PO (17:54)
[2024-03-22 19:50] VITALS: PULSE 78; O2SAT 98
[2024-03-22] MEDS: Atorvastatin Calcium 40 MG Tablet PO (21:23)
[2024-03-22 21:24] VITALS: BP 109/64; PULSE 79
[2024-03-23 07:50] VITALS: BP 133/77; PULSE 60
[2024-03-23] MEDS: Digoxin 125 MCG Tablet PO (07:50)
[2024-03-23] MEDS: Ascorbic Acid 500 MG Tablet 1000 MG PO (07:51)
[2024-03-23] MEDS: Clopidogrel Bisulfate 75 MG Tablet PO (07:51)
[2024-03-23 07:52] VITALS: BP 133/77; PULSE 60
[2024-03-23] MEDS: Metoprolol Tartrate 25 MG Tablet 12.5 MG PO ×2 (07:52→22:44)
[2024-03-23] MEDS: Cholecalciferol (Vit D3) 125 MCG CAPSULE (5,000 UNITS) PO (07:52)
[2024-03-23 10:00] VITALS: BP 133/77; PULSE 60; O2SAT 92
[2024-03-23 16:00] VITALS: PULSE 64; RESP 16; TEMP 36.2
[2024-03-23] MEDS: Rivaroxaban 20 MG Tablet PO (17:45)
[2024-03-23 22:44] VITALS: BP 107/61; PULSE 60
[2024-03-23] MEDS: Atorvastatin Calcium 40 MG Tablet PO (22:44)
--- NOTE | 2024-03-24 09:57 | NURSING ---
Offered covid vaccine, VIS provided. Patient refuses at this time.
[2024-03-24 10:12] VITALS: BP 148/77; PULSE 61
[2024-03-24] MEDS: Cholecalciferol (Vit D3) 125 MCG CAPSULE (5,000 UNITS) PO (10:12)
[2024-03-24] MEDS: Digoxin 125 MCG Tablet PO (10:12)
[2024-03-24] MEDS: Clopidogrel Bisulfate 75 MG Tablet PO (10:12)
[2024-03-24 10:14] VITALS: BP 148/77; PULSE 61
[2024-03-24] MEDS: Metoprolol Tartrate 25 MG Tablet 12.5 MG PO ×2 (10:14→21:13)
[2024-03-24] MEDS: Ascorbic Acid 500 MG Tablet 1000 MG PO (10:15)
[2024-03-24 15:26] VITALS: BP 114/75; PULSE 64; RESP 12; TEMP 36.3; O2SAT 94
--- NOTE | 2024-03-24 16:32 | CASEMGMT ---
Social Work SW received notification from therapy staff that the patient is requesting discharge on 03/28/2024. SW met with patient to discuss discharge. Patient informed SW that she would like to discharge on 03/28/2024 prior to appointment with [facility] Physician in [place], [place] at 1445. Patient informed SW that her daughter will be coming into town from [place] to assist with care. Patient informed SW that her daughter or granddaughter will provide transportation at discharge. SW inquired about discharge plan. Patient informed SW that she would like to resume outpatient therapy via Cardiac rehab. Patient informed SW that she has spoke with her sap director and rehabilitation team. Patient will independently arrange outpatient follow up. Discharge: Home with outpatient cardiac rehab 03/28/2024 [facility]
[2024-03-24] MEDS: Rivaroxaban 20 MG Tablet PO (18:03)
--- NOTE | 2024-03-24 20:07 | DS.PCM_ITS ---
Providers Date of Admission: 03/20/24 Primary Care Physician: Dr. Milli Man MD Reason For Visit: HYPOTENSION Diagnosis Discharge Diagnosis (1) Debility: Status: Acute Code(s): R53.81 - Other malaise (2) Weakness: Status: Acute Code(s): R53.1 - Weakness (3) Orthostatic hypotension: Status: Acute Code(s): I95.1 - Orthostatic hypotension (4) Atrial fibrillation with rapid ventricular response: Status: Acute Code(s): I48.91 - Unspecified atrial fibrillation (5) HFrEF (heart failure with reduced ejection fraction): Status: Acute Code(s): I50.20 - Unspecified systolic (congestive) heart failure (6) Non-STEMI (non-ST elevated myocardial infarction): Status: Acute Code(s): I21.4 - Non-ST elevation (NSTEMI) myocardial infarction (7) Coronary artery disease: Status: Acute Code(s): I25.10 - Atherosclerotic heart disease of [place] coronary artery without angina pectoris (8) HLD (hyperlipidemia): Status: Acute Code(s): E78.5 - Hyperlipidemia, unspecified (9) Sinus bradycardia: Status: Acute Code(s): R00.1 - Bradycardia, unspecified Plan 73 year old female with below past medical history hospitalized for weakness 2/2 orthostatic hypotension, complicated by atrial fibrillation with RVR, HFrEF, recent NSTEMI s/p stent, admitted to TCU with debility, here for rehabilitation, strengthening, prior to discharge home alone. * Debility - PT/OT. * Pain - Tylenol 1000mg q6 prn pain (1-10). * Bowel - senna/colace 1 tablet bid prn, Dulcolax 10mg pr daily prn. * Adult immunization - Administer pneumonia vaccine, covid vaccine, flu vaccine as appropriate. * DVT prophylaxis - on Xarelto. * Vitamin C deficiency - Vitamin C 1000mg daily. * Hyperlipidemia - Atorvastatin 40mg qhs. * Vitamin D deficiency - D3 125mcg daily. * Coronary artery disease s/p stent - Metoprolol 12.5mg bid, Plavix 75mg daily, NTG 0.4mg sl prn. * Atrial fibrillation - Metoprolol 12.5mg bid, Digoxin 125mcg daily, Xarelto 20mg daily. * HFrEF - Metoprolol 12.5mg bid. * Orthostatic hypotension - still hypotensive, if symptomatic, consider pressors like Midodrine. Medications at Discharge Home Medications ascorbic acid (vitamin C) 1,000 mg capsule 1 g PO DAILY . 06/20/22 cholecalciferol (vitamin D3) 125 mcg (5,000 unit) capsule 125 mcg PO DAILY . 06/20/22 rivaroxaban 20 mg tablet (Xarelto) 20 mg PO QPM Blood thinner #90 tabs 07/23/23 atorvastatin 40 mg tablet 40 mg PO QHS Cholesterol #30 tabs 02/07/24 clopidogrel 75 mg tablet 75 mg PO DAILY Supplement #30 tabs 02/07/24 nitroglycerin 0.4 mg sublingual tablet 0.4 mg sublingual PRN PRN angina 03/12/24 digoxin 125 mcg (0.125 mg) tablet 125 mcg PO DAILY 30 days #30 tabs 03/24/24 metoprolol tartrate 25 mg tablet 12.5 mg (1/2 x 25 mg) PO BID 30 days #30 tabs 03/24/24 Hospital Course Operations None Procedures None Summary of Care Provided Minutes Spent on Discharge: 35 Hospital Course: 73 year old female with below past medical history hospitalized for weakness 2/2 orthostatic hypotension, complicated by atrial fibrillation with RVR, HFrEF, recent NSTEMI s/p stent, admitted to TCU with debility, here for rehabilitation, strengthening, prior to discharge home alone. Discharge home alone with family support 03/28/2024, resume Cardiac rehab. Physical Exam Const alert General Appearance: cooperative HEENT normocephalic Eyes PERRL and EOMs intact bilaterally Neck supple, no JVD and no carotid bruits Resp normal respiratory effort, normal air movement and clear to auscultation bilaterally Cardio regular rate and regular rhythm GI normal to inspection, nondistended, normoactive bowel sounds, non-tender and non-distended Extremity normal capillary refill General Extremity: Negative for edema Skin no rashes or lesions noted General Skin Exam: no breakdown Psych affect normal Appearance: appropriate Weight / BMI Weight Weight: 80.6 kg Body Mass Index (BMI) 34.9 ABG / Lab / Microbiology Data 03/21/24 05:10 03/21/24 05:10 D/C Instructions Discharge Diet: No restrictions Discharge Activity: Return to Normal Activity, May Shower and Use Walker Weight Bearing Status: Weight bearing as tolerated Call your doctor if you observe: Fever of 101 or Higher, Inability to urinate, Inability to have a bowel movement, Shortness of breath, Dizziness, Fainting spells, Swelling in the ankles, Chest pain and Uncontrolled pain Additional Instructions: Discharge home alone with family support 03/28/2024, resume Cardiac rehab. Please Follow Up With: Mario Christianson MD When: As scheduled. Meaningful Use Info Meaningful Use Meaningful Use Diagnoses (Choose all that apply): None applicable Ischemic Stroke Statin Dosing Therapy Reference: STATIN DOSE THERAPY REFERENCE: * Patients > 75 years receive moderate or high dose statin therapy. * Patients 75 years or YOUNGER should receive HIGH intensity statin dose unless contraindicated. You will be required to document reason for non-treatment if statin daily dose does not meet guidelines. HIGH DOSE STATIN THERAPY DAILY Atorvastatin > than or = to 40 mg Rosuvastatin > than or = to 20 mg Amlodipine + Atorvastatin > than or = to 2.5/40 mg Ezetimibe + Simvastatin 10/80 mg Simvastatin 80mg Discharge Plan Admission Admit Date/Time: 03/20/24 14:18 Primary Reason for Your Visit: Debility. Attending Provider: Pk Galindo Chi Primary Care Provider: Milli Man Instructions Additional Instructions / Restrictions: Resumption of care for Outpatient Cardiac Rehabilitation Discharge home alone with family support 03/28/2024, resume Cardiac rehab. Discharge Orders/Prescriptions Prescriptions: New digoxin 125 mcg (0.125 mg) Tablet 125 mcg PO DAILY 30 Days Qty: 30 0RF metoprolol tartrate 25 mg Tablet 12.5 mg PO BID 30 Days Qty: 30 0RF Continued cholecalciferol (vitamin D3) 125 mcg (5,000 unit) capsule 125 mcg PO DAILY ascorbic acid (vitamin C) 1,000 mg capsule 1 g PO DAILY nitroglycerin 0.4 mg tablet, sublingual 0.4 mg sublingual PRN PRN (Reason: angina) atorvastatin 40 mg Tablet 40 mg PO QHS Qty: 30 2RF clopidogrel 75 mg Tablet 75 mg PO DAILY Qty: 30 2RF Xarelto 20 mg tablet 20 mg PO QPM Qty: 90 3RF Rx Instructions: must administer with evening meal Discontinued digoxin 125 mcg (0.125 mg) Tablet 125 mcg PO DAILY Qty: 30 0RF metoprolol tartrate 25 mg Tablet 12.5 mg PO BID Qty: 60 0RF Referrals / Follow Up: Milli Man MD [Primary Care Provider] - (CC will set this appointment up ) Disposition Disposition (needs filled in before D/C Order can be placed): Home, Self Care
[2024-03-24 21:13] VITALS: BP 113/56; PULSE 61
[2024-03-24] MEDS: Atorvastatin Calcium 40 MG Tablet PO (21:13)
[2024-03-25 08:06] VITALS: BP 143/72; PULSE 95
[2024-03-25 08:08] VITALS: PULSE 95
[2024-03-25] MEDS: Cholecalciferol (Vit D3) 125 MCG CAPSULE (5,000 UNITS) PO (08:08)
[2024-03-25] MEDS: Ascorbic Acid 500 MG Tablet 1000 MG PO (08:08)
[2024-03-25] MEDS: Metoprolol Tartrate 25 MG Tablet 12.5 MG PO ×2 (08:08→20:52)
[2024-03-25 08:09] VITALS: PULSE 95
[2024-03-25] MEDS: Digoxin 125 MCG Tablet PO (08:09)
[2024-03-25] MEDS: Clopidogrel Bisulfate 75 MG Tablet PO (08:09)
[2024-03-25 08:51] VITALS: BMI 33.9
[2024-03-25 09:33] VITALS: PULSE 70
[2024-03-25 13:05] VITALS: BP 109/66; PULSE 76; RESP 16; TEMP 36.4; O2SAT 95
[2024-03-25] MEDS: Rivaroxaban 20 MG Tablet PO (17:55)
[2024-03-25 20:52] VITALS: BP 108/60; PULSE 75
[2024-03-25] MEDS: Atorvastatin Calcium 40 MG Tablet PO (20:52)
--- NOTE | 2024-03-26 09:05 | CASEMGMT ---
Social Work IDT met with patient and sonEladio at bedside to complete care plan meeting. Discussed patient progress with therapy PT/OT, dietary, activity and nursing. Patient progressed with therapy; appropriate recommendation for independent ambulation and outpatient therapy. Patient will requires shower seat and long handle shower head. Patient ambulating 200ft before requiring stop. SW educated patient and family of [employer] Medicare; NRD 04/01. Patient anticipates discharge prior to next review date. Patient would like to discharge home with outpatient cardiac rehab. Patient informed team that she has 36 more sessions for cardiac rehab. Patient anticipates discharge on 03/28 between 11-1PM. Patient's daughter or granddaughter will provide transportation to appointment. Patient arranged PCP medical follow up appointment on 04/03. Discharge: Home with Cardiac Rehab [facility]
[2024-03-26 10:08] VITALS: BP 129/79; PULSE 93; RESP 16; TEMP 36.7; O2SAT 94
[2024-03-26 10:10] VITALS: PULSE 93; PULSE 97
[2024-03-26] MEDS: Digoxin 125 MCG Tablet PO (10:10)
[2024-03-26] MEDS: Metoprolol Tartrate 25 MG Tablet 12.5 MG PO ×2 (10:10→20:52)
[2024-03-26] MEDS: Clopidogrel Bisulfate 75 MG Tablet PO (10:11)
[2024-03-26] MEDS: Ascorbic Acid 500 MG Tablet 1000 MG PO (10:11)
[2024-03-26] MEDS: Cholecalciferol (Vit D3) 125 MCG CAPSULE (5,000 UNITS) PO (10:11)
[2024-03-26] MEDS: Rivaroxaban 20 MG Tablet PO (18:03)
--- NOTE | 2024-03-26 18:03 | CASEMGMT ---
Social Work SW met with patient at bedside to complete MDS. Patient BIM () and PhQ-2 (0/0). Patient denies any concerns at this time. Patient anticipates discharge on 03/28/2024 with family transportation. Discharge: Home with resumption of outpatient cardiac rehab [facility]
[2024-03-26 20:52] VITALS: BP 106/63; PULSE 71
[2024-03-26] MEDS: Atorvastatin Calcium 40 MG Tablet PO (20:53)
[2024-03-27] MEDS: Ascorbic Acid 500 MG Tablet 1000 MG PO (09:34)
[2024-03-27 09:35] VITALS: BP 125/78; PULSE 70
[2024-03-27] MEDS: Clopidogrel Bisulfate 75 MG Tablet PO (09:35)
[2024-03-27] MEDS: Cholecalciferol (Vit D3) 125 MCG CAPSULE (5,000 UNITS) PO (09:35)
[2024-03-27] MEDS: Digoxin 125 MCG Tablet PO (09:35)
[2024-03-27] MEDS: Metoprolol Tartrate 25 MG Tablet 12.5 MG PO ×2 (09:35→22:59)
[2024-03-27 10:00] VITALS: O2SAT 94
[2024-03-27 13:47] VITALS: BP 121/64; PULSE 64; RESP 16; TEMP 36; O2SAT 94
[2024-03-27] MEDS: Rivaroxaban 20 MG Tablet PO (16:58)
[2024-03-27] MEDS: Atorvastatin Calcium 40 MG Tablet PO (22:58)
[2024-03-27 22:59] VITALS: BP 108/59; PULSE 70
[2024-03-28 06:03] LABS: Absolute Lymphocyte Count 1.59 X10^3/uL (0.83-4.51); Absolute Neutrophil Count 1.6 X10^3/uL (2.0-7.7); Basophil# 0.02 X10^3/uL; Basophil% 0.5 % (0-1); Eosinophil# 0.19 X10^3/uL; Hematocrit 35.3 % (37-47); Hemoglobin 11.6 g/dL (12.0-15.0); Lymphocyte # 1.59 X10^3/ul (0.83-4.51); Lymphocyte % 41.7 % (19-41); Mean Corp Hgb Conc 32.9 g/dL (32-36); Mean Corpuscular Hgb 30.9 pg (27.0-32.0); Mean Corpuscular Volume 93.9 fL (81-99); Mean Platelet Vol. 10.1 fl (6.2-12.0); Monocyte# 0.37 X10^3/uL; Monocyte% 9.7 % (0-10); NRBC Flagged by Analyzer 0 % (0-5); Neutrophil # 1.63 X10^3/uL (2.7-7.7); Neutrophil % 42.8 % (47-70); Platelet Count 199 K/mm3 (150-450); RBC Distribution Width CV 14.6 % (11.6-14.6); RBC Distribution Width SD 50.4 fl (35.1-43.9); Red Blood Count 3.76 M/mm3 (4.2-5.4); White Blood Count 3.8 K/mm3 (4.4-11.0)
[2024-03-28 06:32] LABS: Anion Gap 3 (5-15); BUN 16 mg/dL (7-18); BUN/Creat Ratio 16.2 RATIO (10-20); Chloride 110 mmol/L (98-107); Creatinine, Serum 0.99 mg/dL (0.55-1.02); EST Glomerular Filtration Rate 58 mL/min (>60); Est Glom Filt Rate - Afr Amer 70 mL/min (>60); Glucose 112 mg/dL (74-106); Potassium 4.2 mmol/L (3.5-5.1); Sodium Level 141 mmol/L (136-145)
--- NOTE | 2024-03-28 08:07 | NURSING ---
School Photograph Editor Note; MDS for 03/27/2024 Complete
[2024-03-28 08:21] VITALS: BP 109/64; PULSE 61
[2024-03-28] MEDS: Digoxin 125 MCG Tablet PO (08:21)
[2024-03-28 08:22] VITALS: BP 109/64; PULSE 61
[2024-03-28] MEDS: Metoprolol Tartrate 25 MG Tablet 12.5 MG PO (08:22)
[2024-03-28] MEDS: Cholecalciferol (Vit D3) 125 MCG CAPSULE (5,000 UNITS) PO (08:23)
[2024-03-28] MEDS: Clopidogrel Bisulfate 75 MG Tablet PO (08:23)
[2024-03-28] MEDS: Ascorbic Acid 500 MG Tablet 1000 MG PO (08:23)
[2024-03-28 12:14] VITALS: BP 129/76; PULSE 57; RESP 16; TEMP 36.6; O2SAT 97
--- NOTE | 2024-04-01 13:59 | MDS.RN ---
Information for the MDS was obtained from review of the clinical record, interview of resident, staff, and direct observation of resident?s care.
== END 2024-03-28 12:15 | disposition home or self-care (01) | DRG 281 ==
PROVIDERS: Admitting Provider Family Medicine Geriatric Medicine; PCP Internal Medicine; Referring Provider Family Medicine Geriatric Medicine; Visit Provider Family Medicine Geriatric Medicine
DX: I95.1 Orthostatic hypotension (principal); I21.4 Non-ST elevation (NSTEMI) myocardial infarction; I50.22 Chronic systolic (congestive) heart failure; I11.0 Hypertensive heart disease with heart failure; I48.0 Paroxysmal atrial fibrillation; E55.9 Vitamin D deficiency, unspecified; E78.5 Hyperlipidemia, unspecified; I25.10 Atherosclerotic heart disease of native coronary artery without angina pectoris; G47.33 Obstructive sleep apnea (adult) (pediatric); Z79.01 Long term (current) use of anticoagulants; Z95.5 Presence of coronary angioplasty implant and graft; Z79.02 Long term (current) use of antithrombotics/antiplatelets; Z79.899 Other long term (current) drug therapy; Z95.0 Presence of cardiac pacemaker
CPT/HCPCS: 36415; 80048; 85025; 97110; 97116; 97161; 97166; 97530; 97535; A4216

== ENCOUNTER 2024-04-18 10:15 | Outpatient (RCR) | payer MEDICARE, MEDICAID, SELFPAY ==
[2024-03-07 14:54] VITALS: BMI 34.3
--- NOTE | 2024-04-04 09:13 | PCM.CR.ITP ---
Exercise - Initial Assessment Visit Comments:: Patient was admitted to the hospital and transferred to Transitional Care Unit from 03/13/24 through 03/31/2024. She returned to cardiac rehab on 04/02/2024. Psychosocial - Initial Assess Target Goals Target Goals Nutrition Survey Nutrition Survey Instructions Scoring Instructions Exercise - 30-day Assessment Visit Date of Eval: 04/04/24 Session #:: 4 Comments:: Patient was admitted to the hospital and transferred to Transitional Care Unit from 03/13/24 through 03/31/2024. She returned to cardiac rehab on 04/02/2024. Psychosocial - 30-Day Assess Target Goals Target Goals Psychosocial - 60-Day Assess Target Goals Target Goals Psychosocial - 90-Day Assess Target Goals Target Goals Psychosocial - Final Assessmen Target Goals Target Goals
== END 2024-04-25 23:59 ==
LOC: CR 10:15
PROVIDERS: PCP Internal Medicine; Visit Provider Internal Medicine Cardiovascular Disease
DX: I21.4 Non-ST elevation (NSTEMI) myocardial infarction (principal); I10 Essential (primary) hypertension
CPT/HCPCS: 93798

== ENCOUNTER 2024-04-28 11:57 | Outpatient (RCR) | payer MEDICARE, MEDICAID, SELFPAY ==
[2024-03-07 14:54] VITALS: BMI 34.3
--- NOTE | 2024-05-07 08:33 | PCM.CR.ITP ---
Exercise - Initial Assessment Visit Session #:: 9 (Patient was placed on medical hold to care for her .) Comments:: 04/23/2024 patient was placed on medical hold to care for her . Psychosocial - Initial Assess Target Goals Target Goals Nutrition Survey Nutrition Survey Instructions Scoring Instructions Exercise - 30-day Assessment Visit Date of Eval: 05/07/24 Session #:: 9 Comments:: 04/23/2024 patient was placed on medical hold to care for her . Nutrition - 30-Day Assessment Program Goals Nutrition Program Goals Patient has diagnosis of Hyperlipidemia (ICD E78)?: Yes Visit Date of Eval: 05/07/24 Session #:: 9 (Patient was placed on medical hold to care for her .) Core - 30-Day Assessment Visit Date of Eval: 05/07/24 Session #:: 9 (Patient was placed on medical hold to care for her .) Psychosocial - 30-Day Assess VIsit Date of Eval: 05/07/24 Session #:: 9 (Patient was placed on medical hold to care for her ) Not Applicable: Yes History of previous Mental disease:: No Target Goals Target Goals Psychosocial - 60-Day Assess Target Goals Target Goals Psychosocial - 90-Day Assess Target Goals Target Goals Psychosocial - Final Assessmen Target Goals Target Goals
== END 2024-05-25 23:59 ==
LOC: CR 11:57
PROVIDERS: PCP Internal Medicine; Visit Provider Internal Medicine Cardiovascular Disease
DX: I21.4 Non-ST elevation (NSTEMI) myocardial infarction (principal); I10 Essential (primary) hypertension

== ENCOUNTER 2024-05-26 08:11 | Outpatient (RCR) | payer MEDICARE, MEDICAID, SELFPAY ==
[2024-03-07 14:54] VITALS: BMI 34.3
== END 2024-06-25 23:59 ==
LOC: CR 08:11
PROVIDERS: PCP Internal Medicine; Visit Provider Internal Medicine Cardiovascular Disease
DX: I21.4 Non-ST elevation (NSTEMI) myocardial infarction (principal); I10 Essential (primary) hypertension
CPT/HCPCS: 93798